=== PATIENT | female | born 1950 | race Caucasian/White ===

== ENCOUNTER 2023-03-28 17:01 | Emergency (ER) | payer MEDICARE, OTHER, SELFPAY ==
[2023-03-28 17:12] VITALS: BP 165/70; PULSE 82; RESP 12; TEMP 36.8; O2SAT 95; BMI 29.2
--- NOTE | 2023-03-28 17:27 | ED.HEATRA1 ---
Documented by User: LAUREANO Caban 03/28/23 18:21 HPI - Head Injury General Chief complaint: Head Injury Stated complaint: HEAD INJURY Time Seen by Provider: 03/28/23 17:21 Source: patient Mode of arrival: walk-in Limitations: no limitations History of Present Illness HPI Narrative: patient is a 73-year-old female who presents to the emergency department because she fell and hit her head. Patient states she was gardening with her and she stepped back and tripped on a stone that was sitting in the grass and she fell, hitting her head on the sidewalk. She sustained a hematoma to the back of the skull. She denies any loss of consciousness, neck or back pain. She is on a baby aspirin daily. She has not had any vomiting. She is able to ambulate. She denies any extremity injuries. No visual changes. Related Data Home Medications Medication Instructions Recorded Confirmed aspirin 81 mg tablet,delayed 81 mg PO .every other day 03/28/23 03/28/23 release (Adult Aspirin Regimen) fluticasone propionate 50 2 spray intranasal DAILY 03/28/23 03/28/23 mcg/actuation nasal spray,suspension hydrochlorothiazide 25 mg tablet 25 mg PO DAILY 03/28/23 03/28/23 irbesartan 150 mg tablet 150 mg PO DAILY 03/28/23 03/28/23 rosuvastatin 10 mg tablet 10 mg PO QDAY 03/28/23 03/28/23 sertraline 100 mg tablet 100 mg PO QDAY 03/28/23 03/28/23 Allergies Allergy/AdvReac Type Severity Reaction Status Date / Time No Known Drug Allergies Allergy Verified 03/28/23 17:08 Review of Systems ROS Constitutional Denies: fever or chills Eyes Denies: change in vision Cardiovascular Denies: chest pain Respiratory Denies: shortness of breath or cough Gastrointestinal Denies: nausea or vomiting Musculoskeletal Denies: back pain or neck pain Integumentary/Breast Denies: rash Neurological Reports: headache PFSH PFSH Social History Smoking status: Never smoker Exam Narrative Exam Narrative: Gen.: Awake, alert, in no distress Head: Normocephalic, large occipital hematoma with abrasion to the left posterior skull. No Salgado sign or raccoon eyes ENT: Moist mucous membranes, no dental injury or epistaxis Respiratory: No respiratory distress Back: No bony tenderness of the C-spine, T-spine or L-spine Extremities: Moves extremities equally, no injuries noted Psych: Normal mood and affect Neuro: No focal neuro deficit Skin: Warm, dry, intact Constitutional Vital Signs, click to edit/add: Last Vital Signs Temp 98.2 F 03/28/23 17:12 Pulse 74 03/28/23 18:27 Resp 18 03/28/23 18:27 BP 148/62 H 03/28/23 18:27 Pulse Ox 98 03/28/23 18:27 O2 Del Method Room Air 03/28/23 18:27 Course Vital Signs Vital signs: Vital Signs Temperature 98.2 F 03/28/23 17:12 Pulse Rate 82 03/28/23 17:12 Respiratory Rate 12 03/28/23 17:12 Blood Pressure 165/70 H 03/28/23 17:12 Pulse Oximetry 95 03/28/23 17:12 Oxygen Delivery Method Room Air 03/28/23 17:12 Temperature 98.2 F 03/28/23 17:12 Pulse Rate 74 03/28/23 18:27 Respiratory Rate 18 03/28/23 18:27 Blood Pressure 148/62 H 03/28/23 18:27 Pulse Oximetry 98 03/28/23 18:27 Oxygen Delivery Method Room Air 03/28/23 18:27 MDM - Head Injury MDM Narrative Medical decision making narrative: CT of the brain with no evidence of acute process. Patient given closed head injury instructions in the emergency department. She is resting comfortably in no distress, she is grateful for care. Tylenol and Motrin for home. Return to the Emergency Room if symptoms change or worsen. Imaging Data CT scan - head: Attestation: I have reviewed the pertinent imaging results. Radiologist's impression: Procedure: CT head/brain wo con EXAMINATION: CT head/brain wo con, 03/28/2023 5:50 PM EDT HISTORY: Fall COMPARISON: None. TECHNIQUE: CT scan of the head was performed without IV contrast. CT dose reduction technique was used, including Automated Exposure Control. FINDINGS: BRAIN PARENCHYMA/CSF SPACES: Ventricles are normal in size for age. There is no hemorrhage, mass effect or midline shift. There are no other significant findings. PARANASAL SINUSES: Clear. SKULL BASE AND CALVARIUM: Normal. EXTRACRANIAL SOFT TISSUES: Small left parietal scalp hematoma. IMPRESSION: 1. No acute intracranial abnormality. 2. Left parietal scalp soft tissue swelling. Electronically authenticated by: KENY MANRIQUE Date: 03/28/2023 18:10 Discharge Plan Discharge Chief Complaint: Head Injury Clinical Impression: Closed head injury Patient Disposition: Home, Self-Care Time of Disposition Decision: 18:20 Condition: Good Prescriptions / Home Meds: No Action aspirin [Adult Aspirin Regimen] 81 mg tablet,delayed release (DR/EC) 81 mg PO .every other day hydrochlorothiazide 25 mg tablet 25 mg PO DAILY irbesartan 150 mg tablet 150 mg PO DAILY rosuvastatin 10 mg tablet 10 mg PO QDAY sertraline 100 mg tablet 100 mg PO QDAY fluticasone propionate 50 mcg/actuation spray,suspension 2 spray INTRANASAL DAILY Instructions: Head Injury (ED) Stand Alone Forms: Portal Instructions Referrals: ANU OLIVIER [Primary Care Provider] - 1 week Discharge Date/Time: 03/28/23 18:29 Documented by User: Anu Fernández MD 03/28/23 20:19 HPI - Head Injury General Chief complaint: Head Injury Stated complaint: HEAD INJURY Time Seen by Provider: 03/28/23 17:21 Related Data Home Medications Medication Instructions Recorded Confirmed aspirin 81 mg tablet,delayed 81 mg PO .every other day 03/28/23 03/28/23 release (Adult Aspirin Regimen) fluticasone propionate 50 2 spray intranasal DAILY 03/28/23 03/28/23 mcg/actuation nasal spray,suspension hydrochlorothiazide 25 mg tablet 25 mg PO DAILY 03/28/23 03/28/23 irbesartan 150 mg tablet 150 mg PO DAILY 03/28/23 03/28/23 rosuvastatin 10 mg tablet 10 mg PO QDAY 03/28/23 03/28/23 sertraline 100 mg tablet 100 mg PO QDAY 03/28/23 03/28/23 Allergies Allergy/AdvReac Type Severity Reaction Status Date / Time No Known Drug Allergies Allergy Verified 03/28/23 17:08 PFSH PFS Social History Smoking status: Never smoker Exam Constitutional Vital Signs, click to edit/add: Last Vital Signs Temp 98.2 F 03/28/23 17:12 Pulse 74 03/28/23 18:27 Resp 18 03/28/23 18:27 BP 148/62 H 03/28/23 18:27 Pulse Ox 98 03/28/23 18:27 O2 Del Method Room Air 03/28/23 18:27 Course Vital Signs Vital signs: Vital Signs Temperature 98.2 F 03/28/23 17:12 Pulse Rate 82 03/28/23 17:12 Respiratory Rate 12 03/28/23 17:12 Blood Pressure 165/70 H 03/28/23 17:12 Pulse Oximetry 95 03/28/23 17:12 Oxygen Delivery Method Room Air 03/28/23 17:12 Temperature 98.2 F 03/28/23 17:12 Pulse Rate 74 03/28/23 18:27 Respiratory Rate 18 03/28/23 18:27 Blood Pressure 148/62 H 03/28/23 18:27 Pulse Oximetry 98 03/28/23 18:27 Oxygen Delivery Method Room Air 03/28/23 18:27 MDM - Head Injury MDM Narrative Medical decision making narrative: CT of the brain with no evidence of acute process. Patient given closed head injury instructions in the emergency department. She is resting comfortably in no distress, she is grateful for care. Tylenol and Motrin for home. Return to the Emergency Room if symptoms change or worsen. I, Dr Fernández, have reviewed the above progress note and course of action in the ER; agree with the above. I have personally seen and evaluated this patient, gone over history and physical, and discussed disposition and treatment plan with the patient. Discharge Plan Discharge Chief Complaint: Head Injury Clinical Impression: Closed head injury Patient Disposition: Home, Self-Care Time of Disposition Decision: 18:20 Condition: Good Prescriptions / Home Meds: No Action aspirin [Adult Aspirin Regimen] 81 mg tablet,delayed release (DR/EC) 81 mg PO .every other day hydrochlorothiazide 25 mg tablet 25 mg PO DAILY irbesartan 150 mg tablet 150 mg PO DAILY rosuvastatin 10 mg tablet 10 mg PO QDAY sertraline 100 mg tablet 100 mg PO QDAY fluticasone propionate 50 mcg/actuation spray,suspension 2 spray INTRANASAL DAILY Instructions: Head Injury (ED) Stand Alone Forms: Portal Instructions Referrals: ANU OLIVIER [Primary Care Provider] - 1 week Discharge Date/Time: 03/28/23 18:29
[2023-03-28] MEDS: ACETAMINOPHEN 325 MG TABLET 650 MG PO (17:35)
--- NOTE | 2023-03-28 17:55 | CT_ITS ---
[address] [address] Patient Name: YOANNA GRIFFIN MRN: [id number] date: 1950 Sex: F Assigned Patient Location: MAIN Current Patient Location: Accession/Order Number: [id number] Exam Date: 03/28/2023 17:50 Report Date: 03/28/2023 18:10 At the request of: MELIDA AQUINO Procedure: CT head/brain wo con EXAMINATION: CT head/brain wo con, 03/28/2023 5:50 PM EDT HISTORY: Fall COMPARISON: None. TECHNIQUE: CT scan of the head was performed without IV contrast. CT dose reduction technique was used, including Automated Exposure Control. FINDINGS: BRAIN PARENCHYMA/CSF SPACES: Ventricles are normal in size for age. There is no hemorrhage, mass effect or midline shift. There are no other significant findings. PARANASAL SINUSES: Clear. SKULL BASE AND CALVARIUM: Normal. EXTRACRANIAL SOFT TISSUES: Small left parietal scalp hematoma. CT/CT head/brain wo con IMPRESSION: 1. No acute intracranial abnormality. 2. Left parietal scalp soft tissue swelling. Electronically authenticated by: KENY MANRIQUE Date: 03/28/2023 18:10
[2023-03-28 18:27] VITALS: BP 148/62; PULSE 74; RESP 18; O2SAT 98
== END 2023-03-28 18:29 | disposition home or self-care (01) ==
PROVIDERS: Emergency Provider Emergency Medicine; PCP Internal Medicine
DX: S09.8XXA Other specified injuries of head, initial encounter (principal); W01.10XA Fall on same level from slipping, tripping and stumbling with subsequent striking against unspecified object, initial encounter; Y93.H2 Activity, gardening and landscaping; Z79.82 Long term (current) use of aspirin; Z79.899 Other long term (current) drug therapy
CPT/HCPCS: 70450; 99284

== ENCOUNTER 2023-07-31 08:24 | Outpatient (OUT) | payer MEDICARE, OTHER, SELFPAY ==
[2023-07-31 08:43] LABS: Basophils Percent Auto 0.4 % (0.2-2.0); Eosinophils Absolute Auto 0.2 10^3/uL (0.0-0.7); Eosinophils Percent Auto 4.1 % (0.9-7.0); Hematocrit 39.1 % (36.0-48.0); Hemoglobin 12.9 g/dL (12.0-16.0); Immature Granulocytes Abs Auto 0.02 10^3/uL (0.00-0.03); Immature Granulocytes Pct Auto 0.4 % (0.0-0.5); Lymphocytes Absolute Auto 1.6 10^3/uL (1.2-3.8); Lymphocytes Percent Auto 33.4 % (20.5-60.0); Mean Corpuscular Hemoglobin 31.3 pg (26.7-34.0); Mean Corpuscular Volume 94.9 fL (81.0-99.0); Mean Platelet Volume 9.6 fL (9.5-13.5); Monocytes Absolute Auto 0.3 10^3/uL (0.3-0.8); Monocytes Percent Auto 7.3 % (1.7-12.0); Neutrophils Absolute Auto 2.5 10^3/uL (1.4-6.5); Neutrophils Percent Auto 54.4 % (43.0-75.0); Platelet Count 210 10^3/uL (150-450); Red Blood Count 4.12 10^6/uL (4.20-5.40); White Blood Count 4.7 10^3/uL (4.0-11.0)
[2023-07-31 09:18] LABS: Alanine Aminotransferase 24 U/L (14-59); Albumin Globulin Ratio 1.1; Albumin Level 3.8 g/dL (3.4-5.0); Alkaline Phosphatase 80 U/L (46-116); Anion Gap 11.4; Aspartate Amino Transferase 28 U/L (15-37); Bilirubin Total 0.7 mg/dL (0.2-1.0); Calcium 8.9 mg/dL (8.5-10.1); Carbon Dioxide 29.3 mmol/L (21.0-32.0); Chloride 105 mmol/L (98-107); Chol HDL Ratio 2.5; Cholesterol 189 mg/dL (<=200); Estimated GFR (African America >60 (>=60); Estimated GFR (Non-African Ame >60 (>=60); Globulin 3.6 g/dL; Glucose 103 mg/dL (74-106); HDL Cholesterol 76 mg/dL (40-60); Potassium 3.7 mmol/L (3.5-5.1); Sodium 142 mmol/L (136-145); Total Protein 7.4 g/dL (6.4-8.2); Triglycerides 96 mg/dL (<=150); VLDL CHOLESTEROL 19.2 mg/dL
== END 2023-07-31 08:25 | disposition home or self-care (01) ==
LOC: LAB 08:24
PROVIDERS: PCP Internal Medicine; Visit Provider Internal Medicine
DX: E78.2 Mixed hyperlipidemia (principal)
CPT/HCPCS: 36415; 80053; 80061; 85025

== ENCOUNTER 2024-02-06 07:03 | Outpatient (OUT) | payer MEDICARE, OTHER, SELFPAY ==
--- OUTSIDE RECORDS SUMMARY | 2024-02-06 07:05 | XMS_ITS | CCD ---
Author Organization [facility] Care Team Providers Care Test Desk Trouble Locator Name Role Phone ANU OLIVIER Primary Care Physician Unavail able Tacho Pickens Unavailable DO Anu Olivier Primary Care Provider [phone] MD Tacho Pickens Attending Provider Danis Sneed Unavailable DO Anu Olivier Primary Care Provider [phone] DO Gala Mccann Attending Provider [phone] Guerline Buitrago Attending Unavailable Guerline Buitrago Admitting Unavailable Ellie Lopes Attending Unavailable Guerline Buitrago Attending Unavailable DR ANU OLIVIER Primary Care Unavailable DR ANU OLIVIER Admitting Unavailable CHARLINE, DR BRNENAN Attending Unavailable DR ANU OLIVIER Consulting Unavailable DR ANU OLIVIER Primary Care Unavailable DR ANU OLIVIER Admitting Unavailable DR ANU OLIVIER Attending Unavailable DR ANU OLIVIER Consulting Unavailable MD Danis Sneed Attending Provider Gala Mccann Admitting Unavailable Gala Mccann Attending Unavailable Anu Olivier Primary Care Unavailable Gala Mccann Admitting Unavailable Gala Mccann Attending Unavailable Anu Olivier Primary Care Unavailable Gala Mccann Admitting Unavailable Gala Mccann Attending Unavailable Anu Olivier Primary Care Unavailable Anu Olivier Primary Care Unavailable Danis Sneed Admitting UnavailDanis Jiang Attending UnavailMALIK Mehta Attending Unavailable KENNY ELY Attending Unavailable ISABELLA GASTELUM Referring Unavailable MALIK ELISE Attending Unavailable GALA MCCANN Attending Unavailable MALIK ELISE Attending Unavailable ANU OLIVIER Attending Unavailable ANU OLIVIER Referring Unavailable Allergies Allergy Classification Reported Allergen(s) Allergy Type Date of Onset Reaction(s) Facility (5 sources) Codeine; Translations: [codeine] Drug Allergy Unknown (qualifier value) [facility] Medications Current Medications Medication Drug Class(es) Dates Sig (Normalized) Sig (Original) [id number] 200 actuat albuterol 0.09 mg/actuat metered dose inhaler (1 source) beta2-Adrenergic Agonist Start: 07-18-2018 take 2 puff(s) by inhalation every six hours as needed ProAir HFA 108 (90 Base) MCG/ACT 2 puffs as needed Inhalation every 6 hrs as needed for 30 days Jun, Active Aspirin (10 sources) Platelet Aggregation Inhibitor, Nonsteroidal Anti-inflammatory Drug Start: 08-01-2019 aspirin Refills(s) 0 Start Date: 08/01/19 Status: Ordered Start: 08-08-2017 take 81 mg by mouth once daily Aspirin Active 81 MG PO Daily August 08, 2017 1:00am take 1 tablet by will th every twenty-four hours Aspirin 81 MG 1 tablet Orally Once a day Active Calcium Citrate (2 sources) take 1 tablet by mouth once daily Citracal + D 1 tablet Orally Daily Active FiberCon (4 sources) Start: 9 FiberCon Refills(s) 0 Start Date: 08/01/19 Status: Ordered cephalexin 500 mg oral capsule (4 sources) Cephalosporin Antibacterial Start: 3 End: 3 take 1 capsule by mouth every six hours cephalexin 500 mg Cap 500 mg = 1 cap(s), Oral, q6hr, X 7 day(s), # 28 cap(s), Refills(s) 0, Pharmacy: [facility]/pharmacy #[id number], 166, cm, 11/18/22 17:17:00 EDT, Height/Length Dosing, 82.1, kg, 11/18/22 17:17:00 EDT, Weight Dosing Start Date: 11/18/22 Stop Date: 11/25/22 Status: Ordered Start: 09-28-2018 take 1 capsule by mo uth every twelve hours Cephalexin 500 MG 1 capsule Orally every 12 hrs for 7 days Sep, Not-Taking cholecalciferol 0.025 mg oral capsule (8 sources) Vitamin D Start: 08-08-2017 take 2000 [IU] by mouth once daily Cholecalciferol (Vitamin D3) Active 2000 UNIT PO Daily 0 August 08, 2017 10:16am Start: 08-07-2017 End: 08-08-2017 take 2 capsules by mouth once daily Cholecalciferol (Vitamin D3) (Vitamin D3) 1,000 unit capsule Discontinued 2000 UNITS PO Daily August 07, 2017 1:00am August 08, 2017 10:16am CPAP Mask and supplies (2 sources) Start: 04-08-2015 CPAP Mask and supplies as directed Mar, Active Flovent Diskus 100 MCG/BLIST (1 source) take 1 puff(s) by inhalation once daily Flovent Diskus 100 MCG/BLIST 1 puff Inhalation Daily for 90 days Active fluticasone (11 sources) Corticosteroid Start: 08-01-2019 Flovent HFA Inhalation, BID, Refills(s) 0 Start Date: 08/01/19 Status: Ordered Start: 08-07-2017 Fluticasone Pr opionate Active 2 SPRAY INTRANASAL Daily August 07, 2017 1:00am Start: 09-21-2016 take 2 spray(s) nasa l route once daily Flonase 50 MCG/ACT 2 spray in each nostril Nasally Once a day for 90 days Aug, Active take 1 puff(s) by in halation once daily Flovent Diskus 100 MCG/BLIST 1 puff Inhalation Daily for 90 days Active fluticasone 0.05 mg/inh Nasal [place] (4 sources) Start: 08-01-2019 fluticasone 0. 05 mg/inh Nasal [place] Nasal, Daily, Refill(s) 0 Start Date: 08/01/19 Status: Ordered hydroCHLOROthiazide (6 sources) Thiazide Diuretic Start: 08-01-2019 hydrochlorothiazide Oral, Daily, Refills(s) 0 Start Date: 08/01/19 Status: Ordered take 1 tablet by will th every twenty-four hours hydroCHLOROthiazide 25 MG 1 tablet in th e morning Orally Once a day for 90 Active ibuprofen 800 mg oral tablet (4 sources) Nonsteroidal Anti-inflammatory Drug Start: 02-24-2019 take 800 mg by mouth three times daily Ibuprofen Active 800 MG PO Three times daily February 24, 2019 12:00am irbesartan 150 mg oral tablet (14 sources) Angiotensin 2 Receptor Angélica Start: 09-22-2020 irbesartan 150 mg Tab Refills(s) 0 Start Date: 09/22/20 Status: Ordered Start: 08-07-2017 End: 08-08-2017 take 1 tablet by mouth once daily Irbesartan (Avapro) 300 mg Tablet Active 300 MG PO Daily August 08, 2017 1:00am Lactobacillus Combination No.4 (Probiotic) 3 billion cell Capsule (4 sources) Start: 08-08-2017 Lactobacillus Combination No.4 (Probiotic) 3 billion cell Capsule Active 1 TAB PO Daily August 08, 2017 1:00am Multi For Her (2 sources) take 1 tablet by mouth once daily Multi For Her 1 Tablet By Mouth Daily Active Multi Vitamin+ (4 sources) Start: 08-01-2019 Multi Vitamin+ Refill(s) 0 Start Date: 08/01/19 Status: Ordered Multivitamin preparation (4 sources) Start: 08-08-2017 take 1 tablet by mouth once daily Multivitamin Active 1 TAB PO Daily August 08, 2017 1:00am Name EYE PROMISE (2 sources) take 1 tablet by mouth twice daily Name EYE PROMISE 1 Tablet By Mouth bid Active ProAir HFA 108 (90 Base) MCG/ACT (1 source) Start: 07-18-2018 take 2 puff(s) by inhalation every six hours as needed ProAir HFA 108 (90 Base) MCG/ACT 2 puffs as needed Inhalation every 6 hrs as needed for 30 days Jun, Active Probiotic (2 sources) take 1 tablet by mouth once daily Probiotic 1 Tablet orally Daily Active rosuvastatin calcium 10 mg oral tablet (7 sources) HMG-CoA Reductase Inhibitor Start: 01-31-2023 take 10 mg by mouth once daily Rosuvastatin Active 10 MG PO Daily January 31, 2023 12:00am Start: 08-01-2019 Crestor Oral, Daily, Refills(s) 0 Start Date: 08/01/19 Status: Ordered take 1 tablet by will th every twenty-four hours Crestor 10 MG 1 tablet Orally Once a day for 90 Active Sertraline (10 sources) Serotonin Reuptake Inhibitor Start: 08-01-2019 sertraline Oral, Jina ly, Refills(s) 0 Start Date: 08/01/19 Status: Ordered Start: 08-07-2017 take 75 mg by mouth once daily Sertraline Active 75 MG PO Daily August 07, 2017 1:00am Zoloft 50 MG CARMELITA E 1 AND 1/2 TABLETS BY MOUTH EVERYDAY Orally Once a day for 90 days Active Vitamin D 2000 UNIT (2 sources) take 1 tablet by will th once daily Vitamin D 2000 UNIT 1 Tablet Orally Daily Active Completed/Discontinued Medications Medication Drug Class(es) Dates Sig (Normalized) Sig (Original) ciprofloxacin 500 mg oral tablet (4 sources) Quinolone Antimicrobial Start: 12-23-2021 take 1 tablet by mouth every twenty-four hours Cipro 500 mg Tab 500 mg = 1 tab(s), Oral, q24hr, Take 1 pill the day before the procedure and 1 pill after the procedure, # 2 tab(s), Refills(s) 0, Pharmacy: [facility]/pharmacy #[id number] Start Date: 12/23/21 Status: Ordered doxycycline hyclate 100 mg oral capsule (2 sources) Tetracycline-class Drug Start: 12-07-2018 take 2 capsules by mouth once Doxycycline Hyclate 100 MG 2 capsules today at once Orally once for 1 days Nov, Not-Taking ergocalciferol 1.25 mg oral capsule (4 sources) Provitamin D2 Compound Start: 08-08-2017 End: 08-08-2017 take 44754 [IU] by mouth every week Ergocalciferol (Vitamin D2) Discontinued 82954 UNIT PO every week August 08, 2017 1:00am August 08, 2017 8:32am mupirocin 0.02 mg/mg topical ointment (2 sources) RNA Synthetase Inhibitor Antibacterial Start: 12-07-2018 Mupirocin 2 % 1 application to affected area Externally Three times a day for 10 days Nov, Not-Taking pravastatin sodium 40 mg oral tablet (4 sources) HMG-CoA Reductase Inhibitor Start: 08-07-2017 End: 01-31-2023 take 1 tablet by mouth once daily Pravastatin Discontinued 1 TAB PO Daily August 07, 2017 1:00am January 31, 2023 7:23am TB Test (2 sources) Start: 03-27-2013 TB Test Feb, 0.1 mL Tylenol Extra Strength 500 mg (2 sources) take 2 tablets by mouth every six hours as needed Tylenol Extra Strength 500 mg 2 tablet as needed Orally every 6 hrs Not-Taking Problems Active Problems Problem Classification Problem Date Documented Da te Episodic/Chronic Anxiety disorders (6 sources) Anxiety disorder; Translations: [Generalized anxiety disorder] 08-01-2019 Chronic Asthma (2 sources) Asthma; Translations: [Unspecified asthma, uncomplicated] Chronic Disorders of lipid metabolism (8 sources) Hyperlipidemia; Translations: [Hypercholesterolemi a] Onset: 07-30-2022 08-01-2019 Chronic Essential hypertension (10 sources) Hypertensive disorder; Translations: [Essential hypertension] Onset: 01-24-2023 08-01-2019 Chronic Genitourinary symptoms and ill-defined conditions (20 sources) Blood in urine; Translations: [Gross hematuria] Onset: 01-03-2022 Episodic Menopausal disorders (1 source) Postmenopausal bleeding; Translations: [Postmenopausal bleeding] Onset: 12-30-2022 Chronic Miscellaneous mental health disorders (3 sources) Not getting enough sleep; Translations: [Insufficient sleep syndrome] Chronic Nutritional deficiencies (2 sources) Vitamin D deficiency; Translations: [Vitamin D deficiency, unspecified] Chronic Other aftercare (1 source) Other intermediate (current) drug therapy; Translations: [OTH RETIREMENT CURRENT DRUG THERAPY] Onset: 01-25-2023 Episodic Other and unspecified benign neoplasm (1 source) Benign neoplasm of adrenal gland; Translations: [Benign neoplasm of left adrenal gland] Onset: 01-03-2022 Episodic Other and unspecified benign neoplasm (4 sources) Adrenal adenoma 09-22-2020 Episodic Other and unspecified benign neoplasm (2 sources) History of polyp of colon; Translations: [Personal history of colonic polyps] Episodic Other diseases of bladder and urethra (5 sources) Urethral stricture; Translations: [Unspecified urethral stricture, female] Onset: 01-03-2022 Episodic Other gastrointestinal disorders (4 sources) Adrenal mass 08-01-2019 Episodic Comment on above: right Other injuries and conditions due to external causes (4 sources) Contusion; Translations: [Other injury of unspecified body region, initial encounter] 02-24-2019 Episodic Other nutritional; endocrine; and metabolic disorders (2 sources) Body mass index 30+ - obesity; Translations: [Body mass index (BMI) 33.0-33.9, adult] Chronic Other nutritional; endocrine; and metabolic disorders (1 source) Morbid (severe) obesity with alveolar hypoventilation; Translations: [MORBID SEV OBESITY ALVEOLR HYPOVENT] Onset: 01-25-2023 Chronic Other nutritional; endocrine; and metabolic disorders (1 source) Body mass index (BMI) 29.0-29.9, adult Episodic Other nutritional; endocrine; and metabolic disorders (1 source) Overweight in adulthood with body mass index of 25 or more but less than 30; Translations: [Body mass index (BMI) 29.0-29.9, adult] Onset: 11-18-2022 Episodic Other upper respiratory disease (2 sources) Allergic rhinitis; Translations: [Allergic rhinitis, unspecified] Chronic Residual codes; unclassified (4 sources) Obstructive sleep apnea syndrome; Translations: [Obstructive sleep apnea (adult) (pediatric)] Chronic Residual codes; unclassified (2 sources) Obstructive sleep apnea (adult) (pediatric); Translations: [OBSTRUCTIVE SLEEP APNEA] Onset: 01-25-2023 Chronic Residual codes; unclassified (1 source) Family history of cancer of colon; Translations: [Family history of malignant neoplasm of digestive organs] 01-31-2023 Episodic Skin and subcutaneous tissue infections (1 source) Cellulitis of finger of right hand; Translations: [Cellulitis of right finger] Onset: 11-18-2022 Episodic Skull and face fractures (1 source) Closed fracture of nasal bones; Translations: [Fracture of nasal bones, initial encounter for closed fracture] Onset: 12-07-2022 Episodic Spondylosis; intervertebral disc disorders; other back problems (2 sources) Intervertebral disc disorder; 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, thoracolumbar and lumbosacral intervertebral disc disorder] Chronic Superficial injury; contusion (1 source) Abrasion of head; Translations: [Abrasion of other part of head, initial encounter] Onset: 12-07-2022 Episodic Unclassified (1 source) Encounter for screening mammogram for malignant neoplasm of breast; Translations: [Encounter for screening mammogram for malignant neoplasm of breast] Onset: 09-26-2023 Unclassified (1 source) Encounter for screening for malignant neoplasm of colon; Translations: [Encounter for screening for malignant neoplasm of colon] Onset: 01-31-2023 Unclassified (1 source) Encounter for other preprocedural examination; Translations: [Encounter for other preprocedural examination] Onset: 12-20-2022 Past or Other Problems Problem Classification Problem Date Documented Date Episodic/Chronic Residual codes; unclassified (2 sources) Family history of malignant neoplasm of digestive organs; Translations: [Family history of malignant neoplasm of gastrointestinal tract] Onset: 01-31-2023 01-31-2023 Episodic Results Test Name Value Interpretation Reference Range Facility MM screening mammo BI w/CADo n 09-26-2023 MM screening mammo BI w/CAD [facility] [place] [address] [place] [address] Mammography Report Signed Patient: Nataliya Griffin MR#: [id number] [birth year] : 1950 Acct:[id number] Age/Sex: 73 / F ADM Date: 09/26/23 Loc: [place] Room: Type: [facility] Attending Dr: Gala Mccann DO Copies to: DO Gala Bolden DO Ordering Provider: Gala Mccann DO Date of Service: 09/26/23 MM/MM screening mammo BI w/CAD: screening;Screening for breast cancer CLINICAL DATA: Screening for malignancy. BILATERAL SCREENING MAMMOGRAMS - FULL FIELD DIGITAL WITH TOMOSYNTHESIS AND CAD Tomosynthesis craniocaudal and mediolateral oblique views of both breasts were obtained using low- dose digital technique. Comparison is made to prior studies from August 20, 2020 through September 21, 2022. This examination was reviewed with the aid of CAD. There are scattered fibroglandular densities. There is postoperative scarring at the superior lateral left breast. Benign and vascular calcifications are seen. One of the nodular asymmetries seen previously on the left has resolved. There are no developing masses, typically malignant calcifications or architectural distortion. There has been no significant interval change. MM/MM screening mammo BI w/CAD IMPRESSION: NO MAMMOGRAPHIC EVIDENCE OF MALIGNANCY. ROUTINE FOLLOW-UP IS RECOMMENDED IN ONE YEAR. RESULT CODE: 2 Benign Findings(s) DENSITY CODE: 2 (approximately 25-50% glandular) FOLLOW UP: 1YR The false-negative rate of mammography is approximately 10-percent. Management of a palpable abnormality must be based on clinical grounds. Patient was entered into a reminder system with a target due date for the next mammogram. Impression dictated by: Italia Rendon M.D.09/26/2023 2:24 PM Dictation Location: [facility] Transcribed By: [facility] 09/26/231423 Dictated By: Italia Rendon MD 09/26/231419 Signed By: 09/26/23 142 [facility] CBC AUTO DIFFon 01-24-2023 BASO # 0.0 103/ul Normal 0.0-0.1 [facility] Comment on above: Performed By: #### C BC #### [facility] [address] [place] [address] Dr. Roxanna Hurtado Basophils/100 WBC (Bld) 0.2 % Normal 0.2-2.0 [facility] Comment on above: Performed By: #### C BC #### [facility] [address] [place] [address] Dr. Roxanna Hurtado EO # 0.2 103/ul Normal 0.0-0.7 [facility] Comment on above: Performed By: #### C BC #### [facility] [address] [place] [address] Dr. Roxanna Hurtado Eosinophils/100 WBC (Bld) 4.7 % Normal 0.9-7.0 [facility] Comment on above: Performed By: #### C BC #### [facility] [address] [place] [address] Dr. Roxanna Hurtado Erythrocyte distribution width (RBC) [Ratio] 12.8 % Normal 11.0-15.0 [facility] Comment on above: Performed By: #### C BC #### [facility] [address] [place] [address] Dr. Roxanna Hurtado Hematocrit (Bld) [Volume fraction] 37.9 % Normal 36.0-48.0 [facility] Comment on above: Performed By: #### C BC #### [facility] [address] [place] [address] Dr. Roxanna Hurtado Hemoglobin (Bld) [Mass/Vol] 12.7 g/dL Normal 12.0-16.0 [facility] Comment on above: Performed By: #### C BC #### [facility] [address] [place] [address] Dr. Roxanna Hurtado IG # 0.01 10e3/ul Normal 0.00-0.03 [facility] Comment on above: Performed By: #### C BC #### [facility] [address] [place] [address] Dr. Roxanna Hurtado IG % 0.2 % Normal 0.0-0.5 [facility] Comment on above: Performed By: #### C BC #### [facility] [address] [place] [address] Dr. Roxanna Hurtado LYMPH # 1.7 103/ul Normal 1.2-3.8 [facility] Comment on above: Performed By: #### C BC #### [facility] [address] [place] [address] Dr. Roxanna Hurtado Lymphocytes/100 WBC (Bld) 41.4 % Normal 20.5-60.0 [facility] Comment on above: Performed By: #### C BC #### [facility] [address] [place] [address] Dr. Roxanna Hurtado MANUAL DIFF REQ NO Normal [facility] Comment on above: Performed By: #### C BC #### [facility] [address] [place] [address] Dr. Roxanna Hurtado MCH (RBC) [Entitic mass] 30.9 pg Normal 26.7-34.0 [facility] Comment on above: Performed By: #### C BC #### [facility] [address] [place] [address] Dr. Roxanna Hurtado MCHC (RBC) [Mass/Vol] 33.5 g/dL Normal 29.9-35.2 [facility] Comment on above: Performed By: #### C BC #### [facility] [address] [place] [address] Dr. Roxanna Hurtado MCV (RBC) [Entitic vol] 92.2 fL Normal 81.0-99.0 [facility] Comment on above: Performed By: #### C BC #### [facility] [address] [address] [address] Roxanna Hurtado MONO # 0.4 103/ul Normal 0.3-0.8 [facility] Comment on above: Performed By: #### C BC #### [facility] [address] [place] [address] Dr. Roxanna Hurtado Monocytes/100 WBC (Bld) 8.9 % Normal 1.7-12.0 [facility] Comment on above: Performed By: #### C BC #### [facility] [address] [place] [address] Dr. Roxanna Hurtado NEUT # 1.8 103/ul Normal 1.4-6.5 [facility] Comment on above: Performed By: #### C BC #### [facility] [address] [place] [address] Dr. Roxanna Hurtado Neutrophils/100 WBC (Bld) 44.6 % Normal 43.0-75.0 [facility] Comment on above: Performed By: #### C BC #### [facility] [address] [place] [address] Dr. Roxanna Hurtado Platelet mean volume (Bld) [Entitic vol] 9.6 fL Normal 9.5-13.5 [facility] Comment on above: Performed By: #### C BC #### [facility] [address] [place] [address] Dr. Roxanna Hurtado PLT 189 103/ul Normal 150-450 [facility] Comment on above: Performed By: #### C BC #### [facility] [address] [place] [address] Dr. Roxanna Hurtado RBC 4.11 106/ul Critically low 4.20-5.40 [facility] Comment on above: Performed By: #### C BC #### [facility] [address] [place] [address] Dr. Roxanna Hurtado WBC 4.1 103/ul Normal 4.0-11.0 [facility] Comment on above: Performed By: #### C BC #### [facility] [address] [place] [address] Dr. Roxanna Hurtado LIPID PROFILEon 01-24-2023 CHOL-HDL RATIO NORM SEE BELOW Normal [facility] Comment on above: Result Comment: 3.3 - 4.4 LOW RISK 4.4 - 7.1 AVERAGE RISK 7.1 - 11.0 MODERATE RISK >11.0 HIGH RISK Performed By: #### T SH, CMP, LIPID #### [facility] [address] [address] [address] Roxanna Hurtado Cholesterol [Mass/Vol] 162 mg/dL Normal <=200 [facility] Comment on above: Performed By: #### T SH, CMP, LIPID #### [facility] [address] [address] [address] Roxanna Hurtado Cholesterol in HDL [Mass/Vol] 66 mg/dL Critically high 40-60 [facility] Comment on above: Performed By: #### T SH, CMP, LIPID #### [facility] [address] [address] [address] Roxanna Hurtado Cholesterol in LDL [Mass/Vol] 78.0 mg/dL Normal [facility] Comment on above: Performed By: #### T SH, CMP, LIPID #### [facility] [address] [address] [address] Roxanna Hurtado Cholesterol.total/Choles terol in HDL [Mass ratio] 2.5 {ratio} Normal [facility] Comment on above: Performed By: #### T SH, CMP, LIPID #### [facility] [address] [address] [address] Roxanna Hurtado HDL NORMAL > or = 60 mg/dl - LO W CARDIOVASCULAR RISK <40 mg/dl - HIGH CARDIOVASCULAR RISK Normal [facility] Comment on above: Performed By: #### T SH, CMP, LIPID #### [facility] [address] [address] [address] Roxanna Hurtado LDL CALC NORMAL SEE BELOW Normal [facility] Comment on above: Result Comment: <100 mg/dl OPTIMAL 100 - 129 mg/dl NEAR OR ABOVE OPTIMAL 130 - 159 mg/dl BORDERLINE HIGH 160 - 189 mg/dl HIGH >190 mg/dl VERY HIGH Performed By: #### T SH, CMP, LIPID #### [facility] [address] [address] [address] Roxanna Hurtado Triglyceride [Mass/Vol] 90 mg/dL Normal <=150 [facility] Comment on above: Performed By: #### T SH, CMP, LIPID #### [facility] [address] [address] [address] Roxanna Hurtado VLDL CALC 18.0 mg/dL Normal [facility] Comment on above: Performed By: #### T SH, CMP, LIPID #### [facility] [address] [address] [address] Roxanna Hurtado PROF 14(COMP METB)on 023 Albumin [Mass/Vol] 3.6 g/dL Normal 3.4-5.0 [facility] Comment on above: Performed By: #### T SH, CMP, LIPID #### [facility] [address] [place] [address] Dr. Roxanna Hurtado Albumin/Globulin [Mass ratio] 1.1 {ratio} Normal [facility] Comment on above: Performed By: #### T SH, CMP, LIPID #### [facility] [address] [address] [address] Roxanna Hurtado ALP [Catalytic activity/Vol] 91 U/L Normal 46-116 [facility] Comment on above: Performed By: #### T SH, CMP, LIPID #### [facility] [address] [address] [address] Roxanna Hurtado ALT [Catalytic activity/Vol] 28 U/L Normal 14-59 [facility] Comment on above: Performed By: #### T SH, CMP, LIPID #### [facility] [address] [address] [address] Roxanna Hurtado Anion gap [Moles/Vol] 12.7 mmol/L Normal [facility] Comment on above: Performed By: #### T SH, CMP, LIPID #### [facility] [address] [address] [address] Roxanna Hurtado AST [Catalytic activity/Vol] 21 U/L Normal 15-37 [facility] Comment on above: Performed By: #### T SH, CMP, LIPID #### [facility] [address] [address] [address] Roxanna Hurtado Bilirubin [Mass/Vol] 0.7 mg/dL Normal 0.2-1.0 [facility] Comment on above: Performed By: #### T SH, CMP, LIPID #### [facility] [address] [place] [address] Dr. Roxanna Hurtado Calcium [Mass/Vol] 8.9 mg/dL Normal 8.5-10.1 [facility] Comment on above: Performed By: #### T SH, CMP, LIPID #### [facility] [address] [address] [address] Roxanna Hurtado Chloride [Moles/Vol] 104 mmol/L Normal 98-107 [facility] Comment on above: Performed By: #### T SH, CMP, LIPID #### [facility] [address] [place] [address] Dr. Roxanna Hurtado CO2 [Moles/Vol] 28.9 mmol/L Normal 21.0-32.0 [facility] Comment on above: Performed By: #### T SH, CMP, LIPID #### [facility] [address] [place] [address] Dr. Roxanna Hurtado Creatinine [Mass/Vol] 0.76 mg/dL Normal 0.55-1.02 [facility] Comment on above: Performed By: #### T SH, CMP, LIPID #### [facility] [address] [place] [address] Dr. Roxanna Hurtado EGFR-AF [facility] >60 Normal >=60 [facility] Comment on above: Performed By: #### T SH, CMP, LIPID #### [facility] [address] [place] [address] Dr. Roxanna Hurtado EGFR-NON AF [facility] >60 Normal >=60 [facility] Comment on above: Performed By: #### T SH, CMP, LIPID #### [facility] [address] [place] [address] Dr. Roxanna Hurtado Globulin (S) [Mass/Vol] 3.4 g/dL Normal [facility] Comment on above: Performed By: #### T SH, CMP, LIPID #### [facility] [address] [address] [address] Roxanna Hurtado Glucose [Mass/Vol] 104 mg/dL Normal 74-106 [facility] Comment on above: Performed By: #### T SH, CMP, LIPID #### [facility] [address] [place] [address] Dr. Roxanna Hurtado Potassium [Moles/Vol] 3.6 mmol/L Normal 3.5-5.1 [facility] Comment on above: Performed By: #### T SH, CMP, LIPID #### [facility] [address] [place] [address] Dr. Roxanna Hurtado Protein [Mass/Vol] 7.0 g/dL Normal 6.4-8.2 [facility] Comment on above: Performed By: #### T SH, CMP, LIPID #### [facility] [address] [place] [address] Dr. Roxanna Hurtado Sodium [Moles/Vol] 142 mmol/L Normal 136-145 [facility] Comment on above: Performed By: #### T SH, CMP, LIPID #### [facility] [address] [place] [address] Dr. Roxanna Hurtado Urea nitrogen [Mass/Vol] 24.0 mg/dL Critically high 7.0-18 .0 [facility] Comment on above: Performed By: #### T SH, CMP, LIPID #### [facility] [address] [place] [address] Dr. Roxanna Hurtado Urea nitrogen/Creatinine [Mass ratio] 31.6 mg/mg Normal [facility] Comment on above: Performed By: #### T SH, CMP, LIPID #### [facility] [address] [place] [address] Dr. Roxanna Hurtado TSHon 01-24-2023 TSH 3.127 uIU/mL Normal 0.358-3.740 [facility] Comment on above: Performed By: #### T SH, CMP, LIPID #### [facility] [address] [place], [place] [id number] Dr. Roxanna Moreno 12-30-2022 L - -------- Specimen: [id number] Received: 12/30/22 Status: ANABEL Castañeda Num: [id number] Spec Type: Surgical Subm Dr: Gala Mccann DO Tissues: A Endometrium - Curettings ([facility] POLYP/CURETTINGS) Procedures: Angelica SUE/Fozia L4 -------- Age/ Patient Sex Location Account Attending Physician -------- Nataliya Griffin/Frankie CHACON [id number] Gala Mccann DO -------- SPEC NUM: [id number] RECD: 12/30/22 STATUS: ANABEL CASTAÑEDA NUM: [id number] SHRUTI: 12/30/22 [facility] DR: Gala Mccann DO ENTERED: 12/30/[address] [facility] DR: Nawaf [facility] SPEC TYPE: Surgical DEPT: S ORDERED: HE/2, Gross/Micro L4 ORDERED: HE/2, Gross/Micro L4 Pathological Diagnosis Uterus, endometrium, polypectomy and curettings: - Changes most consistent with benign endometrial polyp. - Benign rare detached strips of inactive endometrium. - Detached separate minute strips of squamous epithelium with squamous metaplasia. Clinical Information PMB Gross Description Received in formalin labeled with the patient's name, number and endometrial polyp and curettings is a 1.7 x 1.4 x 0.3 cm aggregate of valentin-pink to red-brown tissue. Entirely submitted in one cassette labeled A1. Microscopic Description Two glass slides with H E stained material have been examined. The microscopic findings support the above pathologic diagnosis. -------- Specimen: [id number] Received: 12/30/22 Status: ANABEL Castañeda Num: [id number] Spec Type: Surgical Subm Dr: Gala Mccann DO Tissues: A Endometrium - Curettings ([facility] POLYP/CURETTINGS) Procedures: HE/2, Gross/Micro L4 -------- Patient: Nataliya Griffin [id number] (Continued) -------- Specimen: [id number] Received: 12/30/22 (Continued) Signed (signature on file) Mari Lofton MD 01/02/23 1023 -------- Specimen: [id number] Received: 12/30/22 Status: ANABEL Garry Num: [id number] Spec Type: Surgical Subm Dr: Gala Mccann DO Tissues: A Endometrium - Curettings ([facility] POLYP/CURETTINGS) Procedures: FRANCES/Angelica Alba/Fozia L4 -------- Patient: Nataliya Griffin [id number] (Continued) -------- Specimen: [id number] Received: 12/30/22 (Continued) CPT Codes 31686 -------- -------- Specimen: [id number] Received: 12/30/22 Status: ANABEL Castañeda Num: [id number] Spec Type: Surgical Subm Dr: Gala Mccann DO Tissues: A Endometrium - Curettings ([facility] POLYP/CURETTINGS) Procedures: FRANCES/Angelica Alba/Fozia L4 -------- Patient: Nataliya Griffin [id number] (Continued) -------- Signed (signature on file) Mari Lofton MD 01/02/23 1023 Normal [facility] Basic Metabolic Panelon 11-27 Anion gap [Moles/Vol] 10.4 mmol/L Normal 6.0-15.0 [facility] Comment on above: Order Comment: Reaso n for Exam Preop testing FASTING. JKW Performed By: #### C BC, BMP #### [facility] [address] Calcium [Mass/Vol] 8.8 mg/dL Normal 8.6-10.3 [facility] Comment on above: Order Comment: Reaso n for Exam Preop testing FASTING. JKW Result Comment: PERF ORMED BY: [place] [address] PATHOLOGIST JEWELRY MAKER OSORIO ROJAS M.D. Performed By: #### C BC, BMP #### [facility] [address] [place] [address] [place] Chloride [Moles/Vol] 106 mmol/L Normal 98-107 [facility] Comment on above: Order Comment: Reaso n for Exam Preop testing FASTING. JKW Performed By: #### C BC, BMP #### [facility] [address] [place] [address] [place] CO2 [Moles/Vol] 28.4 mmol/L Normal 21.0-31.0 [facility] Comment on above: Order Comment: Reaso n for Exam Preop testing FASTING. JKW Performed By: #### C BC, BMP #### [facility] [address] [place] [address] [place] Creatinine [Mass/Vol] 0.76 mg/dL Normal 0.60-1.20 [facility] Comment on above: Order Comment: Reaso n for Exam Preop testing FASTING. JKW Performed By: #### C BC, BMP #### [facility] [address] [place] [address] [place] GFR/1.73 sq M.predicted MDRD (S/P/Bld) [Vol rate/Area] mL/min/{1.73_m2} Normal [facility] Comment on above: Order Comment: Reaso n for Exam Preop testing FASTING. JKW Performed By: #### C BC, BMP #### [facility] [address] [id number] [place] Glucose [Mass/Vol] 101 mg/dL High 70-100 [facility] Comment on above: Order Comment: Reaso n for Exam Preop testing FASTING. JKW Result Comment: Formerly named [facility] Glucose Reference Range is dependent on time and content of last meal. Glucose of more than 200 mg/dL in a nonstressed, ambulatory subject supports the diagnosis of Diabetes Mellitus. ADA recommended reference range Performed By: #### C BC, BMP #### [facility] [address] [place] [address] [place] Potassium [Moles/Vol] 3.8 mmol/L Normal 3.5-5.1 [facility] Comment on above: Order Comment: Reaso n for Exam Preop testing FASTING. JKW Performed By: #### C BC, BMP #### [facility] [address] [place] [address] [place] Sodium [Moles/Vol] 141 mmol/L Normal 136-145 [facility] Comment on above: Order Comment: Reaso n for Exam Preop testing FASTING. JKW Performed By: #### C BC, BMP #### [facility] [address] [id number] [place] Urea nitrogen [Mass/Vol] 26 mg/dL High 7-25 [facility] Comment on above: Order Comment: Reaso n for Exam Preop testing FASTING. JKW Performed By: #### C BC, BMP #### [facility] [address] [place] [address] [place] Basophils Auto (Bld) [#/Vol] Ordered By: Gala Mccann on 12-20-2022 Basophils (Bld) [#/Vol] 0.0 10*3/uL 0.0-0.2 [facility] Basophils/100 WBC Auto (Bld) Ordered By: Gala Mccann on 12-20-2022 Basophils/100 WBC (Bld) 0.3 % . F [facility] Calcium [Mass/volume] in Ser um or PlasmaOrdered By: Gala Mccann on 12-20-2022 Calcium [Mass/Vol] 8.8 mg/dL 8.6-10.3 [facility] Carbon dioxide, total [Moles /volume] in Serum or PlasmaOrdered By: Gala Mccann on 12-20-2022 CO2 [Moles/Vol] 28.4 mmol/L 21.0-31.0 [facility] Chloride [Moles/volume] in S pat or PlasmaOrdered By: Gala Mccann on 12-20-2022 Chloride [Moles/Vol] 106 mmol/L 98-107 [facility] Complete Blood Count Auto Di ffon 12-20-2022 Basophils (Bld) [#/Vol] 0.0 10*3/uL Normal 0.0-0.2 [facility] Comment on above: Order Comment: Reaso n for Exam Preop testing Result Comment: PERF ORMED BY: [place] [address] PATHOLOGIST JEWELRY MAKER OSORIO ROJAS M.D. Performed By: #### C BC, BMP #### [facility] [address] Basophils/100 WBC (Bld) 0.3 % Normal . [facility] Comment on above: Order Comment: Reaso n for Exam Preop testing Performed By: #### C BC, BMP #### [facility] [address] [id number] [place] Eosinophils (Bld) [#/Vol] 0.1 10*3/uL Normal 0.0-0.45 [facility] Comment on above: Order Comment: Reaso n for Exam Preop testing Performed By: #### C BC, BMP #### [facility] [address] [place] [address] [place] Eosinophils/100 WBC (Bld) 2.5 % Normal . [facility] Comment on above: Order Comment: Reaso n for Exam Preop testing Performed By: #### C BC, BMP #### [facility] [address] Erythrocyte distribution width (RBC) [Ratio] 13.1 % Normal 11.9-15.3 [facility] Comment on above: Order Comment: Reaso n for Exam Preop testing Performed By: #### C BC, BMP #### [address] Hematocrit (Bld) [Volume fraction] 40.3 % Normal 34.0-46.4 [facility] Comment on above: Order Comment: Reaso n for Exam Preop testing Performed By: #### C BC, BMP #### [facility] [address] [place] [address] Hemoglobin (Bld) [Mass/Vol] 13.6 g/dL Normal 11.8-15.4 [facility] Comment on above: Order Comment: Reaso n for Exam Preop testing Performed By: #### C BC, BMP #### [address] Lymphocytes (Bld) [#/Vol] 1.6 10*3/uL Normal 1.00-4.8 [facility] Comment on above: Order Comment: Reaso n for Exam Preop testing Performed By: #### C BC, BMP #### [place] [address] [place] Lymphocytes/100 WBC (Bld) 33.1 % Normal . [facility] Comment on above: Order Comment: Reaso n for Exam Preop testing Performed By: #### C BC, BMP #### [place] [address] [place] MCH (RBC) [Entitic mass] 30.4 pg Normal 24.7-34.3 [facility] Comment on above: Order Comment: Reaso n for Exam Preop testing Performed By: #### C BC, BMP #### [address] MCV (RBC) [Entitic vol] 90.2 fL Normal 80-100 [facility] Comment on above: Order Comment: Reaso n for Exam Preop testing Performed By: #### C BC, BMP #### [facility] [address] Mean Corpuscular HGB Conc 33.7 g/dL Normal 32.0-35.0 [facility] Comment on above: Order Comment: Reaso n for Exam Preop testing Performed By: #### C BC, BMP #### [facility] [address] [place] [address] [place] Monocytes (Bld) [#/Vol] 0.4 10*3/uL Normal 0.0-0.8 [facility] Comment on above: Order Comment: Reaso n for Exam Preop testing Performed By: #### C BC, BMP #### [place] [address] [place] Monocytes/100 WBC (Bld) 7.6 % Normal . [facility] Comment on above: Order Comment: Reaso n for Exam Preop testing Performed By: #### C BC, BMP #### [facility] [address] [place] [address] Neutrophils (Bld) [#/Vol] 2.8 10*3/uL Normal 1.8-7.7 [facility] Comment on above: Order Comment: Reaso n for Exam Preop testing Performed By: #### C BC, BMP #### [address] Neutrophils/100 WBC (Bld) 56.5 % Normal . [facility] Comment on above: Order Comment: Reaso n for Exam Preop testing Performed By: #### C BC, BMP #### [facility] [address] [place] [address] [place] NRBC% 0.2 /100{WBC} Normal 0-0.5 [facility] Comment on above: Order Comment: Reaso n for Exam Preop testing Performed By: #### C BC, BMP #### [address] Platelet mean volume (Bld) [Entitic vol] 8.0 fL Normal 6.3-10.7 [facility] Comment on above: Order Comment: Reaso n for Exam Preop testing Performed By: #### C BC, BMP #### [facility] [address] [place] [address] [place] Platelets (Bld) [#/Vol] 185 10*3/uL Normal 150-450 [facility] Comment on above: Order Comment: Reaso n for Exam Preop testing Performed By: #### C BC, BMP #### [facility] [address] [place] [address] [place] RBC (Bld) [#/Vol] 4.47 10*6/uL Normal 3.60-5.00 [facility] Comment on above: Order Comment: Reaso n for Exam Preop testing Performed By: #### C BC, BMP #### [facility] [address] WBC (Bld) [#/Vol] 4.9 10*3/uL Normal 3.8-11.6 [facility] Comment on above: Order Comment: Reaso n for Exam Preop testing Performed By: #### C BC, BMP #### [facility] [address] Creatinine [Mass/volume] in Serum or PlasmaOrdered By: Gala Mccann on 12-20-2022 Creatinine [Mass/Vol] 0.76 mg/dL 0.60-1.20 [facility] Eosinophils Auto (Bld) [#/Vo l]Ordered By: Gala Mccann on 12-20-2022 Eosinophils (Bld) [#/Vol] 0.1 10*3/uL 0.0-0.45 [facility] Eosinophils/100 WBC Auto (Bl d)Ordered By: Gala Mccann on 12-20-2022 Eosinophils/100 WBC (Bld) 2.5 % . [facility] Erythrocyte distribution wid th Auto (RBC) [Ratio]Ordered By: Gala Mccann on 12-20-2022 Erythrocyte distribution width (RBC) [Ratio] 13.1 % 11.9-15.3 [facility] Glucose [Mass/volume] in Ser um or PlasmaOrdered By: Gala Mccann on 12-20-2022 Glucose [Mass/Vol] 101 mg/dL 70-100 [facility] Comment on above: ADA recommended refe rence rangeRandom Glucose Reference Range is dependent on time and content of last meal. Glucose of more than 200 mg/dL in a nonstressed, ambulatory subject supports the diagnosis of Diabetes Mellitus. Hematocrit Auto (Bld) [Volum e fraction]Ordered By: Gala Mccann on 12-20-2022 Hematocrit (Bld) [Volume fraction] 40.3 % 34.0-46.4 [facility] Hemoglobin [Mass/volume] in BloodOrdered By: Gala Mccann on 12-20-2022 Hemoglobin (Bld) [Mass/Vol] 13.6 g/dL 11.8-15.4 [facility] Leukocytes [#/volume] correc leatha for nucleated erythrocytes in Blood by Automated counOrdered By: Gala Mccann on 12-20-2022 WBC corrected for nucl RBC Auto (Bld) [#/Vol] 4.9 10*3/uL 3.8-11.6 [facility] Lymphocytes Auto (Bld) [#/Vo l]Ordered By: Gala Mccann on 12-20-2022 Lymphocytes (Bld) [#/Vol] 1.6 10*3/uL 1.00-4.8 [facility] Lymphocytes/100 WBC Auto (Bl d)Ordered By: Gala Mccann on 12-20-2022 Lymphocytes/100 WBC (Bld) 33.1 % . [facility] MCH Auto (RBC) [Entitic mass ]Ordered By: Gala Mccann on 12-20-2022 MCH (RBC) [Entitic mass] 30.4 pg 24.7-34.3 [facility] MCHC Auto (RBC) [Mass/Vol]Or dered By: Gala Mccann on 12-20-2022 MCHC (RBC) [Mass/Vol] 33.7 g/dL 32.0-35.0 [facility] MCV Auto (RBC) [Entitic vol] Ordered By: Gala Mccann on 12-20-2022 MCV (RBC) [Entitic vol] 90.2 fL 80-100 [facility] Monocytes Auto (Bld) [#/Vol] Ordered By: Gala Mccann on 12-20-2022 Monocytes (Bld) [#/Vol] 0.4 10*3/uL 0.0-0.8 [facility] Monocytes/100 WBC Auto (Bld) Ordered By: Gala Mccann on 12-20-2022 Monocytes/100 WBC (Bld) 7.6 % . F [facility] Neutrophils Auto (Bld) [#/Vo l]Ordered By: Gala Mccann on 12-20-2022 Neutrophils (Bld) [#/Vol] 2.8 10*3/uL 1.8-7.7 [facility] Neutrophils/100 WBC Auto (Bl d)Ordered By: Gala Mccann on 12-20-2022 Neutrophils/100 WBC (Bld) 56.5 % . [facility] No Panel InformationOrdered By: Gala Mccann on 12-20-2022 Estimated GFR (CKD-EPI) > 60.0 mL/Min [facility] Creatinine Clearance (Chem N/A [facility] Nucleated erythrocytes [Pres ence] in Blood by Automated countOrdered By: Gala Mccann on 12-20-2022 Nucleated RBC Auto Ql (Bld) 0.2 /100{WBC} 0-0.5 [facility] Platelet mean volume Auto (B ld) [Entitic vol]Ordered By: Gala Mccann on 12-20-2022 Platelet mean volume (Bld) [Entitic vol] 8.0 fL 6.3-10.7 [facility] Platelets Auto (Bld) [#/Vol] Ordered By: Gala Mccann on 12-20-2022 Platelets (Bld) [#/Vol] 185 10*3/uL 150-450 [facility] Potassium [Moles/volume] in Serum or PlasmaOrdered By: Gala Mccann on 12-20-2022 Potassium [Moles/Vol] 3.8 mmol/L 3.5-5.1 [facility] RBC Auto (Bld) [#/Vol]Ordere d By: Gala Mccann on 12-20-2022 RBC (Bld) [#/Vol] 4.47 10*6/uL 3.60-5.00 [facility] Serum or plasma anion gap de terminationOrdered By: Gala Mccann on 12-20-2022 Anion gap [Moles/Vol] 10.4 mmol/L 6.0-15.0 [facility] Sodium [Moles/volume] in Ser um or PlasmaOrdered By: Gala Mccann on 12-20-2022 Sodium [Moles/Vol] 141 mmol/L 136-145 [facility] Urea nitrogen [Mass/volume] in Serum or PlasmaOrdered By: Gala Mccann on 12-20-2022 Urea nitrogen [Mass/Vol] 26 mg/dL 03-21 [facility] WBC Auto (Bld) [#/Vol]Ordere d By: Gala Mccann on 12-20-2022 WBC (Bld) [#/Vol] 4.9 10*3/uL 3.8-11.6 [facility] Coding Summary.on 12-09-2022 Coding Summary. CD:[id number] W w+PGhlYWQ+ZW1IIPJvL70 lhYZwsK2xX0WWZQtMGcpa FSWVDUeOIxDaneTdMH4ze XNjZXJu IC8+XQ4uYEXvCapgmXUgq 5Q0rXZ5P46rcw9iCMjkbQ T0HGQoVqPsgakbb0bkmRe 6IDcuNmluOyBt HOCbnB63XUA0zQ88Ij25s DBexGZmw8mpsOp4LwTrEF YsNSE5wFadJIcag6UuGAV xK25chUGgr5W5 TKSpaQpzxVPvYrRquET8u Z1gJQqljuenx4idphpwMu x8dt24xUMeb3K7bXO5W7C gfwP9QKKtyFKi OpquvFOBzY1xgohsx9ekp lcyVuFxBFMaSTo1FDd3WX RqzDhuEfIpKQ73BLP0QLB ubtCkA5DrEBQf qQgwIwR4x8B1Cw9TA7BOX gtsX3SIFGYCBIfpbVX+PC 79qh37B7WrMnjiYzd6RXX tXCZ1oAZ4sT1n XQJuUDcmb3O6dYI4E0Xgx qFffz5qj5ycDIFoHUwvH5 6ihDPoh3Y4NFIfdQV5XGX pbPgoCgMjkH98 Oyc+ETYisQena6KyFsoar 2byt8larUn5CovvCASsgl IxrVvbQXT4k7XbWa8hEZK tbRU4sIE4eF0b YnKkOxV7ZDcgL672BkSvi FPxJxhiG16iV0XwyIG+PH UdZuv2EEGwfFceWU4dV3C hZGRpbmctbGVm eAunVA6uTNIxsybuJLMcf Y7vGHFdE0c2UqOfGdB3ST zgK2QcEWTihkgqQi97qL2 hVwUwSuA9OFov H1XawsR2VVFexAKdLWftW QP1A25yf6E4LPEeTOHcKK E6jLI3qP7qaWwofoldsVV mdDsgdmVydGlj PPdyADzvA530XOWgqQtvV kNvZGluZyBEYXRlOiAgMD QvMTQvMjAyMzwvdGQ+PHR dDRR8xDtsFMPx yLSpJQigFd8xvHqmiXngQ O3uRYKsyugaPNWrhX2qAQ KzuPIktActWB3oOJWbmaj iw018YlPmVJN0 ATMvlDObU0IulU1qYwMgP CIwSSUvG5PsnQYjMSbiF3 84ZVtsVyC9CUNupkQiO2S sLWFsaWduOiB0 k7S0Lv3Ag7CtrkgaW7Qvr COaAbBdRcfxNIr7S4LlVj wvdHI+BW66USTaBQ57SHi 1YLR8mQqdXPvt XFQxA0JjcL0uYwFdRKZpO GRkOyc+PHRhYmxlIHdpZH RoPScxMDAlJyBzdHlsZT0 nBv2fAXMiEQKu vOaayOOhKoVup7twOHXnC PhbAV5czPqoE6ZroJG5CG Mgp8u0Kf21G87yM1DhoEG +YWPcxCL3xQJ7 nR2jKjZeWcD5ICrwL181K iZgoQGxUieze9jud7xmbN j5CeI9TIEysrHtoWbdNML 7r7MlAg97L88s IHdpZHRoPSIxNSUiIHZhb Ytrie3coM0oDb7+PGNvbC C1hWT7hL6kGvCkHwZ9TFt yZ055ElWsjNKv Jkasj0hbz3qsjGu3EcIrY LBcduHveHerHNV6i7KbVx 49C1AcqIttu0VqEde8fe7 2xJBxl0G8kOY2 U5BxIHTekkvunZNldSqzK E9nCGEbvfpvFJAyvA5tCW WzN8x2QyMoPvP0XMxdL5A mnrE2NFYokRIo TRJaxEQBnP0utqovf9jpe ctoWdReSBMzAPs0FLx9CO GrwFomViHbHSO7YyQ1BRH 7uIGjyF6qaZht yebwnW3gQqy+BOP2rFNjz BYUUO3pHidwqYF+PHRkIH G3wKkuNObnLJFizW2lFLE lD3a4CgWxXfG3 BJxcD5PclpT0EZYaoMYbX SEfsGCPuQ7xvpwjq7olol wcQdNfRMVbHBq1ZIc4FBP saWduOiBsZWZ0 HvO9JMG0uYSbyF5cvNzzp itohF9hUmb+QmlydGggRG N4LVa2N9VdCgl1LMUumYb vUD7lqMXaTVld Ua3rzKiiaObcVT6aKGSzr mbxp621KhDwm5duCRPllY QfYPwjJFI7Q57di6I5RCF tVISdRZU6dQY5 bP4sjRxjfczxdOOulKsei dCbgJqtSHyeTLktU167NP FsfWvpJtTuRVq0N9VdXhl 7SQTthZhlXG4c dNQdBUlmQd5lrNvflCrpN Z5sRLVkflncb684JwHqa1 uvWCJifXFgFGilSKY3W04 jl0B6PKSiMHIb OBC8yMM4zR0xdDuqyfuvl GVmdDsgdmVydGljYWwtYW evW912OKGxxMbnUgKhbRs 1X7HmHeh1PMJe aIfkNF1fpEPoUMdqAm7dx RyvfTyrHU5nENDungkqn2 81ZxXqy7brFYMvuTWpPTo vUEX2T44zq8S1 MXUmDVQeZYK6fUC7fM4id GlnbjogbGVmdDsgdmVydG ysBUdlNFggS074CETczFq nPlBhdGllbnQg ZVmfGRu0H6ZvLqcmgOZ+P F10ZYRnXQ02vDQguEUpn3 jafXh0QgKnAVBdIKH6xSy yPVhoz6BvULAz I41brKExd3X9PJRxgQump DVbGqBtsJL1jP5zHLulnq hxl0btmzylCeiui4mskk3 0aD77H03mXKgc ZHRoPSIzMCUiIHZhbGlnb c0xeS8fJe9+VZYlnQI9jQ F2rG8xULSfNlC4JJknP56 9InRvcCIvPjxj f2tzh8esnUu1RaS9BTMng yXzgAbkYLQ9r7YfYr13W0 9sIHdpZHRoPSIyMCUiIHZ lwBppfy9ujS8b Ii8+HGEnzTR3fRI2oA2cD aZbXvZ6HXbjS940CwKhwR EmVldmE57rJ9HhiEO+PHR qQna1BRFvrLwb QF2doPBwDSpeSb7nYBN6L vUjAtHhFYtcX5QyCIBbqw vzdelmeEW1GGJnYQSjbC7 7Ac5tsDlrVWZo hKAAoQ0ltzihz6bvsyxdM sUzEOToFJd6VQq5VHFfgN txIqEgVHT2LnV5FAQ7oJM hmG9xyBhdplgp dS8qF3KeIRUbyrpuRf99v Y3mYiOlUlW2NWrjIjv+Qk 0PDUGcATOQBYWVWRWUKG1 7FI07sKKag8C0 jFE1Z4BiDKSwidcvcvuhb DL0RRUaDQZrjG14sXPnIL obBl4gf5L9l816HIIiSGA jyH61Oo6ziEis ASRjqQYVxG1podwkp8sxi ynaAxIzLACtURa0HMh8GN TacMtmGxZyHML9UjC7KBT 4wMGbcN8eyTok byrdhL7xIqo+MDYvMjIvM Hp8JFoklXZ+ILWhZUQ4wA guCQcwNMBghL9dQSQbL6b 8GeXoWsS5RAwv P6UvHPFctjmcVk90gK2yH fToWxO9QKjcI3QnkoW3DX KsdBHsHIyiZAT0N84vu1A 7MLLgCMEbIAP2 aHB5sJ1yfZswykumvCVhp DsgdmVydGljYWwtYWxpZ2 46IHRvcDsnPjcyIFllYXJ jSW62MN11pOWt e4Q7zYJ5Q9JxPPXbwftgb ugpuEL0ZBXfKPIxhL49yT IcYExhHl1pe1F2s308IEB pODLzvS43Kk6v yXjgSOAyeJWGzJ2xqccup 5rvambsBjHdWXVcBQg2GA f0ZLYraYdtOzTrYON3YnA 2XWB4fQWbbU0e yLmxtanbwE5rFnf+RmVtY PffON10GO50qWZjr5I9oR I1M5MfQNQlalerpabbnRP 4FEUdHGRvxP81 mSDjYFfsHf6gj5Q4h398P UInYJBnkQ09Iw6qtUysRU OwiMSSsC3giexqm3htmza gIzAwMDAwMDt0 QTj2JOFjkUmxZsPtLDA8J lE5NCJ0cAQmpL9kjNjbbo hzxB7lBnp+VO1omtsxesE 5PX88AX36O1Qg PjwvdGFibGU+PHRhYmxlI HdpZHRoPScxMDAlJyBzdH wwLF4uLk9sFILgDIFvyFx ekFGoHrEsg5iy WNJaXQbaHE6kxCyxK0Mbu BC8AIUfp1m3Qg81W03cP6 JvdXA+IMFdjCK2uCM2fD7 bOeMbUwW6SIqv M151QjIcpOAwOskbb2ucq 0gsfEn6JoDzQCHfydSezU ecPIM4b2AlGr83X45qLSm pZHRoPSIyMCUi PSZneLfxyc1muN8zUy1+P PFogYL7jGZ1qY6lSmBhIx P4UEfwC751HuKxbMIbHpp dA92lY5UoqQI+ YHEbOcx5ITZprZepVY3fs XJlADdzEg6vFCD3QsVfGk TqJVzoK6LyWUSejppsnlb bsML6BOFtBPLx sE23Yn5frYbbQw7oIRCvY ET9AAYggCWzQ7AfxG9oYj BtQHRqAKYwT3ReuKWrDJe oL598GTliQrU4 WEKykeDyM5MfLZOeqItgO vC8e1G5Hd2ZnMgcvRDqQS 6eEcAlDMn3C0YuMtw1ZYZ bxHkrDV2aoVLp MDqiMg1nwOdyaDscTZ9sA UNpiojoj012LzHii9cfOO JynTSxRIebRTH5C83na4N 4OGRbCYJuTNQ9 fOI6qA5ikJiusbhepPEbs DsgdmVydGljYWwtYWxpZ2 18OCVdlBbrCzYWHzr1J4A hKch3QLBjxVzh HF5giARlITbaEa4thPpsu XccCK1fNKZmzleqw167Rv Gmp9btWXRfyYApUTduDTM 7H29bk3B6BZKu PFIcACT5xTK9yB8zaHzfy jogbGVmdDsgdmVydGljYW zwISmyX767FXKdjBmdYs4 SQrr3X9DbQtp2 QYPmiBomAF2llFDpAPqvL s0kwVyjuZalXA4sVRPinx oui836EhRuw6vcWPMvfYD bVYxyLWX5E18k l3Y9BXVcJICgBXH5dWK9t Y1dnTwkgeswrMBfzLidci NieOgsOTsoHShiM026OXC vcDsnPlBheWVy OjwvdGQ+PI47hd69I3MwF hynFmw1UFQoQTO4nAW6sL 1tWCOhNYmfk1A9oPJ3H2P [id number] (more content not included)... Normal [facility] Discharge Instructionson Discharge Instructions [id number]# 1.00CD:127 Normal [facility] Vaccinationson 12-08-2022 Vaccinations [id number]# 1.00CD:127 Normal [facility] CT Head or Brain w/o Contras ton 12-07-2022 CT Head or Brain w/o Contrast Exam Date/Time: 12/07/2022 17:33 EDT Reason for Exam: Head trauma, moderate-severe;Other (please specify) Report IMPRESSION: NO ACUTE FINDINGS. CT OF THE BRAIN WITHOUT INTRAVENOUS CONTRAST MEDIUM. History: Fall. Hit head in garage.. Technical factors: CT imaging of the brain was obtained and formatted as 5 mm contiguous axial images. 2.5 mm contiguous axial images were obtained through the osseous structures. Sagittal and coronal reconstruction obtained during postprocessing. Comparison: None. Findings: Extra-axial spaces: Normal. Intracranial hemorrhage: None. Ventricular system: Ventricles mildly enlarged. Sulci mildly prominent. Basal Cisterns: Normal. Cerebral Parenchyma: Bilateral symmetric periventricular areas decreased attenuation. Midline Shift: None. Cerebellum: Normal. Paranasal sinuses and mastoid air cells: Normal. Visualized Orbits: Normal. All CT scans at this facility use dose modulation, iterative reconstruction, and/or weight based dosing when appropriate to reduce radiation dose to as low as reasonably achievable. Ordering Provider: Damian Schuster FINAL REPORT Dictated: 12/07/2022 7:05 pm Reynaldo Gray MD Signed (Electronic Signature): 12/07/2022 7:05 pm Signed by: Reynaldo Gray MD Transcribed by: TALIA Technologist: ZEKE [facility] CT Maxillofacial w/o Contras ton 12-07-2022 CT Maxillofacial w/o Contrast Exam Date/Time: 12/07/2022 17:33 EDT Reason for Exam: Facial trauma, blunt;Other (please specify) Report IMPRESSION: BILATERAL NASAL BONE FRACTURES. CT MAXILLOFACIAL WITHOUT INTRAVENOUS CONTRAST MEDIUM. History: Fell in garage. Hit head.. Technical factors: CT maxillofacial was obtained and formatted as 2 mm contiguous axial images. Sagittal and coronal reconstruction obtained during postprocessing. Comparison: None.. Findings: Bilateral frontal, sphenoid, and maxillary sinuses are patent. Mild partial opacification anterior ethmoid sinuses. Nasal septum midline. Ostiomeatal complexes patent bilaterally. Bilateral mastoid air cells well pneumatized. Bilateral nasal bone fractures (series 2, image 55). No bone lesions. All CT scans at this facility use dose modulation, iterative reconstruction, and/or weight based dosing when appropriate to reduce radiation dose to as low as reasonably achievable. Ordering Provider: Damian Schuster FINAL REPORT Dictated: 12/07/2022 7:10 pm Reynaldo Gray MD Signed (Electronic Signature): 12/07/2022 7:10 pm Signed by: Reynaldo Gray MD Transcribed by: TALIA Technologist: ZEKE [facility] CT Spine Cervical w/o Contra can 12-07-2022 CT Spine Cervical w/o Contrast Exam Date/Time: 12/07/2022 17:33 EDT Reason for Exam: Neck trauma;Other (please specify) Report IMPRESSION: NO FRACTURE. NO MALALIGNMENT. MULTILEVEL DEGENERATIVE CHANGE CERVICAL SPINE DISCUSSED. LOSS CERVICAL LORDOSIS MAY BE SECONDARY TO MUSCLE SPASM VERSUS PATIENT POSITIONING. CT CERVICAL SPINE WITHOUT INTRAVENOUS CONTRAST MEDIUM. HISTORY: Fell in garage. Head. Neck trauma TECHNICAL FACTORS: CT cervical spine obtained and formatted as 2.5 mm contiguous axial images from skull base to the level of. Sagittal and coronal reconstructions were obtained during postprocessing. No contrast medium was utilized. COMPARISON: None FINDINGS: Cervical vertebral bodies are normal in height and alignment. Loss cervical lordosis. Atlantooccipital articulation maintained. Atlantoaxial interval preserved. Neural foramina narrowing left C3-C4, right C4-C5. Near fusion C4-C5. Disc space narrowing C5-C6 through C7-T1. Osteophyte disc complex at C6 level. No fractures, dislocations, bone lesions. Limited imaging lung apices without anomaly. Carotid arteries and soft tissues are without anomaly. All CT scans at this facility use dose modulation, iterative reconstruction, and/or weight based dosing when appropriate to reduce radiation dose to as low as reasonably achievable. Report Ordering Provider: Damian Schuster FINAL REPORT Dictated: 12/07/2022 7:18 pm Reynaldo Gray MD Signed (Electronic Signature): 12/07/2022 7:18 pm Signed by: Reynaldo Gray MD Transcribed by: TALIA Technologist: LMNadia Normal [facility] Consent for Treatmenton 11-26 Consent for Treatment [id number]#1 .00CD:127 Normal [facility] ED Clinical Summaryon 2022 ED Clinical Summary [place] [id number] ED Clinical Summary Person Information Name: NATALIYA GRIFFIN [place] Age: 72 Years : 1950 Sex: Female Language: Micronesian PCP: ANU OLIVIER DO Marital Status: Visit Id: Visit Reason: Facial abrasion, minor; Fall; FALL Speciality: Acuity: 3 Enc Type: Emergency Med Service: Emergency Arrival: 12/07/2022 15:22:53 Discharge: 12/07/2022 19:50:16 LOS: 000 04:28 Checkin: 12/07/2022 15:22:53 Checkout: 12/07/2022 19:50:16 Dispo Type: Home (Routine DC) EVENTS: Event Name Event Status Request Date/Time Start Date/Time Complete Date/Time Arrive Complete 12/07/2022 15:22:53 12/07/2022 15:22:53 12/07/2022 15:22:53 Document Home Meds Request 12/07/2022 15:22:53 Triage Complete 12/07/2022 15:22:53 12/07/2022 15:29:21 12/07/2022 15:29:21 Bed Assign Complete 12/07/2022 15:25:47 12/07/2022 15:25:47 12/07/2022 15:25:47 Dr Exam Complete 12/07/2022 15:25:47 12/07/2022 15:26:38 12/07/2022 15:26:38 RN Exam Complete 12/07/2022 15:25:47 12/07/2022 16:14:02 12/07/2022 16:14:02 Registration Complete 12/07/2022 15:26:38 12/07/2022 15:33:38 12/07/2022 15:33:38 Trauma II Request 12/07/2022 15:28:58 Dr Exam Complete 12/07/2022 15:31:57 12/07/2022 15:31:57 12/07/2022 15:31:57 Reg Complete Request 12/07/2022 15:33:38 Reg Bed Request Complete 12/07/2022 15:33:38 12/07/2022 15:33:38 12/07/2022 15:33:38 Trauma II Request 12/07/2022 16:11:29 CT Complete 12/07/2022 16:17:29 12/07/2022 17:10:14 12/07/2022 17:33:33 Meds Admin Complete 12/07/2022 19:25:27 12/07/2022 19:50:30 Discharge Complete 12/07/2022 19:26:09 12/07/2022 19:54:35 12/07/2022 19:54:35 Transfer Complete 12/07/2022 19:54:35 12/07/2022 19:54:35 12/07/2022 19:54:35 ADDRESS: [address] [id number] PHYS DOC NOTES: MEDICAL INFORMATION: Prescriptions Given: Medications to Continue with No Changes Other Medications aspirin ciprofloxacin (Cipro 500 mg Tab) 1 Tablets By Mouth every 24 hours. Take 1 pill the day before the procedure and 1 pill after the procedure. Refills: 0. fluticasone (Flovent HFA) Inhalation 2 times a day. fluticasone nasal (fluticasone 0.05 mg/inh Nasal [place]) Nasal Inhalation every day. hydrochlorothiazide By Mouth every day. irbesartan (irbesartan 150 mg Tab) multivitamin (Multi Vitamin+) polycarbophil (FiberCon) rosuvastatin (Crestor) By Mouth every day. sertraline By Mouth every day. PATIENT EDUCATION INFORMATION: Instructions: Nasal Fracture Follow up: With: Address: When: ANU OLIVIER [facility] [place] [address] [facility] [address] [place], [place] [id number] In 3 days 12/10/2022 Comments: Call the office of your primary care doctor to arrange for follow-up within the above-stated timeframe. Follow-up with your primary care doctor about this ED visit. You should review your labs, imaging, and diagnoses from this ED visit with your primary care physician. If you were prescribed medications you should discuss possible side-effects and drug interactions with your pharmacist. Call 911 or go to the nearest Emergency Department if you develop any new or worsening symptoms. DIAGNOSIS: Facial abrasion; Nasal bone fractures Normal [facility] ED Note-Physicianon 12-08-19 ED Note-Physician Basic Information Time Seen: Damian Schuster PA-C 12/07/2022 15:26 Chief Complaint pt reports mechanical trip in the garage from standing. pt denies loc, takes every other day asa. pt has abrasions to face. denies pain or injury any where else. History of Present Illness Patient is a 72-year-old female presents the ED with complaint of facial abrasion and nose pain after falling around. Patient reports that she tripped in her garage while she was holding objects in her hands and fell and struck her face directly on the concrete floor. Patient denies any loss of consciousness. Patient denies any headache. Patient denies any nausea or vomiting. Patient denies any focal neurologic deficits. Patient states her fall was strictly mechanical. Patient is not on any blood thinners. Patient denies any neck pain. Patient denies any chest pain shortness of breath. Patient denies any pain anywhere else in her body. Patient is complaining of a large facial abrasion from her forehead to her right cheek as well as pain and swelling of the bridge of her nose and a small laceration in the middle of her nose. Patient is uncertain the date of her last tetanus shot. Review of Systems Full 10 system ROS performed. Pt denies symptoms except as noted above in the HPI. Physical Exam Vitals & Measurements T: 36.4 ?C(Oral) HR: 71(Monitored) RR: 16 BP: 163/83 SpO2: 99% HT: 162 cm WT: 81 kg BMI: 30.86 Trauma exam Vital signs reviewed Primary survey Airway intact Lung sounds clear and equal bilaterally Pulses full and equal to carotid, femoral, radial, dorsalis pedis bilaterally Heart regular rate and rhythm Skin warm, dry, pink GCS 15 Secondary survey General: GCS 15, alert HEENT: Patient with abrasion of the right side of her face, bruising and swelling at the bridge of her nose, facial bones stable; Eyes normal inspection; PERRLA. No evidence of oropharyngeal trauma; no blood in the nares; no septal hematoma; tympanic membranes intact, no hemotympanum or drainage. NECK: Normal inspection; c-collar in place; no tracheal deviation; no JVD RESP: Normal breath sounds, no wheezes or crackles; no chest wall tenderness, crepitus, or subcutaneous emphysema: no visible evidence of chest wall trauma; chest rise symmetric; no respiratory distress HEART: Heart rate and rhythm regular; carotid, radial, femoral, dorsalis pedis pulses +2 and equal bilaterally; no murmurs. ABDOMEN: Soft, nontender. No ecchymosis or visible wounds to abdominal wall; no distention, guarding, rigidity, or rebound; pelvis stable, no pain on compression; rectal tone intact; no blood at urethral meatus MSK: Nontender; normal appearance; no tenderness or step-offs to palpation of thoracic or lumbar spine; No ecchymosis or wounds to upper or lower back NEURO: Alert and oriented; sensation intact and symmetric bilaterally; muscle strength symmetric bilaterally SKIN: Color normal; no rash; warm; dry Procedure To less than 1 cm laceration. Wound irrigated with normal saline. Wound probed satisfied no retained foreign body. Wound closed with adhesive. Medical Decision Making MEDICAL DECISION MAKING Number and Complexity of Problems Differential Diagnosis: [] [facility] Data External documents reviewed: [] My EKG interpretation: [] My CT interpretation: Patient with bilateral nasal bone fractures, no other acute abnormalities of maxillofacial CT, CT head, CT C-spine My X-ray interpretation: [] My Ultrasound interpretation: [] Decision rules/scores evaluated: [] Discussed with: [] Treatment and Disposition ED Course: Patient presents ED for evaluation of facial abrasion, nose laceration, no swelling. Patient with evidence of bilateral nasal bone fractures on CT. Patient without septal hematoma, no gross deformity of the nose indicating need for immediate reduction. Patient pain well controlled in the ED. Patient with stable vitals, well-appearing throughout stay in ED. Patient did have 2 small laceration of nose which were repaired with Dermabond after being cleaned with normal saline. Patient instructed to follow-up with PCP for further evaluation and possible eventual follow-up with ENT with any unsatisfactory deformity of nose after swelling goes down. Return precautions were discussed with patient. Patient questions answered. Patient discharged home. Shared decision making: [] Code status: [] [] Patient has one or more of the following conditions that are excluded from the measure (select all that apply): [] Patient has ventricular shunt [] Patient has brain tumor [] Patient is [] Patient has multi-system trauma [] Patient taking an antiplatelet medication (excluding aspirin) [] Head CT not ordered by emergency patient care manager [] Head CT ordered for reasons other than trauma [] Patient is 18 or older, presenting with minor blunt head trauma. Head CT (including cosigned orders) was ordered by an emergency patient care manager for t (more content not included)... Normal [facility] Comment on above: Result Comment: Elec tronically Signed By: Damian Schuster PA-C\.br\Date and Time Signed: 12/07/22 19:46 EDT\.br\Electronically Co-Signed By: Ellie Lopes M.D.\.br\Date and Time Co-Signed: 12/07/22 20:21 EDT ED Patient Education Noteon 12-07-2022 ED Patient Education Note ENT Nasal Fracture A nasal fracture is a break or crack in the bones of the nose or the tissue that helps to form the nose (cartilage). Minor breaks do not require treatment and usually heal on their own after about one month. Serious breaks may require treatment that could include surgery. What are the causes? A nasal fracture is usually caused by the strong force of a direct hit to the nose (blunt injury). This type of injury often occurs from: ? Playing a contact sport. ? Being involved in a car accident. ? Falling. ? Getting punched. What are the signs or symptoms? Symptoms of this condition include: ? Pain. ? Swelling of the nose. ? Bleeding from the nose. ? Bruising around the nose or bruising around the eyes (black eyes). ? Crooked appearance of the nose. How is this diagnosed? This condition may be diagnosed based on a physical exam. During the exam, the health care provider will: ? Gently feel the nose for signs of broken bones. ? Look inside the nostrils to check if there is a blood-filled swelling on the dividing wall between the nostrils (septal hematoma). An X-ray of the nose may be taken. Sometimes, an X-ray may not show a nasal fracture even when one is present. In some cases, X-rays or a CT scan may be taken again 1?5 days later after the swelling has gone down. How is this treated? Treatment for this condition depends on the severity of the injury. ? Minor fractures that have not caused deformity often do not require treatment. ? For more serious fractures that have caused bones to move out of position, treatment may involve one of the following: ? Repositioning the bones without surgery. The health care provider may be able to do this in his or her office after you are given medicine to numb the nasal area (local anesthetic). ? Surgery. If surgery is needed, it will be done after the swelling is gone. Surgery will stabilize and align the fracture. Follow these instructions at home: Activity ? Return to your normal activities as told by your health care provider. Ask your health care provider what activities are safe for you. ? Avoid contact sports for 3?4 weeks or as told by your health care provider. General instructions ? If directed, put ice on the injured area: ? Put ice in a plastic bag. ? Place a towel between your skin and the bag. ? Leave the ice on for 20 minutes, 2?3 times a day. ? Take uuab-zjs-rjqhkrk and prescription medicines only as told by your health care provider. ? If your nose starts to bleed, sit in an upright position while you squeeze the soft parts of your nose against the dividing wall between your nostrils (septum) for 10 minutes. ? Try to avoid blowing your nose. ? Keep all follow-up visits as told by your health care provider. This is important. Contact a health care provider if: ? Your pain increases or becomes severe. ? You continue to have nosebleeds. ? The shape of your nose does not return to normal within 5 days. ? You have pus draining out of your nose. Get help right away if: ? You have bleeding from your nose that does not stop after you pinch your nostrils closed for 20 minutes and keep ice on your nose. ? You have clear fluid draining out of your nose. ? You notice swelling near the septum inside the nose. This swelling is a septal hematoma that must be drained to help prevent infection. ? You have difficulty moving your eyes. ? You have repeated vomiting. Summary ? A nasal fracture is a break or crack in the bones or cartilage of the nose. ? The fracture is usually caused by a blunt injury to the nose. ? Symptoms include pain, swelling, and facial bruising. ? Nasal fractures may heal on their own, or your health care provider may need to move the bones back into proper position. In some cases, surgery may be needed. This information is not intended to replace advice given to you by your health care provider. Make sure you discuss any questions you have with your health care provider. Document Released: 08/11/2001 Document Revised: 01/15/2019 Document Reviewed: 01/15/2019 Elsevier Patient Education ? 2019 [employer]. Normal [facility] ED Patient Summaryon 023 ED Patient Summary [address] [address] Patient Discharge Instructions Person Information Name: NATALIYA GRIFFIN Age: 72 Years Arrival Date: 12/07/2022 15:22:53 Discharge Diagnosis: Facial abrasion; Nasal bone fractures Primary Care Physician: ANU OLIVIER DO Provider Information Primary Provider: Ellie Lopes M.D. Advanced Recreation Aide:Damian Schuster PA-C The exam and treatment you received in the Emergency Department were for an urgent problem and are not intended as complete care. It is important that you follow up with a doctor, nurse practitioner, or physician?s surgical supply assistant for ongoing care. If your symptoms become worse or you do not improve as expected and you are unable to reach your usual health care provider, you should return to the Emergency Department. We are available 24 hours a day. NATALIYA GRIFFIN has been given the following list of patient education materials, prescriptions and follow-up instructions: Follow-up Instructions: With: Address: When: ANU OLIVIER [facility] [place] [address] [phone] In 3 days 12/10/2022 Comments: Call the office of your primary care doctor to arrange for follow-up within the above-stated timeframe. Follow-up with your primary care doctor about this ED visit. You should review your labs, imaging, and diagnoses from this ED visit with your primary care physician. If you were prescribed medications you should discuss possible side-effects and drug interactions with your pharmacist. Call 911 or go to the nearest Emergency Department if you develop any new or worsening symptoms. In the event that this physician does not participate in your insurance network, please consult with your insurance company to find a nearby participating provider. Patient Education Materials: Nasal Fracture A MESSAGE TO ALL PATIENTS REGARDING OPIOIDS PRESCRIPTION OPIOIDS: WHAT YOU NEED TO KNOW Prescription opioids can be used to help relieve ciaskfls-fr-mvbpnw pain and are often prescribed following a surgery or injury, or for certain health conditions. These medications can be an important part of the treatment but also come with serious risks. It is important to work with your healthcare provider to make sure you are getting the safest, most effective care. WHAT ARE THE RISKS AND SIDE EFFECTS OF OPIOID USE? Prescription opioids carry serious risks of addiction and overdose, especially with prolonged use. An opioid overdose, often marked by slowed breathing, can cause sudden . The use of prescription opioids can have a number of side effects as well, even when taken as directed: ? Tolerance?meaning you might need to take more of the medication for the same pain relief ? Physical dependence?meaning you have symptoms of withdrawal when a medication is stopped ? Increased sensitivity to pain ? Constipation ? Nausea, vomiting, and dry mouth ? Sleepiness and dizziness ? Confusion ? Depression ? Low levels of testosterone that can result in lower sex drive, energy, and strength ? Itching and sweating RISKS ARE GREATER WITH: ? History of drug misuse, substance use disorder, or overdose ? Mental health conditions (such as depression or anxiety) ? Sleep apnea ? Older age (65 years and older) ? Avoid alcohol while taking prescription opioids. Also, unless specifically advised by your health care provider, medications to avoid include: ? Benzodiazepines (such as Xanax or Valium) ? Muscle relaxants (such as Soma or Flexeril) ? Hypnotics (such as Ambien or Lunesta) ? Other prescription opioids KNOW YOUR OPTIONS Talk to your health care provider about ways to manage your pain that don?t involve prescription opioids. Some of these options may actually work better and have fewer risks and side effects. Options may include: ? Pain relievers such as acetaminophen, ibuprofen, and naproxen ? Some medication that are also used for depression or seizures ? Physical therapy and exercise ? Cognitive behavioral therapy, a psychological, goal-directed approach, in which patients learn how to modify physical, behavioral, and emotional triggers of pain and stress. IF YOU ARE PRESCRIBED OPIOIDS FOR PAIN: ? Never take opioids in greater amounts or more often than prescribed. ? Follow up with your primary health care provider. o Work together to create a plan on how to manage your pain. o Talk about ways to help manage your pain that don?t involve prescription opioids. o Talk about any and all concerns and side effects. ? Help prevent misuse and abuse o Never sell or share prescription opioids. o Never use another person?s prescription opioids. ? Store prescription opioids in a secure place and out of reach of others (this may include visitors, children, friends, and family). ? Safely dispose of unused prescri (more content not included)... Normal [facility] ED Traumaon 12-07-2022 ED Trauma [id number]# 1.00CD:127 [facility] Coding Summary.on 11-29-2022 Coding Summary. CD:[id number] W w+PGhlYWQ+KY6PUUJnU79 psFBrrB1dW1TCHDuPZgfj LXZHJPsTLnGikqIlWF1wn XNjZXJu IC8+AE5jPKGwMrnobZHii 3C3qVR2Q22bpj5rENftuB Z0SQNqCnOliiesp8zqdZt 6IDcuNmluOyBt DORgbF17EWV2kL54Pl66h OPewDPdz7ywyYf3TqAbRE CrTJM1fAzrOYcxr0PrHRN wJ85bnQSrd2O9 EDDcgWjovLGhNeOpvCD3z B3sLVnulubzw9uuhaqkFo q9ju29pDKvk7A8hRR5S4N oobJ7VYVtgRMe HdopiLPMkC0aqmpfu8iwk xwlNeRgENNwRXl2QCp4OL RnkJvbSgOvIE55VDI8IQN znkCzA7RcQTJf vGxeVdX5d1U6Dz3EK8CPQ rccM4FLHCRIGQbpvXY+PC 70jc23F9OgVzgxCbr2JWY iBXU8hAR9nR2f XXDtBPgek0O0bDB7Z9Sxf vWzfe6io7ydXGUpRCbkI6 4tjZLpl0Z1MLDpbBO5BVP mkLkyMjZnsK57 Oyc+WUVghHuvw2HnIqhce 6sae6urgSz4IkptYOJdow CxrXpgHVR5v0VmOc9iVAA kyOU7uXT2iI7h DfNhMfZ7XPkxJ816NfZbh THsFoymK30hE4TymQY+PH JcFpg8ODDzgIkfNJ4jL2I hZGRpbmctbGVm dQjtHC2tEPQofwvmPBGgu P3nOPIuI2m5SzTcZdY7XU iuJ3WdNTKdlizlAo29hQ9 nMwPqPrR0CFnz S3UiwjD0BNXlcEWrTQmqP OE1C16nu2Y1RVWeMHMtLP H9fRQ5cN3grEvazdqsoME mdDsgdmVydGlj ITnfDTwhP808WZElcWufM kNvZGluZyBEYXRlOiAgMD QvMDQvMjAyMzwvdGQ+PHR kRWB6kNodISLm cQGpXOvfHc0cxJwtdShpI C4bNKZcfqqoYGJphJ4nGT ZopZOhiIryEL4mFTWmvmo ca151PwNnCTE0 SBMwqITdA0UpkW5tIzFzN EDxNOMxU8JjkNTcCXymV1 23QZtjDgW2BYVlorXqZ5N sLWFsaWduOiB0 g3Y4Qd1Aw7CsjsznH1Cch DSmEsGiTuacRWf5K1VjLa wvdHI+ER58ZEVtPK54QSu 5RSY6qBvaYApk GDUwL5RgnX1gEaXpHUOvA GRkOyc+PHRhYmxlIHdpZH RoPScxMDAlJyBzdHlsZT0 kYs9vWCXyTJKs hXdwbRPvIpIhx3lxRFIoF MybKC2scLrtH6TuhCL0AY Otr2g3Er64Q21uW1GvzYO +LFCutLZ3sVD2 dR2wAvKwNwV5VBnnH245L cCreHLiHagon4dsu4jzpY j8ArD5VBCiroJynYybNBW 9s2NlHh62U82v IHdpZHRoPSIxNSUiIHZhb Tdqkk9ptP4uDb0+PGNvbC R8tYT8tL6pRtYpSqX2LEj rT775SbCswODv Vylnq5blf7kmeSb7ZyJzY BCsiaIhsKddYUE5k8RmBj 71Z0HsmYxzw2KwYyk0nv4 0iRLbs2E5sBO5 N7UfHKJlppvknVIaiRvoE X2lKBKtmwcpGUUlbX1eDZ CqA0j5WcQbIvR9OClcC6O chpB1JHWrrYOu EYLkbVQPtS0vutexc8cqy krrJjMcEEEuPYt5UZo8LP DpeFowPtUeKDD5HlT4QFZ 2pDPfsW8fyIuz hvkkjT6qLdy+OCP4aRTkr HJMMP2tUfguiZG+PHRkIH X9zKwgAXlaEVGbsH2mJON vR9y7WyUyTgB8 AXulD1NeqfH9PFTdpXLyY XSacDPXxP6kwyykx2iklw ptEaQaAVQwZEy4KWb6TMK saWduOiBsZWZ0 QcG6KXP1vEEtdU6pcDzgw jcjoH3uNae+QmlydGggRG H0RWx5V8CaAum4UDKzmCg sUS4rtQYwBHat Rb2oaZpvyZdvGJ5kFYXoh ytoz662IjJxz0qtGOHfoQ NiJYwaJRE7J01cn4M7YJZ uNKFvIFY9lVZ1 gB1tkTabwjzraDZygCtlq xQjhOgmWRqwPXfsH715GN KbeVfrIzOiOPn0Q6EtLef 3LQOmjCziWK1r zXRdWLqsAa9qvOopfBwzS K2oZNPfkeghk473CsOvu4 ucCIHktFMhPGhoPAD5U91 oh4T1AUAeYTCo YLS6xIO0pY8rrXfxuwrfe GVmdDsgdmVydGljYWwtYW kxQ443XYYdaFfrSbFlfIc 8T9FyPfv3PTWh mNrqAK7yeMMkMGqnJj1at JooqCfmKN4eLMFnlvhjp5 43FxXjt5klOVKjcQWiPIn wRVF2C70ch8R6 SHYxZZSjVSC8eTU5dZ2ms GlnbjogbGVmdDsgdmVydG btXVtbSYiwC661FIJerYa nPlBhdGllbnQg DBlgOMi6R2PaChbmjSH+P Y65ICSfDR71aZMqhMXzh1 wfqMj5GzMuKKLhTBF4dAy zXRdsx6RgKHYq S10rsHEwj3P4BAHcnUzow GPrDjYddOC5zX7oGPioyd hbs3fzbnyoWozsn6azhv2 6eB62B43iHNno ZHRoPSIzMCUiIHZhbGlnb v5odN5aEo0+SPLamFZ7pN D6wX9tMDSeZyD0RCahW71 9InRvcCIvPjxj w4avv0mdhWv8XuV9FTFss kPsvFjdPAF8c9CoMf87W1 9sIHdpZHRoPSIyMCUiIHZ cwCyuve5iiF4p Ii8+WRWdzWH0tWJ3pE7xL eKcKrR6OZuhS578NvXnxA DyMpbaH24eM6FffQC+PHR oBvd5FSFanKyd ID2yrYHwLNsqJg1oGVE0T gQiFkPdGFhsZ0ZbOKFwsa uolrvkyDM8FQDkYIWprM0 4Yw0tgFclKKAh jTOEaR1ildjmc9njjsjtT aYhLGGcGDl8DBc5EQGatJ wtTpQrGYY5RoI8PTQ6pJH vsZ9vyKiagncr dU3zP2JbGKIcvfurFc36x F1nBmOpOyB1IOmcAhz+Qk 6BOOClZSCLRIMUYYKVBT5 7MD53rUHos8F9 hHX1Y4OfVSOhzdripyezc KD4ZHZiFZNfvC35sTVzDX fhJo4nw0Y1w356SNGuSNL qyO82Ec3nbBxw GCWgdBJDxI3jjzofa9ihw lurZpSxZTEyDGm4FNi5DV ZhcHchJoGqMMP2YhY2MNE 2aETpyE1wsVvu kglnbQ2iZhq+MDYvMjIvM Cg1UVcjwCG+DDIwSWM0yD gdPCcnZFWebI5qLFYyT3e 1PhRdNjI5WOaq D1ZmKEYekyckVt58rB6oG aUjCyT9JIkyV3XvqwU5XG MctLCeFTdnPND2U10vk1K 6KGWlSKXxGFY5 yML6cJ8jeCpffvspcHKur DsgdmVydGljYWwtYWxpZ2 46IHRvcDsnPjcyIFllYXJ oPZ24KN54aSUq d3C4uWA1C2IsJTZyhypny zjffMP4UNNtALHvsH55gP BmHZrnAl6rc3C9o695XUI zYBSnzM95Xu0z aLfkIIFfzPSQaL3mjqqnj 1ymxwgiAsMvYWGrKAc0TJ l1UJPujWorPwZyJXC6KpM 0QFR0kERqdG4m qDojwsxloT3rCnu+RmVtY FyeKC03ZL19xYYzf9S8uP U4G6IqVGGvnreyelxzgAH 6DSVjKNNzcH39 zTDiTGjjWf9on8S1x339J MBbOVAkuB92Ri0fhSuyUV YjnTNTlO1xrybrr0jrcop gIzAwMDAwMDt0 RHy1LWVuvUfgRpZoPGE1E qW4WGT9vSTlzN6goVzdlt cgoK3iWhu+ZPQcJIGax9U dl6BcAQ14XB61 Z4ItGmgyfRLnoFB+PHRhY mxlIHdpZHRoPScxMDAlJy GwjVerIN3qQo6eGPJpMDM vbGxhcHNlOiBj h8msGQUaCEcpZJ3ljRodA 3BafRU7VVZyu3z8Dv64K4 5hT3PgoVQ+QXVnvJO2aJM 8eC7nAaIjWiV5 QCnrU892ZmZwoYGiEzxmb 7btt6fzrJl3QyBgTKLgth YltPcuRVV2e7KyDl25B54 sIHdpZHRoPSIy KSVvFCSvlIuvfn6ctU5kU i8+UXRtuJY5xXX8wG9gHq HqQoV9JFkwY540ZcXhxZH tEsmjX83yN0Qj dXA+OKUnSgu6RWXauIqxQ C0gxUKsADdnWi0nBLU6Yv YdAeDzKEcbU3SgTUZdrgw ppqduaSK9OGVe EDJmhK82Xj3irGceAt2gY UUpFKG2BZQlrMOnC1TilT 4pVeXsHLLfKSYpJ3XgoAH qKDwiM319XUou BuC9CKAubuKwQ4OwNBXnl YiaQfN2v4P1Rc2HcMbbpZ RmQC2eFgBaKFm8S8NyAoc 0POMrcEyxYR6h wWXtCLqpYm3uyIxncCftV P4vIKDhnccue291SyZoz9 vjOPBgrGDuNXowXLX5V97 su8M1XQJjOMNr OJE6uBB1zY5byYlrahxcg GVmdDsgdmVydGljYWwtYW puX888EYTnkXafLiLUFbc 5F2JrXta4EABw dEpnQR8yxASbIXzxEb0ub NtzhTjbCG0yQGZxadrut1 88SwMpb7yfYQQnmUNhATi yQYM6W99po8I9 JSPkABAzUWW3hOD5jL8dq GlnbjogbGVmdDsgdmVydG wcOJcaWDvsX070KSHwnYd nBo1LIzt5T7Jp Cje5JHVcaDdjQW9deWVgL KabPy0mmEyfnPdrFP3sAC Endytuw510KbTzj0iyTDW wcHQgVGltZXM7 C33dd6P4NUVuFCLnDEQ4e JG3nA0tsSeibpherDFlrL jvkqErcWkrXXtrORncB49 6IHRvcDsnPlBh eWVyOjwvdGQ+BN39me66S 8RvErwjAgl1RTOnKHA1cP A6fB8iLRAjIDzmw0I7iFH 3Z4DxugQhja6z e8qrBUJu (more content not included)... 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 Review of Systems PHQ Score Initial Depression Screen Score: 0 Physical Exam Vitals & Measurements HR: 75(Peripheral) BP: 150/80 SpO2: 95% HT: 65 in HT: 166 cm WT: 82.1 kg WT: 180.62 lb BMI: 29.79 General: Well developed, well nourished, in no acute distress Extremity: _ Overall, right upper extremity is pink, warm to the touch. Brisk cap refill. Sensation intact. To the distal tip of the right index finger, there is moderate erythema, mild edema, mild increased warmth to the touch. To the distal tip of the fingernail, there is some darkening noted with what appears to be a pocket of fluid underneath the nails. Moderate discomfort on palpation of the fingertip. Fingernail cleansed thoroughly with use of Betadine. With use of electrocautery pen, small hole made in nail to evacuate mild amount of purulent fluid and blood. Patient tolerated procedure well. Wound culture obtained. Cleansed thoroughly with Betadine and saline. Dressed with bacitracin and bandage. Mental Status: Alert and oriented x3. Normal mood and affect Assessment/Plan 1. Paronychia of right index finger (L03.011: Cellulitis of right finger) Area cleaned with betadine, drained with use of electrocautery pen to distal surface of fingernail. Patient tolerated well. Mild amount of purulent and bloody drainage removed, topical bacitracin ointment applied and bandaid. Culture obtained- will notify of results in 3-5 days. Keep area clean and dry, may use topical ATB ointment. May use warm compress TID-QID to facilitate drainage. Will treat with Keflex. Finish course. Follow up with PCP if not improving over next 4-5 days, sooner if rapidly spreading erythema, warmth, edema. Patient verbalized understanding of tx plan. Ordered: cephalexin, 500 mg = 1 cap(s), Oral, q6hr, X 7 day(s), # 28 cap(s), Refills(s) 0, Pharmacy: [facility]/pharmacy #[id number], 166, cm, 11/18/22 17:17:00 EDT, Height/Length Dosing, 82.1, kg, 11/18/22 17:17:00 EDT, Weight Dosing Evacuation of Subungual Hematoma 67692 Wound Culture 2. BMI 29.0-29.9,adult (Z68.29: Body mass index [BMI] 29.0-29.9, adult) The standard range for ages 18 and older is >=18.5 and < 25 kg/m2. Your BMI today was above this range, this falls in the overweight to obese category and there are medical benefits to weight loss. We can offer counselling, referral, and/or medical support in addressing this problem. Your BMI and weight management will be followed at subsequent visits. Follow-up With When Contact Information ANU OLIVIER DO, MED [address] [facility] [address] [place] [address] Additional Instructions: Patient Education Paronychia Cellulitis, Adult BMI for Adults Problem List/Past Medical History Ongoing Adenoma of left adrenal gland Gross hematuria Incomplete bladder emptying Microscopic hematuria Stricture of female urethra Urgency of urination Urine frequency Historical Adrenal mass Anxiety disorder Hyperlipidemia Hypertension Procedure/Surgical History Cystoscopy (01/03/2022), Cystourethroscopy with dilation of urethral stricture (12/10/2018), Bilateral tubal ligation, Caesarean section, Colonoscopy, Hip replacement, Tonsillectomy. Medications aspirin cephalexin 500 mg Cap, 500 mg= 1 cap(s), Oral, q6hr Cipro 500 mg Tab, 500 mg= 1 tab(s), Oral, q24hr, Not taking Crestor, Oral, Daily FiberCon Flovent HFA, Inhalation, BID fluticasone 0.05 mg/inh Nasal [place], Nasal, Daily hydrochlorothiazide, Oral, Daily irbesartan 150 mg Tab Multi Vitamin+ sertraline, Oral, Daily Allergies codeine (Unknown) Social History Alcohol - Denies Alcohol Use, 08/01/2019 Substance Abuse - Denies Substance Abuse, 08/01/2019 Tobacco - Denies Tobacco Use, 08/01/2019 Never (less than 100 in lifetime) Tobacco Use:. Never Smokeless Tobacco Use:., 01/03/2022 Family History Hypertension: Father. Immunizations Vaccine Date Status Comments influenza virus vaccine, inactivated - Not Given Patient Refuses SARS-CoV-2 (COVID-19) mRNA-1273 vaccine 06/30/2021 Given SARS-CoV-2 (COVID-19) Ad26 vaccine 09/28/2020 Recorded SARS-CoV-2 (COVID-19) Ad26 vaccine 08/28/2020 Recorded Normal [facility] Comment on above: Result Comment: Elec tronically Signed By: GEMA Buitrago APRN, [place] X\.ml\Date and Time Signed: 11/18/22 17:50 EDT Patient Educationon 11-19-19 Patient Education Dermatology Paronychia Paronychia is an infection of the skin that surrounds a nail. It usually affects the skin around a fingernail, but it may also occur near a toenail. It often causes pain and swelling around the nail. In some cases, a collection of pus (abscess) can form near or under the nail. This condition may develop suddenly, or it may develop gradually over a longer period. In most cases, paronychia is not serious, and it will clear up with treatment. What are the causes? This condition may be caused by bacteria or a fungus. These germs can enter the body through an opening in the skin, such as a cut or a hangnail. What increases the risk? This condition is more likely to develop in people who: ? Get their hands wet often, such as those who work as dishwashers, case supervisor, or nurses. ? Bite their fingernails or suck their thumbs. ? Trim their nails very short. ? Have hangnails or injured fingertips. ? Get manicures. ? Have diabetes. What are the signs or symptoms? Symptoms of this condition include: ? Redness and swelling of the skin near the nail. ? Tenderness around the nail when you touch the area. ? Pus-filled bumps under the skin at the base and sides of the nail (cuticle). ? Fluid or pus under the nail. ? Throbbing pain in the area. How is this diagnosed? This condition is diagnosed with a physical exam. In some cases, a sample of pus may be tested to determine what type of bacteria or fungus is causing the condition. How is this treated? Treatment depends on the cause and severity of your condition. If your condition is mild, it may clear up on its own in a few days or after soaking in warm water. If needed, treatment may include: ? Antibiotic medicine, if your infection is caused by bacteria. ? Antifungal medicine, if your infection is caused by a fungus. ? A procedure to drain pus from an abscess. ? Anti-inflammatory medicine (corticosteroids). Follow these instructions at home: Wound care ? Keep the affected area clean. ? Soak the affected area in warm water, if told to do so by your health care provider. You may be told to do this for 20 minutes, 2?3 times a day. ? Keep the area dry when you are not soaking it. ? Do not try to drain an abscess yourself. ? Follow instructions from your health care provider about how to take care of the affected area. Make sure you: ? Wash your hands with soap and water before you change your bandage (dressing). If soap and water are not available, use hand salt washer harvesting station. ? Change your dressing as told by your health care provider. ? If you had an abscess drained, check the area every day for signs of infection. Check for: ? Redness, swelling, or pain. ? Fluid or blood. ? Warmth. ? Pus or a bad smell. Medicines ? Take zrqv-mlp-qoforak and prescription medicines only as told by your health care provider. ? If you were prescribed an antibiotic medicine, take it as told by your health care provider. Do not stop taking the antibiotic even if you start to feel better. General instructions ? Avoid contact with harsh chemicals. ? Do not pick at the affected area. Prevention ? To prevent this condition from happening again: ? Wear rubber gloves when washing dishes or doing other tasks that require your hands to get wet. ? Wear gloves if your hands might come in contact with general supervisor or other chemicals. ? Avoid injuring your nails or fingertips. ? Do not bite your nails or tear hangnails. ? Do not cut your nails very short.? ? Do not cut your cuticles. ? Use clean nail clippers or scissors when trimming nails. Contact a health care provider if: ? Your symptoms get worse or do not improve with treatment. ? You have continued or increased fluid, blood, or pus coming from the affected area. ? Your finger or knuckle becomes swollen or difficult to move. Get help right away if you have: ? A fever or chills. ? Redness spreading away from the affected area. ? Joint or muscle pain. Summary ? Paronychia is an infection of the skin that surrounds a nail. It often causes pain and swelling around the nail. In some cases, a collection of pus (abscess) can form near or under the nail. ? This condition may be caused by bacteria or a fungus. These germs can enter the body through an opening in the skin, such as a cut or a hangnail. ? If your condition is mild, it may clear up on its own in a few days. If needed, treatment may include medicine or a procedure to drain pus from an abscess. ? To prevent this condition from happening again, wear gloves if doing tasks that require your hands to get wet or to come in contact with chemicals. Also avoid injuring your nails or fingertips. This information is not intended to replace advice given to you by your health care provider. Make sure you discuss any questions you have with your health care provider. Document Released: 02/07/2002 Document Revised: 08/31/2018 (more content not included)... Normal [facility] LIPID PROFILEon 07-26-2022 CHOL-HDL RATIO NORM SEE BELOW Normal [facility] Comment on above: Result Comment: 3.3 - 4.4 LOW RISK 4.4 - 7.1 AVERAGE RISK 7.1 - 11.0 MODERATE RISK >11.0 HIGH RISK Performed By: #### B MP, LIPID #### [facility] [address] [place] [address] Dr. Roxanna Hurtado Cholesterol [Mass/Vol] 161 mg/dL Normal <=200 Th [facility] Comment on above: Performed By: #### B MP, LIPID #### [facility] [address] [place] [address] Dr. Roxanna Hurtado Cholesterol in HDL [Mass/Vol] 61 mg/dL Critically high 40-60 [facility] Comment on above: Performed By: #### B MP, LIPID #### [facility] [address] [place] [address] Dr. Roxanna Hurtado Cholesterol in LDL [Mass/Vol] 78.0 mg/dL Normal [facility] Comment on above: Performed By: #### B MP, LIPID #### [facility] [address] [place] [address] Dr. Roxanna Hurtado Cholesterol.total/Choles terol in HDL [Mass ratio] 2.6 {ratio} Normal [facility] Comment on above: Performed By: #### B MP, LIPID #### [facility] [address] [place] [address] Dr. Roxanna Hurtado HDL NORMAL > or = 60 mg/dl - LO W CARDIOVASCULAR RISK <40 mg/dl - HIGH CARDIOVASCULAR RISK Normal [facility] Comment on above: Performed By: #### B MP, LIPID #### [facility] [address] [place] [address] Dr. Roxanna Hurtado LDL CALC NORMAL SEE BELOW Normal [facility] Comment on above: Result Comment: <100 mg/dl OPTIMAL 100 - 129 mg/dl NEAR OR ABOVE OPTIMAL 130 - 159 mg/dl BORDERLINE HIGH 160 - 189 mg/dl HIGH >190 mg/dl VERY HIGH Performed By: #### B MP, LIPID #### [facility] [address] [place] [address] Dr. Roxanna Hurtado Triglyceride [Mass/Vol] 110 mg/dL Normal <=150 T [facility] Comment on above: Performed By: #### B MP, LIPID #### [facility] [address] [address] [address] Roxanna Hurtado VLDL CALC 22.0 mg/dL Normal [facility] Comment on above: Performed By: #### B MP, LIPID #### [facility] [address] [address] [address] Roxanna Hurtado PROF CHEM 8 (BAS METB)on Anion gap [Moles/Vol] 11.3 mmol/L Normal [facility] Comment on above: Performed By: #### B MP, LIPID #### [facility] [address] [address] [address] Roxanna Hurtado Calcium [Mass/Vol] 9.0 mg/dL Normal 8.5-10.1 [facility] Comment on above: Performed By: #### B MP, LIPID #### [facility] [address] [place] [address] Dr. Roxanna Hurtado Chloride [Moles/Vol] 107 mmol/L Normal 98-107 [facility] Comment on above: Performed By: #### B MP, LIPID #### [facility] [address] [address] [address] Roxanna Hurtado CO2 [Moles/Vol] 29.6 mmol/L Normal 21.0-32.0 [facility] Comment on above: Performed By: #### B MP, LIPID #### [facility] [address] [address] [address] Roxanna Hurtado Creatinine [Mass/Vol] 0.66 mg/dL Normal 0.55-1.02 [facility] Comment on above: Performed By: #### B MP, LIPID #### [facility] [address] [address] [address] Roxanna Hurtado EGFR-AF [facility] >60 Normal >=60 [facility] Comment on above: Performed By: #### B MP, LIPID #### [facility] [address] [address] [address] Roxanna Hurtado EGFR-NON AF [facility] >60 Normal >=60 [facility] Comment on above: Performed By: #### B MP, LIPID #### [facility] [address] [address] [address] Roxanna Hurtado Glucose [Mass/Vol] 99 mg/dL Normal 74-106 [facility] Comment on above: Performed By: #### B MP, LIPID #### [facility] [address] [address] [address] Roxanna Hurtado Potassium [Moles/Vol] 3.9 mmol/L Normal 3.5-5.1 [facility] Comment on above: Performed By: #### B MP, LIPID #### [facility] [address] [address] [address] Roxanna Hurtado Sodium [Moles/Vol] 144 mmol/L Normal 136-145 [facility] Comment on above: Performed By: #### B MP, LIPID #### [facility] [address] [address] [address] Roxanna Hurtado Urea nitrogen [Mass/Vol] 24.0 mg/dL Critically high 7.0-18 .0 [facility] Comment on above: Performed By: #### B MP, LIPID #### [facility] [address] [address] [address] Roxanna Hurtado Urea nitrogen/Creatinine [Mass ratio] 36.4 mg/mg Normal [facility] Comment on above: Performed By: #### B MP, LIPID #### [facility] [address] [place] [address] Dr. Roxanna Hurtado Vital Signs Date Time Vital Sign Value Performing Clinician Facility 01-31-2023 09:10-0400 Diastolic blood pressure 69 mm[Hg] DO Anu Olivier Work Phone: [facility] 01-31-2023 09:10-0400 Heart rate 62 /min DO Anu Olivier Work Phone: [facility] 01-31-2023 09:10-0400 Respiratory rate 16 /min DO Anu Olivier Work Phone: [facility] 01-31-2023 09:10-0400 SaO2% (BldA) [Mass fraction] 99 % DO Anu Olivier Work Phone: [facility] 01-31-2023 09:10-0400 Systolic blood pressure 108 mm[Hg] DO Anu Olivier Work Phone: [facility] 01-31-2023 08:40-0400 Inhaled oxygen flow rate 5 L/min DO Anu Olivier Work Phone: [facility] 01-31-2023 07:16-0400 Body height 162.56 cm DO Anu Olivier Work Phone: [facility] 01-31-2023 07:16-0400 Body temperature 97.8 [degF] DO Anu Olivier Work Phone: [facility] 01-31-2023 07:16-0400 Body weight 77.11 kg DO Anu Olivier Work Phone: [facility] 12-07-2022 19:30-0400 Body temperature 97.7 [degF] [facility] 12-07-2022 19:30-0400 Diastolic blood pressure 89 mm[Hg] [facility] 12-07-2022 19:30-0400 Heart rate 64 /min [facility] 12-07-2022 19:30-0400 Mean blood pressure 112 mm[Hg] [facility] 12-07-2022 19:30-0400 Respiratory rate 16 /min [facility] 12-07-2022 19:30-0400 SaO2% (BldA) [Mass fraction] 98 % [facility] 12-07-2022 19:30-0400 Systolic blood pressure 157 mm[Hg] [facility] 12-07-2022 19:00-0400 Diastolic blood pressure 79 mm[Hg] [facility] 12-07-2022 19:00-0400 Heart rate 66 /min [facility] 12-07-2022 19:00-0400 Mean blood pressure 105 mm[Hg] [facility] 12-07-2022 19:00-0400 SaO2% (BldA) [Mass fraction] 99 % [facility] 12-07-2022 19:00-0400 Systolic blood pressure 158 mm[Hg] [facility] 12-07-2022 18:00-0400 Diastolic blood pressure 83 mm[Hg] [facility] 12-07-2022 18:00-0400 Heart rate 71 /min [facility] 12-07-2022 18:00-0400 Mean blood pressure 110 mm[Hg] [facility] 12-07-2022 18:00-0400 Systolic blood pressure 163 mm[Hg] [facility] 12-07-2022 16:38-0400 Heart rate 67 /min [facility] 12-07-2022 15:26-0400 Body temperature 97.52 [degF] [facility] 12-07-2022 15:26-0400 Heart rate 80 /min [facility] 11-18-2022 17:14-0400 Blood Pressure Location [employer] [facility] 11-18-2022 17:14-0400 Diastolic blood pressure 80 mm[Hg] [employer] [facility] 11-18-2022 17:14-0400 Heart rate 75 /min [employer] [facility] 11-18-2022 17:14-0400 SaO2% (BldA) [Mass fraction] 95 % [employer] [facility] 11-18-2022 17:14-0400 Systolic blood pressure 150 mm[Hg] [employer]erline Buitrago [facility] 06-07-2022 14:00-0400 Body height 161.29 cm Tacho Pickens Other [employer] Other 06-07-2022 14:00-0400 Body mass index (BMI) [Ratio] 29.46 kg/m2 Tacho Pickens Other [employer] Other 06-07-2022 14:00-0400 Body temperature 97.5 [degF] Tacho Pickens Other [employer] Other 06-07-2022 14:00-0400 Body weight 76.66 kg Tacho Pickens Other [employer] Other 06-07-2022 14:00-0400 Diastolic blood pressure 70 mm[Hg] Tacho Pickens Other [employer] Other 06-07-2022 14:00-0400 SaO2% (BldA) [Mass fraction] 99 % Tacho Pickens Other [employer] Other 06-07-2022 14:00-0400 Systolic blood pressure 118 mm[Hg] Tacho Pickens Other [employer] Other 01-03-2022 14:04-0400 Blood Pressure Location Mike Elise Jr. [facility] 01-03-2022 14:04-0400 Diastolic blood pressure 76 mm[Hg] Mike Elise Jr. [facility] 01-03-2022 14:04-0400 Heart rate 79 /min Mike Elise Jr. [facility] 01-03-2022 14:04-0400 Systolic blood pressure 150 mm[Hg] Mike Elise Jr. [facility] Encounters Encounter Date Encounter Type Care Provider Facility Start: 12-20-2023 End: 12-20-2023 ambulatory GALA MCCANN Not Available Start: 12-05-2023 End: 12-05-2023 ambulatory MALIK ELISE Not Available Start: 10-24-2023 End: 10-24-2023 ambulatory KENNY ELY Not Available Start: 09-27-2023 End: 09-27-2023 ambulatory MALIK ELISE Not Available Start: 09-26-2023 End: 09-26-2023 ambulatory Gala Mccann Facility:[facility] Start: 08-07-2023 End: 08-07-2023 ambulatory ANU OLIVIER Not Available Start: 07-26-2023 End: 07-26-2023 ambulatory MALIK ELISE Not Available Start: 01-31-2023 End: 01-31-2023 ambulatory Anu Olivier Facility:[facility] Start: 01-31-2023 End: 01-31-2023 Admission to same day surgery center DO Anu Olivier Work Phone: [facility] Work Phone: Start: 01-31-2023 End: 01-31-2023 ambulatory DO Anu Olivier Work Phone: [facility] Work Phone: Start: 01-24-2023 End: 01-25-[address] ANU OLIVIER Facility: Start: 12-30-2022 End: 12-30-2022 ambulatory Gala Mccann Facility:[facility] Start: 12-30-2022 End: 12-30-2022 ambulatory DO Anu Olivier Work Phone: [facility] Work Phone: Start: 12-30-2022 End: 12-30-2022 Departed Referred DO Anu Olivier Work Phone: [facility] [place] Work Phone: Start: 12-20-2022 End: 12-20-2022 ambulatory Gala Mccann Facility:[facility] Start: 12-20-2022 End: 12-20-2022 ambulatory DO Anu Olivier Work Phone: [facility] Work Phone: Start: 12-20-2022 End: 12-20-2022 Patient encounter procedure DO Anu Olivier Work Phone: [facility] Start: 12-07-2022 End: 12-07-2022 [facility] Start: 12-07-2022 End: 12-07-2022 Emergency department patient visit [facility] Start: 11-18-2022 End: 11-19-2022 ambulatory [place] [facility] [place] Start: 11-18-2022 End: 11-18-2022 Lab Drop off [place] [facility] Start: 11-18-2022 End: 11-18-2022 Patient encounter procedure [place] X Orzech [facility] Start: 08-16-2022 End: 08-16-2022 ambulatory Danis Sneed Other [employer] Other Start: 08-16-2022 Telephone encounter Danis Hull [facility] [employer] Start: 07-26-2022 End: 07-27-[address] ANU OLIVIER Facility:[facility] Start: 06-07-2022 Office outpatient vi sit 25 minutes Tacho Pickens [facility] Start: 06-07-2022 End: 06-07-2022 ambulatory DO Anu Olivier Work Phone: [facility] [employer] Other Start: 06-07-2022 End: 06-07-2022 Patient encounter procedure DO Anu Olivier Work Phone: [facility] Start: 01-03-2022 End: 01-03-2022 Patient encounter procedure Mike Elise Jr. [facility] Start: 04-12-2016 Adult health examination Tacho Pickens Other [facility] [employer] Other Procedures Date Procedure Procedure Detail Performing Clinician Start: 01-31-2023 Colonoscopy DO Anu Olivier Work Phone: Start: 01-03-2022 Cystoscopy Mike wood Jr. Start: 12-10-2018 Cystourethroscopy az th dilation of urethral stricture Mike Elise Jr. Bilateral tubal ligation Ryan Elise Jr. section Mike banks Jr. Comment on above: x2 Colonoscopy Mike Cantu Prosthetic arthropla sty of the hip Mike Elise Jr. Comment on above: right Tonsillectomy Mike villeda Plan of Treatment Date Care Activity Detail Author Start: 01-31-2023 [facility] Immunizations Immunization Date Immunization Notes Care Provider Fa cility 12-07-2022 tetanus toxoid, reduced diphtheria toxoid, and acellular pertussis vaccine, adsorbed Astrit Hajdari [facility] Comment on above: Result Comment: LEFT DELTOID 06-30-2021 COVID-19, mRNA, LNP-S, PF, 100 mcg or 50 mcg dose; Translations: [SARS-CoV-2 (COVID-19) mRNA-1273 vaccine] Mike Elise Jr. [facility] 09-28-2020 SARS-CoV-2 (COVID-19 ) Ad26 vaccine, recombinant Mike Arik Jones [facility] 08-28-2020 SARS-CoV-2 (COVID-19 ) Ad26 vaccine, recombinant Mike Arik Jones [facility] 08-03-2018 zoster vaccine recombinant Tacho Pickens Other [employer] Other 05-21-2018 influenza, injectable, quadrivalent, contains preservative Tacho Pickens Other [employer] Other 06-08-2016 influenza, seasonal, injectable Tacho Pickens Other [employer] Other 11-13-2015 pneumococcal conjugate vaccine, 13 valent Tacho Pickens Other [employer] Other 07-08-2015 influenza, seasonal, injectable Tacho Pickens Other [employer] Other 01-13-2014 ALLERGY Injection (2 or more) Tacho Pickens Other [employer] Other 01-13-2014 ALLERGY Injection (2 or more)-pt brought own med Danis Sneed Other [employer] Other 11-14-2013 ALLERGY Injection (2 or more) Tacho Pickens Other [employer] Other 11-14-2013 ALLERGY Injection (2 or more)-pt brought own med Danis Nedra Other [employer] Other 10-21-2013 ALLERGY Injection (2 or more) Tacho Pickens Other [employer] Other 10-21-2013 ALLERGY Injection (2 or more)-pt brought own med Danis Nedra Other [employer] Other 10-01-2013 ALLERGY Injection (2 or more) Tacho Pickens Other [employer] Other 10-01-2013 ALLERGY Injection (2 or more)-pt brought own med Danis Nedra Other [employer] Other 09-04-2013 ALLERGY Injection (2 or more) Tacho Pickens Other [employer] Other 09-04-2013 ALLERGY Injection (2 or more)-pt brought own med Danis Nedra Other [employer] Other 08-27-2013 ALLERGY Injection (2 or more) Tacho Pickens Other [employer] Other 08-27-2013 ALLERGY Injection (2 or more)-pt brought own med Danis Nedra Other [employer] Other 07-30-2013 ALLERGY Injection (1 inj) Tacho Pickens Other [employer] Other 07-30-2013 ALLERGY Injection (1 inj)-pt brought own med Danis Nedra Other [employer] Other 07-09-2013 ALLERGY Injection (2 or more) Tacho Pickens Other [employer] Other 07-09-2013 ALLERGY Injection (2 or more)-pt brought own med Danis Nedra Other [employer] Other 06-18-2013 ALLERGY Injection (2 or more) Tacho Pickens Other [employer] Other 06-18-2013 ALLERGY Injection (2 or more)-pt brought own med Danis Nedra Other [employer] Other 05-27-2013 ALLERGY Injection (2 or more) Tacho Pickens Other [employer] Other 05-27-2013 ALLERGY Injection (2 or more)-pt brought own med Danis Nedra Other [employer] Other 05-06-2013 ALLERGY Injection (2 or more) Tacho Pickens Other [employer] Other 05-06-2013 ALLERGY Injection (2 or more)-pt brought own med Danis Nedra Other [employer] Other 04-15-2013 ALLERGY Injection (2 or more) Tacho Pickens Other [employer] Other 04-15-2013 ALLERGY Injection (2 or more)-pt brought own med Danis Nedra Other [employer] Other 04-09-2013 ALLERGY Injection (2 or more) Tacho Pickens Other [employer] Other 04-09-2013 ALLERGY Injection (2 or more)-pt brought own med Danis Nedra Other [employer] Other 03-27-2013 ALLERGY Injection (2 or more) Tacho Pickens Other [employer] Other 03-27-2013 ALLERGY Injection (2 or more)-pt brought own med Danis Nedra Other [employer] Other 03-18-2013 ALLERGY Injection (2 or more) Tacho Pickens Other [employer] Other 03-18-2013 ALLERGY Injection (2 or more)-pt brought own med Danis Nedra Other [employer] Other 03-12-2013 ALLERGY Injection (2 or more) Tacho Pickens Other [employer] Other 03-12-2013 ALLERGY Injection (2 or more)-pt brought own med Danis Nedra Other [employer] Other 02-19-2013 ALLERGY Injection (2 or more) Tacho Pickens Other [employer] Other 02-19-2013 ALLERGY Injection (2 or more)-pt brought own med Danis Nedra Other [employer] Other 02-04-2013 ALLERGY Injection (2 or more) Tacho Pickens Other [employer] Other 02-04-2013 ALLERGY Injection (2 or more)-pt brought own med Danis Nedra Other [employer] Other 01-22-2013 ALLERGY Injection (2 or more) Tacho Pickens Other [employer] Other 01-22-2013 ALLERGY Injection (2 or more)-pt brought own med Danis Nedra Other [employer] Other 01-10-2013 ALLERGY Injection (2 or more) Tacho Pickens Other [employer] Other 01-10-2013 ALLERGY Injection (2 or more)-pt brought own med Danis Nedra Other [employer] Other 12-25-2012 ALLERGY Injection (2 or more) Tacho Pickens Other [employer] Other 12-25-2012 ALLERGY Injection (2 or more)-pt brought own med Danis Nedra Other [employer] Other 12-10-2012 ALLERGY Injection (2 or more) Tacho Pickens Other [employer] Other 12-10-2012 ALLERGY Injection (2 or more)-pt brought own med Danis Nedra Other [employer] Other 12-04-2012 ALLERGY Injection (2 or more) Tacho Pickens Other [employer] Other 12-04-2012 ALLERGY Injection (2 or more)-pt brought own med Danis Nedra Other [employer] Other 11-26-2012 ALLERGY Injection (2 or more) Tacho Pickens Other [employer] Other 11-26-2012 ALLERGY Injection (2 or more)-pt brought own med Danis Nedra Other [employer] Other 11-20-2012 ALLERGY Injection (2 or more) Tacho Pickens Other [employer] Other 11-20-2012 ALLERGY Injection (2 or more)-pt brought own med Danis Nerda Other [employer] Other 11-13-2012 ALLERGY Injection (2 or more) Tacho Pickens Other [employer] Other 11-13-2012 ALLERGY Injection (2 or more)-pt brought own med Danis Nedra Other [employer] Other 10-22-2012 ALLERGY Injection (2 or more) Tacho Pickens Other [employer] Other 10-22-2012 ALLERGY Injection (2 or more)-pt brought own med Danis Nedra Other [employer] Other 10-11-2012 ALLERGY Injection (2 or more) Tacho Pickens Other [employer] Other 10-11-2012 ALLERGY Injection (2 or more)-pt brought own med Danis Nedra Other [employer] Other 09-25-2012 ALLERGY Injection (2 or more) Tacho Pickens Other [employer] Other 09-25-2012 ALLERGY Injection (2 or more)-pt brought own med Danis Nedra Other [employer] Other 09-12-2012 ALLERGY Injection (2 or more) Tacho Pickens Other [employer] Other 09-12-2012 ALLERGY Injection (2 or more)-pt brought own med Danis Nedra Other [employer] Other 08-30-2012 ALLERGY Injection (2 or more) Tacho Pickens Other [employer] Other 08-30-2012 ALLERGY Injection (2 or more)-pt brought own med Danis Nedra Other [employer] Other 08-24-2012 ALLERGY Injection (2 or more) Tacho Pickens Other [employer] Other 08-24-2012 ALLERGY Injection (2 or more)-pt brought own med Danis Nedra Other [employer] Other 08-14-2012 ALLERGY Injection (2 or more) Tacho Pickens Other [employer] Other 08-14-2012 ALLERGY Injection (2 or more)-pt brought own med Danis Nedra Other [employer] Other 08-07-2012 ALLERGY Injection (2 or more) Tacho Pickens Other [employer] Other 08-07-2012 ALLERGY Injection (2 or more)-pt brought own med Danis Nedra Other [employer] Other 07-30-2012 ALLERGY Injection (2 or more) Tacho Pickens Other [employer] Other 07-30-2012 ALLERGY Injection (2 or more)-pt brought own med Danis Nedra Other [employer] Other 07-23-2012 ALLERGY Injection (2 or more) Tacho Pickens Other [employer] Other 07-23-2012 ALLERGY Injection (2 or more)-pt brought own med Danis Nedra Other [employer] Other 07-03-2012 ALLERGY Injection (2 or more) Tacho Pickens Other [employer] Other 07-03-2012 ALLERGY Injection (2 or more)-pt brought own med Danis Nedra Other [employer] Other 06-18-2012 ALLERGY Injection (2 or more) Tacho Pickens Other [employer] Other 06-18-2012 ALLERGY Injection (2 or more)-pt brought own med Danis Nedra Other [employer] Other 06-05-2012 ALLERGY Injection (2 or more) Tacho Pickens Other [employer] Other 06-05-2012 ALLERGY Injection (2 or more)-pt brought own med Danis Nedra Other [employer] Other 05-22-2012 ALLERGY Injection (2 or more) Tacho Pickens Other [employer] Other 05-22-2012 ALLERGY Injection (2 or more)-pt brought own med Danis Nedra Other [employer] Other 04-24-2012 ALLERGY Injection (2 or more) Tacho Pickens Other [employer] Other 04-24-2012 ALLERGY Injection (2 or more)-pt brought own med Danis Nedra Other [employer] Other 04-12-2012 ALLERGY Injection (2 or more) Tacho Pickens Other [employer] Other 04-12-2012 ALLERGY Injection (2 or more)-pt brought own med Danis Nedra Other [employer] Other 04-06-2012 ALLERGY Injection (2 or more) Tacho Pickens Other [employer] Other 04-06-2012 ALLERGY Injection (2 or more)-pt brought own med Danis Murphyack Other [employer] Other 03-31-2012 ALLERGY Injection (2 or more) Tacho Pickens Other [employer] Other 03-31-2012 ALLERGY Injection (2 or more)-pt brought own med Danis Nedra Other [employer] Other 03-08-2012 ALLERGY Injection (2 or more) Tacho Pickens Other [employer] Other 03-08-2012 ALLERGY Injection (2 or more)-pt brought own med Danis Nedra Other [employer] Other NEGATED: Highlighted row has not occurred!11-18-2022 influenza virus vaccine, unspecified formulation Guerline Frias [facility] Care Payers Date Payer Category Payer Self-pay [id number] 2020 Private Health Insurance [id number] 1959 Medicare [id number] 2.1 [id number] 1959 Unknown [id number] 1950 Unknown [id number] 2.16.8 [id number] 1950 Unknown [id number] 2.16.8 40.1.339573.3.579.2.727 1950 Unknown [id number] 2.16.8 40.1.638154.3.579.2.727 1950 Unknown [id number] 2.16.84 0.1.681390.3.579.2.593 1950 Unknown [id number] 2.16.84 0.1.180142.3.579.2.593 1950 Unknown [id number] 2.16.84 0.1.812992.3.579.2.1259 1950 Unknown [id number] 2.16.84 0.1.728612.3.579.2.1259 1950 Unknown [id number] 2.16.84 0.1.483443.3.579.2.1259 1950 Unknown [id number] 2.16.84 0.1.289621.3.579.2.1259 1950 Unknown [id number] 2.16.840 .1.690869.3.579.2.1259 1950 Unknown [id number] 2.16.840 .1.138463.3.579.2.1259 Unknown [id number] 2.16 .840.1.240186.19 Unknown [id number] 2.16.8 40.1.708156.3.579.2.531 Unknown [id number] 2.16.8 40.1.207233.3.579.2.531 Unknown [id number] 2.16.8 40.1.799601.3.579.2.531 Unknown [id number] 2.16.8 40.1.182858.3.579.2.531 Social History Date Type Detail Facility Start: 01-03-2022 End: 01-31-2023 Tobacco smoking status Never smoked tobacco (finding) [facility] Tobacco smoking status Never [facility] Sex Assigned At Female [facility] Start: 1950 Sex Assigned At Female F [facility] Goals Date Patient Goal Desired Activity /State Functional Status Date Assessment Result Facility 12-07-2022 Functional Status N/A [facility] Clinical Notes 07-08-2014 to 01-31-2023 Note Date & Type Note Facility 01-31-2023 Procedure note [facility] 12-07-2022 Hospital Discharg e instructions Patient Education 12/07/2022 19:26:16 Nasal Fracture Nasal Fracture A nasal fracture is a break or crack in the bones of the nose or the tissue that helps to form the nose (cartilage). Minor breaks do not require treatment and usually heal on their own after about one month. Serious breaks may require treatment that could include surgery. What are the causes? A nasal fracture is usually caused by the strong force of a direct hit to the nose (blunt injury). This type of injury often occurs from: Playing a contact sport. Being involved in a car accident. Falling. Getting punched. What are the signs or symptoms? Symptoms of this condition include: Pain. Swelling of the nose. Bleeding from the nose. Bruising around the nose or bruising around the eyes (black eyes). Crooked appearance of the nose. How is this diagnosed? This condition may be diagnosed based on a physical exam. During the exam, the health care provider will: Gently feel the nose for signs of broken bones. Look inside the nostrils to check if there is a blood-filled swelling on the dividing wall between the nostrils (septal hematoma). An X-ray of the nose may be taken. Sometimes, an X-ray may not show a nasal fracture even when one is present. In some cases, X-rays or a CT scan may be taken again 1 5 days later after the swelling has gone down. How is this treated? Treatment for this condition depends on the severity of the injury. Minor fractures that have not caused deformity often do not require treatment. For more serious fractures that have caused bones to move out of position, treatment may involve one of the following: ?Repositioning the bones without surgery. The health care provider may be able to do this in his or her office after you are given medicine to numb the nasal area (local anesthetic). ?Surgery. If surgery is needed, it will be done after the swelling is gone. Surgery will stabilize and align the fracture. Follow these instructions at home: Activity Return to your normal activities as told by your health care provider. Ask your health care provider what activities are safe for you. Avoid contact sports for 3 4 weeks or as told by your health care provider. General instructions If directed, put ice on the injured area: ?Put ice in a plastic bag. ?Place a towel between your skin and the bag. ?Leave the ice on for 20 minutes, 2 3 times a day. Take nftl-ben-sqklzom and prescription medicines only as told by your health care provider. If your nose starts to bleed, sit in an upright position while you squeeze the soft parts of your nose against the dividing wall between your nostrils (septum) for 10 minutes. Try to avoid blowing your nose. Keep all follow-up visits as told by your health care provider. This is important. Contact a health care provider if: Your pain increases or becomes severe. You continue to have nosebleeds. The shape of your nose does not return to normal within 5 days. You have pus draining out of your nose. Get help right away if: You have bleeding from your nose that does not stop after you pinch your nostrils closed for 20 minutes and keep ice on your nose. You have clear fluid draining out of your nose. You notice swelling near the septum inside the nose. This swelling is a septal hematoma that must be drained to help prevent infection. You have difficulty moving your eyes. You have repeated vomiting. Summary A nasal fracture is a break or crack in the bones or cartilage of the nose. The fracture is usually caused by a blunt injury to the nose. Symptoms include pain, swelling, and facial bruising. Nasal fractures may heal on their own, or your health care provider may need to move the bones back into proper position. In some cases, surgery may be needed. This information is not intended to replace advice given to you by your health care provider. Make sure you discuss any questions you have with your health care provider. Document Released: 08/11/2001 Document Revised: 01/15/2019 Document Reviewed: 01/15/2019 [employer] Patient Education 2019 [employer] Follow Up Care 12/07/2022 15:24:27 With:ANU OLIVIER Address: [address] [place] [id number] When:12/10/2022 19:26:02 Comments:Call the office of your primary care doctor to arrange for follow-up within the above-stated timeframe. Follow-up with your primary care doctor about this ED visit. You should review your labs, imaging, and diagnoses from this ED visit with your primary care physician. If you were prescribed medications you should discuss possible side-effects and drug interactions with your pharmacist. Call 911 or go to the nearest Emergency Department if you develop any new or worsening symptoms. [facility] 12-07-2022 Evaluation + Plan note Extrac leatha from: Title:ED Note Author:Damian Schuster PA-C e:12/07/22 Facial abrasion (S00.81XA: A brasion of other part of head, initial encounter) Nasal bone fractures (S02.2XXA: Fracture of nasal bones, initial encounter for closed fracture) Orders: tetanus/diphtheria/pertussis, acel (Tdap), 0.5 mL, Injection, Intramuscular-Immunization, Once, Stop date 12/07/22 19:25:00 EDT, STAT, Start date 12/07/22 19:25:[address] Head or Brain w/o Contrast CT Maxillofacial w/o Contrast CT Spine Cervical w/o Contrast [facility]03-28-2023 NoteMicrobiology PROCEDURE: Wound Culture [R1] SOURCE: Drainage BODY SITE: Fingernail COLLECTED DATE/TIME: 11/18/2022 17:55 EDT RECEIVED DATE/TIME: 11/19/2022 14:41 EDT START DATE/TIME: 11/19/2022 14:41 EDT FREE TEXT SOURCE: MARTHA Buitrago APRN-C, Minna ALVARADO, MARTHA-C, Guerline X Guerline X FINAL REPORTS Final Report [] Verified Date/Time: 11/22/2022 08:08 EDT 2+ Staphylococcus aureus 2+ Gram Positive Rods resembling diphtheroids STAINS Gram Stain Report [] Verified Date/Time: 11/20/2022 07:37 EDT Occasional White Blood Cells Rare epithelial cells Occasional Gram Positive Cocci SUSCEPTIBILITY RESULTS LEGEND: S=Susceptible, N/R=Not Reported, Blank=Data not available, or drug not advisable or tested, I=Intermediate, ESBL=Extended spectrum beta-lactamase, R=Resistant, TFG=Thymidine-dependent strain, PHOEBE=Beta-lactamase positive, JOSH=mcg/m;(mg/L), S*=Predicted susceptible interp, R*=Predicted resistant interp SA Antibiotic JOSH Dilutn JOSH Interp Amoxicillin/ <=4/2 S Clavulanate Ampicillin <=2 PHOEBE Ampicillin/ <=8/4 S Sulbactam Azithromycin <=2 S Cefazolin <=8 S Ceftaroline <=0.5 S Ciprofloxacin <=1 S Clindamycin 0.5 S Daptomycin <=1 S Erythromycin <=0.5 S Gentamicin <=4 S Levofloxacin <=1 S Linezolid <=2 S Nitrofurantoin <=32 Oxacillin <=0.25 S Penicillin 2 PHOEBE Rifampin <=1 S Tetracycline >8 R Trimethoprim/ <=0.5/9.5 S Sulfa Vancomycin 1 S Performing Locations R1: This test was performed at: [facility], [address] [place] [address], [id number] , , [facility]pq[facility] CenterComment on above:Performed By: #### [id number] ####Bo [facility] [id number] [place] [id number] Hospital Discharge instructions Patient Education 11/18/2022 17:49:25 Paronychia Paronychia Paronychia is an infection of the skin that surrounds a nail. It usually affects the skin around a fingernail, but it may also occur near a toenail. It often causes pain and swelling around the nail.In some cases, a collection of pus (abscess) can form near or under the nail. This condition may develop suddenly, or it may develop gradually over a longer period. In most cases, paronychia is not serious, and it will clear up with treatment. What are the causes? This condition may be caused by bacteria or a fungus. These germs can enter the body through an opening in the skin, such as a cut or a hangnail. What increases the risk? This condition is more likely to develop in people who: Get their hands wet often, such as those who work as dishwashers, case supervisor, or nurses. Bite their fingernails or suck their thumbs. Trim their nails very short. Have hangnails or injured fingertips. Get manicures. Have diabetes. What are the signs or symptoms? Symptoms of this condition include: Redness and swelling of the skin near the nail. Tenderness around the nail when you touch the area. Pus-filled bumps under the skin at the base and sides of the nail (cuticle). Fluid or pus under the nail. Throbbing pain in the area. How is this diagnosed? This condition is diagnosed with a physical exam. In some cases, a sample of pus may be tested to determine what type of bacteria or fungus is causing the condition. How is this treated? Treatment depends on the cause and severity of your condition. If your condition is mild, it may clear up on its own in a few days or after soaking in warm water. If needed, treatment may include: Antibiotic medicine, if your infection is caused by bacteria. Antifungal medicine, if your infection is caused by a fungus. A procedure to drain pus from an abscess. Anti-inflammatory medicine (corticosteroids). Follow these instructions at home: Wound care Keep the affected area clean. Soak the affected area in warm water, if told to do so by your health care provider. You may be told to do this for 20 minutes, 2 3 times a day. Keep the area dry when you are not soaking it. Do not try to drain an abscess yourself. Follow instructions from your health care provider about how to take care of the affected area. Make sure you: ?Wash your hands with soap and water before you change your bandage (dressing). If soap and water are not available, use hand salt washer harvesting station. ?Change your dressing as told by your health care provider. If you had an abscess drained, check the area every day for signs of infection. Check for: ?Redness, swelling, or pain. ?Fluid or blood. ?Warmth. ?Pus or a bad smell. Medicines Take yzmi-zuy-afuqzgp and prescription medicines only as told by your health care provider. If you were prescribed an antibiotic medicine, take it as told by your health care provider. Do notstop taking the antibiotic even if you start to feel better. General instructions Avoid contact with harsh chemicals. Do not pick at the affected area. Prevention To prevent this condition from happening again: ?Wear rubber gloves when washing dishes or doing other tasks that require your hands to get wet. ?Wear gloves if your hands might come in contact with general supervisor or other chemicals. ?Avoid injuring your nails or fingertips. ?Do not bite your nails or tear hangnails. ?Do not cut your nails very short. ?Do not cut your cuticles. ?Use clean nail clippers or scissors when trimming nails. Contact a health care provider if: Your symptoms get worse or do not improve with treatment. You have continued or increased fluid, blood, or pus coming from the affected area. Your finger or knuckle becomes swollen or difficult to move. Get help right away if you have: A fever or chills. Redness spreading away from the affected area. Joint or muscle pain. Summary Paronychia is an infection of the skin that surrounds a nail. It often causes pain and swelling around the nail. In some cases, a collection of pus (abscess) can form near or under the nail. This condition may be caused by bacteria or a fungus. These germs can enter the body through an opening in the skin, such as a cut or a hangnail. If your condition is mild, it may clear up on its own in a few days. If needed, treatment may include medicine or a procedure to drain pus from an abscess. To prevent this condition from happening again, wear gloves if doing tasks that require your hands to get wet or to come in contact with chemicals. Also avoid injuring your nails or fingertips. This information is not intended to replace advice given to you by your health care provider. Make sure you discuss any questions you have with your health care provider. Document Released: 02/07/2002 Document Revised: 08/31/2018 Document Reviewed: 08/27/2018 [employer] [employer] Patient Education 2020 [employer] 11/18/2022 17:49:21 Cellulitis, Adult Cellulitis, Adult Cellulitis is a skin infection. The infected area is usually warm, red, swollen, and tender. This condition occurs most often in the arms and lower legs. The infection can travel to the muscles, blood, and underlying tissue and become serious. It is very important to get treated for this condition. What are the causes? Cellulitis is caused by bacteria. The bacteria enter through a break in the skin, such as a cut, burn, insect bite, open sore, or crack. What increases the risk? This condition is more likely to occur in people who: Have a weak body defense system (immune system). Have open wounds on the skin, such as cuts, damon, bites, and scrapes. Bacteria can enter the body through these open wounds. Are older than 60 years of age. Have diabetes. Have a type of long-lasting (chronic) liver disease (cirrhosis) or kidney disease. Are obese. Have a skin condition such as: ?Itchy rash (eczema). ?Slow movement of blood in the veins (venous stasis). ?Fluid buildup below the skin (edema). Have had radiation therapy. Use IV drugs. What are the signs or symptoms? Symptoms of this condition include: Redness, streaking, or spotting on the skin. Swollen area of the skin. Tenderness or pain when an area of the skin is touched. Warm skin. A fever. Chills. Blisters. How is this diagnosed? This condition is diagnosed based on a medical history and physical exam. You may also have tests, including: Blood tests. Imaging tests. How is this treated? Treatment for this condition may include: Medicines, such as antibiotic medicines or medicines to treat allergies (antihistamines). Supportive care, such as rest and application of cold or warm cloths (compresses) to the skin. Hospital care, if the condition is severe. The infection usually starts to get better within 1 2 days of treatment. Follow these instructions at home: Medicines Take lczk-hwz-mwhnept and prescription medicines only as told by your health care provider. If you were prescribed an antibiotic medicine, take it as told by your health care provider. Do notstop taking the antibiotic even if you start to feel better. General instructions Drink enough fluid to keep your urine pale yellow. Do not touch or rub the infected area. Raise (elevate) the infected area above the level of your heart while you are sitting or lying down. Apply warm or cold compresses to the affected area as told by your health care provider. Keep all follow-up visits as told by your health care provider. This is important. These visits letyour health care provider make sure a more serious infection is not developing. Contact a health care provider if: You have a fever. Your symptoms do not begin to improve within 1 2 days of starting treatment. Your bone or joint underneath the infected area becomes painful after the skin has healed. Your infection returns in the same area or another area. You notice a swollen bump in the infected area. You develop new symptoms. You have a general ill feeling (malaise) with muscle aches and pains. Get help right away if: Your symptoms get worse. You feel very sleepy. You develop vomiting or diarrhea that persists. You notice red streaks coming from the infected area. Your red area gets larger or turns dark in color. These symptoms may represent a serious problem that is an emergency. Do not wait to see if the symptoms will go away. Get medical help right away. Call your local emergency services (911 in the [place] Do not drive yourself to the hospital. Summary Cellulitis is a skin infection. This condition occurs most often in the arms and lower legs. Treatment for this condition may include medicines, such as antibiotic medicines or antihistamines. Take eaqh-scz-wnfknck and prescription medicines only as told by your health care provider. If you were prescribed an antibiotic medicine, do not stop taking the antibiotic even if you start to feel better. Contact a health care provider if your symptoms do not begin to improve within 1 2 days of startingtreatment or your symptoms get worse. Keep all follow-up visits as told by your health care provider. This is important. These visits letyour health care provider make sure that a more serious infection is not developing. This information is not intended to replace advice given to you by your health care provider. Make sure you discuss any questions you have with your health care provider. Document Released: 05/24/2006 Document Revised: 01/03/2019 Document Reviewed: 01/03/2019 [employer] Patient Education 2020 [employer] 11/18/2022 17:49:17 BMI for Adults BMI for Adults Body mass index (BMI) is a number that is calculated from a person's weight and height. BMI may help to estimate how much of a person's weight is composed of fat. BMI can help identify those who may be at higher risk for certain medical problems. How is BMI used with adults? BMI is used as a screening tool to identify possible weight problems. It is used to check whether aperson is obese, overweight, healthy weight, or underweight. How is BMI calculated? BMI measures your weight and compares it to your height. This can be done either in Micronesian ([place] or metric measurements. Note that charts are available to help you find your BMI quickly and easily without having to do these calculations yourself. To calculate your BMI in Micronesian ([place] measurements, your health care provider will: 1.Measure your weight in pounds (lb). 2.Multiply the number of pounds by 703. For example, for a person who weighs 180 lb, multiply that number by 703, which equals 126,540. 3.Measure your height in inches (in). Then multiply that number by itself to get a measurement called inches squared. For example, for a person who is 70 in tall, the inches squared measurement is 70 in x 70 in, which equals 4900 inches squared. 4.Divide the total from Step 2 (number of lb x 703) by the total from Step 3 (inches squared): 126,540 4900 = 25.8. This is your BMI. To calculate your BMI in metric measurements, your health care provider will: 1.Measure your weight in kilograms (kg). 2.Measure your height in meters (m). Then multiply that number by itself to get a measurement called meters squared. For example, for a person who is 1.75 m tall, the meters squared measurement is 1.75 m x 1.75 m, which is equal to 3.1 meters squared. 3.Divide the number of kilograms (your weight) by the meters squared number. In this example: 70 3.1 = 22.6. This is your BMI. How is BMI interpreted? To interpret your results, your health care provider will use BMI charts to identify whether you are underweight, normal weight, overweight, or obese. The following guidelines will be used: Underweight: BMI less than 18.5. Normal weight: BMI between 18.5 and 24.9. Overweight: BMI between 25 and 29.9. Obese: BMI of 30 and above. Please note: Weight includes both fat and muscle, so someone with a muscular build, such as an athlete, may havea BMI that is higher than 24.9. In cases like these, BMI is not an accurate measure of body fat. To determine if excess body fat is the cause of a BMI of 25 or higher, further assessments may needto be done by a health care provider. BMI is usually interpreted in the same way for men and women. Why is BMI a useful tool? BMI is useful in two ways: Identifying a weight problem that may be related to a medical condition, or that may increase the risk for medical problems. Promoting lifestyle and diet changes in order to reach a healthy weight. Summary Body mass index (BMI) is a number that is calculated from a person's weight and height. BMI may help to estimate how much of a person's weight is composed of fat. BMI can help identify those who may be at higher risk for certain medical problems. BMI can be measured using Micronesian measurements or metric measurements. To interpret your results, your health care provider will use BMI charts to identify whether you are underweight, normal weight, overweight, or obese. This information is not intended to replace advice given to you by your health care provider. Make sure you discuss any questions you have with your health care provider. Document Released: 04/25/2005 Document Revised: 07/27/2018 Document Reviewed: 06/27/2018 [employer] Patient Education 2020 [employer] Follow Up Care 11/18/2022 17:06:30 With:ANU OLIVIER DO, [facility] Address: [address] [place] [address] When: Unknown [facility] 03-24-2023 Evaluation + Plan note Diagnostic Tests Pending * Wound Culture 11/18/22 [facility]10-11-2022 Evaluation note* Encounter Date Diagnosis Assessment Notes Treatment Notes Treatment Clinical Notes May, Obstructive sleep apnea (ICD-10 - G47.33) Fortunately the patient is using and benefiting from treatment. Doing well with lower pressure, didn't need to switch mask. Download does indicate still needs PAP, and she's OK with that. Recheck 2 year May, Insufficient sleep syndrome (ICD-10 - F51.12) Discussed strategies for falling asleep more easily when she first gets into bed. I encouraged her to not perform activities right up until bedtime, but to give herself an hour or so if sitting still reading something when she hopes to fall asleep. This can help considerably, and she is already found that if she stays off the computer etc. she does fall asleep more easily in general May, BMI 29.0-29.9,adult (ICD-10 - Z68.29) Weight loss strategies were discussed in detail and she expresses good understanding. May, Other Call if any questions or problems. Patient is advised to work on healthy diet choices and appropriate servings, weight control, regular exercise as directed, and reduce fat intake. Use machine regularly, and keep up with mask changes as needed. Call if problems with mask toleration, increased sleepiness, or poor response to treatment. . [employer] Other 05-09-2022 Hospital Discharge instructions Patient Education 01/03/2022 14:12:17 Hematuria, Adult Hematuria, Adult Hematuria is blood in the urine. Blood may be visible in the urine, or it may be identified with a test. This condition can be caused by infections of the bladder, urethra, kidney, or prostate. Otherpossible causes include: Kidney stones. Cancer of the urinary tract. Too much calcium in the urine. Conditions that are passed from parent to child (inherited conditions). Exercise that requires a lot of energy. Infections can usually be treated with medicine, and a kidney stone usually will pass through your urine. If neither of these is the cause of your hematuria, more tests may be needed to identify the cause of your symptoms. It is very important to tell your health care provider about any blood in your urine, even if it ispainless or the blood stops without treatment. Blood in the urine, when it happens and then stops and then happens again, can be a symptom of a very serious condition, including cancer. There is no pain in the initial stages of many urinary cancers. Follow these instructions at home: Medicines Take yqsl-pei-txmxaxi and prescription medicines only as told by your health care provider. If you were prescribed an antibiotic medicine, take it as told by your health care provider. Do notstop taking the antibiotic even if you start to feel better. Eating and drinking Drink enough fluid to keep your urine clear or pale yellow. It is recommended that you drink 3 4 quarts (2.8 3.8 L) a day. If you have been diagnosed with an infection, it is recommended that you drink cranberry juice in addition to large amounts of water. Avoid caffeine, tea, and carbonated beverages. These tend to irritate the bladder. Avoid alcohol because it may irritate the prostate (men). General instructions If you have been diagnosed with a kidney stone, follow your health care provider's instructions about straining your urine to catch the stone. Empty your bladder often. Avoid holding urine for long periods of time. If you are female: ?After a bowel movement, wipe from front to back and use each piece of toilet paper only once. ?Empty your bladder before and after sex. Pay attention to any changes in your symptoms. Tell your health care provider about any changes or any new symptoms. It is your responsibility to get your test results. Ask your health care provider, or the department performing the test, when your results will be ready. Keep all follow-up visits as told by your health care provider. This is important. Contact a health care provider if: You develop back pain. You have a fever. You have nausea or vomiting. Your symptoms do not improve after 3 days. Your symptoms get worse. Get help right away if: You develop severe vomiting and are unable take medicine without vomiting. You develop severe pain in your back or abdomen even though you are taking medicine. You pass a large amount of blood in your urine. You pass blood clots in your urine. You feel very weak or like you might faint. You faint. Summary Hematuria is blood in the urine. It has many possible causes. It is very important that you tell your health care provider about any blood in your urine, even ifit is painless or the blood stops without treatment. Take ryel-rdg-psjjput and prescription medicines only as told by your health care provider. Drink enough fluid to keep your urine clear or pale yellow. This information is not intended to replace advice given to you by your health care provider. Make sure you discuss any questions you have with your health care provider. Document Released: 08/14/2006 Document Revised: 01/08/2020 Document Reviewed: 09/16/2017 [employer] Patient Education 2020 [employer] Follow Up Care 12/22/2021 14:16:00 With:Arik Jones MD, Mike Rosenthal, [facility] Address: [facility] [address], [place] [address]- When: only if needed [facility] 11-11-2014 History general Narrative - Reported* Type Description Date Medical History Hyperlipidemia Medical History Hypertension Medical History Sleep Apnea Medical History Allergies: perennial Medical History 07-08-14 Colonoscopy with biopsy and polyp removal Medical History PROLAPSE UTERUS Medical History HEARING LOSS WEARS HEARING AID Medical History Allergic rhinitis due to allerge n Medical History Right Hip Replacement 2016- Dr Nadia hicks Medical History Hyperlipidemia Medical History SAPNA (obstructive sleep apnea) Medical History Family history of colon cancer Medical History Blood in the stool Medical 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 SNEED 07-17 14 Surgical History TOTAL RIGHT HIP REPL ACEMENT - DR LUNA IN [place], [place] 10-11-2016 Hospitalization History SEE ABOVE Hospitalization History HIP REPLACEMENT [employer] Other Evaluation + Plan note No data available for this section [facility] Evaluation noteNo assessment information available [facility] Work Phone: Evaluation noteNo [facility] trip[employer]me Other Evaluation note* Diagnosis Onset Date Resolution Status Family history of colon canc er requiring screening colonoscopy [facility] Work Phone: Hospital Discharge instructions No data available for this section [facility] Additional Instructions DISCHARGE INSTRUCTIONS FOR ENDOSCOPY FOR COLONOSCOPY: -Expect a gassy or full feeling after a colonoscopy. Report any NEW abdominal pain or vomiting. -You may have oozing, but notify the doctor if you pass clots. FOR SEDATION FOR 24 HOURS: -NO driving -Do NOT operate machinery such as power tools, lawn mowers, snow blowers, sewing machines, etc. -Avoid alcoholic beverages and drugs for allergies, nerves, or sleep. -Do NOT stay alone. Do NOT leave your child unattended. -Do NOT make important personal or business decisions or sign any legal documents. -Eat solid foods and drink liquids in smaller amounts than usual until normal appetite returns. If you should experience an upset stomach, liquids high in sugar content (soda, Sidney-aid, non-acid juices) are recommended. -You can resume normal activities tomorrow. FOLLOW UP Please call the office and make a follow up appointment to see me as needed. Repeat colonoscopy in 5 years -Notify the doctor if you have any problems. -[facility] number [phone] Work Phone: Progress note No data available for this section [facility] Chief Complaint and Reason for Visit Chief Complaint Sleep apnea annual f ollow up Chief Complaint z01.818 Chief Complaint z01.818 PMB Hx of Colon Polyps Reason for Visit Family history of co sukh cancer requiring screening colonoscopy Advance Directives No Advanced Directives Records Found Advance Directive Response Recorded Date/ Time Advance Directives No September 28, 2017 10:28am Summary Purpose Family History No Family History Records Found Relationship Condition Age at Onset Recorded Date/T abdirashid Not Specified Malignant neoplasm of colon Unknown grandparent Malignant neoplasm of colon Unknown father Heart disease Unknown Additional Source Comments Care Teams (unrecognized sec tion and content) Team Status: Inactive Member Role Status Dates Anu Olivier , Primary Care Provider Active Tacho Pickens MD Attending Provider Active Team Status: Active Member Role Status Dates Anu Olivier , Primary Care Provider Active Team Status: Inactive Member Role Status Dates Anu Olivier , Primary Care Provider Active Gala Mccann , Attending Provider Active Team Status: Inactive Member Role Status Dates Anu Olivier , Primary Care Provider Active Danis Sneed MD Attending Provider Active Goals (unrecognized section and content) Goals may be documented in a n alternate section REASON FOR VISIT (unrecogniz ed section and content) MAIL PPW INFORMATION SOURCE (unrecogn ized section and content) DATE CREATED AUTHOR 01/04/2023 Marquette Santana [facility] DATE CREATED AUTHOR AUTHOR'S ORGANIZ ATION 02/05/2023 [facility] DATE CREATED AUTHOR AUTHOR'S ORGANIZ ATION 09/30/2023 [facility] DATE CREATED AUTHOR AUTHOR'S ORGANIZ ATION 12/22/2023 [facility] FOR RECORDS PERTAINING TO PATIENTS WHO ARE OR HAVE BEEN ENROLLED IN A CHEMICAL DEPENDENCY/SUBSTANCEABUSE PROGRAM, SOME INFORMATION MAY BE OMITTED. This clinical summary was aggregated from multiple sources. Caution should be exercised in using it in the provision of clinical care. This summary normalizes information from multiple sources, and as a consequence, information in this document may materially change the coding, format and clinical context of patient data. In addition, data may be omitted in some cases. CLINICAL DECISIONS SHOULD BE BASED ON THE PRIMARY CLINICAL RECORDS. [facility] [employer] provides no warranty or guarantee of the accuracy or completeness of information in this document.
[2024-02-06 08:04] LABS: Alanine Aminotransferase 30 U/L (14-59); Albumin Level 3.7 g/dL (3.4-5.0); Alkaline Phosphatase 83 U/L (46-116); Anion Gap 13.2; Aspartate Amino Transferase 18 U/L (15-37); BUN Creatinine Ratio 24.3; Bilirubin Total 0.9 mg/dL (0.2-1.0); Carbon Dioxide 29.6 mmol/L (21.0-32.0); Chloride 104 mmol/L (98-107); Chol HDL Ratio 2.5; Cholesterol 172 mg/dL (<=200); Estimated GFR (African America >60 (>=60); Estimated GFR (Non-African Ame >60 (>=60); Globulin 3.6 g/dL; Glucose 97 mg/dL (74-106); HDL Cholesterol 69 mg/dL (40-60); Potassium 3.8 mmol/L (3.5-5.1); Sodium 143 mmol/L (136-145); Total Protein 7.3 g/dL (6.4-8.2); Triglycerides 83 mg/dL (<=150); VLDL CHOLESTEROL 16.6 mg/dL
[2024-02-06 09:21] LABS: Microalbum Creatinine Ratio Ur 30.5 mg/g (0.0-29.9); Microalbumin Urine Random 1.6 mg/dL (<=30.0)
[2024-02-06 10:02] LABS: Estimated Average Glucose 123 mg/dL; Glycohemoglobin A1C 5.9 % (4.5-6.2)
== END 2024-02-06 07:04 | disposition home or self-care (01) ==
LOC: LAB 07:03
PROVIDERS: PCP Internal Medicine; Visit Provider Nurse Practitioner Adult Health
DX: R73.01 Impaired fasting glucose (principal); I10 Essential (primary) hypertension; E78.2 Mixed hyperlipidemia
CPT/HCPCS: 36415; 80053; 80061; 82043; 82570; 83036

== ENCOUNTER 2024-08-30 06:47 | Outpatient (OUT) | payer MEDICARE, OTHER, SELFPAY ==
--- OUTSIDE RECORDS SUMMARY | 2024-08-30 06:52 | XMS_ITS | CCD ---
Author Organization [facility] Care Team Providers Care School Leader Name Role Phone ANU OLIVIER Primary Care Physician Unavail able Tacho Pickens Unavailable DO Anu Olivier Primary Care Provider MD Tacho Pickens Attending Provider Danis Sneed Unavailable DO Anu Olivier Primary Care Provider DO Gala Mccann Attending Provider Guerline Buitrago Attending Unavailable Guerline Buitrago Admitting Unavailable Ellie Lopes Attending Unavailable Guerline Buitrago Attending Unavailable CHARLINE, DR BRENNAN Primary Care Unavailable CHARLINE, DR BRENNAN Admitting Unavailable CHARLINE, DR BRENNAN Attending Unavailable CHARLINE, DR BRENNAN Consulting Unavailable CHARLINE, DR BRENNAN Primary Care Unavailable CHARLINE, DR BRENNAN Admitting Unavailable CHARLINE, DR BRENNAN Attending Unavailable CHARLINE, DR BRENNAN Consulting Unavailable MD Danis Sneed Attending Provider [phone] Gala Mccann Admitting Unavailable Gala Mccann Attending Unavailable Anu Olivier Primary Care Unavailable Gala Mccann Admitting Unavailable Gala Mccann Attending Unavailable Anu Olivier Primary Care Unavailable Gala Mccann Admitting Unavailable Gala Mccann Attending Unavailable Anu Olivier Primary Care Unavailable Anu Olivier Primary Care Unavailable Danis Sneed Admitting UnavailDanis Jiang Attending UnavailAnu Cruz DO Unavailable [phone] Gala Mccann DO Unavailable [phone] Anu Olivier DO Primary Care Provider Kaylin Isabella RAMSEY Unavailable MALIK ELISE Attending Unavailable KENNY ELY Attending Unavailable ISABELLA GASTELUM Referring Unavailable MALIK ELISE Attending Unavailable MALIK ELISE Attending Unavailable GALA MCCANN Attending Unavailable ANU OLIVIER Attending Unavailable ANU OLIVIER Attending Unavailable ANU OLIVIER Referring Unavailable MALIK ELISE Attending Unavailable MALIK ELISE Attending Unavailable MALIK ELISE Attending Unavailable Allergies Allergy Classification Reported Allergen(s) Allergy Type Date of Onset Reaction(s) Facility (9 sources) Codeine; Translations: [codeine] Drug Allergy 04-06-2009 Unknown (qualifier value) [facility] Medications Current Medications Medication Drug Class(es) Dates Sig (Normalized) Sig (Original) [id number] 200 actuat albuterol 0.09 mg/actuat metered dose inhaler (5 sources) beta2-Adrenergic Agonist Start: 02-01-2023 take 2 puff(s) by inhalation every four hours for wheezing albuterol HFA (Ventolin HFA) 90 mcg/act inhaler Indications: Mild intermittent asthma without complication (CMS/HCC) Inhale 2 puffs every 4 (four) hours if needed for wheezing or shortness of breath. 8 g 5 02/01/2023 Active Start: 07-18-2018 take 2 puff(s) by in halation every six hours as needed ProAir HFA 108 (90 Base) MCG/ACT 2 puffs as needed Inhalation every 6 hrs as needed for 30 days Jun, Active Aspirin (11 sources) Platelet Aggregation Inhibitor, Nonsteroidal Anti-inflammatory Drug Start: 08-01-2019 aspirin Refills(s ) 0 Start Date: 08/01/19 Status: Ordered Start: 08-08-2017 take 81 mg by mouth once daily Aspirin Active 81 MG PO Daily August 08, 2017 1:00am take 1 tablet by will th every twenty-four hours Aspirin 81 MG 1 tablet Orally Once a day Active calcium carbonate 1500 mg oral tablet (4 sources) take 1 tablet by mouth in the morning calcium carbonate 1500 (600 Ca) MG tablet Take 1 tablet by mouth in the morning. Active Calcium Citrate (2 sources) take 1 [...] day(s), # 28 cap(s), Refills(s) 0, Pharmacy: [facility]/pharmacy #[id number], 166, cm, 11/18/22 17:17:00 EDT, Height/Length Dosing, 82.1, kg, 11/18/22 17:17:00 EDT, Weight Dosing Start Date: 11/18/22 Stop Date: 11/25/22 Status: Ordered Start: 09-28-2018 take 1 capsule by [facility] every twelve hours Cephalexin 500 MG 1 capsule Orally every 12 hrs for 7 days Sep, Not-Taking cholecalciferol 0.025 mg oral capsule (10 sources) Vitamin D Start: 08-08-2017 take 2000 [...] Inhalation Daily for 90 days Active fluticasone propionate 0.05 mg/actuat metered dose nasal spray (20 sources) Corticosteroid Start: 02-23-2024 take 2 spray(s) nasal route once daily fluticasone (Flonase) 50 MCG/ACT nasal spray Indications: Mild intermittent asthma without complication (CMS/HCC) SPRAY 2 SPRAYS INTO EACH NOSTRIL EVERY DAY 48 mL 1 02/23/2024 Active Start: 08-01-2019 Flovent HFA In halation, BID, Refills(s) 0 Start Date: 08/01/19 Status: Ordered Start: 08-07-2017 Fluticasone Pr opionate Active 2 SPRAY INTRANASAL Daily August 07, 2017 1:00am Start: 09-21-2016 take 2 spray(s) nasa l route once daily Flonase 50 MCG/ACT 2 spray in each nostril Nasally Once a day for 90 days Aug, Active take 1 puff(s) by in halation in the morning Fluticasone Propionate, Inhal, (Flovent Diskus) 100 MCG/ACT aerosol powder Inhale 1 puff in the morning. Active take 1 puff(s) by in halation once daily Flovent Diskus 100 MCG/BLIST 1 puff Inhalation Daily for 90 days Active fluticasone 0.05 mg/inh Nasal [place] (4 sources) Start: 08-01-2019 fluticasone 0.05 mg/inh Nasal [place] Nasal, Daily, Refill(s) 0 Start Date: 08/01/19 Status: Ordered hydroCHLOROthiazide 25 mg oral tablet (10 sources) Thiazide Diuretic Start: 11-01-2023 take 1 tablet by mouth once daily in the morning hydroCHLOROthiazide (HYDRODiuril) 25 MG tablet Indications: Primary hypertension (CMS/HCC) TAKE 1 TABLET BY MOUTH EVERY DAY IN THE MORNING 90 tablet 3 11/01/2023 Active Start: 08-01-2019 hydrochlorothi azide Oral, Daily, Refills(s) 0 Start Date: 08/01/19 Status: Ordered take 1 tablet by will every twenty-four hours hydroCHLOROthiazide 25 MG 1 tablet in the morning Orally Once a day for 90 Active ibuprofen 800 mg oral tablet (5 sources) Nonsteroidal Anti-inflammatory Drug Start: 02-24-2019 take 800 mg by mouth three times daily Ibuprofen Active 800 MG PO Three times daily February 24, 2019 12:00am irbesartan 150 mg oral tablet (20 sources) Angiotensin 2 Receptor Angélica Start: 09-21-2023 take 1 tablet by mouth once daily irbesartan (Avapro) 150 MG tablet Indications: Primary hypertension (CMS/HCC) TAKE 1 TABLET BY MOUTH EVERY DAY 90 tablet 3 09/21/2023 Active Start: 09-22-2020 irbesartan 150 mg Tab Refills(s) 0 Start Date: 09/22/20 Status: Ordered Start: 08-07-2017 End: 08-08-2017 take 1 tablet by mouth once daily Irbesartan (Avapro) 300 mg Tablet Active 300 MG PO Daily August 08, 2017 1:00am Lactobacillus Combination No.4 (Probiotic) 3 billion cell Capsule (5 sources) Start: 08-08-2017 Lactobacillus Combination No.4 (Probiotic) 3 billion cell Capsule Active 1 TAB PO Daily August 08, 2017 1:00am Multi For Her (2 sources) take 1 tablet by mouth once daily Multi For Her 1 Tablet By Mouth Daily Active Multi Vitamin+ (4 sources) Start: 08-01-2019 Multi Vitamin+ Refill(s) 0 Start Date: 08/01/19 Status: Ordered Multiple Vitamin (multivitamin) tablet (4 sources) take 1 tablet by mouth in the morning Multiple Vitamin (multivitamin) tablet Take 1 tablet by mouth in the morning. Active Multiple Vitamins-Minerals (Eye Vitamins) capsule (4 sources) take 1 capsule by mouth in the morning Multiple Vitamins-Minerals (Eye Vitamins) capsule Take 1 capsule by mouth in the morning. Active Multivitamin preparation (5 sources) Start: 08-08-2017 take 1 tablet by [...] daily Probiotic 1 Tablet orally Daily Active Probiotic Product (PROBIOTIC DAILY PO) (4 sources) take 1 capsule by mouth once daily Probiotic Product (PROBIOTIC DAILY PO) Take 1 capsule by mouth 1 (one) time each day at the same time. Active psyllium 525 mg oral capsule (4 sources) take 3 capsules by mouth once daily psyllium (Metamucil) 0.52 g capsule Take 3 capsules by mouth 1 (one) time each day at the same time. Active Respiratory Therapy Supplies (CareTouch CPAP & BIPAP Hose) misc (4 sources) Respiratory Ther apy Supplies (CareTouch CPAP & BIPAP Hose) misc misc use nightly Active rosuvastatin calcium 10 mg oral tablet (12 sources) HMG-CoA Reductase Inhibitor Start: 01-31-2023 take 1 tablet by mouth once daily in the evening rosuvastatin (Crestor) 10 MG tablet Indications: Essential hypertension (CMS/HCC) TAKE 1 TABLET BY MOUTH EVERY DAY IN THE EVENING 90 tablet 3 07/24/2023 Active Start: 08-01-2019 Crestor Oral, Daily, Refills(s) 0 Start Date: 08/01/19 Status: Ordered take 1 tablet by will th every twenty-four hours Crestor 10 MG 1 tablet Orally Once a day for 90 Active sertraline 100 mg oral tablet (14 sources) Serotonin Reuptake Inhibitor Start: 06-04-2024 take 1 tablet by mouth once daily sertraline (Zoloft) 100 MG tablet Indications: Other specified anxiety disorders TAKE 1 TABLET BY MOUTH EVERY DAY 90 tablet 2 06/04/2024 Active Start: 11-30-2023 take 1 tablet by will th once daily sertraline (Zoloft) 100 MG tablet Indications: Other specified anxiety disorders TAKE 1 TABLET BY MOUTH EVERY DAY 90 tablet 2 11/30/2023 Active Start: 08-01-2019 sertraline Ora l, Daily, Refills(s) 0 Start Date: 08/01/19 Status: Ordered Start: 08-07-2017 take 75 mg by mouth once daily Sertraline Active 75 MG PO Daily August 07, 2017 1:00am Zoloft 50 MG CARMELITA E 1 AND 1/2 TABLETS BY MOUTH EVERYDAY Orally Once a day for 90 days Active sodium fluoride 0.011 mg/mg toothpaste (4 sources) Start: 12-22-2022 Sodium Fluorid e 5000 PPM 1.1 % paste USE DIRECTED 12/22/2022 Active Vitamin D 2000 UNIT (2 sources) take 1 tablet by mouth once daily Vitamin D 2000 UNIT 1 [...] procedure, # 2 tab(s), Refills(s) 0, Pharmacy: [facility]/pharmacy #[id number] Start Date: 12/23/21 Status: Ordered doxycycline hyclate 100 mg oral capsule (2 sources) Tetracycline-class Drug Start: 12-07-2018 take 2 capsules by mouth once Doxycycline Hyclate 100 MG 2 capsules today at once Orally once for 1 days Nov, Not-Taking ergocalciferol 1.25 mg oral capsule (5 sources) Provitamin D2 Compound Start: 08-08-2017 End: 08-08-2017 take 59735 [IU] by mouth every week Ergocalciferol (Vitamin D2) Discontinued 13335 UNIT PO every week August 08, 2017 1:00am August 08, 2017 8:32am ketorolac tromethamine 5 mg/ml ophthalmic solution (2 sources) Nonsteroidal Anti-inflammatory Drug, Cyclooxygenase Inhibitor Start: 02-23-2024 End: 04-16-2024 take 1 drop(s) into the eye(s) at bedtime ketorolac (Acular) 0.5 % ophthalmic solution Indications: Age-related nuclear cataract of both eyes INSTILL 1 DROP INTO THE AFFECTED EYE(S) IN THE MORNING AND BEFORE BEDTIME 5 mL 1 02/23/2024 04/16/2024 Discontinued mupirocin 0.02 mg/mg topical ointment (2 sources) RNA Synthetase Inhibitor Antibacterial Start: 12-07-2018 Mupirocin 2 % 1 application to affected area Externally Three times a day for 10 days Nov, Not-Taking ofloxacin 3 mg/ml ophthalmic solution (2 sources) Quinolone Antimicrobial Start: 02-23-2024 End: 04-16-2024 take 1 drop(s) into the eye(s) five times daily ofloxacin (Ocuflox) 0.3 % ophthalmic solution Indications: Age-related nuclear cataract of both eyes INSTILL 1 DROP INTO THE RIGHT EYE 5 TIMES A DAY STARTING 1 DAY BEFORE SURGERY, CONTINUE AFTER SURGERY DIRECTED 5 mL 1 02/23/2024 04/16/2024 Discontinued pravastatin sodium 40 mg oral tablet (5 sources) HMG-CoA Reductase Inhibitor Start: 08-07-2017 End: [...] Translations: [Generalized anxiety disorder] 08-01-2019 Chronic Asthma (6 sources) Asthma; Translations: [Unspecified asthma, uncomplicated] Onset: 02-01-2023 02-01-2023 Chronic Cataract (4 sources) Bilateral age-related nuclear cataracts; Translations: [Age-related nuclear cataract, bilateral] Onset: 10-24-2023 10-24-2023 Chronic Disorders of lipid metabolism (12 sources) Hyperlipidemia; Translations: [Hypercholesterolemi a] Onset: 07-30-2022 08-01-2019 Chronic Essential hypertension (15 sources) Hypertensive disorder; Translations: [Essential hypertension] Onset: 01-24-2023 08-01-2019 Chronic Genitourinary symptoms and ill-defined conditions (20 sources) Blood in urine; Translations: [Gross hematuria] Onset: 01-03-2022 Episodic Menopausal disorders (1 source) Postmenopausal bleeding; Translations: [Postmenopausal bleeding] Onset: 12-30-2022 Chronic Miscellaneous mental health disorders (4 sources) Not getting enough sleep; Translations: [Insufficient sleep syndrome] Chronic Mood disorders (4 sources) 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; Translations: [Major depressive disorder, recurrent, mild] Onset: 02-01-2023 02-01-2023 Chronic Mycoses (2 sources) Onychomycosis; Translations: [Tinea unguium] 06-18-2024 Episodic Nutritional deficiencies (2 sources) Vitamin D deficiency; Translations: [Vitamin D deficiency, unspecified] Chronic Osteoarthritis (4 sources) Localized, primary osteoarthritis; Translations: [Bilateral primary osteoarthritis of knee] Onset: 01-16-2023 01-16-2023 Chronic Other aftercare (1 source) Other superintendent terminal (current) drug therapy; Translations: [OTH DETENTION CURRENT DRUG THERAPY] Onset: 01-25-2023 Episodic Other and unspecified benign neoplasm (1 source) Benign neoplasm of adrenal gland; Translations: [Benign neoplasm of left adrenal gland] Onset: 01-03-2022 Episodic Other and unspecified benign neoplasm (4 sources) Adrenal adenoma 09-22-2020 Episodic Other and unspecified benign neoplasm (2 sources) History of polyp of colon; Translations: [Personal history of colonic polyps] Episodic Other connective tissue disease (2 sources) Pain in both feet; Translations: [Pain in right foot] 06-18-2024 Episodic Other diseases of bladder and urethra (5 sources) Urethral stricture; Translations: [Unspecified urethral stricture, female] Onset: 01-03-2022 Episodic Other gastrointestinal disorders (4 sources) Irritable bowel syndrome; Translations: [Irritable bowel syndrome without diarrhea] Onset: 02-12-2024 02-12-2024 Chronic Other gastrointestinal disorders (4 sources) Adrenal mass 08-01-2019 Episodic Comment on above: right Other injuries and conditions due to external causes (5 sources) Contusion; Translations: [Other injury of unspecified [...] [Allergic rhinitis, unspecified] Chronic Residual codes; unclassified (9 sources) Obstructive sleep apnea syndrome; Translations: [Obstructive sleep apnea (adult) (pediatric)] Onset: 02-01-2023 02-01-2023 Chronic Residual codes; unclassified (2 sources) Obstructive sleep apnea (adult) (pediatric); Translations: [OBSTRUCTIVE SLEEP APNEA] Onset: 01-25-2023 Chronic Residual codes; unclassified (2 sources) Family history of cancer of colon; Translations: [...] Problem Classification Problem Date Documented Date Episodic/Chronic Administrative/socia l admission (4 sources) Patient encounter status; Translations: [Other specified counseling] Onset: 08-07-2023 08-07-2023 Episodic Diabetes mellitus without complication (4 sources) Impaired fasting glycemia; Translations: [Impaired fasting glucose] Onset: 02-12-2024 02-12-2024 Episodic Other connective tissue disease (4 sources) Recurrent falls ; Translations: [Repeated falls] Onset: 01-16-2023 Resolved: 08-07-2023 08-07-2023 Episodic Other nervous system disorders (4 sources) Impairment of balance; Translations: [Other abnormalities of gait and mobility] Onset: 01-16-2023 Resolved: 08-07-2023 08-07-2023 Episodic Residual codes; unclassified (2 sources) Family history of malignant neoplasm of digestive organs; Translations: [Family history of malignant neoplasm of gastrointestinal tract] Onset: 01-31-2023 01-31-2023 Episodic Results Test Name Value Interpretation Reference Range Facility MM screening mammo BI w/CADo n 09-26-2023 MM screening mammo BI w/CAD [facility] [address] [address] [place] [id number] Mammography Report Signed Patient: Nataliya Griffin MR#: [id number] 83 : 1950 Acct:[id number] Age/Sex: 73 / F ADM Date: 09/26/23 Loc: [place] Room: Type: [facility] Attending Dr: Gala Mccann DO Copies to: Anu Olivier,DO Gala Mccann DO Ordering Provider: Gala Mccann DO Date [...] Italia Rendon M.D.09/26/2023 2:24 PM Dictation Location: [facility] Transcribed By: ALYSIA 09/26/23 1424 Dictated By: Italia Rendon MD 09/26/23 142 Signed By: 09/26/23 142 Normal [facility] CBC AUTO DIFFon 01-24-2023 BASO # 0.0 103/ul Normal 0.0-0.1 [facility] Comment on above: Performed By: #### C BC #### [facility] [address] [address] [address] Roxanna Hurtado Basophils/100 WBC (Bld) 0.2 % Normal 0.2-2.0 [facility] Comment on above: Performed By: #### C BC #### [facility] [address] [address] [address] Roxanna Hurtado EO # 0.2 103/ul Normal 0.0-0.7 [facility] Comment on above: Performed By: #### C BC #### [facility] [address] [address] [address] Roxanna Hurtado Eosinophils/100 WBC (Bld) 4.7 % Normal 0.9-7.0 [facility] Comment on above: Performed By: #### C BC #### [facility] [address] [address] [address] Roxanna Hurtado Erythrocyte distribution width (RBC) [Ratio] 12.8 % Normal 11.0-15.0 [facility] Comment on above: Performed By: #### C BC #### [facility] [address] [address] [address] Roxanna Hurtado Hematocrit (Bld) [Volume fraction] 37.9 % Normal 36.0-48.0 [facility] Comment on above: Performed By: #### C BC #### [facility] [address] [address] [address] Roxanna Hurtado Hemoglobin (Bld) [Mass/Vol] 12.7 g/dL Normal 12.0-16.0 [facility] Comment on above: Performed By: #### C BC #### [facility] [address] [address] [address] Roxanna Hurtado IG # 0.01 10e3/ul Normal 0.00-0.03 [facility] Comment on above: Performed By: #### C BC #### [facility] [address] [place] [address] Dr. Roxanna Hurtado IG % 0.2 % Normal 0.0-0.5 [facility] Comment on above: Performed By: #### C BC #### [facility] [address] [place] [address] Dr. Roxanna Hurtado LYMPH # 1.7 103/ul Normal 1.2-3.8 [facility] Comment on above: Performed By: #### C BC #### [facility] [address] [place] [address] Dr. Roxanna Hurtado Lymphocytes/100 WBC (Bld) 41.4 % Normal 20.5-60.0 [facility] Comment on above: Performed By: #### C BC #### [facility] [address] [place] [address] Dr. Roxanna Hurtado MANUAL DIFF REQ NO Normal [facility] Comment on above: Performed By: #### C BC #### [facility] [address] [place] [address] Dr. Roxanna Hurtado MCH (RBC) [Entitic mass] 30.9 pg Normal 26.7-34.0 [facility] Comment on above: Performed By: #### C BC #### [facility] [address] [place] [address] Dr. Roxanna Hurtado MCHC (RBC) [Mass/Vol] 33.5 g/dL Normal 29.9-35.2 [facility] Comment on above: Performed By: #### C BC #### [facility] [address] [place] [address] Dr. Roxanna Hurtado MCV (RBC) [Entitic vol] 92.2 fL Normal 81.0-99.0 [facility] Comment on above: Performed By: #### C BC #### [facility] [address] [place] [address] Dr. Roxanna Hurtado MONO # 0.4 103/ul Normal 0.3-0.8 [facility] Comment on above: Performed By: #### C BC #### [facility] [address] [address] [address] Roxanna Hurtado Monocytes/100 WBC (Bld) 8.9 % Normal 1.7-12.0 [facility] Comment on above: Performed By: #### C BC #### [facility] [address] [address] [address] Roxanna Hurtado NEUT # 1.8 103/ul Normal 1.4-6.5 [facility] Comment on above: Performed By: #### C BC #### [facility] [address] [address] [address] Roxanna Hurtado Neutrophils/100 WBC (Bld) 44.6 % Normal 43.0-75.0 [facility] Comment on above: Performed By: #### C BC #### [facility] [address] [place] [address] Dr. Roxanna Hurtado Platelet mean volume (Bld) [Entitic vol] 9.6 fL Normal 9.5-13.5 [facility] Comment on above: Performed By: #### C BC #### [facility] [address] [place] [address] Dr. Roxanna Hurtado PLT 189 103/ul Normal 150-450 [facility] Comment on above: Performed By: #### C BC #### [facility] [address] [address] [address] Roxanna Hurtado RBC 4.11 106/ul Critically low 4.20-5.40 [facility] Comment on above: Performed By: #### C BC #### [facility] [address] [place] [address] Dr. Roxanna Hurtado WBC 4.1 103/ul Normal 4.0-11.0 [facility] Comment on above: Performed By: #### C BC #### [facility] [address] [place] [address] Dr. Roxanna Hurtado LIPID PROFILEon 01-24-2023 CHOL-HDL RATIO NORM SEE BELOW Normal [facility] Comment on above: Result Comment: 3.3 - 4.4 LOW RISK 4.4 - 7.1 AVERAGE RISK 7.1 - 11.0 MODERATE RISK >11.0 HIGH RISK Performed By: #### T SH, CMP, LIPID #### [facility] [address] [place] [address] Dr. Roxanna Hurtado Cholesterol [Mass/Vol] 162 mg/dL Normal <=200 [facility] Comment on above: Performed By: #### T SH, CMP, LIPID #### [facility] [address] [place] [address] Dr. Roxanna Hurtado Cholesterol in HDL [Mass/Vol] 66 mg/dL Critically high 40-60 [facility] Comment on above: Performed By: #### T SH, CMP, LIPID #### [facility] [address] [place] [address] Dr. Roxanna Hurtado Cholesterol in LDL [Mass/Vol] 78.0 mg/dL Normal [facility] Comment on above: Performed By: #### T SH, CMP, LIPID #### [facility] [address] [place] [address] Dr. Roxanna Hurtado Cholesterol.total/Choles terol in HDL [Mass ratio] 2.5 {ratio} Normal [facility] Comment on above: Performed By: #### T SH, CMP, LIPID #### [facility] [address] [place] [address] Dr. Roxanna Hurtado HDL NORMAL > or = 60 mg/dl - LO W CARDIOVASCULAR RISK <40 mg/dl - HIGH CARDIOVASCULAR RISK Normal [facility] Comment on above: Performed By: #### T SH, CMP, LIPID #### [facility] [address] [place] [address] Dr. Roxanna Hurtado LDL CALC NORMAL SEE BELOW Normal [facility] Comment on above: Result Comment: <100 mg/dl OPTIMAL 100 - 129 mg/dl NEAR OR ABOVE OPTIMAL 130 - 159 mg/dl BORDERLINE HIGH 160 - 189 mg/dl HIGH >190 mg/dl VERY HIGH Performed By: #### T SH, CMP, LIPID #### [facility] [address] [place] [address] Dr. Roxanna Hurtado Triglyceride [Mass/Vol] 90 mg/dL Normal <=150 [facility] Comment on above: Performed By: #### T SH, CMP, LIPID #### [facility] [address] [address] [address] Roxanna Hurtado VLDL CALC 18.0 mg/dL Normal [facility] Comment on above: Performed By: #### T SH, CMP, LIPID #### [facility] [address] [address] [address] Roxanna Hurtado PROF 14(COMP METB)on 023 Albumin [Mass/Vol] 3.6 g/dL Normal 3.4-5.0 [facility] Comment on above: Performed By: #### T SH, CMP, LIPID #### [facility] [address] [address] [address] Roxanna Hurtado Albumin/Globulin [Mass ratio] 1.1 {ratio} Normal [facility] Comment on above: Performed By: #### T SH, CMP, LIPID #### [facility] [address] [place] [address] Dr. Roxanna Hurtado ALP [Catalytic activity/Vol] 91 U/L Normal 46-116 [facility] Comment on above: Performed By: #### T SH, CMP, LIPID #### [facility] [address] [place] [address] Dr. Roxanna Hurtado ALT [Catalytic activity/Vol] 28 U/L Normal 14-59 [facility] Comment on above: Performed By: #### T SH, CMP, LIPID #### [facility] [address] [address] [address] Roxanna Hurtado Anion gap [Moles/Vol] 12.7 mmol/L Normal [facility] Comment on above: Performed By: #### T SH, CMP, LIPID #### [facility] [address] [address] [address] Roxanna Hurtado AST [Catalytic activity/Vol] 21 U/L Normal 15-37 [facility] Comment on above: Performed By: #### T SH, CMP, LIPID #### [facility] [address] [address] [address] Roxanna Hurtado Bilirubin [Mass/Vol] 0.7 mg/dL Normal 0.2-1.0 [facility] Comment on above: Performed By: #### T SH, CMP, LIPID #### [facility] [address] [address] [address] Roxanna Hurtado Calcium [Mass/Vol] 8.9 mg/dL Normal 8.5-10.1 [facility] Comment on above: Performed By: #### T SH, CMP, LIPID #### [facility] [address] [place] [address] Dr. Roxanna Hurtado Chloride [Moles/Vol] 104 mmol/L Normal 98-107 [facility] Comment on above: Performed By: #### T SH, CMP, LIPID #### [facility] [address] [place] [address] Dr. Roxanna Hurtado CO2 [Moles/Vol] 28.9 mmol/L Normal 21.0-32.0 [facility] Comment on above: Performed By: #### T SH, CMP, LIPID #### [facility] [address] [place] [address] Dr. Roxanna Hurtado Creatinine [Mass/Vol] 0.76 mg/dL Normal 0.55-1.02 [facility] Comment on above: Performed By: #### T SH, CMP, LIPID #### [facility] [address] [place] [address] Dr. Roxanna Hurtado EGFR-AF ITALIAN >60 Normal >=60 [facility] Comment on above: Performed By: #### T SH, CMP, LIPID #### [facility] [address] [place] [address] Dr. Roxanna Hurtado EGFR-NON AF ITALIAN >60 Normal >=60 [facility] Comment on above: Performed By: #### T SH, CMP, LIPID #### [facility] [address] [place] [address] Dr. Roxanna Hurtado Globulin (S) [Mass/Vol] 3.4 g/dL Normal [facility] Comment on above: Performed By: #### T SH, CMP, LIPID #### [facility] [address] [place] [address] Dr. Roxanna Hurtado Glucose [Mass/Vol] 104 mg/dL Normal 74-106 [facility] Comment on above: Performed By: #### T MELANIE CMP, LIPID #### [facility] [address] [place] [address] Dr. Roxanna Hurtado Potassium [Moles/Vol] 3.6 mmol/L Normal 3.5-5.1 [facility] Comment on above: Performed By: #### T MELANIE CMP, LIPID #### [facility] [address] [place] [address] Dr. Roxanna Hurtado Protein [Mass/Vol] 7.0 g/dL Normal 6.4-8.2 [facility] Comment on above: Performed By: #### T MELANIE CMP, LIPID #### [facility] [address] [place] [address] Dr. Roxanna Hurtado Sodium [Moles/Vol] 142 mmol/L Normal 136-145 [facility] Comment on above: Performed By: #### T MELANIE CMP, LIPID #### [facility] [address] [place] [address] Dr. Roxanna Hurtado Urea nitrogen [Mass/Vol] 24.0 mg/dL Critically high 7.0-18 .0 [facility] Comment on above: Performed By: #### T MELANIE CMP, LIPID #### [facility] [address] [place] [address] Dr. Roxanna Hurtado Urea nitrogen/Creatinine [Mass ratio] 31.6 mg/mg Normal [facility] Comment on above: Performed By: #### T MELANIE CMP, LIPID #### [facility] [address] [place] [address] Dr. Roxanna Hurtado TSHon 01-24-2023 TSH 3.127 uIU/mL Normal 0.358-3.740 [facility] Comment on above: Performed By: #### T MELANIE CMP, LIPID #### [facility] [address] [place] [address] Dr. Roxanna Moreno 12-30-2022 L - -------- Specimen: [id number] Received: 12/30/22 Status: ANABEL Garry Num: [id number] Spec Type: Surgical Subm Dr: Gala Mccann DO Tissues: A Endometrium - Curettings (EM POLYP/CURETTINGS) Procedures: HE/2, Gross/Micro L4 -------- Age/ Patient Sex Location Account Attending Physician -------- Nataliya Griffin 72/F INES [id number] Gala Mccann DO -------- SPEC NUM: [id number] RECD: 12/30/22 STATUS: ANABEL CASTAÑEDA NUM: [id number] SHRUTI: 12/30/[address] [facility] [address]: Gala Mccann DO ENTERED: 12/30/[address] [facility] DR: Nawaf [facility] SPEC TYPE: Surgical DEPT: S ORDERED: HE/2, Gross/Micro L4 ORDERED: HE, Gross/Micro L4 Pathological Diagnosis Uterus, endometrium, polypectomy [...] support the above pathologic diagnosis. -------- Specimen: [id number] Received: 12/30/22 Status: SENIATino Castañeda Num: [id number] Spec Type: Surgical Subm Dr: Gala Mccann DO Tissues: A Endometrium - Curettings (EMC POLYP/CURETTINGS) Procedures: FRANCES/2, Gross/Micro L4 -------- Patient: Nataliya Griffin [id number] (Continued) -------- Specimen: [id number] Received: 12/30/22 (Continued) Signed (signature on file) Mari Lofton MD 01/02/23 1023 -------- Specimen: Received: 12/30/22 Status: ANABEL Castañeda Num: [id number] Spec Type: Surgical Subm Dr: Gala Mccann DO Tissues: A Endometrium - Curettings (EMC POLYP/CURETTINGS) Procedures: HE/2, Gross/Micro L4 -------- Patient: Nataliya Griffin [id number] (Continued) -------- Specimen: [id number] Received: 12/30/22 (Continued) CPT Codes 52526 -------- -------- Specimen: [id number] Received: 12/30/22 Status: ANABEL Garry Num: [id number] Spec Type: Surgical Subm Dr: Gala Mccann DO Tissues: A Endometrium - Curettings (EMC POLYP/CURETTINGS) Procedures: FRANCES/Angelica Alba/Fozia L4 -------- Patient: Nataliya Griffin [id number] (Continued) -------- Signed (signature on file) Mari Lofton MD 01/02/23 [facility] Basic Metabolic Panelon 11-27 Anion gap [Moles/Vol] 10.4 mmol/L Normal 6.0-15.0 [facility] Comment on above: Order Comment: Reaso n for Exam Preop testing FASTING. JKW Performed By: #### C BC, BMP #### [facility] [address] Calcium [Mass/Vol] 8.8 mg/dL Normal 8.6-10.3 [facility] Comment on above: Order Comment: Reaso n for Exam Preop testing FASTING. JKW Result Comment: PERF ORMED BY: [place] [address] PATHOLOGIST ASSISTANT WAREHOUSE MANAGER OSORIO ROJAS M.D. Performed By: #### C BC, BMP #### [address] Chloride [Moles/Vol] 106 mmol/L Normal 98-107 [facility] Comment on above: Order Comment: Reaso n for Exam Preop testing FASTING. JKW Performed By: #### C BC, BMP #### [facility] [address] [place] [address] [place] CO2 [Moles/Vol] 28.4 mmol/L Normal 21.0-31.0 [facility] Comment on above: Order Comment: Reaso n for Exam Preop testing FASTING. JKW Performed By: #### C BC, BMP #### [facility] [address] [place] [address] [place] Creatinine [Mass/Vol] 0.76 mg/dL Normal 0.60-1.20 [facility] Comment on above: Order Comment: Reaso n for Exam Preop testing FASTING. JKW Performed By: #### C BC, BMP #### [facility] [address] [place] [address] [place] GFR/1.73 sq M.predicted MDRD (S/P/Bld) [Vol rate/Area] mL/min/{1.73_m2} Normal [facility] Comment on above: Order Comment: Reaso n for Exam Preop testing FASTING. JKW Performed By: #### C BC, BMP #### [facility] [address] [id number] [facility] Glucose [Mass/Vol] 101 mg/dL High 70-100 [facility] Comment on above: Order Comment: Reaso n for Exam Preop testing FASTING. JKW Result Comment: [place] Glucose Reference Range is dependent on time and content of last meal. Glucose of more than 200 mg/dL in a nonstressed, ambulatory subject supports the diagnosis of Diabetes Mellitus. ADA recommended reference range Performed By: #### C BC, BMP #### [facility] [address] Potassium [Moles/Vol] 3.8 mmol/L Normal 3.5-5.1 [facility] Comment on above: Order Comment: Reaso n for Exam Preop testing FASTING. JKW Performed By: #### C BC, BMP #### [facility] [address] Sodium [Moles/Vol] 141 mmol/L Normal 136-145 [facility] Comment on above: Order Comment: Reaso n for Exam Preop testing FASTING. JKW Performed By: #### C BC, BMP #### [facility] [address] [place] [address] Urea nitrogen [Mass/Vol] 26 mg/dL High 7-25 [facility] Comment on above: Order Comment: Reaso n for Exam Preop testing FASTING. JKW Performed By: #### C BC, BMP #### [facility] [address] [place] [address] [place] Basophils Auto (Bld) [#/Vol] Ordered By: Gala Mccann on 12-20-2022 Basophils (Bld) [#/Vol] 0.0 10*3/uL 0.0-0.2 [facility] Basophils/100 WBC Auto (Bld) Ordered By: Gala Mccann on 12-20-2022 Basophils/100 WBC (Bld) 0.3 % . [facility] Calcium [Mass/volume] in Ser um or PlasmaOrdered By: Gala Mccann on 12-20-2022 Calcium [Mass/Vol] 8.8 mg/dL 8.6-10.3 [facility] Carbon dioxide, total [Moles /volume] in Serum or PlasmaOrdered By: Gala Mccann on 12-20-2022 CO2 [Moles/Vol] 28.4 mmol/L 21.0-31.0 [facility] Chloride [Moles/volume] in S pat or PlasmaOrdered By: Gala Mccann on 12-20-2022 Chloride [Moles/Vol] 106 mmol/L 98-107 [facility] Complete Blood Count Auto Di ffon 12-20-2022 Basophils (Bld) [#/Vol] 0.0 10*3/uL Normal 0.0-0.2 [facility] Comment on above: Order Comment: Reaso n for Exam Preop testing Result Comment: PERF ORMED BY: [place] [address] PATHOLOGIST ASSISTANT WAREHOUSE MANAGER OSORIO ROJAS M.D. Performed By: #### C BC, BMP #### [facility] [address] [place] [address] Basophils/100 WBC (Bld) 0.3 % Normal . [facility] Comment on above: Order Comment: Reaso n for Exam Preop testing Performed By: #### C BC, BMP #### [facility] [address] Eosinophils (Bld) [#/Vol] 0.1 10*3/uL Normal 0.0-0.45 [facility] Comment on above: Order Comment: Reaso n for Exam Preop testing Performed By: #### C BC, BMP #### [facility] [address] [place] [address] [place] Eosinophils/100 WBC (Bld) 2.5 % Normal . [facility] Comment on above: Order Comment: Reaso n for Exam Preop testing Performed By: #### C BC, BMP #### [facility] [address] [id number] [place] Erythrocyte distribution width (RBC) [Ratio] 13.1 % Normal 11.9-15.3 [facility] Comment on above: Order Comment: Reaso n for Exam Preop testing Performed By: #### C BC, BMP #### [address] Hematocrit (Bld) [Volume fraction] 40.3 % Normal 34.0-46.4 [facility] Comment on above: Order Comment: Reaso n for Exam Preop testing Performed By: #### C BC, BMP #### [address] Hemoglobin (Bld) [Mass/Vol] 13.6 g/dL Normal 11.8-15.4 [facility] Comment on above: Order Comment: Reaso n for Exam Preop testing Performed By: #### C BC, BMP #### [address] Lymphocytes (Bld) [#/Vol] 1.6 10*3/uL Normal 1.00-4.8 [facility] Comment on above: Order Comment: Reaso n for Exam Preop testing Performed By: #### C BC, BMP #### [address] Lymphocytes/100 WBC (Bld) 33.1 % Normal . [facility] Comment on above: Order Comment: Reaso n for Exam Preop testing Performed By: #### C BC, BMP #### [address] MCH (RBC) [Entitic mass] 30.4 pg Normal 24.7-34.3 [facility] Comment on above: Order Comment: Reaso n for Exam Preop testing Performed By: #### C BC, BMP #### [place] [address] [place] MCV (RBC) [Entitic vol] 90.2 fL Normal 80-100 [facility] Comment on above: Order Comment: Reaso n for Exam Preop testing Performed By: #### C BC, BMP #### [address] Mean Corpuscular HGB Conc 33.7 g/dL Normal 32.0-35.0 [facility] Comment on above: Order Comment: Reaso n for Exam Preop testing Performed By: #### C BC, BMP #### [facility] [address] [place] [address] [place] Monocytes (Bld) [#/Vol] 0.4 10*3/uL Normal 0.0-0.8 [facility] Comment on above: Order Comment: Reaso n for Exam Preop testing Performed By: #### C BC, BMP #### [facility] [address] [place] [address] [place] Monocytes/100 WBC (Bld) 7.6 % Normal . [facility] Comment on above: Order Comment: Reaso n for Exam Preop testing Performed By: #### C BC, BMP #### [facility] [address] [place] [address] [place] Neutrophils (Bld) [#/Vol] 2.8 10*3/uL Normal 1.8-7.7 [facility] Comment on above: Order Comment: Reaso n for Exam Preop testing Performed By: #### C BC, BMP #### [facility] [address] [place] [address] [place] Neutrophils/100 WBC (Bld) 56.5 % Normal . [facility] Comment on above: Order Comment: Reaso n for Exam Preop testing Performed By: #### C BC, BMP #### [facility] [address] [place] [address] [place] NRBC% 0.2 /100{WBC} Normal 0-0.5 [facility] Comment on above: Order Comment: Reaso n for Exam Preop testing Performed By: #### C BC, BMP #### [facility] [address] [place] [address] [place] Platelet mean volume (Bld) [Entitic vol] 8.0 fL Normal 6.3-10.7 [facility] Comment on above: Order Comment: Reaso n for Exam Preop testing Performed By: #### C BC, BMP #### [facility] [address] [place] [address] [place] Platelets (Bld) [#/Vol] 185 10*3/uL Normal 150-450 [facility] Comment on above: Order Comment: Reaso n for Exam Preop testing Performed By: #### C BC, BMP #### [facility] [address] RBC (Bld) [#/Vol] 4.47 10*6/uL Normal 3.60-5.00 [facility] Comment on above: Order Comment: Reaso n for Exam Preop testing Performed By: #### C BC, BMP #### [facility] [address] WBC (Bld) [#/Vol] 4.9 10*3/uL Normal 3.8-11.6 [facility] Comment on above: Order Comment: Reaso n for Exam Preop testing Performed By: #### C BC, BMP #### [facility] [address] Creatinine [Mass/volume] in Serum or PlasmaOrdered By: Gala Mccann on 12-20-2022 Creatinine [Mass/Vol] 0.76 mg/dL 0.60-1.20 [facility] Eosinophils Auto (Bld) [#/Vo l]Ordered By: Gala Mccann on 12-20-2022 Eosinophils (Bld) [#/Vol] 0.1 10*3/uL 0.0-0.45 [facility] Eosinophils/100 WBC Auto (Bl d)Ordered By: Gala Mccann on 12-20-2022 Eosinophils/100 WBC (Bld) 2.5 % . [facility] Erythrocyte distribution wid th Auto (RBC) [Ratio]Ordered By: Gala Mccann on 12-20-2022 Erythrocyte distribution width (RBC) [Ratio] 13.1 % 11.9-15.3 [facility] Glucose [Mass/volume] in Ser um or PlasmaOrdered By: Gala Mccann on 12-20-2022 Glucose [Mass/Vol] 101 mg/dL 70-100 [facility] Comment on above: ADA recommended refe rence rangeRandom Glucose Reference Range is dependent on time and content of last meal. Glucose of more than 200 mg/dL in a nonstressed, ambulatory subject supports the diagnosis of Diabetes Mellitus. Hematocrit Auto (Bld) [Volum e fraction]Ordered By: Gala Mccann on 12-20-2022 Hematocrit (Bld) [Volume fraction] 40.3 % 34.0-46.4 [facility] Hemoglobin [Mass/volume] in BloodOrdered By: Gala Mccann on 12-20-2022 Hemoglobin (Bld) [Mass/Vol] 13.6 g/dL 11.8-15.4 [facility] Leukocytes [#/volume] correc leatha for nucleated erythrocytes in Blood by Automated counOrdered By: Gala Mccann on 12-20-2022 WBC corrected for nucl RBC Auto (Bld) [#/Vol] 4.9 10*3/uL 3.8-11.6 [facility] Lymphocytes Auto (Bld) [#/Vo l]Ordered By: Gala Mccann on 12-20-2022 Lymphocytes (Bld) [#/Vol] 1.6 10*3/uL 1.00-4.8 [facility] Lymphocytes/100 WBC Auto (Bl d)Ordered By: Gala Mccann on 12-20-2022 Lymphocytes/100 WBC (Bld) 33.1 % . [facility] MCH Auto (RBC) [Entitic mass ]Ordered By: Gala Mccann on 12-20-2022 MCH (RBC) [Entitic mass] 30.4 pg 24.7-34.3 [facility] MCHC Auto (RBC) [Mass/Vol]Or dered By: Gala Mccann on 12-20-2022 MCHC (RBC) [Mass/Vol] 33.7 g/dL 32.0-35.0 [facility] MCV Auto (RBC) [Entitic vol] Ordered By: Gala Mccann on 12-20-2022 MCV (RBC) [Entitic vol] 90.2 fL 80-100 [facility] Monocytes Auto (Bld) [#/Vol] Ordered By: Gala Mccann on 12-20-2022 Monocytes (Bld) [#/Vol] 0.4 10*3/uL 0.0-0.8 [facility] Monocytes/100 WBC Auto (Bld) Ordered By: Gala Mccann on 12-20-2022 Monocytes/100 WBC (Bld) 7.6 % . [facility] Neutrophils Auto (Bld) [#/Vo l]Ordered By: Gala Mccann on 12-20-2022 Neutrophils (Bld) [#/Vol] 2.8 10*3/uL 1.8-7.7 [facility] Neutrophils/100 WBC Auto (Bl d)Ordered By: Gala Mccann on 12-20-2022 Neutrophils/100 WBC (Bld) 56.5 % . [facility] No Panel InformationOrdered By: Gala Mccann on 12-20-2022 Estimated GFR (CKD-EPI) > 60.0 mL/Min [facility] Creatinine Clearance (Chem N/A [facility] Nucleated erythrocytes [Pres ence] in Blood by Automated countOrdered By: Gala Mccann on 12-20-2022 Nucleated RBC Auto Ql (Bld) 0.2 /100{WBC} 0-0.5 [facility] Platelet mean volume Auto (B ld) [Entitic vol]Ordered By: Gala Mccann on 12-20-2022 Platelet mean volume (Bld) [Entitic vol] 8.0 fL 6.3-10.7 [facility] Platelets Auto (Bld) [#/Vol] Ordered By: Gala Mccann on 12-20-2022 Platelets (Bld) [#/Vol] 185 10*3/uL 150-450 [facility] Potassium [Moles/volume] in Serum or PlasmaOrdered By: Gala Mccann on 12-20-2022 Potassium [Moles/Vol] 3.8 mmol/L 3.5-5.1 [facility] RBC Auto (Bld) [#/Vol]Ordere d By: Gala Mccann on 12-20-2022 RBC (Bld) [#/Vol] 4.47 10*6/uL 3.60-5.00 [facility] Serum or plasma anion gap de terminationOrdered By: Gala Mccann on 12-20-2022 Anion gap [Moles/Vol] 10.4 mmol/L 6.0-15.0 [facility] Sodium [Moles/volume] in Ser um or PlasmaOrdered By: Gala Mccann on 12-20-2022 Sodium [Moles/Vol] 141 mmol/L 136-145 [facility] Urea nitrogen [Mass/volume] in Serum or PlasmaOrdered By: Gala Mccann on 12-20-2022 Urea nitrogen [Mass/Vol] 26 mg/dL 7 [facility] WBC Auto (Bld) [#/Vol]Ordere d By: Gala Mccann on 12-20-2022 WBC (Bld) [#/Vol] 4.9 10*3/uL 3.8-11.6 [facility] Coding Summary.on 12-09-2022 Coding Summary. CD:[id number] W w+PGhlYWQ+FP8ZOXGkW56 sxTVqcI0tR1ZOBAwSDnmk ICKTUMuCTgXwpdOhFK1re XNjZXJu IC8+LR3wCQWrEnxnuBMbq 7L1aPM3Y00gva9gMPiwkE X9ONNkIdGkqpxjx3ghhEt 6IDcuNmluOyBt MUUmmJ61UOZ5kI45Wy26r JInhFDos4bwxEb0SlGxUT GiONP3wLdeEMzqg4QeKFY vJ92kcTQux0Y2 CYJpnAhleMFjUiYysCI8d V5yVVhlitpjr2jtauxqUp d0kb50iZCxr6I0zUD6A4J kslA4RGYxyGTn WxwcfMFIkZ1flkouw5mog lzmEuPgXGOkDDz5HOv0JK OnlOegQgXgMJ78ZUC6IUR ysfJeK8QeDXGb sAzgQcV5r7Q3Ma8JI7BWF qlnX4QJWYPVRUsvoGE+PC 40yj14O2CgBnvuBck3GCZ pBJF9kDB6hI2y IFBzUIjon1K1mBF2W8Enp fBnxp1ey2bqPSZjZHakV1 9dtSJle0A7NMHfeOE0CIJ uhSxeFbZuzJ96 Oyc+BDMxwBvwj9UlOoffy 8smq8dxaSe6JtfxRKTdoc OogSzsPMQ0w3EcCy6fFGV piVW2fBM6gS6m YzOoLkY7OWnoO964JuLbm BIoJwetX75hX5ObtNE+PH GwPmb1HFErrBocVJ8dQ9G hZGRpbmctbGVm tAnsTD9wQJRshvadIGCxk J6xSXWqC1r3GqOxBnI9AW jaA0TgPAXxuorjVa62nK0 kCkAgAdZ9YDbw G1TwjuX8ZDKhhVYuZIvlI UC4X21db8F4VOLzKPPcAS L6fXS4sS4lwSqoaezfbMH mdDsgdmVydGlj OFqzSTlnP088ZOVmpAgpR kNvZGluZyBEYXRlOiAgMD QvMTQvMjAyMzwvdGQ+PHR oHET4pVflAQBe rAKrWFdkRg4pbHptiYhwK Y0bHTXugjlzCGQyhV6iVZ BdeHXluWbxKA9kQCFpzbc ft813AeUzBOM4 WCIyjTLnI0CnqM1xXeFjP SHgIAGpV9BrkQXxFIneW8 30NVmpBcY8WTQxicZuA1T sLWFsaWduOiB0 t6W2Pc9Ah4CovqviX4Jhn JGvRgGnFnyiJCf1C1GrOw wvdHI+QM57UMWbFH59XCw 1OFE3iChhOFwq FSAvD6VabJ6jJrJuNEVtN GRkOyc+PHRhYmxlIHdpZH RoPScxMDAlJyBzdHlsZT0 dYi6tVPTkZXBb kYjdsCMmTfHnn7ylVYHaH CqfLN8fjLovQ7HllBJ5ZE Vzk3m3Xu35Q97eL6RmhVA +AEFcfCS3lPH1 qZ8aLrAhVtM9FXysF379P bYezENgJhagj9hkr0iheN y3WeK1WNQgqsXbzXdrJDC 5v3SlLx77N04j IHdpZHRoPSIxNSUiIHZhb Mhdyj0ayM8dPg9+PGNvbC A8zNE2gJ6uFxYuDgU3DMt pK780XyZojWKh Qjsew5ada7kjnGd7KaEtF TKeqkWhsVeaTLS9h1YfQh 29E0NqlJleu5TiIxd9xz6 1uKNqr1I6vGP0 F2HfLSLtrtplzXCybCfzU L0vSAQnebqxFHLqtW4pUJ IzJ2c2GrSjDgY7FJqmY1T yxhC2PGGklESd ONKvlNVUjF5ekgyre1hoj tjhDvHbETPhFCx0ZGr1BV KamZkpReVuXAV0OiK8OAJ 7yUWulU5gvBdf icqcqB5oTzr+DXI6kPGlk MIGFG9vYjmyeVY+PHRkIH O0pNljJMebYZJzlN9nJXI rQ2q5TiBlHuT3 YRyeQ7SxxsH6ZBInqRLqX CLgpCBNzO3aulezc3fsvo epUoWxBDJkMHk0CNu3DPJ saWduOiBsZWZ0 BiS1GGQ9kNVwxE6hfDidn lggnM2xIru+QmlydGggRG E1YSd7A5KkVir5EGQllAs fGX7mnQLjGXad Iw4jmWzhxXjuET5cSQFfj thle085QjBaq7wvIFXupK TuPWoiINO6O60oi3D5PYZ rORMjHPC2iOI1 yN3hzWrxhstosHMsdPnve uQgdNtyINikCZhbG426HH JptYadMcPtSBm3O2BuSld 0DTIzyLuiMC8g bGNqNBlhBw0jlUqkwNlkZ R2yJNVpjscry690TiUbs8 btVLHvfURtMCboKTY7R30 kg1S9IQRyUYVm YPE1oMO6aC3huTvyewmde GVmdDsgdmVydGljYWwtYW cvI337ZVGmiUwhVbShwEo 9E1RiPbp6YIMc uUzfNN7mrSZsUEdoTt6ac BqyrXvkZU9lBGIbndpvi2 27VjDzb3asUYNtmQQePGq eZBU7C56uo2T4 TRZiAGFfLUV1zVD0lX7tf GlnbjogbGVmdDsgdmVydG qkXVyqSZyhW404PULzaRm nPlBhdGllbnQg MWteSMj7R4EtJqujrZS+P D02DRJrCD10qUWdbNHpw3 uogQj5IaFjEQPmKMH1tZf fDVwux8XnLJOy Y02stMEiw9B4PERswYlii KObFyFunCK0jW2nQGhqne iko8ssoxtjYferv8altg2 1jZ56K82zTCbi ZHRoPSIzMCUiIHZhbGlnb c0qjV0oRn2+HHQyoMG5mA M1dA3jBCSfEbZ8GVxbK65 9InRvcCIvPjxj v0jni3nlmGc8RbA6LGTcb qXseXdyDYD8x0UoGl39H8 9sIHdpZHRoPSIyMCUiIHZ tnRujsm9ovN2b Ii8+KOGjyTL0tNT4lM5qO pChCwB1ARduZ620HpUrbP GaOolqW88kT7UftFJ+PHR xFrs9ECPgrGva JU0qhSMwPRdmWe2gJSD4B hPqPgUaBXxaF9UnCOQztm rsubpulIC3IMOeHVXozI2 1Mu3gdSgsRYOf aXNIpS0ftzdtd9vfewrkP aAgKBSsRAb3OHk5NXAmoC mpDcVjZIH6WeG4LCS8tBE lyS4yeIvkcywe mM9uJ2FcGKYzkaxhGc80s O1hGbEyPqX6OYpsLvp+Qk 3GRQLzPKMLEVUGQMCYJJ3 5PU41fQFik9Q7 mTW1K7TkNZFdbfvrwnixx TM8QMKyXRQbqN30wNEdZZ mePd4xh9G5m305HKJbKUJ bvH85Qg5bpVej SSRlyPUQoJ3kfgjwu0hgw gjaMxAhICUsPXi5XHe5PV BrtPbgGcGtSYO6JcC1HDQ 1uWBjmB2xvWxa uxvpiH3nRgv+MDYvMjIvM Em2PQxwnOQ+PTJpFLC9uZ agORbcAIZkfL7eEGXlR3c 0OlAjBrD0PQjf Z9IfZQQmvhasTd15mU3bZ bCkDrV2HHwpG6PhhaM8EH AnqORgEKisOTA1L22im3E 1ZFHxYUKrBSM3 rRU4hC3weYwedechzSFhl DsgdmVydGljYWwtYWxpZ2 46IHRvcDsnPjcyIFllYXJ bXU53LG99nKVw t2Y2rSJ3E4SfALSaggomk kbzjNL7HQRsWGKcbD67yG TtCVsqIr3mg6U5p515AUZ sTOMluE43Kf4f zQwkOYFjpEEHdT2ssuyyi 4iwdzqcPoBwSBEvDTx8BM g4BNUaeOgxBdHfYGM3ZmA 8MTZ0dNOpdK4r eDttavehtM2uFet+RmVtY PvwNK19VQ15sNMka4V0nW Q6U5LgILGksqqyuhuldOY 5LPMwIJEorK08 xQMtBKheKz5on0R7a690Y THgWMTrnJ76Wj4zyLwlUM IrlNOEsD8crxhtz0idvzq gIzAwMDAwMDt0 SWw5YUZvbVekGdLiFCP6Z aT7GDE4tVFwsQ9qyZumpn vdcJ3eBpm+QB8dnhdhkzY 2YY93WM92W6Sr PjwvdGFibGU+PHRhYmxlI HdpZHRoPScxMDAlJyBzdH txCF7fEn7rHGSiGEGmeBx buHOsCuGnm0ap LPJwEQevES3ssKweB6Pml RE8XYWrk4q3Gt46M11fB5 JvdXA+EWYgpOU9oQH1cC8 iNxNpQiX9GWtw J947NvNqeHGdFrklp5lai 9xrkDy6VbLoWQReqqYzeS qhQTL2s9IvKf26X40hHOh pZHRoPSIyMCUi BWOibBmprq4hbF4aUj7+P AAihYE7rGC2yN7dRdUfCr F0DYknH488YwRohCHeVon mH11kU7EjvYL+ GHOvKlx8DJUidRksUH9qm MFwBUwjVv1vCYG9PfVcOt EiQOhlX7OuHUFkuejtivy vkFR8NNOcYNXq pB88Bw0feMkrCd5bZNNhC CW3OWHfxFFiA5LldV6bKe JbEQEeFJPwK3ZgyKFoALj pI543BJkiYfX5 RBRcrbFmN3CeZRWhnKpcL cV0b8F2Rr8FuRufbXGxDV 5lHgOjEMd8L5FvMaf7LVH jsQydYK8gjYPv TIrwOh3gmLdmtIzqBC5gT FJgajmlw291VwZhd5sdTX PefFVuRPdbQOT9C21bc1J 4SDSqDOZpFKJ7 kHZ8sP0kaRfmiagcsOUdd DsgdmVydGljYWwtYWxpZ2 86ZUNkwXvzSwTNUpt9U4X rRsc8QXYulDbv XW7qfLXeHEwpIm7adDcqk OrhSV4yZJHxfdnfu096Ym Qux3fpMPMtkSJuAOphUML 6M79fd8Q7SBMj FJOyVJH2vUW2nV5mdAory jogbGVmdDsgdmVydGljYW kzRGisK788BRFgdQpgTv8 MRed1S4MfZri4 XDQdaZwxCA4lyTMyXUxsP r9chLdpdWtxVB4eZGIkww lcv063YuTtw9wwRJCcdMS zWYbtTJT3T43t n6L1RHTtKVUkYOT3zGZ7s O7zhHyskktbtKFslYuewd VpoZevRRosDIcpG080THY vcDsnPlBheWVy OjwvdGQ+OV12qz13J8FbR einQjk7YDHtXVV2aUP5kG 5eEZHvXOrsh4H6nOL1R9Z llaIkpi8qi4zk YXBzZTog (more content not included)... Normal [facility] Discharge Instructionson Discharge Instructions [id number]# 1.00CD:127 Normal [facility] Vaccinationson 12-08-2022 Vaccinations [id number]# 1.00CD:127 [facility] CT Head or Brain w/o Contras ton [...] Gray MD Transcribed by: TALIA Technologist: ZEKE Normal [facility] CT Maxillofacial w/o Contras ton 12-07-2022 CT [...] Gray MD Transcribed by: TALIA Technologist: ZEKE [facility] [place] [facility] Spine Cervical w/o Contra ston 12-07-2022 CT Spine Cervical w/o Contrast Exam [...] Reynaldo Gray MD Transcribed by: TALIA Technologist: ZEEK Normal [facility] Consent for Treatmenton 11-26 Consent for Treatment [id number] Normal [facility] [place] ED Clinical Summaryon 2022 ED Clinical Summary [place] [id number] ED Clinical Summary Person Information Name: NATALIYA GRIFFIN [place] Age: 72 Years : 1950 Sex: Female Language: Kazakh PCP: ANU OLIVIER DO Marital Status: Visit [...] 12/07/2022 19:54:35 12/07/2022 19:54:35 12/07/2022 19:54:35 AD[address]ESS: [address] [phone] PHYS DOC NOTES: MEDICAL INFORMATION: Prescriptions Given: Medications to Continue with No Changes Other Medications aspirin ciprofloxacin (Cipro 500 mg Tab) 1 Tablets By Mouth every 24 hours. Take 1 pill the day before the procedure and 1 pill after the procedure. Refills: 0. fluticasone (Flovent HFA) Inhalation 2 times a day. fluticasone nasal (fluticasone 0.05 mg/inh Nasal [place]) Nasal Inhalation every day. hydrochlorothiazide By Mouth every day. irbesartan (irbesartan 150 mg Tab) multivitamin (Multi Vitamin+) polycarbophil (FiberCon) rosuvastatin (Crestor) By Mouth every day. sertraline By Mouth every day. PATIENT EDUCATION INFORMATION: Instructions: Nasal Fracture Follow up: With: Address: When: ANU OLIVIER [facility] [address] [place], [place] [id number] In 3 days 12/10/2022 Comments: Call the [...] DIAGNOSIS: Facial abrasion; Nasal bone fractures Normal [facility] [place] ED Note-Physicianon 12-08-19 ED Note-Physician Basic Information [...] and Complexity of Problems Differential Diagnosis: [] [facility] Data External documents reviewed: [] My EKG [...] [] Head CT not ordered by emergency health care coordinator [] Head CT ordered for reasons other than trauma [] Patient is 18 or older, presenting with minor blunt head trauma. Head CT (including cosigned orders) was ordered by an emergency health care coordinator for t (more content not included)... Normal [facility] Comment on above: Result Comment: Elec tronically Signed By: Mariely STAHL, Damian Bueno\.br\Date and Time Signed: 12/07/22 19:46 EDT\.br\Electronically Co-Signed [...] minutes, 2?3 times a day. ? Take cryy-nyc-qxmbmyw and prescription medicines only as told by [...] Document Reviewed: 01/15/2019 Elsevier Patient Education ? 2020 [employer] Normal [facility] [place] ED Patient Summaryon 023 ED Patient Summary [place] [id number] Patient Discharge Instructions Person Information Name: NATALIYA GRIFFIN Age: 72 Years Arrival Date: 12/07/2022 15:22:53 Discharge Diagnosis: Facial abrasion; Nasal bone fractures Primary Care Physician: ANU OLIVIER DO Provider Information Primary Provider: Ellie Lopes M.D. Advanced Tapper Hand:Damian Schuster PA-C The exam and treatment you received in the Emergency Department were for an urgent problem and are not intended as complete care. It is important that you follow up with a doctor, nurse practitioner, or physician?s commercial escrow assistant for ongoing care. If your symptoms [...] Follow-up Instructions: With: Address: When: ANU OLIVIER [address] [place] [phone] In 3 days 12/10/2022 Comments: Call the [...] opioids can be used to help relieve lxnhtncu-hr-kbpzkc pain and are often prescribed following a [...] unused prescri (more content not included)... Normal [facility] [place] ED Traumaon 12-07-2022 ED Trauma [id number]# [id number]:127 [facility] Coding Summary.on 11-29-2022 Coding Summary. CD:[id number] W w+PGhlYWQ+BA4NIOBaA75 daUEwgW7mR8GOLRlXPqlq QQVNZHmOChIxwlSlVM8qk XNjZXJu IC8+EY7hWUNpKcwktMPnb 2H2bQK6S88leb2tKAzuaG U9EEMqNyFgbvsrf6xrwJo 6IDcuNmluOyBt UYWkfU96DAQ4oI43Cm91g KVmpTBod3bppHk8KbRePN BmBXX6dYreBZtml4XjYUU tV26cbONur8R3 ZWCtkQrlwBJiEwUfrVH1f N9dUBadmwzsd8dqgsveBo e9pe16wQFed7K6fOG5U5E gxdC8PGWdyLEe QshujYRXjU5srrzgx3nnj ylmHhRkLFEjNWk1NZj1IE KfrSfeDwJrEI53OTK3DDI ogpScQ4IcMVVo dFqmIiE3s0Q6Iz8JT4FVS ghnR5SHFMJSVAdtjCU+PC 41ys54J5CjFgntFug4XXU aQOB0eJO9nM0s FMFkFIfsd9P5uFN9M2Ttq lPwvb3hb9rrRNWnRSpjV1 5ceHXqm6D2OLCvvUN1YDL ziMtfGcJzaD47 Oyc+TULgoAhic2MiCmrpl 3bmw0hodSq4HjgdZYGwet WncCisAIQ6w9BiPa2eNAR akVV0aXN6gU8u JgOxExT2IRdxY605IwLny AOcOepnJ34cY0SxmRH+PH CvDak8NHTclThrGW0tX4M hZGRpbmctbGVm pQvlIU7qAPSuvgzyVIWfs L8eHAYhO6b0YlUxUlB5FG jrF4PzOOUhkanwKd83rO2 dZwUqZxT7XZzs Z3QjxlZ8RSMbsPEjVBogA YQ3O93ka9N0WBBcWMUuGR U3jJG8lR0uiUkquslamSD mdDsgdmVydGlj OKbjKHewL587SBIbdHjlE kNvZGluZyBEYXRlOiAgMD QvMDQvMjAyMzwvdGQ+PHR iLUC8uRipMDZe bGZmWVusUe1hbOuxiNxpD E3eHCIyrkvcMGAvoC0nXE FeaCAqlKwpMR3rIHGzxsh ml933DqUuJKX3 HPHacYJsP3VksQ6uJjXeL LKgBFTrV0CrjKIiNFoxM7 81CFhlMmN6KRRxgjDzP0P sLWFsaWduOiB0 q5F3Tl8Db0DpogjcS2Vxc PRdNbBvTtfrHLb5F1VeSk wvdHI+UC08QBZwNV26MXa 0PGF8iJidLMor TDWqW1WwtN2pBdKvFTIwB GRkOyc+PHRhYmxlIHdpZH RoPScxMDAlJyBzdHlsZT0 iBc3cXHVoAGPt qAunxBHdUsWuv2rzXFJkQ UucWY6zkLqoX9OxtNQ6QR Zbl6t2Ow53I81yU0KxdXY +AOXmsWB0eHD3 gG2mEtMjGrD6JGsrO679R iHgqCJhBystn7snc9vklR j7LdG2YJHqikGwfQpmCND 9g7PzWh75Z34a IHdpZHRoPSIxNSUiIHZhb Dbjkn5bvK0dEz1+PGNvbC Y2qGD5jD0wJqZoDvV5NBk gP274FrYymZIp Brzyl4obs5xtoPd8DxYjG HQwnsJeqDbqPVZ9y5TiZa 68S5CpoLyvj3ZoQxr0vj0 0pVKry2H3xJL3 P5GjNAEwnqbdfYAvoBgrQ A4fJOTxjpubHRYcmH0uLH CaN9k7MrVcXeR4SSrgB7O eduK7BUGtpOGw IYKtsTZPcX7fppzpy7pvk esgXiSdWUNqMHb3VSv4QA YubAcgVdQbNQX7JuI3OKI 2sQAfmB8xrBaf ifmelQ2lNpm+JJD8zZFeo CGRTF7xWezsrZD+PHRkIH R3dTjqPHfzMPZpnH0oKLF vZ2b8EvAbEmB2 HWltR3OoswT5EGFvkSPpU CUexSGObQ2wnqhad4rwzt mnTlRpBVFwIRx2EZu4HGH saWduOiBsZWZ0 UiZ7ICZ5cSWulX6bmMlhq dnwsE9bPwm+QmlydGggRG V9HJe2G7StQpj5RQAbzWb pVN7xfYQvZHbk Kg4qkOgwoTwvWY8bWQTvb dezi341HwPsi6maCLIwkU HgCBvrZSD0S55ko0G7SKL iALKcRAY0fAA9 lL6tgUqomtknaDHvlMclm hIbcPwpOXunRPzvK276AW SdzJzaEiAxWJm6A6AgGsf 7PITtuZbwSP6b aYZeNUfdMr4jwIlsxTlmI R5jMHCohmpkj973TgRty2 wzZATolKOfSIchIHC7H62 ir3I6TZEpRTZn HAN1sGW4lA9ixStuxupky GVmdDsgdmVydGljYWwtYW rcR117TYZhyCuxHrZvdMh 9F1EpXiy7FIBh wNjuKE9cgQTyVWssCy7lv GgauXyxAV0aJVVfxnmsm9 47CsVnb3dlADCfoZTdKQx lXEU1H24aw4U5 EIAgGDHmDNO0sFL3fQ9nm GlnbjogbGVmdDsgdmVydG tdXZyyJMghO633QOMfcFo nPlBhdGllbnQg LIfbHVu2J4WrKshypSK+P K84FCDdUC58wDIryBYaa9 uxeIa5HoGfZKEfFDU5tVj dYSkgt0CaQSYi S98xuVWof1V9IVPuhSake DRlDpTcmUY7tS6hPDubeh ozs9ksiwjdHzpkl0zveo0 4wQ90X09fDTpc ZHRoPSIzMCUiIHZhbGlnb i1ofZ8jAi3+AWNpyTK7hO O8qT8gZFPaBgO0DDvpT69 9InRvcCIvPjxj j4gkz9ygnRh6YoH3JGYgm cGbmPbhEIP3x1DlDx87B0 9sIHdpZHRoPSIyMCUiIHZ stYlxqp9snV1t Ii8+RLUulJI7eFD1dS9nU bTtHkD0GOlkR690JfJtjR IfTlsrO91wL1JymEH+PHR sStz3CHEtyPdj DV0eeOJhYOmvSe9pMZE3H pPoBdPgVXwxU4MrBHHuuw capchvyOK3MTGjQRQrvG1 7Lv8doMqiHLOl aQXQgZ2maybac5jbecccO vRhNLGkALk8YHp1MBFksL fvLsJmFSU2JnV9JJZ4dEO svX2bvNdbnufr jN2zA5RxAFRawjnsXg49w A2aLhNxFeW3OJceAgu+Qk 0HONEwLFBGEDUGDUIBTT0 1JC31dAKii9T9 pSN8L8BzOFWoofmpmdzzi TK4CIAmOLYbsX93wBXaMP ygQr4ge6U4n226DZEhFMB fvX71Li3ddLdw GWOfxEXUtT5yvhqmw9vgg vkqJqCuKETyNLb5ALs3BH HqtLwvGnCtOSJ8XbG1RUB 6qNAtwM6yjWil mfijzM8jRqa+MDYvMjIvM Dg7XJepmYR+YXJoXGD5eW buFNxuZVSsiR4uNZRcO0f 1LtBwXyY8KJig U5EaTRJftlfeLc01qA8iG rCaOlS2XZasT7CuhuU8XD TaqJMmQWjyMWY9E47zt2Y 2BNLlDGYbVAA9 eOM9nN6mnSkxncsudAKhv DsgdmVydGljYWwtYWxpZ2 46IHRvcDsnPjcyIFllYXJ lAD10QL60vDJe x8V9kVU1Q2BbOMIabmcph smrhXY0CCXlXZIzyS07qX DhRRllJx3sc4Z8w606VCN wDDRpfS92Kh4q zVadYLShpYYSbD5bhjjtw 3qawdqxMyFzEFDiRMf1TF y6ULCpdQcfLtRxCFI1QgQ 1EKO9oJChhQ7b nMtvqxczxA4hFaj+RmVtY OzrUG90IK01oGZjl3S7tP V7P2FpQNBsvnyfbyoasOH 8UXCwKHWogV08 iOEbVTfwYd4sf2K0f131T RAdBNBadZ35Qd0ijFtcUE CnyDKZgU9nmiqkp1kjspi gIzAwMDAwMDt0 OWw1HYAccEfaMeZaFYC5B vH9OBB4cSEmwS6eyNruqz azrG4iLdf+SEAoGPVxy5V dt6YxNG66KW43 N6WlFdflfZLcqMU+PHRhY mxlIHdpZHRoPScxMDAlJy JavSjvYR9uZi9wIJGnNZZ vbGxhcHNlOiBj l2ycGIUwIWqkAF8yeQatX 4XmdSP2EQIxa5v6Ry33R3 0pP0QphTU+EFNbzZY0bLN 2pT3eUwLkOyL1 TMiiJ181JfFmqUFuHqegj 9vfu8sqxZp1PnCvYWArpy PurAbhRDH9c3IdTi50L37 sIHdpZHRoPSIy XMIsKGLgpMnxxw8fnI5qA i8+NHFvaUL3jIO1zB3oSg MaSaD3NAirO966BzBgsQV zKdjcF92iP9Kv dXA+UHZiXis9ZVUrwBalF Q4myNWeFKxgBb3vRXO5Zi CzQlArDQqkD6HsBEZltza rfvzjxGK8PRRl RZTenX88Av4uoHokNv9hW PKiTUK1WHIelFJmA0HleN 6rQcJqYCCcWWGjV6GgtRR hREkqX912ELcd LbP7QITxkcLlJ1MxPDAvl CxpLqW3z1C9Zq4FaZyjaN BpWY2vWpRyUAj2F5AhFye 3NPErtFbvWF0j aCEySGmxZq2qzNxntKovY L4gQMKnrccea807VoPmd9 hmDIPcoPZcGMfnBBS8X00 mc8U4LKYoTHCb NQY0pBV0jS8vnUcetszvr GVmdDsgdmVydGljYWwtYW wuZ639GSEzeAndDxYJIir 9N4YbAsv8CDCa qVzeDX5gwFUnBIysTb1fe JsbbEldXU2qNHBdphjyp5 92RlTbj9seLXAzaSShWKe pFDY4Z85nu3T5 YZByTSJnGNR4yIH8fZ0ri GlnbjogbGVmdDsgdmVydG ypFEniEBreI954WOLqzWm xZt1VEge1N7Eu Knq9FYTycAjpBP3bbUEiJ MooYj4hvGiebNpeCS4kLP Kyvqxoz563SuYaa0rmTHU wcHQgVGltZXM7 I05fq9R0DGWiNRQrXCB9h MX7kQ7tsDvrlzaeoRNzgP apbiKjwAhfSPdnREkgU46 6IHRvcDsnPlBh eWVyOjwvdGQ+OP78om04Q 7QpDkxfHdy9UEXfTDS5oZ T8kJ1vAHSbKOzlo0Z7zWC 5T2KqrtQsvm3y c9onXNPy (more content not included)... 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 BMI 29.0-29.9,adult (Z68.29: Body [...] ANU OLIVIER DO, MED [address] [id number] Additional Instructions: Patient Education Paronychia Cellulitis, Adult [...] HFA, Inhalation, BID fluticasone 0.05 mg/inh Nasal [place], Nasal, Daily hydrochlorothiazide, Oral, Daily irbesartan 150 [...] (COVID-19) Ad26 vaccine 08/28/2020 Recorded Normal [facility] Comment on above: Result Comment: Elec tronically Signed By: GEMA Buitrago APRN, [place] X\.br\Date and Time Signed: 11/18/22 17:50 EDT Patient [...] such as those who work as dishwashers, clinical pharmacy technician, or nurses. ? Bite their fingernails or [...] and water are not available, use hand supervisor home energy consultant. ? Change your dressing as told by your health care provider. ? If you had an abscess drained, check the area every day for signs of infection. Check for: ? Redness, swelling, or pain. ? Fluid or blood. ? Warmth. ? Pus or a bad smell. Medicines ? Take wwuu-cvo-zttcsxg and prescription medicines only as told by [...] your hands might come in contact with protective signal installer or other chemicals. ? Avoid injuring your [...] Revised: 08/31/2018 (more content not included)... Normal [facility] LIPID PROFILEon 07-26-2022 CHOL-HDL RATIO NORM SEE BELOW Normal [facility] Comment on above: Result Comment: 3.3 - 4.4 LOW RISK 4.4 - 7.1 AVERAGE RISK 7.1 - 11.0 MODERATE RISK >11.0 HIGH RISK Performed By: #### B MP, LIPID #### [facility] [address] [place] [address] Dr. Roxanna Hurtado Cholesterol [Mass/Vol] 161 mg/dL Normal <=200 [facility] Comment on above: Performed By: #### B MP, LIPID #### [facility] [address] [place] [address] [address] Roxanna Hurtado Cholesterol in HDL [Mass/Vol] 61 mg/dL Critically high 40-60 [facility] Comment on above: Performed By: #### B MP, LIPID #### [facility] [address] [place] [address] [address] Roxanna Hurtado Cholesterol in LDL [Mass/Vol] 78.0 mg/dL Normal [facility] Comment on above: Performed By: #### B MP, LIPID #### [facility] [address] [place] [address] Dr. Roxanna Hurtado Cholesterol.total/Choles terol in HDL [Mass ratio] 2.6 {ratio} Normal [facility] Comment on above: Performed By: #### B MP, LIPID #### [facility] [address] [place] [address] Dr. Roxanna Hurtado HDL NORMAL > or = 60 mg/dl - LO W CARDIOVASCULAR RISK <40 mg/dl - HIGH CARDIOVASCULAR RISK Normal [facility] Comment on above: Performed By: #### B MP, LIPID #### [facility] [address] [place] [address] Dr. Roxanna Hurtado LDL CALC NORMAL SEE BELOW Normal [facility] Comment on above: Result Comment: <100 mg/dl OPTIMAL 100 - 129 mg/dl NEAR OR ABOVE OPTIMAL 130 - 159 mg/dl BORDERLINE HIGH 160 - 189 mg/dl HIGH >190 mg/dl VERY HIGH Performed By: #### B MP, LIPID #### [facility] [address] [place] [address] Dr. Roxanna Hurtado Triglyceride [Mass/Vol] 110 mg/dL Normal <=150 T [facility] Comment on above: Performed By: #### B MP, LIPID #### [facility] [address] [place] [address] Dr. Roxanna Hurtado VLDL CALC 22.0 mg/dL Normal [facility] Comment on above: Performed By: #### B MP, LIPID #### [facility] [address] [place] [address] Dr. Roxanna Hurtado PROF CHEM 8 (BAS METB)on Anion gap [Moles/Vol] 11.3 mmol/L Normal [facility] Comment on above: Performed By: #### B MP, LIPID #### [facility] [address] [place] [address] Dr. Roxanna Hurtado Calcium [Mass/Vol] 9.0 mg/dL Normal 8.5-10.1 [facility] Comment on above: Performed By: #### B MP, LIPID #### [facility] [address] [place] [address] Dr. Roxanna Hurtado Chloride [Moles/Vol] 107 mmol/L Normal 98-107 [facility] Comment on above: Performed By: #### B MP, LIPID #### [facility] [address] [place] [address] Dr. Roxanna Hurtado CO2 [Moles/Vol] 29.6 mmol/L Normal 21.0-32.0 [facility] Comment on above: Performed By: #### B MP, LIPID #### [facility] [address] [place] [address] Dr. Roxanna Hurtado Creatinine [Mass/Vol] 0.66 mg/dL Normal 0.55-1.02 [facility] Comment on above: Performed By: #### B MP, LIPID #### [facility] [address] [place] [address] Dr. Roxanna Hurtado EGFR-AF ITALIAN >60 Normal >=60 [facility] Comment on above: Performed By: #### B MP, LIPID #### [facility] [address] [place] [address] Dr. Roxanna Hurtado EGFR-NON AF ITALIAN >60 Normal >=60 [facility] Comment on above: Performed By: #### B MP, LIPID #### [facility] [address] [place] [address] Dr. Roxanna Hurtado Glucose [Mass/Vol] 99 mg/dL Normal 74-106 [facility] Comment on above: Performed By: #### B MP, LIPID #### [facility] [address] [place] [address] [address] Roxanna Hurtado Potassium [Moles/Vol] 3.9 mmol/L Normal 3.5-5.1 [facility] Comment on above: Performed By: #### B MP, LIPID #### [facility] [address] [place] [address] [address] Rxoanna Hurtado Sodium [Moles/Vol] 144 mmol/L Normal 136-145 [facility] Comment on above: Performed By: #### B MP, LIPID #### [facility] [address] [place] [address] [address] Roxanna Hurtado Urea nitrogen [Mass/Vol] 24.0 mg/dL Critically high 7.0-18 .0 [facility] Comment on above: Performed By: #### B MP, LIPID #### [facility] [address] [place] [address] [address] Roxanna Hurtado Urea nitrogen/Creatinine [Mass ratio] 36.4 mg/mg Normal [facility] Comment on above: Performed By: #### B MP, LIPID #### [facility] [address] [place] [address] [address] Roxanna Hurtado Vital Signs Date Time Vital Sign Value Performing Clinician Facility 06-25-2024 15:040 Body height 162.56 cm [facility] 06-25-2024 15:01-0400 Body mass index (BMI) [Ratio] 29 kg/m2 [facility] 06-25-2024 15:01-0400 Body weight 76.65 kg [facility] 06-25-2024 15:01-0400 Diastolic blood pressure 68 mm[Hg] [facility] 06-25-2024 15:01-0400 Heart rate 80 /min [facility] 06-25-2024 15:01-0400 SaO2% (BldA) [Mass fraction] 98 % [facility] 06-25-2024 15:01-0400 Systolic blood pressure 120 mm[Hg] [facility] 01-31-2023 09:100400 Diastolic blood pressure 69 mm[Hg] DO Anu Olivier Work Phone: [facility] 01-31-2023 09:10-0400 Heart rate 62 /min DO Anu Olivier Work Phone: [facility] 01-31-2023 09:10-0400 Respiratory rate 16 /min DO Anu Olivier Work Phone: [facility] 01-31-2023 09:10-0400 SaO2% (BldA) [Mass fraction] 99 % DO Anu Olivier Work Phone: [facility] 01-31-2023 09:10-0400 Systolic blood pressure 108 mm[Hg] DO Anu Olivier Work Phone: [facility] 01-31-2023 08:40-0400 Inhaled oxygen flow rate 5 L/min DO Anu Olivier Work Phone: [facility] 01-31-2023 07:16-0400 Body height 162.56 cm DO Anu Olivier Work Phone: [facility] 01-31-2023 07:16-0400 Body temperature 97.8 [degF] DO Anu Olivier Work Phone: [facility] 01-31-2023 07:16-0400 Body weight 77.11 kg DO Anu Olivier Work Phone: [facility] 12-07-2022 19:30-0400 Body temperature 97.7 [degF] [facility] 12-07-2022 19:30-0400 Diastolic blood pressure 89 mm[Hg] [facility] 12-07-2022 19:30-0400 Heart rate 64 /min [facility] 12-07-2022 19:30-0400 Mean blood pressure 112 mm[Hg] [facility] 12-07-2022 19:30-0400 Respiratory rate 16 /min [facility] 12-07-2022 19:30-0400 SaO2% (BldA) [Mass fraction] 98 % [facility] 12-07-2022 19:30-0400 Systolic blood pressure 157 mm[Hg] [facility] 12-07-2022 19:00-0400 Diastolic blood pressure 79 mm[Hg] [facility] 12-07-2022 19:00-0400 Heart rate 66 /min [facility] 12-07-2022 19:00-0400 Mean blood pressure 105 mm[Hg] [facility] 12-07-2022 19:00-0400 SaO2% (BldA) [Mass fraction] 99 % [facility] 12-07-2022 19:00-0400 Systolic blood pressure 158 mm[Hg] [facility] 12-07-2022 18:00-0400 Diastolic blood pressure 83 mm[Hg] [facility] 12-07-2022 18:00-0400 Heart rate 71 /min [facility] 12-07-2022 18:00-0400 Mean blood pressure 110 mm[Hg] [facility] 12-07-2022 18:00-0400 Systolic blood pressure 163 mm[Hg] [facility] 12-07-2022 16:38-0400 Heart rate 67 /min [facility] 12-07-2022 15:26-0400 Body temperature 97.52 [degF] [facility] 12-07-2022 15:26-0400 Heart rate 80 /min [facility] 11-18-2022 17:14-0400 Blood Pressure Location [employer] [facility] 11-18-2022 17:14-0400 Diastolic blood pressure 80 mm[Hg] [employer] [facility] 11-18-2022 17:14-0400 Heart rate 75 /min [employer] [facility] 11-18-2022 17:14-0400 SaO2% (BldA) [Mass fraction] 95 % [employer] [facility] 11-18-2022 17:14-0400 Systolic blood pressure 150 mm[Hg] [employer] [facility] 06-07-2022 14:00-0400 Body height 161.29 cm Tacho Pickens Other [employer] Other 06-07-2022 14:00-0400 Body mass index (BMI) [Ratio] 29.46 kg/m2 Tacho Pickens Other [employer] Other 06-07-2022 14:00-0400 Body temperature 97.5 [degF] [employer] Pickens Other [employer] Other 06-07-2022 14:00-0400 Body weight 76.66 kg Tacho Pickens Other [employer] Other 06-07-2022 14:00-0400 Diastolic blood pressure 70 mm[Hg] Tacho Pickens Other [employer] Other 06-07-2022 14:00-0400 SaO2% (BldA) [Mass fraction] 99 % [employer] Pickens Other [employer] Other 06-07-2022 14:00-0400 Systolic blood pressure 118 mm[Hg] Tacho Pickens Other [employer] Other 01-03-2022 14:04-0400 Blood Pressure Location Mike Elise Jr[facility] 01-03-2022 14:04-0400 Diastolic blood pressure 76 mm[Hg] Mike Elise Jr. [facility] 01-03-2022 14:04-0400 Heart rate 79 /min Mike Elise Jr. [facility] 01-03-2022 14:04-0400 Systolic blood pressure 150 mm[Hg] Mike Elise Jr[employer] [facility] Encounters Encounter Date Encounter Type Care Provider Facility Start: 06-25-2024 End: 06-25-2024 ambulatory [facility] Work Phone: Start: 06-25-2024 End: 06-25-2024 Patient encounter procedure [facility] Work Phone: Start: 06-18-2024 End: 06-18-2024 Bamboo flowsheet Malik Elise DPM Work Phone: [facility] Start: 06-18-2024 End: 06-18-2024 Bamboo flowsheet Malik Elise DPM Work Phone: [facility] Start: 06-18-2024 End: 06-18-2024 Patient encounter procedure Malik Elise DPM Work Phone: [facility] Comment on above: Onychomycosis (Prima ry Dx); Pain in both feet Start: 06-18-2024 End: 06-18-2024 ambulatory MALIK ELISE Not Available Start: 04-16-2024 End: 04-16-2024 Patient encounter procedure Malik Elise DPM Work Phone: [facility] Comment on above: Onychomycosis (Prima ry Dx); Pain in both feet Start: 04-16-2024 End: 04-16-2024 ambulatory MALIK ELISE Not Available Start: 04-16-2024 End: 04-16-2024 Bamboo flowsheet Malik Elise DPM Work Phone: [facility] Start: 04-16-2024 End: 04-16-2024 Bamboo flowsheet Malik Elise DPM Work Phone: [facility] Start: 02-13-2024 End: 02-13-2024 ambulatory MALIK ELISE Not Available Start: 02-12-2024 End: 02-12-2024 ambulatory ANU OLIVIER Not Available Start: 12-20-2023 End: 12-20-2023 ambulatory GALA MCCANN Not Available Start: 12-05-2023 End: 12-05-2023 ambulatory MALIK ELISE Not Available Start: 10-24-2023 End: 10-24-2023 ambulatory KENNY ELY Not Available Start: 09-27-2023 End: 09-27-2023 ambulatory MALIK ELISE Not Available Start: 09-26-2023 End: 09-26-2023 ambulatory Gala Mccann Facility:[facility] Start: 08-07-2023 Patient encounter procedure Malik Elise DPM Work Phone: [facility] Work Phone: Start: 08-07-2023 End: 08-07-2023 ambulatory ANU OLIVIER Not Available Start: 07-26-2023 End: 07-26-2023 ambulatory MALIK ELISE Not Available Start: 01-31-2023 End: 01-31-2023 ambulatory Anu Olivier Facility:[facility] Start: 01-31-2023 End: 01-31-2023 Admission to same day surgery center DO Anu Olivier Work Phone: [facility] Work Phone: Start: 01-31-2023 End: 01-31-2023 ambulatory DO Anu Olivier Work Phone: [facility] Work Phone: Start: 01-24-2023 End: 01-25-[address] ANU OLIVIER Facility: Start: 12-30-2022 End: 12-30-2022 ambulatory Gala Mccann Facility:[facility] Start: 12-30-2022 End: 12-30-2022 ambulatory DO Anu Olivier Work Phone: [facility] Work Phone: Start: 12-30-2022 End: 12-30-2022 Departed Referred DO Anu Olivier Work Phone: [facility] [address] Work Phone: Start: 12-20-2022 End: 12-20-2022 ambulatory Gala Mccann Facility:[facility] Start: 12-20-2022 End: 12-20-2022 ambulatory DO Anu Olivier Work Phone: [facility] Work Phone: Start: 12-20-2022 End: 12-20-2022 Patient encounter procedure DO Anu Olivier Work Phone: [facility] Start: 12-07-2022 End: 12-07-2022 Emergency department patient visit Ellie Lopes Facility:[facility] Start: 12-07-2022 End: 12-07-2022 Emergency department [facility] Start: 11-18-2022 End: 11-19-2022 ambulatory Guerline X Orzech Facility:[facility] Start: 11-18-2022 End: 11-18-2022 Lab Drop off Guerline X Orzech [facility] Start: 11-18-2022 End: 11-18-2022 Patient encounter procedure Guerline Buitrago [facility] Start: 08-16-2022 End: 08-16-2022 ambulatory Danis Sneed Other [employer] Other Start: 08-16-2022 Telephone encounter Danis Jeffreykrystle ck [facility] [employer] Start: 07-26-2022 End: 07-27-[address] ANU OLIVIER Facility: Start: 06-07-2022 Office outpatient vi sit 25 minutes Tacho Pickens [facility] Start: 06-07-2022 End: 06-07-2022 ambulatory DO Anu Olivier Work Phone: [facility] Other Start: 06-07-2022 End: 06-07-2022 Patient encounter procedure DO Anu Olivier Work Phone: [facility] Start: 01-03-2022 End: 01-03-2022 Patient encounter procedure Mike Elise Jr. [facility] [place] Start: 04-12-2016 Adult health examination aTcho Pickens Other [facility] Other Procedures Date Procedure Procedure Detail Performing Clinician Start: 09-26-2023 Mammography Malik Elise DPAnni Work Phone: Start: 01-31-2023 End: 01-31-2023 Colonoscopy DO Anu lOivier Work Phone: Start: 01-03-2022 Cystoscopy Mike wood Jr. Start: 12-10-2018 Cystourethroscopy wi th dilation of urethral stricture Mike Elise Jr. Bilateral tubal ligation Ryan Elise Jr. section Mike banks Jr. Comment on above: x2 Colonoscopy Mike Cantu Prosthetic arthropla sty of the hip Mike Elise Jr. Comment on above: right Tonsillectomy Mike villeda Plan of Treatment Date Care Activity Detail Author Start: 02-01-2028 Screening for malign ant neoplasm of colon [facility] Start: 01-14-2025 End: 01-14-2025 Patient encounter procedure 01/14/2025 10:45 AM EDT Office Visit [facility] [address] [place] [phone] Gala Mccann, DO [address] [place] [address] [facility] Start: 09-26-2024 Screening for malign ant neoplasm of breast Mammogram [facility] Start: 09-03-2024 End: 09-03-2024 Patient encounter procedure 09/03/2024 9:30 AM EST Office Visit [facility] [address] [place] [phone] Anu Olivier, DO [address] [place] [address] [facility] Start: 08-07-2024 Medicare Annual Well ness (AWV) Medicare Annual Wellness (AWV) [facility] Start: 06-18-2024 End: 06-18-[address] [facility] Comment on above: Arrived Start: 04-28-2024 Influenza vaccination Influenz a Vaccine (#1) [facility] Start: 04-16-2024 End: 04-16-2024 Patient encounter procedure 04/16/2024 4:45 PM EDT Procedure Visit [facility] [address] [place] [phone] Malik Elise, DPM [address] [place] [address] [facility] Comment on above: Arrived Start: 01-31-2023 [facility] Start: 1950 Screening for malign ant neoplasm of colon [facility] Immunizations Immunization Date Immunization Notes Care Provider Fa cility 06-03-2023 Influenza, Seasonal, Quadrivalent, Adjuvanted Malik Elise DPM Work Phone: [facility] 06-03-2023 influenza virus vaccine, unspecified formulation Malik Elise DPM Work Phone: [facility] 12-07-2022 tetanus toxoid, reduced diphtheria toxoid, and acellular pertussis vaccine, adsorbed Astrit Haari [facility] Comment on above: Result Comment: LEFT DELTOID 06-12-2022 Influenza, High-dose Seasonal, Quadrivalent, Preservative Free Malik Elise DPM Work Phone: [facility] 06-30-2021 COVID-19, mRNA, LNP- S, PF, 100 mcg or 50 mcg dose; Translations: [SARS-CoV-2 (COVID-19) mRNA-1273 vaccine] Mike Elise Jr. [facility] 06-02-2021 Influenza, High-dose Seasonal, Quadrivalent, Preservative Free Malik Elise DPM Work Phone: [facility] 09-28-2020 SARS-CoV-2 (COVID-19 ) Ad26 vaccine, recombinant Mike Elise Jr. [facility] 08-28-2020 SARS-CoV-2 (COVID-19 ) Ad26 vaccine, recombinant Mike Elise Jr. [facility] 06-01-2020 Influenza, Seasonal, Quadrivalent, Adjuvanted Malik Elise DPM Work Phone: [facility] 06-28-2019 Seasonal trivalent influenza vaccine, adjuvanted, preservative free Malik Leise DPM Work Phone: [facility] 06-12-2019 influenza, high dose seasonal, preservative-free Malik Elise DPM Work Phone: [facility] 08-03-2018 zoster vaccine recombinant Tacho Pickens Other [employer] Other 06-14-2018 influenza, seasonal, injectable, preservative free Malik Elise DPM Work Phone: [facility] 05-21-2018 influenza, injectabl e, quadrivalent, preservative free Malik Elise DPM Work Phone: [facility] 05-21-2018 influenza, injectabl e, quadrivalent, contains preservative Tacho Pickens Other [employer] Other 05-11-2018 zoster vaccine recombinant Malik Elise DPM Work Phone: [facility] 09-22-2017 pneumococcal polysaccharide vaccine, 23 valent Malik Elise DPM Work Phone: [facility] 05-30-2017 influenza, injectabl e, quadrivalent, contains preservative Malik Elise DPM Work Phone: [facility] 05-05-2017 influenza, high dose seasonal, preservative-free Malik Elise DPM Work Phone: [facility] 06-08-2016 influenza, high dose seasonal, preservative-free Malik Elise DPM Work Phone: [facility] 06-08-2016 influenza, seasonal, injectable Tacho Pickens Other [facility] 05-02-2016 influenza, seasonal, injectable, preservative free Malik Elise DPM Work Phone: [facility] 11-13-2015 pneumococcal conjuga te vaccine, 13 valent Tacho Pickens Other [employer] Other 07-08-2015 influenza, seasonal, injectable Tacho Pickens Other [facility] 07-07-2015 influenza, seasonal, injectable, preservative free Malik Elise DPM Work Phone: [facility] 09-02-2014 hepatitis A vaccine, adult dosage Malik Elise DPM Work Phone: [facility] 06-26-2014 influenza, seasonal, injectable, preservative free Malik Elise DPM Work Phone: [facility] 02-24-2014 hepatitis A vaccine, adult dosage Malik Elise DPM Work Phone: [facility] 02-17-2014 tetanus toxoid, reduced diphtheria toxoid, and acellular pertussis vaccine, adsorbed Malik Elise DPM Work Phone: [facility] 01-13-2014 ALLERGY Injection (2 or more) Tacho Pickens Other [employer] Other 01-13-2014 ALLERGY Injection (2 or more)-pt brought own pinky Sneed Other [employer] Other 11-14-2013 ALLERGY Injection (2 or more) Tacho Pickens Other [employer] Other 11-14-2013 ALLERGY Injection (2 or more)-pt brought own med Danis Sneed Other [employer] Other 10-21-2013 ALLERGY Injection (2 or more) Tacho Pickens Other [employer] Other 10-21-2013 ALLERGY Injection (2 or more)-pt brought own med Danis Nedra Other [employer] Other 10-01-2013 ALLERGY Injection (2 or more) Tacho Pickens Other [employer] Other 10-01-2013 ALLERGY Injection (2 or more)-pt brought own med Danis Nedra Other [employer] Other 09-04-2013 ALLERGY Injection (2 or more) Tacho Pickens Other [employer] Other 09-04-2013 ALLERGY Injection (2 or more)-pt brought own med Danis Nedra Other [employer] Other 08-27-2013 ALLERGY Injection (2 or more) Tacho Pickens Other [employer] Other 08-27-2013 ALLERGY Injection (2 or more)-pt brought own med Danis Nedra Other [employer] Other 07-30-2013 ALLERGY Injection (1 inj) Tacho Pickens Other [employer] Other 07-30-2013 ALLERGY Injection (1 inj)-pt brought own med Danis Nedra Other [employer] Other 07-09-2013 ALLERGY Injection (2 or more) Tacho Pickens Other [employer] Other 07-09-2013 ALLERGY Injection (2 or more)-pt brought own med Danis Nedra Other [employer] Other 06-18-2013 ALLERGY Injection (2 or more) Tacho Pickens Other [employer] Other 06-18-2013 ALLERGY Injection (2 or more)-pt brought own med Danis Nedra Other [employer] Other 05-27-2013 ALLERGY Injection (2 or more) Tacho Pickens Other [employer] Other 05-27-2013 ALLERGY Injection (2 or more)-pt brought own med Danis Nedra Other [employer] Other 05-06-2013 ALLERGY Injection (2 or more) Tacho Pickens Other [employer] Other 05-06-2013 ALLERGY Injection (2 or more)-pt brought own med Danis Nedra Other [employer] Other 04-15-2013 ALLERGY Injection (2 or more) Tacho Pickens Other [employer] Other 04-15-2013 ALLERGY Injection (2 or more)-pt brought own med Danis Nedra Other [employer] Other 04-09-2013 ALLERGY Injection (2 or more) Tacho Pickens Other [employer] Other 04-09-2013 ALLERGY Injection (2 or more)-pt brought own med Danis Nedra Other [employer] Other 03-27-2013 ALLERGY Injection (2 or more) Tacho Pickens Other [employer] Other 03-27-2013 ALLERGY Injection (2 or more)-pt brought own med Danis Nedra Other [employer] Other 03-18-2013 ALLERGY Injection (2 or more) Tacho Pickens Other [employer] Other 03-18-2013 ALLERGY Injection (2 or more)-pt brought own med Danis Nedra Other [employer] Other 03-12-2013 ALLERGY Injection (2 or more) Tacho Pickens Other [employer] Other 03-12-2013 ALLERGY Injection (2 or more)-pt brought own med Danis Nedra Other [employer] Other 02-19-2013 ALLERGY Injection (2 or more) Tacho Pickens Other [employer] Other 02-19-2013 ALLERGY Injection (2 or more)-pt brought own med Danis Nedra Other [employer] Other 02-04-2013 ALLERGY Injection (2 or more) Tacho Pickens Other [employer] Other 02-04-2013 ALLERGY Injection (2 or more)-pt brought own med Danis Nedra Other [employer] Other 01-22-2013 ALLERGY Injection (2 or more) Tacho Pickens Other [employer] Other 01-22-2013 ALLERGY Injection (2 or more)-pt brought own med Danis Nedra Other [employer] Other 01-10-2013 ALLERGY Injection (2 or more) Tacho Pickens Other [employer] Other 01-10-2013 ALLERGY Injection (2 or more)-pt brought own med Danis Nedra Other [employer] Other 01-07-2013 zoster vaccine, live Tyrel Elise DP Work Phone: [facility] 12-25-2012 ALLERGY Injection (2 or more) Tacho Pickens Other [employer] Other 12-25-2012 ALLERGY Injection (2 or more)-pt brought own med Danis Nedra Other [employer] Other 12-10-2012 ALLERGY Injection (2 or more) Tacho Pickens Other [employer] Other 12-10-2012 ALLERGY Injection (2 or more)-pt brought own med Danis Nedra Other [employer] Other 12-04-2012 ALLERGY Injection (2 or more) Tacho Pickens Other [employer] Other 12-04-2012 ALLERGY Injection (2 or more)-pt brought own med Danis Nedra Other [employer] Other 11-26-2012 ALLERGY Injection (2 or more) Tacho Pickens Other [employer] Other 11-26-2012 ALLERGY Injection (2 or more)-pt brought own med Danis Nedra Other [employer] Other 11-20-2012 ALLERGY Injection (2 or more) Tacho Pickens Other [employer] Other 11-20-2012 ALLERGY Injection (2 or more)-pt brought own med Danis Nedra Other [employer] Other 11-13-2012 ALLERGY Injection (2 or more) Tacho Pickens Other [employer] Other 11-13-2012 ALLERGY Injection (2 or more)-pt brought own med Danis Nedra Other [employer] Other 10-22-2012 ALLERGY Injection (2 or more) Tacho Pickens Other [employer] Other 10-22-2012 ALLERGY Injection (2 or more)-pt brought own med Danis Nedra Other [employer] Other 10-11-2012 ALLERGY Injection (2 or more) Tacho Pickens Other [employer] Other 10-11-2012 ALLERGY Injection (2 or more)-pt brought own med Danis Nedra Other [employer] Other 09-25-2012 ALLERGY Injection (2 or more) Tacho Pickens Other [employer] Other 09-25-2012 ALLERGY Injection (2 or more)-pt brought own med Danis Nedra Other [employer] Other 09-12-2012 ALLERGY Injection (2 or more) Tacho Pickens Other [employer] Other 09-12-2012 ALLERGY Injection (2 or more)-pt brought own med Danis Nedra Other [employer] Other 09-02-2012 pneumococcal polysaccharide vaccine, 23 valent Malik Elise DPM Work Phone: [facility] 08-30-2012 ALLERGY Injection (2 or more) Tacho Pickens Other [employer] Other 08-30-2012 ALLERGY Injection (2 or more)-pt brought own med Danis Nedra Other [employer] Other 08-24-2012 ALLERGY Injection (2 or more) Tacoh Pickens Other [employer] Other 08-24-2012 ALLERGY Injection (2 or more)-pt brought own med Danis Nedra Other [employer] Other 08-14-2012 ALLERGY Injection (2 or more) Tacho Pickens Other [employer] Other 08-14-2012 ALLERGY Injection (2 or more)-pt brought own med Danis Nedra Other [employer] Other 08-07-2012 ALLERGY Injection (2 or more) Tacho Pickens Other [employer] Other 08-07-2012 ALLERGY Injection (2 or more)-pt brought own med Danis Nedra Other [employer] Other 07-30-2012 ALLERGY Injection (2 or more) Tacho Pickens Other [employer] Other 07-30-2012 ALLERGY Injection (2 or more)-pt brought own med Danis Nedra Other [employer] Other 07-23-2012 ALLERGY Injection (2 or more) Tacho Pickens Other [employer] Other 07-23-2012 ALLERGY Injection (2 or more)-pt brought own med Danis Nedra Other [employer] Other 07-03-2012 ALLERGY Injection (2 or more) Tacho Pickens Other [employer] Other 07-03-2012 ALLERGY Injection (2 or more)-pt brought own med Danis Nedra Other [employer] Other 06-18-2012 ALLERGY Injection (2 or more) Tacho Pickens Other [employer] Other 06-18-2012 ALLERGY Injection (2 or more)-pt brought own med Danis Nedra Other [employer] Other 06-05-2012 ALLERGY Injection (2 or more) Tacho Pickens Other [employer] Other 06-05-2012 ALLERGY Injection (2 or more)-pt brought own med Danis Nedra Other [employer] Other 05-22-2012 ALLERGY Injection (2 or more) Tacho Pickens Other [employer] Other 05-22-2012 ALLERGY Injection (2 or more)-pt brought own med Danis Nedra Other [employer] Other 04-24-2012 ALLERGY Injection (2 or more) Tacho Pickens Other [employer] Other 04-24-2012 ALLERGY Injection (2 or more)-pt brought own med Danis Nedra Other [employer] Other 04-12-2012 ALLERGY Injection (2 or more) Tacho Pickens Other [employer] Other 04-12-2012 ALLERGY Injection (2 or more)-pt brought own med Danis Nedra Other [employer] Other 04-06-2012 ALLERGY Injection (2 or more) Tacho Pickens Other [employer] Other 04-06-2012 ALLERGY Injection (2 or more)-pt brought own med Danis Sneed Other [employer] Other 03-31-2012 ALLERGY Injection (2 or more) Tacho Pickens Other [employer] Other 03-31-2012 ALLERGY Injection (2 or more)-pt brought own med Danis Sneed Other [employer] Other 03-08-2012 ALLERGY Injection (2 or more) Tacho Pickens Other [employer] Other 03-08-2012 ALLERGY Injection (2 or more)-pt brought own [employer] Danis Sneed Other [employer] Other NEGATED: Highlighted row has not occurred!11-18-2022 influenza virus vaccine, unspecified formulation Guerline Buitrago [facility] Payers Date Payer Category Payer Self-pay [id number] 2020 Private Health Insurance [id number] 2020 Private Health Insurance [id number] 2015 Medicare [id number] 1959 Medicare [id number] 2.1 [id number] 1959 Unknown [id number] 1950 Unknown [id number] 2.16.8 40.1.061459.3.579.2.727 1950 Unknown [id number] 2.16.8 40.1.151320.3.579.2.727 1950 Unknown [id number] 2.16.8 40.1.122758.3.579.2.727 1950 Unknown [id number] 2.16.84 0.1.688339.3.579.2.593 1950 Unknown [id number] 2.16.84 0.1.980361.3.579.2.593 1950 Unknown [id number] 2.16.84 0.1.446595.3.579.2.1259 1950 Unknown [id number] 2.16.84 0.1.341799.3.579.2.1259 1950 Unknown [id number] 2.16.84 0.1.746673.3.579.2.1259 1950 Unknown [id number] 2.16.84 0.1.807752.3.579.2.1259 1950 Unknown [id number] 2.16.84 0.1.954652.3.579.2.1259 1950 Unknown [id number] 2.16.84 0.1.695434.3.579.2.1259 1950 Unknown [id number] 2.16.84 0.1.156637.3.579.2.1259 1950 Unknown [id number] 2.16.84 0.1.288989.3.579.2.1259 1950 Unknown [id number] 2.16.840 .1.528132.3.579.2.1259 1950 Unknown [id number] 2.16.840 .1.407802.3.579.2.1259 Unknown [id number] 2.16 .840.1.823989.19 Unknown [id number] 2.16.8 40.1.960746.3.579.2.531 Unknown [id number] 2.16.8 40.1.612957.3.579.2.531 Unknown [id number] 2.16.8 40.1.775178.3.579.2.531 Unknown [id number] 2.16.8 40.1.649860.3.579.2.531 Social History Date Type Detail Facility Start: 01-03-2022 End: 08-07-2023 Tobacco smoking status Never smoked tobacco (finding) [facility] [place] Tobacco smoking status Never [facility] Start: 08-07-2023 End: 02-12-2024 Sex Assigned At Female [facility] [place] Start: 1950 Sex Assigned At Female [facility] Start: 08-07-2023 Tobacco use and exposure Smokeless tobacco non-user [facility] Start: 02-13-2024 End: 04-16-2024 Alcoholic beverage intake Ex-drinker (finding) [facility] Start: 08-07-2023 End: 02-12-2024 History of Social function [facility] How often to you hav e a drink containing alcohol? Never [facility] Start: 01-31-2023 Alcohol Comment Caffeine intak e: iced tea in summer [facility] Start: 1950 Sex assigned at Not on file [facility] NEGATED: Highlighted rowStart: NINF History of tobacco use Passive smoker [facility] Goals Date Patient Goal Desired Activity /State Personal health goal Comment on above: Formatting of this n ote might be different from the original. R 6 sec, L 4 secs Functional Status Date Assessment Result Facility 12-07-2022 Functional Status N/A [facility] Clinical Notes 07-08-2014 to 06-18-2024 Malik Elise DPM - 06/18/2024 11:30 AM EDTCmaxime Elise DPM - 04/16/2024 4:45 PM EDT Note Date & Type Note Facility 06-18-2024 History of Present illness Narrative Images from the original note were not included. HPI: Diabetic/Routine Nail Care: Patient presents in office today for non diabetic nail care. She has no other concerns today. Location: nails on bilateral feet. Severity of symptoms: mild. Onset: gradual. Status: no change. Context: hard to trim, hard to reach. NAILS: thickened, discolored, pain. Relieved by: debridement, filing down nails, clipping nails. History of ulcers/wounds: no. PCP: Charline. Date of Last visit: 02/12/24 sees every 6 months. Aggravated by: shoe gear, pressure. Risk factors: wearing enclosed shoes. Examination: General Examination: GENERAL EXAMINATIONawake, aware of surroundings, in no acute distress. FOOT EXAM: Date of Last Foot Exam 06/18/24 Vascular: DORSALIS PEDIS PULSE:2/4, bilaterally. POSTERIOR TIBIAL PULSE:2/4, bilaterally. TEMPERATURE GRADIENT:warm to cool. EDEMA:none. CAPILLARY FILLING TIME(sec):capillary fill intact bilateral digits less than 3 secs. Neurologic: NEUROLOGIClight touch is intact to the plantar foot. Dermatologic: HYPERKERATOSIS:none. NAIL PATHOLOGY:digits 1-5 bilateral are intact. Nails 1, 5 bilateral are thickened, discolored, crumbly and with subungal debris. SKIN PATHOLOGY:texture, turgor, hair growth, within normal limits. Orthopedic: FOOT MORPHOLOGY:normal. JOINT RANGE OF MOTION:Normal. DEFORMITIES:none. PAIN ELICITED WITH PALPATION OFAlong the proximal aspect of the left hallux nail bed. PAIN ELICITED WITH ROM:none. MUSCLE STRENGTH5/5 for all pedal groups tested. Assessments: 1. Ingrowing nail - L60.0 (Primary) 2. Dermatophytosis of nail - B35.1 3. Pain of left foot - M79.672 4. Pain of right foot - M79.671 Plan: 1.Dermatophytosis of nail Notes: 1. All mycotic nails were debrided in length and thickness by manual and mechanical means. 2. Advised patient of proper foot care to prevent any future complications including daily monitoring of the feet. 3. RTC: 9-12 weeks or as needed if problems arise as patient would like to continue to come in for routine nail care appointments to prevent future pain and problems developing from the overgrowth of the toenails. documented in this encounter [facility] 04-16-2024 History of Present illness Narrative HPI: Diabetic/Routine Nail Care: Patient presents in office today for non diabetic nail care. She has no other concerns today. Location: nails on bilateral feet. Severity of symptoms: mild. Onset: gradual. Status: no change. Context: hard to trim, hard to reach. NAILS: thickened, discolored, pain. Relieved by: debridement, filing down nails, clipping nails. History of ulcers/wounds: no. PCP: Charline. Date of Last visit: 02/12/24 sees every 6 months. Aggravated by: shoe gear, pressure. Risk factors: wearing enclosed shoes. Examination: General Examination: GENERAL EXAMINATIONawake, aware of surroundings, in no acute distress. FOOT EXAM: Date of Last Foot Exam 04/16/24 Vascular: DORSALIS PEDIS PULSE:2/4, bilaterally. POSTERIOR TIBIAL PULSE:2/4, bilaterally. TEMPERATURE GRADIENT:warm to cool. EDEMA:none. CAPILLARY FILLING TIME(sec):capillary fill intact bilateral digits less than 3 secs. Neurologic: NEUROLOGIClight touch is intact to the plantar foot. Dermatologic: HYPERKERATOSIS:none. NAIL PATHOLOGY:digits 1-5 bilateral are intact. Nails 1, 5 bilateral are thickened, discolored, crumbly and with subungal debris. SKIN PATHOLOGY:texture, turgor, hair growth, within normal limits. Orthopedic: FOOT MORPHOLOGY:normal. JOINT RANGE OF MOTION:Normal. DEFORMITIES:none. PAIN ELICITED WITH PALPATION OFAlong the proximal aspect of the left hallux nail bed. PAIN ELICITED WITH ROM:none. MUSCLE STRENGTH5/5 for all pedal groups tested. Assessments: 1. Ingrowing nail - L60.0 (Primary) 2. Dermatophytosis of nail - B35.1 3. Pain of left foot - M79.672 4. Pain of right foot - M79.671 Plan: 1.Dermatophytosis of nail Notes: 1. All mycotic nails were debrided in length and thickness by manual and mechanical means. 2. Advised patient of proper foot care to prevent any future complications including daily monitoring of the feet. 3. RTC: 9-12 weeks or as needed if problems arise as patient would like to continue to come in for routine nail care appointments to prevent future pain and problems developing from the overgrowth of the toenails. Malik Elise DPM documented in this encounter [facility] 01-31-2023 Procedure note [facility] 12-07-2022 Hospital Discharge instructions Patient Education 12/07/2022 19:26:16 Nasal Fracture [...] minutes, 2 3 times a day. Take rhsy-wkk-bkparem and prescription medicines only as told by [...] 08/11/2001 Document Revised: 01/15/2019 Document Reviewed: 01/15/2019 [employer] Patient Education 2020 [employer]. Follow Up Care 12/07/2022 15:24:27 With:ANU OLIVIER Address: [address] [place] [id number] When:12/10/2022 19:26:02 Comments:Call the office of your [...] you develop any new or worsening symptoms. [facility] 12-07-2022 Evaluation + Plan note Extrac leatha [...] w/o Contrast CT Spine Cervical w/o Contrast [facility]03-28-2023 NoteMicrobiology PROCEDURE: Wound Culture [R1] SOURCE: Drainage BODY SITE: Fingernail COLLECTED DATE/TIME: 11/18/2022 17:55 EDT RECEIVED DATE/TIME: 11/19/2022 14:41 EDT START DATE/TIME: 11/19/2022 14:41 EDT FREE TEXT SOURCE: Minna ALVARADO, MANAGER ASSESSMENT-C, Minna ALVARADO, MARTHA-C, Guerline X Guerline X [...] Locations R1: This test was performed at: [facility], [address] [place] [address], [address] , , [facility] above:Performed By: #### [id number] ####[facility] [address] [place], [place] [id number] Hospital Discharge instructions Patient Education 11/18/2022 17:49:25 [...] such as those who work as dishwashers, clinical pharmacy technician, or nurses. Bite their fingernails or suck [...] and water are not available, use hand supervisor home energy consultant. ?Change your dressing as told by your health care provider. If you had an abscess drained, check the area every day for signs of infection. Check for: ?Redness, swelling, or pain. ?Fluid or blood. ?Warmth. ?Pus or a bad smell. Medicines Take owhq-qdd-qjglzxu and prescription medicines only as told by [...] your hands might come in contact with protective signal installer or other chemicals. ?Avoid injuring your nails [...] 02/07/2002 Document Revised: 08/31/2018 Document Reviewed: 08/27/2018 [employer] Patient Education 2020 [employer] 11/18/2022 17:49:21 Cellulitis, Adult Cellulitis, Adult Cellulitis [...] Follow these instructions at home: Medicines Take tqlr-olq-sutvgqk and prescription medicines only as told by [...] such as antibiotic medicines or antihistamines. Take zioj-dfv-bgutqbd and prescription medicines only as told by [...] 05/24/2006 Document Revised: 01/03/2019 Document Reviewed: 01/03/2019 [employer]record Patient Education 2020 [employer]. 11/18/2022 17:49:17 BMI for Adults BMI for [...] height. This can be done either in [place] ([place] or metric measurements. Note that charts are available to help you find your BMI quickly and easily without having to do these calculations yourself. To calculate your BMI in [place] ([place] measurements, your health care provider will: [...] medical problems. BMI can be measured using Kazakh measurements or metric measurements. To interpret your [...] 04/25/2005 Document Revised: 07/27/2018 Document Reviewed: 06/27/2018 [employer]record Patient Education 2020 [employer] Inc. Follow Up Care 11/18/2022 17:06:30 With:ANU OLIVIER DO, MED Address: [address] [place] [phone] When: Unknown [facility] 03-24-2023 Evaluation + Plan note Diagnostic Tests Pending * Wound Culture 11/18/22 [facility]10-11-2022 Evaluation note* Encounter Date Diagnosis Assessment Notes [...] sleepiness, or poor response to treatment. . [employer] Other 05-09-2022 Hospital Discharge instructions Patient Education [...] Follow these instructions at home: Medicines Take cnme-htx-vsubkfa and prescription medicines only as told by [...] or the blood stops without treatment. Take rshh-iza-qfwdvuf and prescription medicines only as told by your health care provider. Drink enough fluid to keep your urine clear or pale yellow. This information is not intended to replace advice given to you by your health care provider. Make sure you discuss any questions you have with your health care provider. Document Released: 08/14/2006 Document Revised: 01/08/2020 Document Reviewed: 09/16/2017 [employer]record Patient Education 2019 [employer] Follow Up Care 12/22/2021 14:16:00 With:Arik Jones MD, Mike Rosenthal, URO Address: [facility] [address], [place] [address]- When: only if needed [facility] 11-11-2014 History general Narrative - Reported* Type [...] 06/[address] SNEED 07-17 Surgical History TOTAL RIGHT HIP REPL ACEMENT - DR LUNA IN [place], [place] 10-11-2016 Hospitalization History SEE ABOVE Hospitalization History HIP REPLACEMENT [employer] Other Evaluation + Plan note No data available for this section [facility] Evaluation noteNo assessment information available [facility] Work Phone: Evaluation noteNo InformationNort [employer] Other Evaluation note* Diagnosis Onset Date Resolution Status Family history of colon canc er requiring screening colonoscopy [facility] Work Phone: Evaluation note* Diagnosis Onychomycosis- Primary Dermatophytosis of nail Pain in both feet documented in this encounter [facility] HealthcareEvaluation note* Diagnosis Onychomycosis- Primary Dermatophytosis of nail Pain in both feet documented in this encounter [facility] HealthcareHospital Discharge instructions No data available for this section [facility] Additional Instructions DISCHARGE INSTRUCTIONS FOR [...] if you have any problems. -Office number [phone] Work Phone: Progress note No data available for this section [facility] Care Chief Complaint and Reason for Visit Chief Complaint Sleep apnea annual f ollow up Chief Complaint z01.818 Chief Complaint z01.818 PMB Hx of Colon Polyps Reason for Visit Family history of co sukh cancer requiring screening colonoscopy Chief Complaint SAPNA/Annual Advance Directives Advance Directive Response Recorded Date/ Time Advance Directives No September 28, 2017 10:28am Date Activated Date Inactivated Comments 08/07/2023 9:31 AM Summary Purpose Family History Relationship Condition Age at Onset Recorded Date/T abdirashid Not Specified Malignant neoplasm of colon Unknown grandparent Malignant neoplasm of colon Unknown father Heart disease Unknown Relationship Condition Age at Onset Recorded Date/T abdirashid mother Malignant neoplasm of colon Unknown grandparent Malignant neoplasm of colon Unknown father Heart disease Unknown father Hypertension Unknown Unknown Heart disease Unknown grandparent Family history of colon cancer Unknown Malignant neoplasm Unknown grandparent Unknown Dementia Unknown mother Unknown sister Hypothyroidism Unknown Additional Source Comments Care Teams (unrecognized sec tion and content) Team Status: Inactive Member Role Status Dates Anu Olivier DO Primary Care Provider Active Tacho Pickens MD Attending Provider Active Team Status: Active Member Role Status Dates Anu Olivier DO Primary Care Provider Active Team Status: Inactive Member Role Status Dates Anu Olivier DO Primary Care Provider Active Gala Mccann DO Attending Provider Active Team Status: Inactive Member Role Status Dates Anu Olivier DO Primary Care Provider Active Danis Sneed MD Attending Provider Active School Leader Relationship Specialty Start Date End Date Anu Olivier DO [address] [place] [address] PCP - ACO Reach 01/19/23 Anu Olivier DO [address] [place] [address] PCP - General Internal Medicine 09/27/23 Gala Mccann DO [address] [place] [address] Referring Physician Obstetrics and Gynecology 08/07/23 Isabella Gastelum OD [address] [phone] Referring Physician Optometry 10/24/23 School Leader Relationship Specialty Start Date End Date Anu Olivier DO [address] [place] [address] PCP - ACO Reach 01/19/23 Anu Olivier DO [address] [place] [address] PCP - General Internal Medicine 09/27/23 Gala Mccann DO [address] [place] [address] Referring Physician Obstetrics and Gynecology 08/07/23 Isabella Gastelum, OD [address] [place], [place] [phone] Referring Physician Optometry 10/24/23 Team Status: Inactive Member Role Status Dates Anu Olivier DO Primary Care Provider Active Start: June 25, 2024 End: June 25, 2024 Tacho Pickens MD Attending Provider Active S tart: June 25, 2024 End: June 25, 2024 School Leader Relationship Specialty Start Date End Date Anu Olivier DO [address] [place] [address] PCP - ACO Reach 01/19/23 Anu Olivier DO [address] [place] [address] PCP - General Internal Medicine 09/27/23 Gala Mccann DO [address] [place] [address] Referring Physician Obstetrics and Gynecology 08/07/23 Isabella Gastelum, OD [address] [place] [address] Referring Physician Optometry 10/24/23 School Leader Relationship Specialty Start Date End Date Anu Olivier DO [address] [place] [address] PCP - ACO Reach 01/19/23 Anu Olivier DO [address] [place] [address] PCP - General Internal Medicine 09/27/23 Gala Mccann DO [address] [place] [address] Referring Physician Obstetrics and Gynecology 08/07/23 Isabella Gastelum OD [address] [place] [address] Referring Physician Optometry 10/24/23 Goals (unrecognized section and content) Goals may be documented in a n alternate section REASON FOR VISIT (unrecogniz ed section and content) MAIL PPW INFORMATION SOURCE (unrecogn ized section and content) DATE CREATED AUTHOR 01/04/2023 [facility] DATE CREATED AUTHOR AUTHOR'S ORGANIZ ATION 02/05/2023 [facility] DATE CREATED AUTHOR AUTHOR'S ORGANIZ ATION 09/30/2023 [facility] DATE CREATED AUTHOR AUTHOR'S ORGANIZ ATION 06/20/2024 [facility] Specialists [facility] FOR RECORDS PERTAINING TO PATIENTS WHO [...] BE BASED ON THE PRIMARY CLINICAL RECORDS. [facility]. provides no warranty or guarantee of the accuracy or completeness of information in this document.
[2024-08-30 07:26] LABS: Estimated Average Glucose 120 mg/dL; Glycohemoglobin A1C 5.8 % (4.5-6.2)
[2024-08-30 07:44] LABS: Alanine Aminotransferase 19 U/L (14-59); Albumin Level 3.5 g/dL (3.4-5.0); Alkaline Phosphatase 84 U/L (46-116); Anion Gap 7.7; Aspartate Amino Transferase 12 U/L (15-37); Bilirubin Total 0.3 mg/dL (0.2-1.0); Carbon Dioxide 32.8 mmol/L (21.0-32.0); Chloride 106 mmol/L (98-107); Chol HDL Ratio 2.4; Cholesterol 150 mg/dL (<=200); Estimated GFR (African America >60 (>=60 mL/min/1.73m^2); Estimated GFR (Non-African Ame >60 (>=60 mL/min/1.73m^2); Globulin 3.4 g/dL; Glucose 95 mg/dL (74-106); HDL Cholesterol 62 mg/dL (40-60); Potassium 3.5 mmol/L (3.5-5.1); Sodium 143 mmol/L (136-145); Total Protein 6.9 g/dL (6.4-8.2); Triglycerides 65 mg/dL (<=150)
[2024-08-30 07:46] LABS: BUN Creatinine Ratio 31.3
== END 2024-08-30 06:48 | disposition home or self-care (01) ==
LOC: LAB 06:50
PROVIDERS: PCP Internal Medicine; Visit Provider Internal Medicine
DX: E78.2 Mixed hyperlipidemia (principal); I10 Essential (primary) hypertension; R73.01 Impaired fasting glucose
CPT/HCPCS: 36415; 80053; 80061; 83036

== ENCOUNTER 2025-02-25 07:06 | Outpatient (OUT) | payer MEDICARE, OTHER, SELFPAY ==
--- OUTSIDE RECORDS SUMMARY | 2025-02-25 07:11 | XMS_ITS | Encounter Summary ---
Author Organization [facility] Address [address] [facility] [place] [address] Care Team Providers Care Cyber Legal Advisor Name Role Phone Pedro Knight DO Unavailable [phone] Pedro Knight DO Primary Care Provider + [phone] Gala Mccann DO Unavailable [phone] Pedro Knight DO Primary Care Provider + [phone] Fletcher Ewing OD Unavailable Encounter Details Date Type Department Care Team (Late st Contact Info) Description 02/03/2023 Orders Only [facility] [address] [facility] [address] [place] [phone] Provider, MD Jenna [address] [place] [address] Social History Tobacco Use Types Packs/Day Years Used Date Smoking Tobacco: Never Smokeless Tobacco: Never Alcohol Use Standard Drinks/Week Comments Yes 0 (1 standard drink = 0.6 oz pure alcohol) Caffeine intake: iced tea in summer AUDIT-C Answer Date Recorded Q1: How often do you have a drink containing alc ohol? Monthly or less 02/01/2023 Q2: How many drinks containi ng alcohol do you have on a typical day when you are drinking? 1 or 2 02/01/2023 Q3: How often do you have si x or more drinks on one occasion? Never 02/01/2023 PHQ-2 Answer Date Recorded Patient Health Questionnaire-2 Score 0 02/01/2023 Comments Unknown Sex and Gender Information Value Date Recorded Sex Assigned at Not on file Legal Sex Female 6:44 PM EDT Gender Identity Not on file Sexual Orientation Not on file documented as of this encounter Plan of Treatment Upcoming Encounters Date Type Department Care Team (Late st Contact Info) Description 03/04/2025 9:30 AM EDT Office Visit [facility] [address] [place] [address] Pedro Knight, DO [address] [place] [address] 03/18/2025 10:15 AM EDT Procedure Visit [facility] [address] [place] [phone] Kecia Elise, DPM [address] [place] [address] 05/20/2025 8:00 AM EDT Procedure Visit [facility] [address] [place] [phone] Kecia Elise, DPM [address] [place] [address] 01/20/2026 11:30 AM EDT Office Visit [facility] [address] [place] [phone] Gala Mccann, DO [address] [place] [address] documented as of this encounter Goals Goal Patient Goal Type Associated Problems Recent Progress Patient-Stated? Author Improve SLS on either leg to 10 secs without UE support General Improving(12/28 12:01 PM EDT) No Karissa Griffin PTA Note: R 6 sec, L 4 secs documented as of this encounter Procedures Procedure Name Priority Date/Time Associated Diagnosis Comments COLONOSCOPY DIAGNOSTIC Routine 01/31/2023 9:07 AM EDT documented in this encounter Results * COLONOSCOPY DIAGNOSTIC (01/31/2023 9:07 AM EDT) Anatomical Region Laterality Modality Radiographic Jacquelyn ging us Historical Provider MD PATTON XR PROCEDURES Edited Result - Final documented in this encounter Visit Diagnoses Not on filedocumented in this encounter Care Teams Cyber Legal Advisor Relationship Specialty Start Date End Date Pedro Knight DO [address] [place] [address] PCP - ACO Reach 01/19/23 Pedro Knight DO [address] [place] [address] PCP - General Internal Medicine 02/01/23 09/26/23 Pedro Knight DO [address] [place] [address] PCP - General Internal Medicine 09/27/23 Gala Mccann DO [address] [place] [address] Referring Physician Obstetrics and Gynecology 08/07/23 Fletcher Ewing OD [address] [place] [address] Referring Physician Optometry 10/24/23 documented as of this encounter
--- OUTSIDE RECORDS SUMMARY | 2025-02-25 07:11 | XMS_ITS | Encounter Summary ---
Author Organization [facility] Address [address] [facility] [place] [address] Care Team Providers Care Psychopaedic Nurse Name Role Phone Pedro Knight DO Unavailable [phone] Pedro Knight DO Primary Care Provider + [phone] Gala Mccann DO Unavailable [phone] Pedro Knight DO Primary Care Provider + [phone] KaylinFletcher carrera OD Unavailable Encounter Details Date Type Department Care Team (Late st Contact Info) Description 03/29/2023 Orders Only [facility] [address] [facility] [address] [place] [phone] A, Unknown Practice [address] [place], [place] [phone] Social History Tobacco Use Types Packs/Day Years [...] 03/04/2025 9:30 AM EDT Office Visit [facility] [address] [place] [address] Pedro Knight, DO [address] [place] [address] 03/18/2025 10:15 AM EDT Procedure Visit [facility] [address] [place] [address] Kecia Elise, DPM [address] [place] [address] 05/20/2025 8:00 AM EDT Procedure Visit [facility] [address] [place] [address] Kecia Elise, DPM [address] [place] [address] 01/20/2026 11:30 AM EDT Office Visit [facility] [address] [place] [address] Gala Mccann, DO [address] [place] [address] documented as of this encounter Goals Goal Patient Goal Type Associated Problems Recent Progress Patient-Stated? Author Improve SLS on either leg to 10 secs without UE support General Improving(12/28 12:01 PM EDT) No Karissa Griffin PTA Note: R 6 sec, L 4 secs documented as of this encounter Procedures Procedure Name Priority Date/Time Associated Diagnosis Comments CT HEAD/BRAIN W & WO CONTRAST Routine 03/28/2023 8:10 AM EDT documented in this encounter Results * CT HEAD/BRAIN W & WO CONTRAST (03/28/2023 8:10 AM EDT) Anatomical Region Laterality Modality Radiographic Jacquelyn ging us Unknown Practice A IMG XR PROCEDURES Final Resul t documented in this encounter Visit Diagnoses Not on filedocumented in this encounter Care Teams Psychopaedic Nurse Relationship Specialty Start Date End Date Pedro Knight DO [address] [place] [address] PCP - ACO Reach 01/19/23 Pedro Knight DO [address] [place] [address] PCP - General Internal Medicine 02/01/23 09/26/23 Pedro Knight DO [address] [place] [address] PCP - General Internal Medicine 09/27/23 Gala Mccann DO [address] [place] [address] Referring Physician Obstetrics and Gynecology 08/07/23 Fletcher Ewing OD [address] [place] [address] Referring Physician Optometry 10/24/23 documented as of this encounter
--- OUTSIDE RECORDS SUMMARY | 2025-02-25 07:11 | XMS_ITS | Encounter Summary ---
Author Organization [facility] Address [address] [place] [address] Care Team Providers Care Hvac Engineering Technician Name Role Phone Pedro Knight DO Unavailable [phone] Gala Mccann DO Unavailable [phone] Pedro Knight DO Primary Care Provider [phone] Fletcher Ewing OD Unavailable Encounter Details Date Type Department Care Team (Late st Contact Info) Description 12/25/2024 External Result Encounter [facility] External Department Unsolicited Provider, Generic External Data Social History Tobacco Use Types Packs/Day Years Used Date Smoking Tobacco: Never Passive Smoke Exposure: Never Smokeless Tobacco: Never Alcohol Use Standard Drinks/Week Comments Not Currently 0 (1 standard drink = 0.6 oz pure alcohol) Caffeine intake: iced tea in summer AUDIT-C Answer Date Recorded Q1: How often do you have a drink containing alcohol? Never 02/12/2024 Q2: How many drinks containi ng alcohol do you have on a typical day when you are drinking? Patient does not drink Q3: How often do you have si x or more drinks on one occasion? Never 02/12/2024 PHQ-2 Answer Date Recorded Patient Health Questionnaire-2 Score 0 09/03/2024 Comments Unknown Sex and Gender Information Value Date Recorded Sex Assigned at Not on file Legal Sex Female 6:44 PM EDT Gender Identity Not on file Sexual Orientation Not on file documented as of this encounter Plan of Treatment Upcoming Encounters Date Type Department Care Team (Late st Contact Info) Description 03/04/2025 9:30 AM EDT Office Visit [facility] [address] [place] [phone] Pedro Knight, DO [address] [place] [address] 03/18/2025 10:15 AM EDT Procedure Visit [facility] [address] [place] [address] Kecia Elise, DPM [address] [place] [address] 05/20/2025 8:00 AM EDT Procedure Visit [facility] [address] [place] [address] Kecia Elise, DPM [address] [place] [address] 01/20/2026 11:30 AM EDT Office Visit [facility] [address] [place] [phone] Gala Mccann, DO [address] [place] [address] documented as of this encounter Goals Goal Patient Goal Type Associated Problems Recent Progress Patient-Stated? Author Improve SLS on either leg to 10 secs without UE support General Improving(12/28 12:01 PM EDT) No Karissa Griffin, CHRISTINA Note: R 6 sec, L 4 secs documented as of this encounter Procedures Procedure Name Priority Date/Time Associated Diagnosis Comments BI MAMMOGRAM SCREENING TOMOSYNTHESIS BILATERAL 12/25/2024 9:44 AM EDT documented in this encounter Results * Bilateral screening mammogram with tomosynthesis (12/25/2024 9:44 AM EDT) Anatomical Region Laterality Modality Breast Bilateral Mammography 12/25/2024 9:44 AM EDT Impressions 12/25/2024 9:54 AM EDT NO MAMMOGRAPHIC EVIDENCE OF MALIGNANCY. ROUTINE FOLLOW-UP IS RECOMMENDED IN ONE YEAR. RESULT CODE: 2 Benign Findings(s) DENSITY CODE: 1 (<25% glandular) FOLLOW UP: 1YR The false-negative rate of mammography is approximately 10-percent. Management of a palpable abnormality must be based on clinical grounds. Patient was entered into a reminder system with a target due date for the next mammogram. Impression dictated by: Italia Rendon M.D. 12/25/2024 9:51 AM Dictation Location: [facility] Dictated By: Italia Rendon MD 12/25/24 0944 Signed By: <Electronically signed by MD Italia Rendon in OV> 12/25/24 0951 Narrative 12/25/2024 9:54 AM EDT [facility] [address] [place] [address] Mammography Report Signed Patient: Natlaiya Augustine MR#: [id number] [birth year] : 1950 Acct:[id number] Age/Sex: 74 / F Adm Date: 12/25/24 Loc: [place] Room: Type: [facility] Attending Dr: Referral Self Ordering Provider: SELF,REFERRAL Date of Service: 12/25/24 Procedure(s): MM screening mammo BI w/CAD Accession Number(s): ([id number]) MM/MM screening mammo BI w/CAD: SCREENING Copies to: DO Gala Bolden DO SELF,REFERRAL CLINICAL DATA: Screening for malignancy. BILATERAL SCREENING MAMMOGRAMS - FULL FIELD DIGITAL WITH TOMOSYNTHESIS AND CAD Tomosynthesis craniocaudal and mediolateral oblique views of both breasts were obtained using low- dose digital technique. Comparison is made to prior studies from August 20, 2020 through September 26, 2023. This examination was reviewed with the aid of CAD. There is minor residual fibroglandular density, asymmetric at the upper outer right breast. There is postoperative scarring at the upper outer left breast. Benign and vascular calcifications are seen. A small stable nodular asymmetry is present on the left. There are no developing masses, typically malignant calcifications or architectural distortion. There has been no significant interval change. MM/MM screening mammo BI w/CAD Procedure Note Radiology, Radiologist, - 12/25/2024 [facility] [address] Mammography Report Signed Patient: Nataliya Augustine JMR#: [id number] [birth year] : 1950Acct:[id number] Age/Sex: 74 / FAdm Date: 12/25/24 Loc: [place] Room:Type: [facility] Attending Dr: Referral Self Ordering Provider: SELF,REFERRAL Date of Service: 12/25/24 Procedure(s): MM screening mammo BI w/CAD Accession Number(s): ([id number]) MM/MM screening mammo BI w/CAD:SCREENING Copies to: Pedro Knight,DO Gala Mccann, DO SELF,REFERRAL CLINICAL DATA: Screening for malignancy. BILATERAL SCREENING MAMMOGRAMS - FULL FIELD DIGITAL WITH TOMOSYNTHESIS ANDCAD Tomosynthesis craniocaudal and mediolateral oblique views of both breastswere obtained using low- dose digital technique. Comparison is made to prior studies from 2019 through September 26, 2023. This examination was reviewed with the aid of CAD. There is minor residual fibroglandular density, asymmetric at the upperouter right breast. There is postoperative scarring at the upper outer left breast. Benign andvascular calcifications are seen. A small stable nodular asymmetry is present on the left. There areno developing masses, typically malignant calcifications or architectural distortion. There hasbeen no significant interval change. MM/MM screening mammo BI w/CAD IMPRESSION: NO MAMMOGRAPHIC EVIDENCE OF MALIGNANCY. ROUTINE FOLLOW-UP IS RECOMMENDED IN ONE YEAR. RESULT CODE: 2 Benign Findings(s) DENSITY CODE: 1 (<25% glandular) FOLLOW UP: 1YR The false-negative rate of mammography is approximately 10-percent. Management of a palpable abnormality must be based on clinical grounds. Patient was entered into a reminder system with a target due date for thenext mammogram. Impression dictated by: Italia Rendon M.D. 12/25/2024 9:51 AM Dictation Location: [facility] Dictated By: Italia Rendon MD 12/25/24 0944 Signed By: <Electronically signed by MD Italia Rendon in OV> 12/25/24 0951 us Generic External Data Provider IMG BI PROCEDURES Final Result documented in this encounter Visit Diagnoses Not on filedocumented in this encounter Care Teams Hvac Engineering Technician Relationship Specialty Start Date End Date Pedro Knight DO [address] [place] [address] PCP - ACO Reach 01/19/23 Pedro Knight DO [address] [place] [address] PCP - General Internal Medicine 09/27/23 Gala Mccann DO [address] [place] [address] Referring Physician Obstetrics and Gynecology 08/07/23 Fletcher Ewing OD [address] [place] [address] Referring Physician Optometry 10/24/23 documented as of this encounter
--- OUTSIDE RECORDS SUMMARY | 2025-02-25 07:11 | XMS_ITS | Encounter Summary ---
Author Organization [facility] Address [address] [place] [address] Care Team Providers Care Panel Wirer Name Role Phone Pedro Knight DO Unavailable [phone] Gala Mccann DO Unavailable [phone] Pedro Knight DO Primary Care Provider [phone] KaylinFletcher carrera OD Unavailable Encounter Details Date Type Department Care Team (Late st Contact Info) Description 08/30/2024 Orders Only [facility] [address] [facility] [address] [place] [address] Pedro Knight, DO [address] [facility] [address] [place] [address] Social History Tobacco Use Types Packs/Day Years [...] 03/04/2025 9:30 AM EDT Office Visit [facility] IM [address] [place] [address] Pedro Knight, DO [address] [place] [address] 03/18/2025 10:15 AM EDT Procedure Visit [facility] [address] [place] [address] Kecia Elise, DPM [address] [place] [address] 05/20/2025 8:00 AM EDT Procedure Visit [facility] PODIATRY [address] [place] [phone] Kecia Elise, DPM [address] [place] [address] 01/20/2026 11:30 AM EDT Office Visit [facility] OB [address] [place] [phone] Gala Mccann, DO [address] [place] [address] documented as of this encounter Goals Goal Patient Goal Type Associated Problems Recent Progress Patient-Stated? Author Improve SLS on either leg to 10 secs without UE support General Improving(12/28 12:01 PM EDT) No Karissa Griffin PTA Note: R 6 sec, L 4 secs documented as of this encounter Procedures Procedure Name Priority Date/Time Associated Diagnosis Comments HEMOGLOBIN A1C Routine 08/30/2024 9:06 AM EST COMPREHENSIVE METABOLIC PANEL Routine 08/30/2024 9:06 AM EST documented in this encounter Results * Comprehensive metabolic panel (08/30/2024 9:06 AM EST) Blood Venous blood specimen / Unknown Pedro Knight DO LAB BLOOD ORDERABLES Final R esult * Hemoglobin A1c (08/30/2024 9:06 AM EST) Blood Venous blood specimen / Unknown Pedro Knight DO LAB BLOOD ORDERABLES Final R esult documented in this encounter Visit Diagnoses Not on filedocumented in this encounter Care Teams Panel Wirer Relationship Specialty Start Date End Date Pedro Knight DO [address] [place] [address] PCP - ACO Reach 01/19/23 Pedro Knight DO [address] [place] [address] PCP - General Internal Medicine 09/27/23 Gala Mccann DO [address] [place] [address] Referring Physician Obstetrics and Gynecology 08/07/23 Fletcher Ewing OD [address] [place] [address] Referring Physician Optometry 10/24/23 documented as of this encounter
--- OUTSIDE RECORDS SUMMARY | 2025-02-25 07:11 | XMS_ITS | Encounter Summary ---
Author Organization [facility] Address [address] [place] [address] Care Team Providers Care Handstitching Machine Collar Feller Name Role Phone Pedro Knight DO Unavailable [phone] Pedro Knight DO Primary Care Provider + [phone] Gala Mccann DO Unavailable [phone] Pedro Knight DO Primary Care Provider + [phone] Fletcher Ewing OD Unavailable Encounter Details Date Type Department Care Team (Late st Contact Info) Description 01/31/2023 Abstract [facility] IM [address] [place] [address] Pedro Knight, DO [address] [facility] [address] [place] [address] Social History Tobacco Use Types Packs/Day Years Used Date Smoking Tobacco: Never Tobacco Cessation:Counseling Given: Not Answered Alcohol Use Standard Drinks/Week Comments Yes 0 [...] on file documented as of this encounter Functional Status * Audit-C Score Answer Date of Assessment Author 1 02/01/2023 11:25 AM EDT Jessica Ontiveros MA * Question Answer Date of Assessment Author Q1: How often do you have a drink containing alcohol? Monthly or less 02/01/2023 11:25 AM EDT Jessica Ontiveros MA Q2: How many drinks containing alcohol do you have on a typical day when you are drinking? 1 or 2 02/01/2023 11:25 AM EDT Terry Ontiveros MA Q3: How often do you have six or more drinks on one occasion? Never 02/01/2023 11:25 AM EDT Jessica Ontiveros MA * Over the past 2 weeks, how often have you been bothered by any of the following problems? Question Answer Date of Assessment Author Little interest or pleasure in doing things Not at all 02/01/2023 11:49 AM EDT Pedro Knight DO Feeling down, depressed, or hopeless Not at all 02/01/2023 11:49 AM EDT Pedro Knight DO Patient Health Questionnaire-2 Score 0 02/01/2023 11:49 AM EDT Jigna Knight DO documented as of this encounter Plan of Treatment Upcoming Encounters Date Type Department Care Team (Late st Contact Info) Description 03/04/2025 9:30 AM EDT Office Visit [facility] [address] [place] [address] Pedro Knight DO [address] [place] [address] 03/18/2025 10:15 AM EDT Procedure Visit [facility] [address] [place] [address] Kecia Elise DPM [address] [place] [address] 05/20/2025 8:00 AM EDT Procedure Visit [facility] [address] [place] [address] Kecia Elise DPM [address] [place] [address] 01/20/2026 11:30 AM EDT Office Visit [facility] [address] [place] [address] Gala Mccann DO [address] [place] [address] documented as of this encounter Goals Goal Patient Goal Type Associated Problems Recent Progress Patient-Stated? Author Improve SLS on either leg to 10 secs without UE support General Improving(12/28 12:01 PM EDT) No Karissa Griffin PTA Note: R 6 sec, L 4 secs documented as of this encounter Visit Diagnoses Not on filedocumented in this encounter Care Teams Handstitching Machine Collar Feller Relationship Specialty Start Date End Date Pedro Knight DO [address] [place] [address] PCP - ACO Reach 01/19/23 Pedro Knight DO [address] [place] [address] PCP - General Internal Medicine 02/01/23 09/26/23 Pedro Knight DO [address] [place] [address] PCP - General Internal Medicine 09/27/23 Gala Mccann DO [address] [place] [address] Referring Physician Obstetrics and Gynecology 08/07/23 Fletcher Ewing OD [address] [place] [address] Referring Physician Optometry 10/24/23 documented as of this encounter
--- OUTSIDE RECORDS SUMMARY | 2025-02-25 07:11 | XMS_ITS | Encounter Summary ---
Author Organization [facility] Address [address] [place] [address] Care Team Providers Care Clay Shop Supervisor Name Role Phone Pedro Knight DO Unavailable [phone] Pedro Knight DO Primary Care Provider [phone] Gala Mccann DO Unavailable [phone] Pedro Knight DO Primary Care Provider [phone] Fletcher Ewing OD Unavailable Encounter Details Date Type Department Care Team (Late st Contact Info) Description 01/25/2023 Orders Only [facility] [address] [facility] [address] [place] [address] Provider, MD Jenna [address] [place] [address] Social History Tobacco Use Types Packs/Day Years Used Date Smoking Tobacco: Never Assessed Comments Unknown Sex and Gender Information Value Date Recorded Sex Assigned at Not on file Legal Sex Female 6:44 PM EDT Gender Identity Not on file Sexual Orientation Not on file documented as of this encounter Plan of Treatment Upcoming Encounters Date Type Department Care Team (Late st Contact Info) Description 03/04/2025 9:30 AM EDT Office Visit [facility] [address] [place] [address] Pedro Knight DO [address] [facility] [address] [place] [address] 03/18/2025 10:15 AM EDT Procedure Visit [facility] [address] [place] [address] Kecia Elise, DPM [address] [place] [address] 05/20/2025 8:00 AM EDT Procedure Visit [facility] [address] [place] [phone] Kecia Elise, DPM [address] [place] [address] 01/20/2026 11:30 AM EDT Office Visit [facility] OB [address] [place] [address] Gala Mccann DO [address] [place] [address] documented as of this encounter Goals Goal Patient Goal Type Associated Problems Recent Progress Patient-Stated? Author Improve SLS on either leg to 10 secs without UE support General Improving(12/28 12:01 PM EDT) No Karissa Griffin PTA Note: R 6 sec, L 4 secs documented as of this encounter Procedures Procedure Name Priority Date/Time Associated Diagnosis Comments SCANNED LABS Routine 01/24/2023 10:26 AM EDT documented in this encounter Results * SCANNED LABS (01/24/2023 10:26 AM EDT) us Historical Provider LAB CHG PERFORMABLES Edit ed Result - Final documented in this encounter Visit Diagnoses Not on filedocumented in this encounter Care Teams Clay Shop Supervisor Relationship Specialty Start Date End Date Pedro Knight DO [address] [place] [address] PCP - ACO Reach 01/19/23 Pedro Knight DO [address] [place] [address] PCP - General Internal Medicine 02/01/23 09/26/23 Pedro Knight DO [address] [place] [address] PCP - General Internal Medicine 09/27/23 Gala Mccann DO [address] [place] [address] Referring Physician Obstetrics and Gynecology 08/07/23 Fletcher Ewing OD [address] [place] [address] Referring Physician Optometry 10/24/23 documented as of this encounter
--- OUTSIDE RECORDS SUMMARY | 2025-02-25 07:11 | XMS_ITS | Encounter Summary ---
Author Organization [facility] Address [address] [facility] [place] [address] Care Team Providers Care Profiling Machine Set Up Operator Name Role Phone Pedro Knight DO Unavailable [phone] Pedro Knight DO Primary Care Provider + [phone] Gala Mccann DO Unavailable [phone] Pedro Knight DO Primary Care Provider + [phone] Fletcher Ewing OD Unavailable Encounter Details Date Type Department Care Team (Late st Contact Info) Description 01/31/2023 Orders Only [facility] [address] [facility] [address] [place] [phone] Provider, MD Jenna [address] [place] [address] Social History Tobacco Use Types Packs/Day Years Used Date Smoking Tobacco: Never Alcohol Use Standard Drinks/Week Comments [...] 03/04/2025 9:30 AM EDT Office Visit [facility] IM [address] [place] [address] Pedro Knight DO [address] [place] [address] 03/18/2025 10:15 AM EDT Procedure Visit [facility] PODIATRY [address] [place] [address] Kecia Elise DPM [address] [place] [address] 05/20/2025 8:00 AM EDT Procedure Visit [facility] [address] [place] [phone] Kecia Elise, DPM [address] [place] [address] 01/20/2026 11:30 AM EDT Office Visit [facility] [address] [place] [address] Gala Mccann, [address] [place] [address] documented as of this encounter Goals Goal Patient Goal Type Associated Problems Recent Progress Patient-Stated? Author Improve SLS on either leg to 10 secs without UE support General Improving(12/28 12:01 PM EDT) No Karissa Griffin PTA Note: R 6 sec, L 4 secs documented as of this encounter Procedures Procedure Name Priority Date/Time Associated Diagnosis Comments COLONOSCOPY DIAGNOSTIC Routine 01/31/2023 11:47 AM EDT documented in this encounter Results * COLONOSCOPY DIAGNOSTIC (01/31/2023 11:47 AM EDT) Anatomical Region Laterality Modality Radiographic Jacquelyn ging us Historical Provider MD [place] XR PROCEDURES Edited Result - Final documented in this encounter Visit Diagnoses Not on filedocumented in this encounter Care Teams Profiling Machine Set Up Operator Relationship Specialty Start Date End Date Pedro Knight DO [address] [place] [address] PCP - ACO Reach 01/19/23 Pedro Knight DO [address] [place] [address] PCP - General Internal Medicine 02/01/23 09/26/23 Pedro Knight DO [address] [place] [address] PCP - General Internal Medicine 09/27/23 Gala Mccann DO [address] [facility] [address] [place] [address] Referring Physician Obstetrics and Gynecology 08/07/23 Fletcher Ewing OD [address] [place] [address] Referring Physician Optometry 10/24/23 documented as of this encounter
--- OUTSIDE RECORDS SUMMARY | 2025-02-25 07:12 | XMS_ITS | Encounter Summary ---
Author Organization [facility] Address [address] [facility] [place] [address] Care Team Providers Care Road Engineer Freight Name Role Phone Pedro Knight DO Unavailable [phone] Pedro Knight DO Primary Care Provider + [phone] Gala Mccann DO Unavailable [phone] Pedro Knight DO Primary Care Provider + [phone] KaylinFletcher carrera OD Unavailable Encounter Details Date Type Department Care Team (Late st Contact Info) Description 07/31/2023 Orders Only [facility] [address] [facility] [address] [place] [phone] A, Unknown Practice [address] [place], [place] [phone] Social History Tobacco Use Types Packs/Day Years [...] [address] [place] [address] Pedro Knight, DO [address] [place] [address] 03/18/2025 10:15 AM EDT Procedure Visit [facility] [address] [place] [address] Kecia Elise, DPM [address] [place] [address] 05/20/2025 8:00 AM EDT Procedure Visit [facility] [address] [place] [address] Kecia Elise, DPM [address] [place] [address] 01/20/2026 11:30 AM EDT Office Visit [facility] OB [address] [place] [address] Gala Mccann, DO [address] [place] [address] documented as of this encounter Goals Goal Patient Goal Type Associated Problems Recent Progress Patient-Stated? Author Improve SLS on either leg to 10 secs without UE support General Improving(12/28 12:01 PM EDT) No Karissa Griffin PTA Note: R 6 sec, L 4 secs documented as of this encounter Procedures Procedure Name Priority Date/Time Associated Diagnosis Comments SCANNED LABS Routine 07/31/2023 3:41 PM EST SCANNED LABS Routine 07/31/2023 2:58 PM EST documented in this encounter Results * SCANNED LABS (07/31/2023 3:41 PM EST) us Unknown Practice A LAB CHG PERFORMABLES Final Re sult * SCANNED LABS (07/31/2023 2:58 PM EST) us Unknown Practice A LAB CHG PERFORMABLES Final Re sult documented in this encounter Visit Diagnoses Not on filedocumented in this encounter Care Teams Road Engineer Freight Relationship Specialty Start Date End Date Pedro Knight DO [address] [place] [address] PCP - ACO Reach 01/19/23 Pedro Knight DO [address] [place] [address] PCP - General Internal Medicine 02/01/23 09/26/23 Pedro Knight DO [address] [place] [address] PCP - General Internal Medicine 09/27/23 Gala Mccann DO [address] [place] [address] Referring Physician Obstetrics and Gynecology 08/07/23 Fletcher Ewing OD [address] [place] [address] Referring Physician Optometry 10/24/23 documented as of this encounter
--- OUTSIDE RECORDS SUMMARY | 2025-02-25 07:12 | XMS_ITS | CCD ---
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 Name Role Phone ANU OLIVIER Primary Care Physician Unavail able Tacho Pickens Unavailable DO Anu Olivier Primary Care Provider [phone] MD Tacho Pickens Attending Provider Danis Sneed Unavailable DO Anu Olivier Primary Care Provider [phone] DO Gala Mccann Attending Provider Guerline Buitrago [...] Consulting Unavailable MD Danis Sneed Attending Provider Anu Olivier DO Unavailable Gala Mccann DO Unavailable Anu Olivier DO Primary Care Provider Kaylin RAMSEY Fletcher Unavailable Anu Olivier DO Primary Care Provider Anu Olivier DO Referring Provider Self, Referral Attending Provider Unavailable Gala Mccann DO Other Provider [phone] Self, Referral Attending Unavailable Gala Mccann Consulting Unavailable Anu Olivier Primary Care Unavailable Anu Olivier Referring Unavailable Self, Referral Admitting Unavailable MALIK ELISE Attending Unavailable GALA MCCANN Attending Unavailable ANU OLIVIER Attending Unavailable MALIK ELISE Attending Unavailable MALIK ELISE Attending Unavailable MALIK ELISE Attending Unavailable MALIK ELISE Attending Unavailable ANU OLIVIER Referring Unavailable PHOENIX MENDEZ Attending Unavailable MALIK ELISE Attending Unavailable Allergies Allergy Classification Reported Allergen(s) Allergy Type Date of Onset Reaction(s) Facility (17 sources) Codeine; Translations: [codeine] Drug Allergy 04-06-2009 Unknown (qualifier value) [facility] Medications Current Medications Medication Drug Class(es) Dates Sig (Normalized) Sig (Original) [id number] actuat albuterol 0.09 mg/actuat metered dose inhaler (13 sources) beta2-Adrenergic Agonist Start: 02-01-2023 take 2 [...] as needed for 30 days Jun, Active ascorbic acid 60 mg / cuprous oxide 2 mg / dl-alpha tocopheryl acetate 30 mg / lutein 6 mg / zinc oxide 15 mg oral capsule (4 sources) Vitamin C take 1 capsule by mouth in the morning Multiple Vitamins-Minerals (Eye Vitamins) capsule Take 1 capsule by mouth in the morning. Active Aspirin (13 sources) Platelet Aggregation Inhibitor, Nonsteroidal Anti-inflammatory Drug Start: 08-01-20 aspirin Refills(s) 0 Start Date: 08/01/19 Status: Ordered Start: 08-08-2017 take 1 tablet by will th once daily Aspirin 81 mg Tablet,Delayed Release (Dr/Ec) Active 81 MG PO Daily August 08, 2017 1:00am take 1 tablet by will th every twenty-four hours Aspirin 81 MG 1 tablet Orally Once a day Active calcium carbonate 1500 mg oral tablet (12 sources) take 1 tablet by mouth in [...] day(s), # 28 cap(s), Refills(s) 0, Pharmacy: [facility]/pharmacy #[id number], 166, cm, 11/18/22 17:17:00 EDT, Height/Length Dosing, 82.1, kg, 11/18/22 17:17:00 EDT, Weight Dosing Start Date: 11/18/22 Stop Date: 11/25/22 Status: Ordered Start: 09-28-2018 take 1 capsule by mo [facility] every twelve hours Cephalexin 500 MG 1 capsule Orally every 12 hrs for 7 days Sep, Not-Taking cholecalciferol 0.025 mg oral capsule (14 sources) Vitamin D Start: 08-08-2017 take 2000 [IU] by mouth once daily Cholecalciferol (Vitamin D3) Active 2000 UNIT PO Daily 0 August 08, 2017 10:16am Start: 08-07-2017 End: 08-08-2017 take 2 capsules by mouth once daily Cholecalciferol (Vitamin D3) 1,000 unit capsule Active 2000 UNIT PO Daily 0 August 08, 2017 10:16am CPAP Mask and supplies (2 sources) Start: 04-08-2015 CPAP Mask and supplies as directed Mar, Active Flovent Diskus 100 MCG/BLIST (1 source) take 1 puff(s) by inhalation once daily Flovent Diskus 100 MCG/BLIST 1 puff Inhalation Daily for 90 days Active fluticasone propionate 0.05 mg/actuat metered dose nasal spray (20 sources) Corticosteroid Start: 08-19-2024 take 2 spray(s) nasal route once daily fluticasone (Flonase) 50 MCG/ACT nasal spray Indications: Mild intermittent asthma without complication (CMS/HCC) SPRAY 2 SPRAYS INTO EACH NOSTRIL EVERY DAY 48 mL 1 08/19/2024 Active Start: 02-23-2024 take 2 spray(s) nasa l route once daily fluticasone (Flonase) 50 MCG/ACT nasal spray Indications: Mild intermittent asthma without complication (CMS/HCC) SPRAY 2 SPRAYS INTO EACH NOSTRIL EVERY DAY 48 mL 1 02/23/2024 Active Start: 08-01-2019 Flovent HFA In halation, BID, Refills(s) 0 Start Date: 08/01/19 Status: Ordered Start: 08-07-2017 Fluticasone Pr opionate 50 mcg/actuation spray,suspension Active 2 SPRAY INTRANASAL Daily August 07, [...] 90 days Active fluticasone 0.05 mg/inh Nasal [facility] (4 sources) Start: 08-01-2019 fluticasone 0.05 mg/inh Nasal [facility] Nasal, Daily, Refill(s) 0 Start Date: 08/01/19 Status: Ordered hydroCHLOROthiazide 25 mg oral tablet (18 sources) Thiazide Diuretic Start: 08-08-2024 take 1 tablet by mouth once daily in the morning hydroCHLOROthiazide (HYDRODiuril) 25 MG tablet Indications: Primary hypertension (CMS/HCC) TAKE 1 TABLET BY MOUTH EVERY DAY IN THE MORNING 90 tablet 3 08/08/2024 Active Start: 11-01-2023 take 1 tablet by will th once daily in the morning hydroCHLOROthiazide (HYDRODiuril) [...] 90 Active ibuprofen 800 mg oral tablet (7 sources) Nonsteroidal Anti-inflammatory Drug Start: 02-24-2019 take 1 tablet by mouth three times daily as needed for pain Ibuprofen 800 mg Tablet Active 800 MG PO Three times daily as needed for Pain February 24, 2019 12:00am irbesartan 150 mg oral tablet (20 sources) Angiotensin 2 Receptor Angélica Start: 09-25-2024 take 1 tablet by mouth once daily irbesartan (Avapro) 150 MG tablet Indications: Primary hypertension (CMS/HCC) TAKE 1 TABLET BY MOUTH EVERY DAY 90 tablet 3 09/25/2024 Active Start: 09-21-2023 take 1 tablet by will th once daily irbesartan (Avapro) 150 MG tablet Indications: Primary hypertension (CMS/HCC) TAKE 1 TABLET BY MOUTH EVERY DAY 90 tablet 3 09/21/2023 Active Start: 09-22-2020 irbesartan 150 mg Tab Refills(s) 0 Start Date: 09/22/20 Status: Ordered Start: 08-07-2017 End: 08-08-2017 take 1 tablet by mouth once daily Irbesartan (Avapro) 300 mg Tablet Active 300 MG PO Daily August 08, 2017 1:00am Lactobacillus Combination No .4 (Probiotic) 3 billion cell Capsule (7 sources) Start: 08-08-2017 Lactobacillus Combination No.4 (Probiotic) 3 billion cell Capsule Active 1 TAB PO Daily August 08, 2017 12:00am Start: 08-08-2017 Lactobacillus Combination No.4 (Probiotic) 3 billion cell Capsule Active 1 TAB PO Daily August 08, 2017 1:00am Multi For Her (2 sources) take 1 tablet by mouth once daily Multi For Her 1 Tablet By Mouth Daily Active Multi Vitamin+ (4 sources) Start: 08-01-2019 Multi Vitamin+ Refill(s) 0 Start Date: 08/01/19 Status: Ordered Multiple Vitamin (multivitamin) tablet (12 sources) take 1 tablet by mouth in the morning Multiple Vitamin (multivitamin) tablet Take 1 tablet by mouth in the morning. Active Multiple Vitamins-Minerals (Eye Vitamins) capsule (8 sources) take 1 capsule by mouth in the morning Multiple Vitamins-Minerals (Eye Vitamins) capsule Take 1 capsule by mouth in the morning. Active Multivitamin preparation (5 sources) Start: 08-08-2017 take 1 tablet by mouth once daily Multivitamin Active 1 TAB PO Daily August 08, 2017 1:00am Multivitamin Tablet (2 sources) Start: 08-08-2017 take 1 tablet by mouth once daily Multivitamin Tablet Active 1 TAB PO Daily August 08, 2017 1:00am Start: 08-08-2017 take 1 tablet by will th once daily Multivitamin Tablet Active 1 TAB PO Daily August 08, 2017 12:00am Name EYE PROMISE (2 sources) take 1 tablet by mouth twice daily Name EYE PROMISE 1 Tablet By Mouth bid Active ProAir HFA 108 (90 Base) MCG/ACT (1 source) Start: 07-18-20 18 take 2 puff(s) by inhalation every six hours as needed ProAir HFA 108 (90 Base) MCG/ACT 2 puffs as needed Inhalation every 6 hrs as needed for 30 days Jun, Active Probiotic (2 sources) take 1 tablet by mouth once daily Probiotic 1 Tablet orally Daily Active Probiotic Product (PROBIOTIC DAILY PO) (12 sources) take 1 capsule by mouth once daily Probiotic Product (PROBIOTIC DAILY PO) Take 1 capsule by mouth 1 (one) time each day at the same time. Active psyllium 525 mg oral capsule (11 sources) End: 01-15-20 25 take 3 capsules by mouth once daily psyllium (Metamucil) 0.52 g capsule Take 3 capsules by mouth 1 (one) time each day at the same time. 01/14/2025 Discontinued Respiratory Therapy Supplies (CareTouch CPAP & BIPAP Hose) misc (12 sources) Respiratory Ther apy Supplies (CareTouch CPAP & BIPAP Hose) [facility] misc use nightly Active rosuvastatin calcium 10 mg oral tablet (20 sources) HMG-CoA Reductase Inhibitor Start: 02-01-20 23 take 1 tablet by mouth once daily in the evening rosuvastatin (Crestor) 10 MG tablet Indications: Essential hypertension (CMS/HCC) TAKE 1 TABLET BY MOUTH EVERY DAY IN THE EVENING 90 tablet 3 07/17/2024 Active Start: 08-01-2019 Crestor Oral, Daily, Refills(s) 0 Start Date: 08/01/19 Status: Ordered take 1 tablet by will th every twenty-four hours Crestor 10 MG 1 tablet Orally Once a day for 90 Active sertraline 100 mg oral tablet (20 sources) Serotonin Reuptake Inhibitor Start: 06-04-2024 take [...] Start Date: 08/01/19 Status: Ordered Start: 08-07-2017 Sertraline 50 MG tablet Active 75 MG PO Daily August 07, 2017 1:00am Start: 08-07-2017 take 75 mg by mouth once daily Sertraline Active 75 MG PO Daily August 07, 2017 1:00am Zoloft 50 MG CARMELITA E 1 AND 1/2 TABLETS BY MOUTH EVERYDAY Orally Once a day for 90 days Active sodium fluoride 0.011 mg/mg toothpaste (12 sources) Start: 12-22-2022 Sodium Fluorid e 5000 [...] procedure, # 2 tab(s), Refills(s) 0, Pharmacy: [facility]/pharmacy #[id number] Start Date: 12/23/21 Status: Ordered doxycycline hyclate 100 mg oral capsule (2 sources) Tetracycline-class Drug Start: 12-07-2018 take 2 capsules by mouth once Doxycycline Hyclate 100 MG 2 capsules today at once Orally once for 1 days Nov, Not-Taking ergocalciferol 1.25 mg oral capsule (7 sources) Provitamin D2 Compound Start: 08-08-2017 End: 08-08-2017 take 1 capsule by mouth every week Ergocalciferol (Vitamin D2) 50,000 unit Capsule Discontinued 27841 UNIT PO every week August 08, 2017 [...] Discontinued pravastatin sodium 40 mg oral tablet (7 sources) HMG-CoA Reductase Inhibitor Start: 08-07-2017 End: 01-31-2023 take 1 tablet by mouth once daily Pravastatin 40 MG tablet Discontinued 1 TAB PO Daily August 07, [...] Translations: [Generalized anxiety disorder] 08-01-2019 Chronic Asthma (16 sources) Asthma; Translations: [Unspecified asthma, uncomplicated] Onset: 3 02-01-2023 Chronic Disorders of lipid metabolism (20 sources) Hyperlipidemia; Translations: [Hypercholesterolemia] Onset: 2 08-01-2019 Chronic Essential hypertension (20 sources) Hypertensive disorder; Translations: [Essential hypertension] Onset: 3 08-01-2019 Chronic Genitourinary symptoms and ill-defined conditions (20 sources) Blood in urine; Translations: [Gross hematuria] Onset: 2 Episodic Miscellaneous mental health disorders (8 sources) Not getting enough sleep; Translations: [Insufficient sleep syndrome] Chronic Mood disorders (14 sources) 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; Translations: [Major depressive disorder, recurrent, mild] Onset: 3 02-01-2023 Chronic Mycoses (4 sources) Onychomycosis; Translations: [Tinea unguium] 06-18-2024 Episodic Nutritional deficiencies (4 sources) Vitamin D deficiency; Translations: [Vitamin D deficiency, unspecified] 09-03-2024 Chronic Osteoarthritis (12 sources) Localized, primary osteoarthritis; Translations: [Bilateral primary osteoarthritis of knee] Onset: 3 01-16-2023 Chronic Other aftercare (1 source) Other correction (current) drug therapy; Translations: [OTH SKILLED NURSING CURRENT DRUG THERAPY] Onset: 3 Episodic Other and unspecified benign neoplasm (1 source) Benign neoplasm of adrenal gland; Translations: [Benign neoplasm of left adrenal gland] Onset: 2 Episodic Other and unspecified benign neoplasm (4 sources) Adrenal adenoma 09-22-2020 Episodic Other and unspecified benign neoplasm (2 sources) History of polyp of colon; Translations: [Personal history of colonic polyps] Episodic Other connective tissue disease (4 sources) Pain in both feet; Translations: [Pain in right foot] 06-18-2024 Episodic Other diseases of bladder and urethra (5 sources) Urethral stricture; Translations: [Unspecified urethral stricture, female] Onset: 2 Episodic Other gastrointestinal disorders (14 sources) Irritable bowel syndrome; Translations: [Irritable bowel syndrome without diarrhea] Onset: 4 02-12-2024 Chronic Other gastrointestinal disorders (4 sources) Adrenal mass 08-01-2019 Episodic Comment on above: right Other injuries and conditions due to external causes (7 sources) Contusion; Translations: [Other injury of unspecified body region, initial encounter] 02-24-2019 Episodic Other nutritional; endocrine; and metabolic disorders (2 sources) Body mass index 30+ - obesity; Translations: [Body mass index (BMI) 33.0-33.9, adult] Chronic Other nutritional; endocrine; and metabolic disorders (1 source) Morbid (severe) obesity with alveolar hypoventilation; Translations: [MORBID SEV OBESITY ALVEOLR HYPOVENT] Onset: 3 Chronic Other nutritional; endocrine; and metabolic disorders (1 source) Body mass index (BMI) 29.0-29.9, adult Episodic Other nutritional; endocrine; and metabolic disorders (1 source) Overweight in adulthood with body mass index of 25 or more but less than 30; Translations: [Body mass index (BMI) 29.0-29.9, adult] Onset: 3 Episodic Other screening for suspected conditions (not mental disorders or infectious disease) (3 sources) Encounter for screening mammogram for malignant neoplasm of breast; Translations: [Cancer cervix screening status] Onset: 5 01-10-2025 Episodic Other upper respiratory disease (2 sources) Allergic rhinitis; Translations: [Allergic rhinitis, unspecified] Chronic Residual codes; unclassified (20 sources) Obstructive sleep apnea syndrome; Translations: [Obstructive sleep apnea (adult) (pediatric)] Onset: 3 02-01-2023 Chronic Residual codes; unclassified (4 sources) Obstructive sleep apnea (adult) (pediatric); Translations: [Obstructive sleep apnea (adult)(pediatric)] Onset: 3 Chronic Residual codes; unclassified (4 sources) Family history of cancer of colon; Translations: [Family history of malignant neoplasm of digestive organs] 01-31-2023 Episodic Residual codes; unclassified (1 source) Family history of malignant neoplasm of digestive organs; Translations: [Family history of malignant neoplasm of gastrointestinal tract] 01-31-2023 Episodic Residual codes; unclassified (2 sources) Postmenopausal state; Translations: [Asymptomatic menopausal state] 05-20-2025 Episodic Skin and subcutaneous tissue infections (1 source) Cellulitis of finger of right hand; Translations: [Cellulitis of right finger] Onset: 3 Episodic Skull and face fractures (1 source) Closed fracture of nasal bones; Translations: [Fracture of nasal bones, initial encounter for closed fracture] Onset: 3 Episodic Spondylosis; intervertebral disc disorders; other back problems (2 sources) Intervertebral disc disorder; 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, thoracolumbar and lumbosacral intervertebral disc disorder] Chronic Superficial injury; contusion (1 source) Abrasion of head; Translations: [Abrasion of other part of head, initial encounter] Onset: 3 Episodic Past or Other Problems Problem Classification Problem Date Documented Date Episodic/Chronic Administrative/social admission (20 sources) Patient encounter status; Translations: [Other specified counseling] Onset: 08-07-2023 Resolved: 08-26-2024 08-07-2023 Episodic Cataract (12 sources) Bilateral age-related nuclear cataracts; Translations: [Age-related nuclear cataract, bilateral] Onset: 10-24-2023 Resolved: 09-03-2024 10-24-2023 Chronic Diabetes mellitus without complication (14 sources) Impaired fasting glycemia; Translations: [Impaired fasting glucose] Onset: 02-12-2024 02-12-2024 Episodic Other connective tissue disease (12 sources) Recurrent falls ; Translations: [Repeated falls] Onset: 01-16-2023 Resolved: 08-07-2023 08-07-2023 Episodic Other nervous system disorders (12 sources) Impairment of balance; Translations: [Other abnormalities of gait and mobility] Onset: 01-16-2023 Resolved: 08-07-2023 08-07-2023 Episodic Results Test Name Value Interpretation Reference Range Facility MM screening mammo BI w/CADo n 12-25-2024 MM screening mammo BI w/CAD [facility] [address] [place], [place] [id number] Mammography Report Signed Patient: Nataliya Griffin MR#: [id number] : 1950 Acct:[id number] Age/Sex: 74 / F Adm Date: 12/25/24 Loc: [place] Room: Type: REG CLI Attending Dr: Referral Self Ordering Provider: SELF,REFERRAL Date of Service: 12/25/24 Procedure(s): MM screening mammo BI w/CAD Accession Number(s): ([id number]) MM/MM screening mammo BI w/CAD: SCREENING Copies [...] Rendon M.D. 12/25/2024 9:51 AM Dictation Location: [facility] Dictated By: Italia Rendon MD 12/25/24 0944 Signed By: 12/25/24 0951 Normal [facility] Mammography reportOrdered By : Italia Rendon on 12-25-2024 Diagnostic imaging study [facility] [address] [place] [address] [place] [address] Mammography Report Signed Patient: Nataliya Griffin MR#: [id number] : 1950 Acct:[id number] Age/Sex: 74 / F Adm Date: 5 Loc: ME Room: Type: REG CLI Attending Dr: Referral Self Ordering Provider: SELF,REFERRAL Date of Service: 12/25/24 Procedure(s): MM screening mammo BI w/CAD Accession Number(s): ([id number]) MM/MM screening mammo BI w/CAD: SCREENING Copies to: Anu Olivier,DO Gala Mccann, DO SELF,REFERRAL ~ CLINICAL DATA: Screening for malignancy. BILATERAL SCREENING MAMMOGRAMS - FULL FIELD DIGITAL WITH TOMOSYNTHESIS AND CAD Tomosynthesis craniocaudal and mediolateral oblique views of both breasts were obtained using low-dose digital technique. Comparison is made to prior studies from August 20, 2020 through September 26, 2023. This examination was reviewed with the aid of CAD. There is minor residual fibroglandular density, asymmetric at the upper outer right breast. There is postoperative scarring at the upper outer left breast. Benign and vascular calcifications are seen. A small stable nodular asymmetry ispresent on the left. There are no developing [...] Rendon M.D. 12/25/2024 9:51 AM Dictation Location: [facility] Dictated By: Italia Rendon MD 12/25/24 0944 Signed By: 12/25/24 0951 [facility] Work Phone: [facility]LR HEMOGLOBIN [id number] 025 Glucose [Mass/Vol] 120 mg/dL [facility] HbA1c (Bld) [Mass fraction] 5.8 % 4.5 - 6.2 % [facility] Comment on above: ADA RECOMMENDED LIMI T 4.0 - 6.0 ADA THERAPEUTIC TARGET < 7.0 ACTION SUGGESTED > 7.0 [facility] CBC AUTO DIFFon 01-24-2023 BASO # 0.0 103/ul Normal 0.0-0.1 [facility] Comment on above: Performed By: #### C BC #### [facility] [address] [place] [address] Dr. Roxanna Hurtado Basophils/100 WBC (Bld) 0.2 % Normal 0.2-2.0 [facility] Comment on above: Performed By: #### C BC #### [facility] [address] [place] [address] Dr. Roxanna Hurtado EO # 0.2 103/ul Normal 0.0-0.7 [facility] Comment on above: Performed By: #### C BC #### [facility] [address] [place] [address] Dr. Roxanna Hurtado Eosinophils/100 WBC (Bld) 4.7 % Normal 0.9-7.0 [facility] Comment on above: Performed By: #### C BC #### [facility] [address] [place] [address] Dr. Roxanna Hurtado Erythrocyte distribution width (RBC) [Ratio] 12.8 % Normal 11.0-15.0 [facility] Comment on above: Performed By: #### C BC #### [facility] [address] [place] [address] Dr. Roxanna Hurtado Hematocrit (Bld) [Volume fraction] 37.9 % Normal 36.0-48.0 [facility] Comment on above: Performed By: #### C BC #### [facility] [address] [place] [address] Dr. Roxanna Hurtado Hemoglobin (Bld) [Mass/Vol] 12.7 g/dL Normal 12.0-16.0 [facility] Comment on above: Performed By: #### C BC #### [facility] [address] [place] [address] Dr. Roxanna Hurtado IG # 0.01 10e3/ul Normal 0.00-0.03 [facility] Comment on above: Performed By: #### C BC #### [facility] [address] [place] [address] Dr. Roxanna Hurtado IG % 0.2 % Normal 0.0-0.5 [facility] Comment on above: Performed By: #### C BC #### [facility] [address] [place] [address] Dr. Roxanna Hurtado LYMPH # 1.7 103/ul Normal 1.2-3.8 [facility] Comment on above: Performed By: #### C BC #### [facility] [address] [place] [address] Dr. Roxanna Hurtado Lymphocytes/100 WBC (Bld) 41.4 % Normal 20.5-60.0 [facility] Comment on above: Performed By: #### C BC #### [facility] [address] [place] [address] Dr. Roxanna Hurtado MANUAL DIFF REQ NO Normal [facility] Comment on above: Performed By: #### C BC #### [facility] [address] [place] [address] Dr. Roxanna Hurtado MCH (RBC) [Entitic mass] 30.9 pg Normal 26.7-34.0 [facility] Comment on above: Performed By: #### C BC #### [facility] [address] [place] [address] Dr. Roxanna Hurtado MCHC (RBC) [Mass/Vol] 33.5 g/dL Normal 29.9-35.2 [facility] Comment on above: Performed By: #### C BC #### [facility] [address] [place] [address] Dr. Roxanna Hurtado MCV (RBC) [Entitic vol] 92.2 fL Normal 81.0-99.0 [facility] Comment on above: Performed By: #### C BC #### [facility] [address] [place] [address] Dr. Roxanna Hurtado MONO # 0.4 103/ul Normal 0.3-0.8 [facility] Comment on above: Performed By: #### C BC #### [facility] [address] [place] [address] Dr. Roxanna Hurtado Monocytes/100 WBC (Bld) 8.9 % Normal 1.7-12.0 [facility] Comment on above: Performed By: #### C BC #### [facility] [address] [place] [address] Dr. Roxanna Hurtado NEUT # 1.8 103/ul Normal 1.4-6.5 [facility] Comment on above: Performed By: #### C BC #### [facility] [address] [address] [address] Roxanna Hurtado Neutrophils/100 WBC (Bld) 44.6 % Normal 43.0-75.0 [facility] Comment on above: Performed By: #### C BC #### [facility] [address] [place] [address] Dr. Roxanna Hurtado Platelet mean volume (Bld) [Entitic vol] 9.6 fL Normal 9.5-13.5 [facility] Comment on above: Performed By: #### C BC #### [facility] [address] [place] [address] Dr. Roxanna Hurtado PLT 189 103/ul Normal 150-450 [facility] Comment on above: Performed By: #### C BC #### [facility] [address] [address] [address] Roxanna Hurtado RBC 4.11 106/ul Critically low 4.20-5.40 [facility] Comment on above: Performed By: #### C BC #### [facility] [address] [place] [address] Dr. Roxanna Hurtado WBC 4.1 103/ul Normal 4.0-11.0 [facility] Comment on above: Performed By: #### C BC #### [facility] [address] [place] [address] Dr. Roxanna Hurtado LIPID PROFILEon 01-24-2023 CHOL-HDL RATIO NORM SEE BELOW Normal [facility] Comment on above: Result Comment: 3.3 - 4.4 LOW RISK 4.4 - 7.1 AVERAGE RISK 7.1 - 11.0 MODERATE RISK >11.0 HIGH RISK Performed By: #### T SH, CMP, LIPID #### [facility] [address] [address] [address] Roxanna Hurtado Cholesterol [Mass/Vol] 162 mg/dL Normal <=200 [facility] Comment on above: Performed By: #### T SH, CMP, LIPID #### [facility] [address] [address] [address] Roxanna Hurtado Cholesterol in HDL [Mass/Vol] 66 mg/dL Critically high 40-60 [facility] Comment on above: Performed By: #### T SH, CMP, LIPID #### [facility] [address] [address] [address] Roxanna Hurtado Cholesterol in LDL [Mass/Vol] 78.0 mg/dL Normal [facility] Comment on above: Performed By: #### T SH, CMP, LIPID #### [facility] [address] [place] [address] Dr. Roxanna Hurtado Cholesterol.total/Choles terol in HDL [Mass ratio] 2.5 {ratio} Normal [facility] Comment on above: Performed By: #### T SH, CMP, LIPID #### [facility] [address] [address] [address] Roxanna Hurtado HDL NORMAL > or = 60 mg/dl - LOW CARDIOVASCULAR RISK <40 mg/dl - HIGH CARDIOVASCULAR RISK Normal [facility] Comment on above: Performed By: #### T SH, CMP, LIPID #### [facility] [address] [address] [address] Roxanna Hurtado LDL CALC NORMAL SEE BELOW Normal [facility] Comment on above: Result Comment: <100 mg/dl OPTIMAL 100 - 129 mg/dl NEAR OR ABOVE OPTIMAL 130 - 159 mg/dl BORDERLINE HIGH 160 - 189 mg/dl HIGH >190 mg/dl VERY HIGH Performed By: #### T SH, CMP, LIPID #### [facility] [address] [address] [address] Roxanna Hurtado Triglyceride [Mass/Vol] 90 mg/dL Normal <=150 [facility] Comment on above: Performed By: #### T SH, CMP, LIPID #### [facility] [address] [address] [address] Roxanna Hurtado VLDL CALC 18.0 mg/dL Normal [facility] Comment on above: Performed By: #### T SH, CMP, LIPID #### [facility] [address] [address] [address] Roxanna Hurtado PROF 14(COMP METB)on 023 Albumin [Mass/Vol] 3.6 g/dL Normal 3.4-5.0 [facility] Comment on above: Performed By: #### T SH, CMP, LIPID #### [facility] [address] [address] [address] Roxanna Hurtado Albumin/Globulin [Mass ratio] 1.1 {ratio} Normal [facility] Comment on above: Performed By: #### T SH, CMP, LIPID #### [facility] [address] [place] [address] Dr. Roxanna Hurtado ALP [Catalytic activity/Vol] 91 U/L Normal 46-116 [facility] Comment on above: Performed By: #### T SH, CMP, LIPID #### [facility] [address] [place] [address] Dr. Roxanna Hurtado ALT [Catalytic activity/Vol] 28 U/L Normal 14-59 [facility] Comment on above: Performed By: #### T SH, CMP, LIPID #### [facility] [address] [place] [address] Dr. Roxanna Hurtado Anion gap [Moles/Vol] 12.7 mmol/L Normal [facility] Comment on above: Performed By: #### T SH, CMP, LIPID #### [facility] [address] [place] [address] Dr. Roxanna Hurtado AST [Catalytic activity/Vol] 21 U/L Normal 15-37 [facility] Comment on above: Performed By: #### T SH, CMP, LIPID #### [facility] [address] [place] [address] Dr. Roxanna Hurtado Bilirubin [Mass/Vol] 0.7 mg/dL Normal 0.2-1.0 [facility] Comment on above: Performed By: #### T SH, CMP, LIPID #### [facility] [address] [place] [address] Dr. Roxanna Hurtado Calcium [Mass/Vol] 8.9 mg/dL Normal 8.5-10.1 [facility] Comment on above: Performed By: #### T SH, CMP, LIPID #### [facility] [address] [address] [address] Roxanna Hurtado Chloride [Moles/Vol] 104 mmol/L Normal 98-107 [facility] Comment on above: Performed By: #### T SH, CMP, LIPID #### [facility] [address] [address] [address] Roxanna Hurtado CO2 [Moles/Vol] 28.9 mmol/L Normal 21.0-32.0 [facility] Comment on above: Performed By: #### T SH, CMP, LIPID #### [facility] [address] [place] [address] Dr. Roxanna Hurtado Creatinine [Mass/Vol] 0.76 mg/dL Normal 0.55-1.02 [facility] Comment on above: Performed By: #### T SH, CMP, LIPID #### [facility] [address] [place] [address] Dr. Roxanna Hurtado EGFR-AF CAMEROONIAN >60 Normal >=60 [facility] Comment on above: Performed By: #### T SH, CMP, LIPID #### [facility] [address] [place] [address] Dr. Roxanna Hurtado EGFR-NON AF CAMEROONIAN >60 Normal >=60 [facility] Comment on above: Performed By: #### T SH, CMP, LIPID #### [facility] [address] [place] [address] Dr. Roxanna Hurtado Globulin (S) [Mass/Vol] 3.4 g/dL Normal [facility] Comment on above: Performed By: #### T SH, CMP, LIPID #### [facility] [address] [place] [address] Dr. Roxanna Hurtado Glucose [Mass/Vol] 104 mg/dL Normal 74-106 [facility] Comment on above: Performed By: #### T SH, CMP, LIPID #### [facility] [address] [address] [address] Roxanna Hurtado Potassium [Moles/Vol] 3.6 mmol/L Normal 3.5-5.1 [facility] Comment on above: Performed By: #### T SH, CMP, LIPID #### [facility] [address] [address] [address] Roxanna Hurtado Protein [Mass/Vol] 7.0 g/dL Normal 6.4-8.2 [facility] Comment on above: Performed By: #### T SH, CMP, LIPID #### [facility] [address] [address] [address] Roxanna Hurtado Sodium [Moles/Vol] 142 mmol/L Normal 136-145 [facility] Comment on above: Performed By: #### T SH, CMP, LIPID #### [facility] [address] [place] [address] Dr. Roxanna Hurtado Urea nitrogen [Mass/Vol] 24.0 mg/dL Critically high 7.0-18 .0 [facility] Comment on above: Performed By: #### T SH, CMP, LIPID #### [facility] [address] [place] [address] Dr. Roxanna Hurtado Urea nitrogen/Creatinine [Mass ratio] 31.6 mg/mg Normal [facility] Comment on above: Performed By: #### T SH, CMP, LIPID #### [facility] [address] [place] [address] Dr. Roxanna Hurtado TSHon 01-24-2023 TSH 3.127 uIU/mL Normal 0.358-3.740 [facility] Comment on above: Performed By: #### T SH, CMP, LIPID #### [facility] [address] [place] [address] Dr. Roxanna Hurtado Basophils Auto (Bld) [#/Vol] Ordered By: Gala Mccann on 12-20-2022 Basophils (Bld) [#/Vol] 0.0 10*3/uL 0.0-0.2 [facility] Basophils/100 WBC Auto (Bld) Ordered By: Gala Mccann on 12-20-2022 Basophils/100 WBC (Bld) 0.3 % . [facility] Calcium [Mass/volume] in Ser um or PlasmaOrdered By: Gala Mccann on 12-20-2022 Calcium [Mass/Vol] 8.8 mg/dL 8.6-10.3 [facility] Carbon dioxide, total [Moles /volume] in Serum or PlasmaOrdered By: Gala Mccann on 12-20-2022 CO2 [Moles/Vol] 28.4 mmol/L 21.0-31.0 [facility] Chloride [Moles/volume] in S pat or PlasmaOrdered By: Gala Mccann on 12-20-2022 Chloride [Moles/Vol] 106 mmol/L 98-107 [facility] Creatinine [Mass/volume] in Serum or PlasmaOrdered By: Gala Mccann 12-20-2022 Creatinine [Mass/Vol] 0.76 mg/dL 0.60-1.20 [facility] Eosinophils Auto (Bld) [#/Vo l]Ordered By: Gala Mccann on 12-20-2022 Eosinophils (Bld) [#/Vol] 0.1 10*3/uL 0.0-0.45 [facility] Eosinophils/100 WBC Auto (Bl d)Ordered By: Gala Mccann on 12-20-2022 Eosinophils/100 WBC (Bld) 2.5 % . [facility] Erythrocyte distribution wid th Auto (RBC) [Ratio]Ordered By: Gala Mccann 12-20-2022 Erythrocyte distribution width (RBC) [Ratio] 13.1 % 11.9-15.3 [facility] Glucose [Mass/volume] in Ser um or PlasmaOrdered By: Gala Mccann 12-20-2022 Glucose [Mass/Vol] 101 mg/dL 70-100 [facility] Comment on above: ADA recommended refe rence rangeRandom Glucose Reference Range is dependent on time and content of last meal. Glucose of more than 200 mg/dL in a nonstressed, ambulatory subject supports the diagnosis of Diabetes Mellitus. Hematocrit Auto (Bld) [Volum e fraction]Ordered By: Gala Mccann on 12-20-2022 Hematocrit (Bld) [Volume fraction] 40.3 % 34.0-46.4 [facility] Hemoglobin [Mass/volume] in BloodOrdered By: Gala Mccann on 12-20-2022 Hemoglobin (Bld) [Mass/Vol] 13.6 g/dL 11.8-15.4 [facility] Leukocytes [#/volume] correc leatha for nucleated erythrocytes in Blood by Automated counOrdered By: Gala Mccann on 12-20-2022 WBC corrected for nucl RBC Auto (Bld) [#/Vol] 4.9 10*3/uL 3.8-11.6 [facility] Lymphocytes Auto (Bld) [#/Vo l]Ordered By: Gala Mccann on 12-20-2022 Lymphocytes (Bld) [#/Vol] 1.6 10*3/uL 1.00-4.8 [facility] Lymphocytes/100 WBC Auto (Bl d)Ordered By: Gala Mccann on 12-20-2022 Lymphocytes/100 WBC (Bld) 33.1 % . [facility] MCH Auto (RBC) [Entitic mass ]Ordered By: Gala Mccann on 12-20-2022 MCH (RBC) [Entitic mass] 30.4 pg 24.7-34.3 [facility] MCHC Auto (RBC) [Mass/Vol]Or dered By: Gala Mccann on 12-20-2022 MCHC (RBC) [Mass/Vol] 33.7 g/dL 32.0-35.0 [facility] MCV Auto (RBC) [Entitic vol] Ordered By: Gala Mccann on 12-20-2022 MCV (RBC) [Entitic vol] 90.2 fL 80-100 [facility] Monocytes Auto (Bld) [#/Vol] Ordered By: Gala Mccann on 12-20-2022 Monocytes (Bld) [#/Vol] 0.4 10*3/uL 0.0-0.8 [facility] Monocytes/100 WBC Auto (Bld) Ordered By: Gala Mccann on 12-20-2022 Monocytes/100 WBC (Bld) 7.6 % . [facility] Neutrophils Auto (Bld) [#/Vo l]Ordered By: Gala Mccann on 12-20-2022 Neutrophils (Bld) [#/Vol] 2.8 10*3/uL 1.8-7.7 [facility] Neutrophils/100 WBC Auto (Bl d)Ordered By: Gala Mccann on 12-20-2022 Neutrophils/100 WBC (Bld) 56.5 % . [facility] No Panel InformationOrdered By: Gala Mccann on 12-20-2022 Estimated GFR (CKD-EPI) > 60.0 mL/Min [facility] Creatinine Clearance (Chem N/A [facility] Nucleated erythrocytes [Pres ence] in Blood by Automated countOrdered By: Gala Mccann on 12-20-2022 Nucleated RBC Auto Ql (Bld) 0.2 /100{WBC} 0-0.5 [facility] Platelet mean volume Auto (B ld) [Entitic vol]Ordered By: Gala Mccann on 12-20-2022 Platelet mean volume (Bld) [Entitic vol] 8.0 fL 6.3-10.7 [facility] Platelets Auto (Bld) [#/Vol] Ordered By: Gala Mccann on 12-20-2022 Platelets (Bld) [#/Vol] 185 10*3/uL 150-450 [facility] Potassium [Moles/volume] in Serum or PlasmaOrdered By: Gala Mccann on 12-20-2022 Potassium [Moles/Vol] 3.8 mmol/L 3.5-5.1 [facility] RBC Auto (Bld) [#/Vol]Ordere d By: Gala Mccann on 12-20-2022 RBC (Bld) [#/Vol] 4.47 10*6/uL 3.60-5.00 [facility] Serum or plasma anion gap de terminationOrdered By: Gala Mccann on 12-20-2022 Anion gap [Moles/Vol] 10.4 mmol/L 6.0-15.0 [facility] Sodium [Moles/volume] in Ser um or PlasmaOrdered By: Gala Mccann on 12-20-2022 Sodium [Moles/Vol] 141 mmol/L 136-145 [facility] Urea nitrogen [Mass/volume] in Serum or PlasmaOrdered By: Gala Mccann on 12-20-2022 Urea nitrogen [Mass/Vol] 26 mg/dL 03-21 [facility] WBC Auto (Bld) [#/Vol]Ordere d By: Gala Mccann on 12-20-2022 WBC (Bld) [#/Vol] 4.9 10*3/uL 3.8-11.6 [facility] Coding Summary.on 12-09-2022 Coding Summary. CD:[id number] Ww+PGhlYWQ+WL1GJLBwL 82leBTckZ3mT4NCHFwTS ywgQVBQTElOSyIgbmFtZ T8haEJoILMt IC8+AQ1wSZRjNboqkAYm z6D7qUM8G43zvl9mPBob iXG0JEAzGuMccbxcr7ec kCy6JJrlRkewBiDw OHWkrZ82YMQ5rM88Dk48 yZXeiRUnk4jpvPt1EzYp SPVqQVM0qKqjYMdfw7Rt FEJbE79srOXvn3O8 IGNvbGxhcHNlOyBlbXB0 oR3hUPyxrsqam9qhmhga Ore6ph70rSYnf9W1tOE8 V9DmwaF8VYKuwSEy TeucwVASnG2jdkbzk7kf uvcrIcVbZNLpIMz8XFf2 BXGivPkiCfQpTF61URI7 XYKtpsAfA2BpUAIj vFebTkN2d4N2Eg1FI9IY IwrdB5YOUKYIDYsuaUY+ UI29bn97T8JsKinxIop1 YUQsAAU2mUC1zT6i OZJfQHrdt5H8vBR9R2Mt gjWrck3hl2pkWQPzSNsi J48foERci4F0YQLjiWF1 WNIkqRqsYgWvhG91 Oyc+LBEnnPuon3HeSbsw g9fde5crpQt5XjsxJGAr dzSrkEwtOTE1i7NrAq0t YNLfrKR7nFM2dE2q BuTzQyF9JDwuA726WmUu tMNcMbuwD85tO1OqgNR+ KBUfZeq2OKFviSceRD1u L4SvMCCuplxfyQYb jOujXS4aCGHlllgrCBNo hX7uCVPzY3b3PyAkQbG6 HLupB1NcIBQylsctEj38 mJ9aNbSpLdC3XLbj W9VwihX1DRTarBIlXFrl ZTB8Y43iq4X2QPQyZARx UFB4iJE0yF2fwQqlfcdh bGVmdDsgdmVydGlj BRwgCPebV977OGYodXyy PkNvZGluZyBEYXRlOiAg MDQvMTQvMjAyMzwvdGQ+ XYJbPLU3iTzcHCKe aLTsPOelCt6pmHxonIas FD0fFFSirowxUBVupD8e IFFgsJDamZvrDA8vKEWh lugxg283WwZpZJT0 BKMxpFNqG7NeqK1hVqBr YKPtDCEdO8AqjTXlEHap L753HDauGvB8MHOuiuPc R4HvRSLikOefHpZ4 l4E6Ig1Tj0LzyfbmN2Sb nWDwGjPhQxcvQZo8G7Bn PjwvdHI+YW59XEZcOH92 QGw4XDT3hAnvPNrv BIEjG5FebK3gRaRrVZMs ZGRkOyc+PHRhYmxlIHdp ZHRoPScxMDAlJyBzdHls XV7fQb6cTZIdURHv iJfinCLjSbSsu7nqLVZl ZCnnDV5uqXbdV2AxcUC1 CXNlv5y5Zp83O21sA7Pv dXA+TYLogOH4tUD3 iF1cDyKoRbC5NPmaN313 VrJcxPDtLwbxr8gie8jw cIp8VqT6ADUtsfXrzZch SYP4b6PpNx81U25e IHdpZHRoPSIxNSUiIHZh eAusnf0woU5lAq8+PGNv pGC0qOJ7fD1yUaWrDcY1 ERktL580QpDexLZn Eyyil9jws3uicUr2RuRy CGTfzjIqrXpfIBY3h2Ut Gq45I0OobZyos6TaRvk4 aw92qCYro0A3bHB1 P4YaGCSzvcgwbOFuaOqg FT5cEVMgnxsoUXNujT5z JYFxL6m9MaCxKtG9BChl M5McnyK7VRKvxQGz GJGznUBKvK7uqwbsw3sr ahkjSmJiEVInMEy3DEd2 DAWxpJlvAhOaIDA2GtW1 SSP2tXRzzQ0spHbi ndeszZ0aMuu+KHS7dPZe dFPLPY6mEqxhoGR+PHRk XRI4qMolGIyqCVQsgT3g PIRtK0m5TeRbYdU4 AKzeP7AbfyR8SWFbiLJc OJUouZAKdS8fjkgxi3ei ndoaOlOqGILiDJx4QPq8 LWFsaWduOiBsZWZ0 EdM1KWH8eMQbxP9vnQsk svuaiW6wRfj+QmlydGgg PSL4SHo9T2OgBdo5NPRv wGgyBU7bqYDxQLui By9ziJmnuReyUE5jKJCt mitmt134XuNmv0rbVUUt xNOiDPzdBCK3N17rg1Z5 HHZqRIFuBGB7nBU1 aF1zzJaddpcemZOjzSfi voNkuOfcKSiwCExmF613 OCOyxOpmMcFhIFw2Z7Kd Njy5DIMigLhqQK4o vJPzXSbyZw0raNpzgDon KO0tOPFkggyeu625CwZu u0hvHLScsARqTMvzQWQ7 S55df8T9LTLgUSGj UBA8bJX5aK2gzYqxvsys bGVmdDsgdmVydGljYWwt XVshO292BCCxtRgnCqBq bFc0O1JpClh1NHSo yDhbPI0ybMQlONlwGm9x sTcdiRdlTX4eXJKigije u495EzGea8ppGEGzaSUf OQeyGBY4U22aa3I0 LCZuXXCrOSY8xXC3xF0m bGlnbjogbGVmdDsgdmVy aYyiSNtbYZyzV722WSBt cDsnPlBhdGllbnQg TFstGQo8A7VvSaczkVB+ VU10TGOlNE87dGTzyFFe a2xieTl6DkEnFFUqODZ9 pGatHFvhq0LcCDNj P45ejKAyf2C9OHSjhPtq tQBjCpBziZD4zH2bYEhd uanen3salonoRgqxi1aq ml02mA91B43jAZef ZHRoPSIzMCUiIHZhbGln gu7pkL2cEt0+PGNvbCB3 bIY9jG8wRSYoPsA3KZxu M649RdItsUVxNpbw r9tlq2nrzXi6IcY2KJAm zlEypXpmBPY8e0QmHe85 C07qBCdyJSHcCAEySJMf ZVEkdWrmra3zuI7j Ii8+IKDzsWP6oEF2vF3q OuVbZdT7DTxfE181QzZp dUSuYkpwF74oY4HdfZO+ XIMgWbo2RUQdeQts CF1hhBPhNEuuCj3kAEE4 WiEiZsSlGObrY9NdPXBa umwzpywigJC7WJJtGQTx iG89Yf3fsNlxXRQs xRDFqO8cnserx1gpfmkf YhKvLBZcILw6LOq3PEYu wCczOjYxAQJ9SgD5HEL3 xXDmyM9umHmwmuut pK0mM4KxLOGhbtyaQv47 eG6fCkSvEyS7IMboGrl+ Hl7XPHYtCCAFLIRRJLCQ UU73LD31mKGsx5A0 bLS6N3ZhYQPukwxhsurl tBW0ISWgJLPpnM21ySIy XJruAn3tu0B8m499GKLa GOMmqL06Ed7mkIrx FMBfkLFIyI3henufx5mx yqjmPyKkGEJfRXs8SFy0 ACXzrCzqVpCzJRI9CrZ3 JID8sQDwaV2ocAaa uvvesQ7iEqk+MDYvMjIv BEq1ZBsdrLT+PHRkIHN0 eVgjGYmnUAQigV3lAZWd M3q1FnUxEsK3RZms B7HjRQAwnvtaLd17qZ3s ArBnBrN5VEarF3NokaU4 VXNwlTAfHZerJYG1I20h f9G4RUVaDVRnUKO1 xWQ7qP5yyVunntjcaGSj dDsgdmVydGljYWwtYWxp A042OOZdkZvqZvpsHKdq GTUeHT01CJ35wFXc m2Q5bZM8U6OkZAZcecly tckrhKO6CSVkSFIipL95 zIIzEPkeIc4nw5K7x136 POKrBWHagP80Gq0n pBocEFEkoPTHgU9jrhje z6wgmtzcUkOmSUTzROv9 PAv5CBSyhQqzRdBqHCK4 WnE8DPK1cMEzoA4s vXogefnsiS5cNal+RmVt YOcxDY89PJ19kIXst4S1 tBW4G8VvKRImhqevjfuu iKJ7ETYiTASiuF31 iGHfJSlhOh0qm8I7p585 ESLhBWQvlF46Fc4clVvu TTBbkYCJqL1dwsmtt7ro cjogIzAwMDAwMDt0 OTb2HCSnhLqwJkKpOOV9 ZxD2PXC4iVYnrP7asMvn bgoooR1hNgb+XD3bazmy htK2AH32MM73P6Lt PjwvdGFibGU+PHRhYmxl IHdpZHRoPScxMDAlJyBz cQbqTT9wLs3oELRdHAGk rXnieNWyZuJwe1zj JZAvIIlnEF0zwTiyC1Vl pDP5EGKkd7l2Vf92F85k D4KteLL+MBPwzHH5gFZ7 bB9gSwMwEvY3SMmo M078VaDjlZBqQfurp5tg u1bvvXw0FmCpHWGrnjWn uJsbVBH0a5MxOr51F65w IHdpZHRoPSIyMCUi GWMnyRrpps6ayY3vVt7+ UVVlsJK2zYA8uC9mZgAe EfK8RVbaG008GlQsyIHg CdhtH82nH3QuzZX+ LGQoAcm3GTHwaOyvAJ7v oHHsJJeqRa0xOAB9BtAv JpJlGErfK8YxFQWvjcpg nctpcNS7WRKaRNKm uL22Fd1lmVdsCi8aTCCo CQY4TWJxhFTuU2VwbI4j CtCeSQCeAGTxA1ThhXRe QWgrP731DTdhWfM0 RJHymoAtV1MfQFIimUjb RpD4n7A2Ux8XoKxtpEFl FK8hOfUwRSg7Q5QgOvs6 EOJuaRqyMX0cqZBf LOfrAx2lsNqvoRxjBJ1e NEOoetxhe606KgYri8zv KLYwsIEtFAbxJCG1T77c o9F2RZVoNFRjRKO5 gOA5hK2ixZelxudhlBVj dDsgdmVydGljYWwtYWxp K500TYGzjMdeNtIHJnv5 W9NpXfd5CZPaeTnp QM9jrLUqRPylOo3syKtq rBvjWC1tQJJehjvzt289 MyCxq5coFFXihWBeEVkz XPB3T86ea8C7FTNl EBFkIHL8yPG6xS0ovQlz bjogbGVmdDsgdmVydGlj FMcdGVvxI384YVLmjGkk Xp8NJao2I9FhBrz6 JWLanGdqYM2zbGFjWAyu Fb3hbAnczVgfVW0kUKVf ksrqc974BwFxx1huLRCq zXUrXZrkPIN0J82t k7D1GXLoHDYqQZD7jGO0 yX9hkPdunqmblBEmbZqm buJueGyoCLloUKptW305 IHRvcDsnPlBheWVy OjwvdGQ+ZX61re31H1Wz LuwzDba5FHWgGOW2fEI2 pW4eLLDiBQnqd9X0fRE9 A0WenqIwpm2kc0ma YXBzZTog (more content not included)... Normal [facility] Discharge Instructionson Discharge Instructions [id number] 7#1.00CD:127 Normal [facility] Vaccinationson 12-08-2022 Vaccinations [id number] 3#1.00CD:127 Normal [facility] CT Head or Brain w/o Contras ton 12-07-2022 CT Head or Brain w/o Contrast Exam Date/Time: 12/07/2022 17:33 EDT Reason for Exam: Head trauma, moderate-severe;Othe r (please specify) Report IMPRESSION: NO ACUTE FINDINGS. [...] MD Transcribed by: TALIA Technologist: ZEKE Normal [facility] CT Maxillofacial w/o Contras ton 12-07-2022 [...] MD Transcribed by: TALIA Technologist: ZEKE Normal [facility] CT Spine Cervical w/o Contra ston 12-07-2022 [...] MD Transcribed by: TALIA Technologist: ZEKE Normal [facility] Consent for Treatmenton 11-26 Consent for Treatment [id number] #1.00CD:127 Normal [facility] ED Clinical Summaryon 2022 ED Clinical Summary [place] [id number] ED Clinical Summary Person Information Name: NATALIYA GRIFFIN [facility] Age: 72 Years : 1950 Sex: Female Language: Sami PCP: ANU OLIVIER DO Marital Status: Visit [...] 12/07/2022 19:54:35 12/07/2022 19:54:35 12/07/2022 19:54:35 ADDRESS: [address] [id number] PHYS DOC NOTES: MEDICAL INFORMATION: Prescriptions Given: Medications to Continue with No Changes Other Medications aspirin ciprofloxacin (Cipro 500 mg Tab) 1 Tablets By Mouth every 24 hours. Take 1 pill the day before the procedure and 1 pill after the procedure. Refills: 0. fluticasone (Flovent HFA) Inhalation 2 times a day. fluticasone nasal (fluticasone 0.05 mg/inh Nasal [employer]) Nasal Inhalation every day. hydrochlorothiazide By Mouth every day. irbesartan (irbesartan 150 mg Tab) multivitamin (Multi Vitamin+) polycarbophil (FiberCon) rosuvastatin (Crestor) By Mouth every day. sertraline By Mouth every day. PATIENT EDUCATION INFORMATION: Instructions: Nasal Fracture Follow up: With: Address: When: ANU OLIVIER [facility] [address] [facility] [address] [place], [place] [id number] In 3 days 12/10/2022 Comments: Call the [...] DIAGNOSIS: Facial abrasion; Nasal bone fractures Normal [facility] ED Note-Physicianon 12-08-19 ED Note-Physician Basic Information [...] and Complexity of Problems Differential Diagnosis: [] [facility] Data External documents reviewed: [] My [...] [] Head CT not ordered by emergency acute care registered nurse [] Head CT ordered for reasons other than trauma [] Patient is 18 or older, presenting with minor blunt head trauma. Head CT (including cosigned orders) was ordered by an emergency acute care registered nurse for t (more content not included)... Normal [facility] Comment on above: Result Comment: Elec tronically [...] minutes, 2?3 times a day. ? Take gtkl-hhy-mzqzdse and prescription medicines only as told by [...] Reviewed: 01/15/2019 Else[employer] Patient Education ? 2020 [employer] Normal [facility] ED Patient Summaryon 023 ED Patient Summary [address] [address] Patient Discharge Instructions Person Information Name: NATALIYA GRIFFIN Age: 72 Years Arrival Date: 12/07/2022 15:22:53 Discharge Diagnosis: Facial abrasion; Nasal bone fractures Primary Care Physician: ANU OLIVIER DO Provider Information Primary Provider: Ellie Lopes M.D. [employer] Coordinator:Damian Schuster PA-C The exam and treatment you received in the Emergency Department were for an urgent problem and are not intended as complete care. It is important that you follow up with a doctor, nurse practitioner, or physician?s educational assistant teacher for ongoing care. If your symptoms become worse or you do not improve as expected and you are unable to reach your usual health care provider, you should return to the Emergency Department. We are available 24 hours a day. NATALIYA GRIFFIN has been given the following list of patient education materials, prescriptions and follow-up instructions: Follow-up Instructions: With: Address: When: ANU OLIVIER [address] [phone] In 3 days 12/10/2022 Comments: Call the [...] opioids can be used to help relieve nkiiriwk-nn-hfdbhb pain and are often prescribed following a [...] of unused prescri (more content not included)... [facility] ED Traumaon 12-07-2022 ED Trauma [id number] [email or web address] [facility] Coding Summary.on 11-29-2022 Coding Summary. CD:[id number] Ww+PGhlYWQ+TP1CBHXoC 41hiTXrbZ6oT4DZSDaAZ ywgQVBQTElOSyIgbmFtZ Q2jtWStYFNm IC8+NZ1jYPAvJzxwkHGf v2R8aGV1N70wqr5tOBcm pWM0UKGqEdOkqeamp4ym lNh0PLjvMmxwIhJt RAEzhC84GMF6nF32Ey24 oGKzaALks5tffWq5UwIq EUFzDWI2nScnIFyga4Mf GZBrL51eyHFmi7J6 IGNvbGxhcHNlOyBlbXB0 dX8vEDqogfriy4rhbgfw Scf0vj94mAEdt3R9mJF9 Z7RmhbF8HFWxyAUg CrflpYPWzE4bxugme1xu vsveHdFqDUTfISf9JVh0 YXRqnHurLtTsGM99SFQ8 MYJvpmEqO0QcRCQu yXqySzV4w4E2Ke1ZJ3PX LxyaQ4IRCKCDGUxyzWA+ RB92uy82Y2SjGeeiGmu9 IYPhDKW9lWT4hZ1r ZLEzUHfon7O7jYG5L3Gw nxSqgr9em3ivPTEtRHoj K99deRAaz6T5DPMioRF4 CJGmoTtfSdUybA66 Oyc+JVBnkGyyf9SgGjvx t9vlc9xhyXk7OhczMSFb quGetLkjAER7u2KvOz1u GHOseWK0kWG5nB9f AmIjFaD6ZHjsE186LlNe eNPqBzevJ43gX1TbzPK+ RKNdWht3TJWqrZglCS6e A8GuKPNgtewxiCJa vZucHH8bNPYvidxcTFJr uW3iIGTwB3p0EfPjDgH1 ZIacA3OdVWXagfovVs27 hK1qJvAgKzN1ECow Y3LwmgU9ZCCggTGyNMeo VSS7P15ow8G5QNEbZXTr OVI0aPX9hJ8vbJrmpkhm bGVmdDsgdmVydGlj IEpaRQvwP166CUEbgBtm PkNvZGluZyBEYXRlOiAg MDQvMDQvMjAyMzwvdGQ+ RXYbJRQ3jTgqGLFd lGYbRIjkGy7tsMreaBtp FP1qRSJqwsyaYXOwyL5v AZChgOLffFbcKJ7iJKGm pdhwt930IfXeWBX5 XMLcpURbU1OcmN8ySoZv MHKlJAKmO6OolKEeTJam L499DFwbYiN3DGUqbySh C6BbSJYdnKupWxG0 z7G0Qc3Oj1LxntemC6Xv bIHkSsBwEbntTRz0Z1Ww PjwvdHI+XJ03GAUxER69 VGi8YEN4lApwRJif CUVqA6PpyH4dRtZhTVEz ZGRkOyc+PHRhYmxlIHdp ZHRoPScxMDAlJyBzdHls VZ2bZa1wMVMcFZWr mSptnHCoXwGbv7qgKTZi IHqsDY9blAdoY8EolYX4 WYQjh1h0Ik63R42wX5Dt dXA+IGNlhVR1tGC3 zB8gDeJdOeQ2YDraC745 PvJvcQPbKkgjb8eef9va gOf5KtE9AVFffjRimNnf SJN9c4KtFe88Z13t IHdpZHRoPSIxNSUiIHZh uEkkeu4nqX1tJg2+PGNv vIJ2sDW2eZ5jDmUbLwP0 COlqM437TpDnkMFa Szzbc7xiv4sszJi7TwCx GQWtypIpeBqmTJE9d1Tc Al30I9JvvCczy1RoIta7 wj73hBShg6C9wNA9 X8OqFFBmzahvfVXtvCbd EP3mOSVegsgxQSHejU6m ESYwB9k0XoTxCiL7WMdg O3XzsiT4HFMgxGHa VLHiqWAKkK8ysfbbx0zc xyytWtPeUVDxIBi4VPx8 JLYgyHytBhBiBDO1HgL2 LBL4pSNmnL9whJdp tblcnR4sRuk+KIW6mWAv dPCGDW8iZsnhsAM+PHRk GKU0yHxyUVwlRTWopR6q EDJyV7x3JgJhIhA1 QMrgY7NiguJ4ZNWavZBz MBTyeANKoT8janogb3gd dxsgShGyHHKcGTv2DAx7 LWFsaWduOiBsZWZ0 CjM6YFQ4wQDouC5klHzt falenJ8cIiq+QmlydGgg ZMA4ITh6A6YwQyi1HDSn eZqgLC1jgQTzUXml Pv1isCcarEqoFV0eSKFv qfqxc470PlJmm8bzOZMt mJQzJObzGWI5W30oj8S9 MYZgCLKrBGX7qJK3 uM7kbKryikaonAFtgExw nnZqiOehSRhiDHizW976 FHAomLhxAgLsYYt1H9Ad Ueg1JVWvyNhhAQ3r gEFzVSrvJg3lxPzdmLws UP7hZXXqhkrkb404TdOb g3dzFLAacQLvEEotCCY4 G30ig8G1RMYuKZXv ZRE0kLZ8oS3nhXwlxvvu bGVmdDsgdmVydGljYWwt TQhkV077LFRffZlrQbLk mUp4O6KyGjb3JNNk mIndLN7bzJHrRJrwLs6m lBzduAxsMH1uGBZbhptx x613HaMyj1epJSDehDAp FVmhZQG3W09ec2M7 QAFdUVYiZSO7bUQ7xZ3u bGlnbjogbGVmdDsgdmVy fWyuJVplKJufG908ANWp cDsnPlBhdGllbnQg SJvvARf6T7FbSudqvGS+ FA80CKQeXI05jGRexHFx j6ggvEt0MjGjDXIcYZX8 hHhhGQvfo6OuBIQg Q62nwUCha4E6IBXkuTth oCKbSyWamTY2rQ6xJKva auyww9uxwenvTbpeq8wb gm39iF96D24iOSze ZHRoPSIzMCUiIHZhbGln gh6mfW8zQf5+PGNvbCB3 pFI4xJ3yQYThQdU7MBsj O867BsUhcACdVsjt m4krs1msrQh5ItS6VMAm utBbzWqoYAA1g1NrEk88 T70aYIviHRMsWLLiDSDe PSGobNmbgj0uhD2b Ii8+CDCaxLP0jCD7xS0q FrBsYvH3DUtlB886YaUc lWWmOgtqV01gV3UktES+ DOAwUxn6SKWpfRwq FA6cdJDzJDxeRa7vYRG9 LlYbAnYvLDxcR7SiVNTd vqtcbgwkvGY3SFBsPUCk jS39Ux6nnOleESPu hXOQvX8vpfubw2pmgzia UrPtZKIvRKw1AOk6RUJa oOogHeIkVHH5ZgX2EOB3 rRHcbN3tqXlrdeeu gU0gW4MvDGAczhcpEc85 oT9gZqVaVxD4OAhzYhb+ Lj2TJWCiEQNUAGXLGCLO AY85GZ80cALku0H9 yWV0V9CdLGPdrhvgoowp iEM1IDPyRUBhlA71bUJs AVvlXb3eh5R7q661OLAc XDEzsB79Zk2xzXyp UXDasAMJrS0eatubn8yq hqrmRcMsECRyGDg6FKb3 LQJquPmbGwOaWVQ6McH3 CDC9sUGvtS7pjBjh aaohzO3zDbv+MDYvMjIv OTm6QXpwlBV+PHRkIHN0 bPtmDPovIVVftR0vFGEx F2y7UbHiCjX8YLcz S0RjZAUybjaeIi92jM4d AgUpRrQ4WIguS4HmgiS3 SZEerGKqNWblLRV1F25s m9U0NJEqYCNlSIM4 dRF1cP8mhZwrlukbaGNv dDsgdmVydGljYWwtYWxp G217XPOqkOpaNlbfGScy RTGvLC54TD62uJFo y7M8lZY5I6KxAIWnnmnp aobwaHI8EBTgFACyhV07 uIGrVEgtLx8jn0E6u188 HNHpIMMfhM35Ry6s gUhvBLNdqHUKsQ1osllw t5fbjxblPuClDNSoJTr2 UVz5MQWhcCrzGdYrJQL3 WkR8WBJ6dGDdhU6g rIlkefprmT5wXvt+RmVt LQthVC46PR94iXYrh7M7 yOW8Z0RxZBWnlndiaklz vAG2IPHfSSCeqZ51 nRJmPLvhDf0py5C1t705 YIFrHJKxlD46Rm5wvAty UEToqIFVgF3bcwpjy4yj cjogIzAwMDAwMDt0 BGb5ERLmhDhzRdVxQZY0 GkL0DGX3lVVkkW2ksInx kulafO0tZhe+TGFiIERy l7Skl5AuAB32RO44 E0BtVlxtgQXueBE+PHRh YmxlIHdpZHRoPScxMDAl NbFrtQzkSK8fKt5oGQOm LWNvbGxhcHNlOiBj a6ieEOTrUSiwWM3ipEsf K1JjmXA0PLCqe7s5Db26 W00zB2MeePY+PGNvbCB3 bRZ4sR3cAxBoTsZ2 ZKdqD002EaYoxWMoGnzw s9opb4vqoGt9CsVbHLLo xeHohZpwXAA2g0YnWs21 F37zYYfeXYGyYDQf XQBvSBBrgMtgoi4odI1f Ii8+KCYiuLR2eUR3wZ2h MsTkTlE8JEayS762CrSb wWBgIrvcM35kB6Hv dXA+RZLlIcv2VMJevGwj LX4qmPWyFLkfHu2yVDV7 ItCjIoSqTMwzI5RiKLLu zrrbppkpuUG6KJGr XRTtgQ73Kg5ylCnvCd1s ROWvYHB1TCYfjHIzL7Fk zY2iHwWqKLWjKKPmS2Ls vOIyQMuuD845WClk DlZ1VPUhxnYaX6CoEWDx jNeaQhR1c3H2Cp0YoUuq dINeHX3aVaDzOKr5W2Fp Rjv1KIOyaYdsIB5t fODvCHmaHc0vyLhmnGpu KO9bXZBhyhjsd891CeIi w1mvOJWrnHHtNMvfTLM2 T81cl2G9CAOkOLKs CIY8nQI9eR3dtBhcjtqy bGVmdDsgdmVydGljYWwt JCdsL176CLVciTmtHdKQ Pwh2F3LfTbd9GPEe jLyfVI1bgHKeHKphAy1x wSfpvKhkWC4jRJOajmvr d443TeOtx7pcZCZgdQRr EIplTVO7J54hz8X5 SGDjQLQxLMZ4uNJ6aE3i bGlnbjogbGVmdDsgdmVy vQteVLufWGjbF248LHJk zUkuDd7IPlp0V7Qm Hhr8QCUesVzoRE8ckQVr XZhcWw4zsTggiOxpRT5m JNXaukmfm627JmCnr7on IDEwcHQgVGltZXM7 Q06nd0E8GJCeZAPwFEA7 dSP4rB3jhQpledjauSCm dDsgdmVydGljYWwtYWxp C309BCRmcGwbIfBl eWVyOjwvdGQ+YG47nq07 Y1RyLlbdVmd3HNInVPO3 yOL6mR9xDSWcHDmrw4Y2 eCW9E1RbwwJuob1c e0zwPLWw (more content not included)... Normal Bo [facility] Medicine Office/Clini c Noteon 11-18-2022 Family Medicine Office/Clinic Note Chief Complaint PHYSIOLOGIST- rt index finger infection HPI Staff complaints [...] day(s), # 28 cap(s), Refills(s) 0, Pharmacy: [facility]/pharmacy #[id number], 166, cm, 11/18/22 17:17:00 EDT, Height/Length Dosing, 82.1, kg, 11/18/22 17:17:00 EDT, Weight Dosing Evacuation of Subungual Hematoma 76817 Wound Culture 2. BMI 29.0-29.9,adult (Z68.29: Body [...] OLIVIER DO, MED [address] [address] Additional Instructions: Patient Education Paronychia Cellulitis, Adult [...] HFA, Inhalation, BID fluticasone 0.05 mg/inh Nasal [facility], Nasal, Daily hydrochlorothiazide, Oral, Daily irbesartan 150 [...] (COVID-19) Ad26 vaccine 08/28/2020 Recorded Normal Bo [facility] Comment on above: Result Comment: Elec [...] such as those who work as dishwashers, guardian family member, or nurses. ? Bite their fingernails or [...] and water are not available, use hand fleet administrative assistant. ? Change your dressing as told by your health care provider. ? If you had an abscess drained, check the area every day for signs of infection. Check for: ? Redness, swelling, or pain. ? Fluid or blood. ? Warmth. ? Pus or a bad smell. Medicines ? Take uouq-xnt-wumqfvx and prescription medicines only as told by [...] your hands might come in contact with recenterer or other chemicals. ? Avoid injuring your [...] Revised: 08/31/2018 (more content not included)... Normal [facility] LIPID PROFILEon 07-26-2022 CHOL-HDL RATIO NORM SEE BELOW Normal [facility] Comment on above: Result Comment: 3.3 - 4.4 LOW RISK 4.4 - 7.1 AVERAGE RISK 7.1 - 11.0 MODERATE RISK >11.0 HIGH RISK Performed By: #### B MP, LIPID #### [facility] [address] [address] [address] Roxanna Hurtado Cholesterol [Mass/Vol] 161 mg/dL Normal <=200 [facility] Comment on above: Performed By: #### B MP, LIPID #### [facility] [address] [address] [address] Roxanna Hurtado Cholesterol in HDL [Mass/Vol] 61 mg/dL Critically high 40-60 [facility] Comment on above: Performed By: #### B MP, LIPID #### [facility] [address] [address] [address] Roxanna Hurtado Cholesterol in LDL [Mass/Vol] 78.0 mg/dL Normal [facility] Comment on above: Performed By: #### B MP, LIPID #### [facility] [address] [address] [address] Roxanna Hurtado Cholesterol.total/Choles terol in HDL [Mass ratio] 2.6 {ratio} Normal [facility] Comment on above: Performed By: #### B MP, LIPID #### [facility] [address] [address] [address] Roxanna Hurtado HDL NORMAL > or = 60 mg/dl - LOW CARDIOVASCULAR RISK <40 mg/dl - HIGH CARDIOVASCULAR RISK Normal [facility] Comment on above: Performed By: #### B MP, LIPID #### [facility] [address] [address] [address] Roxanna Hurtado LDL CALC NORMAL SEE BELOW Normal [facility] Comment on above: Result Comment: <100 mg/dl OPTIMAL 100 - 129 mg/dl NEAR OR ABOVE OPTIMAL 130 - 159 mg/dl BORDERLINE HIGH 160 - 189 mg/dl HIGH >190 mg/dl VERY HIGH Performed By: #### B MP, LIPID #### [facility] [address] [address] [address] Roxanna Hurtado Triglyceride [Mass/Vol] 110 mg/dL Normal <=150 T [facility] Comment on above: Performed By: #### B MP, LIPID #### [facility] [address] [address] [address] Roxanna Hurtado VLDL CALC 22.0 mg/dL Normal [facility] Comment on above: Performed By: #### B MP, LIPID #### [facility] [address] [address] [address] Roxanna Hurtado PROF CHEM 8 (BAS METB)on Anion gap [Moles/Vol] 11.3 mmol/L Normal [facility] Comment on above: Performed By: #### B MP, LIPID #### [facility] [address] [place] [address] Dr. Roxanna Hurtado Calcium [Mass/Vol] 9.0 mg/dL Normal 8.5-10.1 [facility] Comment on above: Performed By: #### B MP, LIPID #### [facility] [address] [place] [address] Dr. Roxanna Hurtado Chloride [Moles/Vol] 107 mmol/L Normal 98-107 [facility] Comment on above: Performed By: #### B MP, LIPID #### [facility] [address] [place] [address] Dr. Roxanna Hurtado CO2 [Moles/Vol] 29.6 mmol/L Normal 21.0-32.0 [facility] Comment on above: Performed By: #### B MP, LIPID #### [facility] [address] [place] [address] Dr. Roxanna Hurtado Creatinine [Mass/Vol] 0.66 mg/dL Normal 0.55-1.02 [facility] Comment on above: Performed By: #### B MP, LIPID #### [facility] [address] [place] [address] Dr. Roxanna Hurtado EGFR-AF CAMEROONIAN >60 Normal >=60 [facility] Comment on above: Performed By: #### B MP, LIPID #### [facility] [address] [place] [address] Dr. Roxanna Hurtado EGFR-NON AF CAMEROONIAN >60 Normal >=60 [facility] Comment on above: Performed By: #### B MP, LIPID #### [facility] [address] [place] [address] Dr. Roxanna Hurtado Glucose [Mass/Vol] 99 mg/dL Normal 74-106 [facility] Comment on above: Performed By: #### B MP, LIPID #### [facility] [address] [place] [address] Dr. Roxanna Hurtado Potassium [Moles/Vol] 3.9 mmol/L Normal 3.5-5.1 [facility] Comment on above: Performed By: #### B MP, LIPID #### [facility] [address] [address] [address] Roxanna Hurtado Sodium [Moles/Vol] 144 mmol/L Normal 136-145 [facility] Comment on above: Performed By: #### B MP, LIPID #### [facility] [address] [address] [address] Roxanna Hurtado Urea nitrogen [Mass/Vol] 24.0 mg/dL Critically high 7.0-18 .0 [facility] Comment on above: Performed By: #### B MP, LIPID #### [facility] [address] [address] [address] Roxanna Hurtado Urea nitrogen/Creatinine [Mass ratio] 36.4 mg/mg Normal [facility] Comment on above: Performed By: #### B MP, LIPID #### [facility] [address] [address] [address] Roxanna Hurtado Vital Signs Date Time Vital Sign Value Performing Clinician Facility 01-14-2025 11:00-0400 Body mass index (BMI) [Ratio] 29.94 kg/m2 [place] L[employer] DO Work Phone: [facility] 01-14-2025 11:00-0400 Body weight 74.84 kg [place] [employer] DO Work Phone: [facility] 01-14-2025 11:00-0400 Diastolic blood pressure 68 mm[Hg] [place] [employer] DO Work Phone: [facility] 01-14-2025 11:00-0400 Systolic blood pressure 120 mm[Hg] [place] [employer] DO Work Phone: [facility] 10-29-2024 [id number] Body height 162.56 cm [facility] 10-29-2024 [id number] Body mass index (BMI) [Ratio] 28.5 kg/m2 [facility] 10-29-2024 [id number] Body weight 75.29 kg [facility] 10-29-2024 10:28-0500 Diastolic blood pressure 61 mm[Hg] [facility] 10-29-2024 10:28-0500 Heart rate 74 /min [facility] 10-29-2024 10:28-0500 SaO2% (BldA) [Mass fraction] 95 % [facility] 10-29-2024 10:28-0500 Systolic blood pressure 116 mm[Hg] [facility] 09-03-2024 10:00-0500 Body mass index (BMI) [Ratio] 29.21 kg/m2 Phoenix Mendez PHYSIOLOGIST Work Phone: [facility] 09-03-2024 10:00-0500 Body weight 73.03 kg Phoenix Mendez PHYSIOLOGIST Work Phone: [facility] 09-03-2024 10:00-0500 Diastolic blood pressure 58 mm[Hg] Phoenix Mendez PHYSIOLOGIST Work Phone: [facility] 09-03-2024 10:00-0500 Heart rate 76 /min Phoenix Mendez PHYSIOLOGIST Work Phone: [facility] 09-03-2024 10:00-0500 SaO2% (BldA) [Mass fraction] 97 % Phoenix Mendez PHYSIOLOGIST Work Phone: [facility] 09-03-2024 10:00-0500 Systolic blood pressure 112 mm[Hg] Phoenix Mendez PHYSIOLOGIST Work Phone: [facility] 06-25-2024 15:01-0400 Body height 162.56 cm [facility] 06-25-2024 15:01-0400 Body mass index (BMI) [Ratio] 29 kg/m2 [facility] 06-25-2024 15:01-0400 Body weight 76.65 kg [facility] 06-25-2024 15:01-0400 Diastolic blood pressure 68 mm[Hg] [facility] 06-25-2024 15:01-0400 Heart rate 80 /min [facility] 06-25-2024 15:01-0400 SaO2% (BldA) [Mass fraction] 98 % [facility] 06-25-2024 15:01-0400 Systolic blood pressure 120 mm[Hg] [facility] 01-31-2023 09:10-0400 Diastolic blood pressure 69 mm[Hg] DO Anu Olivier Work Phone: [facility] 01-31-2023 09:10-0400 Heart rate 62 /min DO Anu Olivier Work Phone: [facility] 01-31-2023 09:10-0400 Respiratory rate 16 /min DO Anu Olivier Work Phone: [facility] 01-31-2023 09:10-0400 SaO2% (BldA) [Mass fraction] 99 % DO Anu Olivier Work Phone: [facility] 01-31-2023 09:10-0400 Systolic blood pressure 108 mm[Hg] DO Anu Olivier Work Phone: [facility] 01-31-2023 08:40-0400 Inhaled oxygen flow rate 5 L/min DO Anu Olivier Work Phone: [facility] 01-31-2023 07:16-0400 Body height 162.56 cm DO Anu Olivier Work Phone: [facility] 01-31-2023 07:16-0400 Body temperature 97.8 [degF] DO Anu Olivier Work Phone: [facility] 01-31-2023 07:16-0400 Body weight 77.11 kg DO Anu Olivier Work Phone: [facility] 12-07-2022 19:30-0400 Body temperature 97.7 [degF] [facility] 12-07-2022 19:30-0400 Diastolic blood pressure 89 mm[Hg] [facility] 12-07-2022 19:30-0400 Heart rate 64 /min [facility] 12-07-2022 19:30-0400 Mean blood pressure 112 mm[Hg] [facility] 12-07-2022 19:30-0400 Respiratory rate 16 /min [facility] 12-07-2022 19:30-0400 SaO2% (BldA) [Mass fraction] 98 % [facility] 12-07-2022 19:30-0400 Systolic blood pressure 157 mm[Hg] [facility] 12-07-2022 19:00-0400 Diastolic blood pressure 79 mm[Hg] [facility] 12-07-2022 19:00-0400 Heart rate 66 /min [facility] 12-07-2022 19:00-0400 Mean blood pressure 105 mm[Hg] [facility] 12-07-2022 19:00-0400 SaO2% (BldA) [Mass fraction] 99 % [facility] 12-07-2022 19:00-0400 Systolic blood pressure 158 mm[Hg] [facility] 12-07-2022 18:00-0400 Diastolic blood pressure 83 mm[Hg] [facility] 12-07-2022 18:00-0400 Heart rate 71 /min [facility] 12-07-2022 18:00-0400 Mean blood pressure 110 mm[Hg] [facility] 12-07-2022 18:00-0400 Systolic blood pressure 163 mm[Hg] [facility] 12-07-2022 16:38-0400 Heart rate 67 /min [facility] 12-07-2022 15:26-0400 Body temperature 97.52 [degF] [facility] 12-07-2022 15:26-0400 Heart rate 80 /min [facility] 11-18-2022 17:14-0400 Blood Pressure Location [facility] 11-18-2022 17:14-0400 Diastolic blood pressure 80 mm[Hg] [employer] [facility] 11-18-2022 17:14-0400 Heart rate 75 /min [employer] [facility] 11-18-2022 17:14-0400 SaO2% (BldA) [Mass fraction] 95 % [employer] [facility] 11-18-2022 17:14-0400 Systolic blood pressure 150 mm[Hg] [employer] [facility] 06-07-2022 14:00-0400 Body height 161.29 cm Tacho Pickens Other [employer] Other 06-07-2022 14:00-0400 Body mass index (BMI) [Ratio] 29.46 kg/m2 Tacho Pickens Other [employer] Other 06-07-2022 14:00-0400 Body temperature 97.5 [degF] Tacho Pickens Other [employer] Other 06-07-2022 14:00-0400 Body weight 76.66 kg Tacho Pickens Other [employer] Other 06-07-2022 14:00-0400 Diastolic blood pressure 70 mm[Hg] Tacho Pickens Other [employer] Other 06-07-2022 14:00-0400 SaO2% (BldA) [Mass fraction] 99 % Tacho Pickens Other [employer] Other 06-07-2022 14:00-0400 Systolic blood pressure 118 mm[Hg] Tacho Pickens Other [facility] Other 01-03-2022 14:04-0400 Blood Pressure Location Mike Elise Jr. [facility] 01-03-2022 14:04-0400 Diastolic blood pressure 76 mm[Hg] Mike Elise Jr. [facility] 01-03-2022 14:04-0400 Heart rate 79 /min Mike Elise Jr. [facility] 01-03-2022 14:04-0400 Systolic blood pressure 150 mm[Hg] Mike Elise Jr. [facility] Encounters Encounter Date Encounter Type Care Provider Facility Start: 01-15-2025 End: 01-15-2025 Patient encounter procedure Malik Elise DPM Work Phone: [facility] Comment on above: Onychomycosis (Prima ry Dx); Pain in both feet Start: 01-15-2025 End: 01-15-2025 ambulatory MALIK ELISE Not Available Start: 01-14-2025 End: 01-14-2025 Bamboo flowsheet Gala Ortizkes DO Work Phone: [facility] Start: 01-14-2025 End: 01-14-2025 Bamboo flowsheet Gala Ortizkes DO Work Phone: [facility] Start: 01-14-2025 End: 01-14-2025 Patient encounter status Gala Ortizkes DO Work Phone: [facility] Start: 01-14-2025 End: 01-14-2025 Periodic preventive med est patient 65yrs& older Gala Mccann DO Work Phone: [facility] Comment on above: Encounter for gyneco logical examination without abnormal finding; Screening for malignant neoplasm of cervix; Encounter for screening mammogram for breast cancer; Screening for osteoporosis; Postmenopausal status, age-related Start: 01-14-2025 End: 01-14-2025 ambulatory GALA MCCANN Not Available Start: 12-25-2024 End: 12-25-2024 Patient encounter procedure Anu Charline DO Work Phone: [facility] Work Phone: Start: 12-25-2024 End: 12-25-2024 ambulatory Anugrazyna Olivier DO Work Phone: [facility] Work Phone: Start: 11-12-2024 End: 11-12-2024 ambulatory MALIK ELISE Not Available Start: 10-29-2024 End: 10-29-2024 ambulatory [facility] Work Phone: Start: 10-29-2024 End: 10-29-2024 Patient encounter procedure [facility] Work Phone: Start: 09-03-2024 End: 09-03-2024 Patient encounter procedure Malik Elise DPM Work Phone: [facility] Comment on above: Onychomycosis (Prima ry Dx); Pain in both feet Start: 09-03-2024 End: 09-03-2024 ambulatory MALIK ELISE Not Available Start: 09-03-2024 End: 09-03-2024 Office outpatient visit 25 minutes Phoenix Mendez PHYSIOLOGIST Work Phone: [facility] Comment on above: Encounter for subseq uent annual wellness visit (AWV) in Medicare patient (Primary Dx); ACP (advance care planning); IFG (impaired fasting glucose); Recurrent mild major depressive disorder with anxiety (CMS/HCC); Mild intermittent asthma without complication (CMS/HCC); SAPNA on CPAP; Combined hyperlipidemia (CMS/HCC); Primary hypertension ([facility]); Irritable bowel syndrome without diarrhea; Vitamin D deficiency; Medication management Start: 09-03-2024 End: 09-03-2024 Patient encounter procedure Phoenix Mendez PHYSIOLOGIST Work Phone: [facility] Work Phone: Start: 09-03-2024 End: 09-03-2024 ambulatory ANU OLIVIER Not Available Start: 08-30-2024 End: 08-30-2024 Clinisync Result Encounter Anu Olivier DO Work Phone: [facility] Unsolicited Start: 08-30-2024 End: 08-30-2024 Clinisync Result Encounter Anu Olivier DO Work Phone: [facility] External Department Unsolicited Start: 06-25-2024 End: 06-25-2024 ambulatory [facility] Work Phone: Start: 06-25-2024 End: 06-25-2024 Patient encounter procedure [facility] Work Phone: Start: 06-18-2024 End: 06-18-2024 Bamboo flowsheet Malik Elise DPM Work Phone: [facility] Start: 06-18-2024 End: 06-18-2024 Bamboo flowsheet Malik Elise DPM Work Phone: [facility] Start: 06-18-2024 End: 06-18-2024 Patient encounter procedure Malik Elise DPM Work Phone: [facility] Comment on above: Onychomycosis (Prima ry Dx); Pain in both feet Start: 06-18-2024 End: 06-18-2024 ambulatory MALIK ELISE Not Available Start: 04-16-2024 End: 04-16-2024 Patient encounter procedure Malik Elise DPM Work Phone: [facility] Comment on above: Onychomycosis (Prima ry Dx); Pain in both feet Start: 04-16-2024 End: 04-16-2024 ambulatory MALIK ELISE Not Available Start: 04-16-2024 End: 04-16-2024 Bamboo flowsheet Malik Elise DPM Work Phone: [facility] Start: 04-16-2024 End: 04-16-2024 Bamboo flowsheet Malik Elise DPM Work Phone: [facility] Start: 02-13-2024 End: 02-13-2024 ambulatory MALIK ELISE Not Available Start: 02-12-2024 End: 02-12-2024 ambulatory ANU OLIVIER Not Available Start: 08-07-2023 End: 08-26-2024 Patient encounter procedure Malik Elise DPM Work Phone: [facility] Work Phone: Start: 01-31-2023 End: 01-31-2023 Admission to same day surgery center DO Anu Olivier Work Phone: [facility] Work Phone: Start: 01-31-2023 End: 01-31-2023 ambulatory DO Anu Olivier Work Phone: [facility] Work Phone: Start: 01-24-2023 End: 01-25-[address] ANU OLIVIER Facility: Start: 12-30-2022 End: 12-30-2022 ambulatory DO Anu Olivier Work Phone: [facility] Work Phone: Start: 12-30-2022 End: 12-30-2022 Departed Referred DO Anu Olivier Work Phone: [facility] [place] Work Phone: Start: 12-20-2022 End: 12-20-2022 ambulatory DO Anu Olivier Work Phone: [facility] Work Phone: Start: 12-20-2022 End: 12-20-2022 Patient encounter procedure DO Anu Olivier Work Phone: [facility] Start: 12-07-2022 End: 12-07-2022 Emergency department patient visit Ellie Lopes [facility] Start: 12-07-2022 End: 12-07-2022 Emergency department patient visit [facility] Start: 11-18-2022 End: 11-19-2022 ambulatory Guerline X Orzech [facility] Start: 11-18-2022 End: 11-18-2022 Lab Drop off [place] X Orzech [facility] Start: 11-18-2022 End: 11-18-2022 Patient encounter procedure [place] [facility] Start: 08-16-2022 End: 08-16-2022 ambulatory Danis Sneed Other [employer] Other Start: 08-16-2022 Telephone encounter Danis Hull [facility] [employer] Start: 07-26-2022 End: 07-27-[address] ANU OLIVIER Facility: Start: 06-07-2022 Office outpatient vi sit 25 minutes Tacho [facility] Start: 06-07-2022 End: 06-07-2022 ambulatory DO Anu Olivier Work Phone: [employer] Other Start: 06-07-2022 End: 06-07-2022 Patient encounter procedure DO Anu Olivier Work Phone: [facility] Start: 01-03-2022 End: 01-03-2022 Patient encounter procedure Mike Elise Jr. [facility] [place] Start: 04-12-2016 Adult health examination Tacho Pickens Other [facility] Other Procedures Date Procedure Procedure Detail Performing Clinician Start: 12-25-2024 End: 12-25-2024 Screening mammography of bilateral breasts Anu Olivier DO Work Phone: Start: 08-30-2024 MLR HEMOGLOBIN A1C Dave geronimo Michel AnayaCharline DO Work Phone: Start: 09-26-2023 Mammography Malik Elise DPM Work Phone: Start: 01-31-2023 End: 01-31-2023 Colonoscopy DO Anu Olivier Work Phone: Start: 01-03-2022 Cystoscopy Mike wood Jr. Start: 12-10-2018 Cystourethroscopy [facility] dilation of urethral stricture Mike Elise Jr. Bilateral tubal ligation Ryan Elise Jr. section Mike banks Jr. Comment on above: x2 Colonoscopy Mike Cantu Prosthetic arthropla sty of the hip Mike Elise Jr. Comment on above: right Tonsillectomy Mike villeda Plan of Treatment Date Care Activity Detail Author Start: 02-01-2028 Screening for malign ant neoplasm of colon [facility] Start: 01-20-2026 End: 01-20-2026 Patient encounter procedure 01/20/2026 11:30 AM EDT Office Visit [facility] [address] [place] [id number] Gala Mccann DO [address] [place] [address] [facility] Start: 01-14-2026 End: 03-16-2026 DBT Breast - bilateral screening Bilateral screening mammogram with tomosynthesis Imaging Routine Encounter for screening mammogram for breast cancer Expected: 01/14/2026, Expires: 03/16/2026 [facility] Comment on above: Expected: 01/14/2026 , Expires: 03/16/2026 Start: 01-14-2026 End: 01-14-2026 DXA Skeletal system Views for bone density DEXA bone density Imaging Routine Screening for osteoporosis Postmenopausal status, age-related Expected: 01/14/2026, Expires: 01/14/2026 [facility] Comment on above: Expected: 01/14/2026 , Expires: 01/14/2026 Start: 01-14-2026 Medicare Annual Wellness (AWV) Medicare Annual Wellness (AWV) [facility] Start: 12-25-2025 Screening for malign ant neoplasm of breast [facility]ammogram [facility] Start: 09-03-2025 Medicare Annual Wellness (AWV) Medicare Annual Wellness (AWV) [facility] Start: 05-20-2025 End: 05-20-2025 Patient encounter procedure 05/20/2025 8:00 AM EDT Procedure Visit [facility] [address] [place] [address] Malik Elise DPM [address] [place] [address] [facility] Start: 03-18-2025 End: 03-18-2025 Patient encounter procedure 03/18/2025 10:15 AM EDT Procedure Visit [facility] [address] [place] [id number] Malik Elise, DPM [address] [place] [address] [facility] Start: 03-04-2025 End: 03-04-2025 Patient encounter procedure 03/04/2025 9:30 AM EDT Office Visit [facility] [address] [place] [address] Anu Olivier DO [address] [address] [place] [address] [facility] Start: 03-03-2025 End: 09-03-2025 25-hydroxyvitamin D3 [Mass/volume] in Serum or Plasma Vitamin D 25 hydroxy Total Lab Routine Vitamin D deficiency Expected: 03/03/2025, Expires: 09/03/2025 [facility] Comment on above: Expected: 03/03/2025 , Expires: 09/03/2025 Start: 03-03-2025 End: 09-03-2025 Comprehensive metabolic 2000 panel - Serum or Plasma Comprehensive metabolic panel Lab Routine IFG (impaired fasting glucose) Primary hypertension (CMS/HCC) Expected: 03/03/2025, Expires: 09/03/2025 [facility] Work Phone: Comment on above: Expected: 03/03/2025 , Expires: 09/03/2025 Start: 03-03-2025 End: 09-03-2025 Hemoglobin a1c with eag Hemoglobin a1c with eag Lab Routine IFG (impaired fasting glucose) Expected: 03/03/2025, Expires: 09/03/2025 [facility] Comment on above: Expected: 03/03/2025 , Expires: 09/03/2025 Start: 03-03-2025 End: 09-03-2025 HEMOGRAM [place] DIFF [place] CBC WITHOUT DIFF [place] Lab Routine Medication management Expected: 03/03/2025 (Approximate), Expires: 09/03/2025 [facility] Comment on above: Expected: 03/03/2025 (Approximate), Expires: 09/03/2025 Start: 03-03-2025 End: 09-03-2025 Lipid 1996 panel - Serum or Plasma Lipid panel Lab Routine Combined hyperlipidemia (CMS/HCC) Expected: 03/03/2025, Expires: 09/03/2025 [facility] Comment on above: Expected: 03/03/2025 , Expires: 09/03/2025 Start: 03-03-2025 End: 09-03-2025 Microalbumin/Creatinine panel in random Urine Microalbumin / creatinine urine ratio Lab Routine IFG (impaired fasting glucose) Primary hypertension (CMS/HCC) Expected: 03/03/2025, Expires: 09/03/2025 [facility] Comment on above: Expected: 03/03/2025 , Expires: 09/03/2025 Start: 03-03-2025 End: 09-03-2025 Thyrotropin [Units/volume] in Serum or Plasma TSH Lab Routine Medication management Expected: 03/03/2025, Expires: 09/03/2025 [facility] Comment on above: Expected: 03/03/2025 , Expires: 09/03/2025 Start: 01-15-2025 End: 01-15-2025 Patient encounter procedure 01/15/2025 8:00 AM EDT Procedure Visit [facility] [address] [place] [id number] Malik Elise, DPM [address] [place] [address] [facility] Start: 01-14-2025 End: 01-14-2025 Patient encounter procedure [facility] Comment on above: Encounter for gyneco logical examination without abnormal finding; Screening for malignant neoplasm of cervix; Encounter for screening mammogram for breast cancer Start: 11-12-2024 End: 11-12-2024 Patient encounter procedure 11/12/2024 10:00 AM EDT Procedure Visit [facility] [address] [place] [address] Malik Elise, DPM [address] [place] [address] [facility] Start: 09-26-2024 Screening for malign ant neoplasm of breast Mammogram [facility] Start: 09-03-2024 End: 09-03-2024 Patient encounter procedure [facility] Comment on above: Arrived Start: 09-03-2024 End: 09-03-2024 Patient encounter procedure [facility] Comment on above: Encounter for subseq uent annual wellness visit (AWV) in Medicare patient (Primary Dx); ACP (advance care planning) Start: 08-07-2024 Medicare Annual Wellness (AWV) Medicare Annual Wellness (AWV) [facility] Start: 06-18-2024 End: 06-18-2024 Patient encounter procedure [facility] Comment on above: Arrived Start: 04-28-2024 Influenza vaccination Influenza Vacc ine (#1) [facility] Start: 04-16-2024 End: 04-16-2024 Patient encounter procedure 04/16/2024 4:45 PM EDT Procedure Visit [facility] [address] [place] [address] Malik Elise DPM [address] [place] [address] Arrived [facility] Comment on above: Arrived Start: 08-02-2023 Medicare Annual Wellness (AWV) Medicare Annual Wellness (AWV) [facility] Start: 01-31-2023 [facility] Start: 1950 Screening for malign ant neoplasm of colon [facility] IGP, RFX APTIMA HPV ASCU IGP, RFX APTIMA HPV ASCU Lab Routine Screening for malignant neoplasm of cervix Ordered: 01/14/2025 [facility] Work Phone: Comment on above: Ordered: 01/14/2025 Immunizations Immunization Date Immunization Notes Care Provider Fa cility 06-03-2023 Influenza, Seasonal, Quadrivalent, Adjuvanted Malik MELGARM Work Phone: [facility] 06-03-2023 influenza virus vaccine, unspecified formulation Malik MELGARM Work Phone: [facility] 12-07-2022 tetanus toxoid, reduced diphtheria toxoid, and acellular pertussis vaccine, adsorbed [facility] Comment on above: Result Comment: LEFT DELTOID 06-12-2022 Influenza, High-dose Seasonal, Quadrivalent, Preservative Free Malik Elise DPM Work Phone: [facility] 06-30-2021 COVID-19, mRNA, LNP- S, PF, 100 mcg or 50 mcg dose; Translations: [SARS-CoV-2 (COVID-19) mRNA-1273 vaccine] Mike Arik Jones [facility] 06-02-2021 Influenza, High-dose Seasonal, Quadrivalent, Preservative Free Malik Elise DPM Work Phone: [facility] 09-28-2020 SARS-CoV-2 (COVID-19 ) Ad26 vaccine, recombinant Mike Arik Cook. [facility] 08-28-2020 SARS-CoV-2 (COVID-19 ) Ad26 vaccine, recombinant Mike Elise . [facility] 06-01-2020 Influenza, Seasonal, Quadrivalent, Adjuvanted Malik Elise DPM Work Phone: [facility] 06-28-2019 Seasonal trivalent influenza vaccine, adjuvanted, preservative free Malik Elise DPM Work Phone: [facility] 06-12-2019 influenza, high dose seasonal, preservative-free Malik Elise DPM Work Phone: [facility] 08-03-2018 zoster vaccine recombinant Tacho Pickens Other [employer] Other 06-14-2018 influenza, seasonal, injectable, preservative free Malik Elise DPM Work Phone: [facility] 05-21-2018 influenza, injectabl e, quadrivalent, preservative free Malik Elise DPM Work Phone: [facility] 05-21-2018 influenza, injectabl e, quadrivalent, contains preservative Tacho Pickens Other [facility] Other 05-11-2018 zoster vaccine recombinant Malik Elise DPM Work Phone: [facility] 09-22-2017 pneumococcal polysaccharide vaccine, 23 valent Malik Elise DPM Work Phone: [facility] 05-30-2017 influenza, injectabl e, quadrivalent, contains preservative Malik Elise DPM Work Phone: [facility] 05-05-2017 influenza, high dose seasonal, preservative-free Malik Elise DPM Work Phone: [facility] 06-08-2016 influenza, high dose seasonal, preservative-free Malik Elise DPM Work Phone: [facility] 06-08-2016 influenza, seasonal, injectable Tacho Pickens Other [facility] 05-02-2016 influenza, seasonal, injectable, preservative free Malik Elise DPM Work Phone: [facility] 11-13-2015 pneumococcal conjuga te vaccine, 13 valent Tacho Pickens Other [facility] Other 07-08-2015 influenza, seasonal, injectable Tacho Pickens Other [facility] 07-07-2015 influenza, seasonal, injectable, preservative free Malik Elise DPM Work Phone: [facility] 09-02-2014 hepatitis A vaccine, adult dosage Malik Elise DPM Work Phone: [facility] 06-26-2014 influenza, seasonal, injectable, preservative free Malik Elise DPM Work Phone: [facility] 02-24-2014 hepatitis A vaccine, adult dosage Malik Elise DPM Work Phone: [facility] 02-17-2014 tetanus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 Hypertension (CMS/HCC) Kidney cysts Left breast lump 1989 x2 Osteoarthritis R hip Sleep apnea white blood cells in urine SURGICAL HISTORY: Past Surgical History: Procedure Laterality Date ADENOIDECTOMY BREAST BIOPSY Left CATARACT EXTRACTION Bilateral 12/2023 SECTION, CLASSIC x2 SECTION, LOW TRANSVERSE 1978, 1981 COLONOSCOPY COLONOSCOPY 2013 every 5 years d/t family history colon cancer COLONOSCOPY [id number] [place] INTRAVENOUS PYELOGRAM FOLLOW UP WITH PROVIDER Procedure:urologist follows;Disease:white blood cells in urine HYSTEROSCOPY 12/30/2022 [facility] MS MEDICATION MANAGEMENT Procedure:zoloft 100mg;Disease:hx depression MS MEDICATION MANAGEMENT Procedure:prevastatin 40mg;Disease:high cholesterol TONSILLECTOMY TOTAL HIP ARTHROPLASTY Right 09/2016 TUBAL LIGATION SOCIAL HISTORY: Social History Tobacco Use Smoking status: Never Passive exposure: Never Smokeless tobacco: Never Substance Use Topics Alcohol use: Not Currently Comment: Caffeine intake: iced tea in summer Drug use: Never Depression: Not at risk (09/03/2024) PHQ-2 PHQ-2 Score: 0 FAMILY HISTORY: Family History Problem Relation Name Age of Onset Retinal detachment Mother Chalino Elise Breast cancer Mother Chalino Elise Colon cancer Mother Chalino Elise Arthritis Mother Chalino Elise Cancer Mother Chalino Elise Glaucoma Father Rene Elise Hypertension Father Rene Elise Heart disease Father Rene Elise Accidental Father Rene Elise Thyroid disease Sister Breast cancer Father's Sister Thyroid disease Sibling Breast cancer Niece Breast cancer Other paternal aunt Asthma Father's Brother Jarred Elise MEDICATIONS: Current Outpatient Medications Medication Instructions albuterol HFA (Ventolin HFA) 90 mcg/act inhaler 2 puffs, Inhalation, Every 4 hours PRN calcium carbonate 1500 (600 Ca) MG tablet 1 tablet, Daily fluticasone (Flonase) 50 MCG/ACT nasal spray 2 sprays, Each Nostril, Daily Fluticasone Propionate, Inhal, (Flovent Diskus) 100 MCG/ACT aerosol powder 1 puff, Daily hydroCHLOROthiazide (HYDRODiuril) 25 MG tablet TAKE 1 TABLET BY MOUTH EVERY DAY IN THE MORNING irbesartan (AVAPRO) 150 mg, Oral, Daily Multiple Vitamin (multivitamin) tablet 1 tablet, Daily Multiple Vitamins-Minerals (Eye Vitamins) capsule 1 capsule, Daily Probiotic Product (PROBIOTIC DAILY PO) 1 capsule, Every 24 hours psyllium (Metamucil) 0.52 g capsule 3 capsules, Every 24 hours Respiratory Therapy Supplies (CareTouch CPAP & BIPAP Hose) misc misc use nightly rosuvastatin (Crestor) 10 MG tablet TAKE 1 TABLET BY MOUTH EVERY DAY IN THE EVENING sertraline (Zoloft) 100 MG tablet TAKE 1 TABLET BY MOUTH EVERY DAY Sodium Fluoride 5000 PPM 1.1 % paste USE DIRECTED ALLERGIES: Allergies Allergen Reactions Codeine GI upset Immunization History Administered Date(s) Administered Hep A, Adult 02/24/2014, 09/02/2014 Influenza, High Dose Seasonal, Preservative Free 06/08/2016, 05/05/2017, 06/12/2019 Influenza, High-dose Seasonal, Quadrivalent, Preservative Free 06/02/2021, 06/12/2022 Influenza, Seasonal, Quadrivalent, Adjuvanted 06/01/2020, 06/03/2023 Influenza, injectable, quadrivalent 05/30/2017 Influenza, injectable, quadrivalent, preservative free 05/21/2018 Influenza, seasonal, injectable, preservative free 06/26/2014, 07/07/2015, 05/02/2016, 06/14/2018 Influenza, trivalent, adjuvanted 06/28/2019 Moderna SARS-CoV-2 Vaccination 09/11/2020, 10/09/2020, 06/30/2021 Pneumococcal Conjugate PCV 13 11/13/2015 Pneumococcal Polysaccharide PPSV23 09/02/2012, 09/22/2017 SARS-COV-2 (COVID-19) vaccine, mRNA, spike protein, LNP, PF, jacqueline-sucrose, 30 mcg/0.3 mL 06/03/2023, 05/19/2024 SARS-COV-2 (COVID-19) vaccine, mRNA, spike protein, LNP, bivalent, preservative free, 30 mcg/0.3 mLdose, jacqueline-sucrose formulation 06/12/2022 Tdap 02/17/2014, 12/07/2022 Zoster, Recombinant 05/11/2018, 08/03/2018 Zoster, live 01/07/2013 PHYSICAL EXAM: Visit Vitals BP 112/58 Pulse 76 Wt 161 lb SpO2 97% BMI 29.21 kg/m Smoking Status Never BSA 1.79 m BP Readings from Last 3 Encounters: 09/03/24 112/58 02/12/24 138/70 12/20/23 120/60 Wt Readings from Last 3 Encounters: 09/03/24 161 lb 02/12/24 180 lb 12/20/23 177 lb Physical Exam Constitutional: General: She is awake. She is not in acute distress. Appearance: She is well-developed. HENT: Head: Normocephalic. Right Ear: Tympanic membrane normal. Left Ear: Tympanic membrane normal. Nose: Nose normal. Mouth/Throat: Mouth: Mucous membranes are moist. Pharynx: Oropharynx is clear. Eyes: Extraocular Movements: Extraocular movements intact. Neck: Thyroid: No thyromegaly. Vascular: No carotid bruit. Cardiovascular: Rate and Rhythm: Normal rate and regular rhythm. Pulses: Posterior tibial pulses are 1+ on the right side and 1+ on the left side. Heart sounds: Normal heart sounds. No murmur heard. No gallop. Pulmonary: Effort: Pulmonary effort is normal. No respiratory distress. Breath sounds: Normal breath sounds. No wheezing, rhonchi or rales. Chest: Chest wall: No tenderness. Abdominal: General: Bowel sounds are normal. There is no distension. Palpations: Abdomen is soft. There is no hepatomegaly, splenomegaly or mass. Tenderness: There is no abdominal tenderness. Musculoskeletal: General: No deformity. Normal range of motion. Cervical back: Normal range of motion and neck supple. No rigidity or tenderness. Right lower leg: No edema. Left lower leg: No edema. Lymphadenopathy: Cervical: No cervical adenopathy. Skin: General: Skin is warm and dry. Neurological: Mental Status: She is alert and oriented to person, place, and time. Motor: No weakness. Gait: Gait is intact. Psychiatric: Mood and Affect: Mood normal. Mood is not anxious or depressed. Behavior: Behavior is cooperative. Thought Content: Thought content normal. Cognition and Memory: Cognition normal. Judgment: Judgment normal. Results Laboratory Studies Sodium was 143. Potassium was 3.5. Blood sugar was 95. GFR was greater than 60. Total protein was 6.9. Total cholesterol was 150, HDL was 60, LDL was 75. A1c was 5.8. ASSESSMENT AND PLAN: Assessment & Plan 1. Encounter for subsequent annual wellness visit (AWV) in Medicare patient (Primary) -A wellness visit was completed with the patient today by Phoenix Mendez NP. Demographics updated.The past medical history, family history, and social history reviewed and updated. The medication list (including supplements) has been reconciled. -A list of other providers involved with the patient's care and any durable medical goods providers documented. -Depression screening was completed andaddressed as indicated. Cognitive function was assessed by direct observation and assessment of ability to perform ADLs and iADLs was done. As well as Mini-Cog assessment. -We reviewed, and discussedas indicated, safety issues, including falls risk assessment. -Time was spent reviewing and discussi ng age-appropriate screenings, immunizations and indicated laboratory monitoring. -We discussed Advanced Directives and code status and this information was updated in the chart. -BMI was assessed. Educational handout with tips for healthy diet, exercise and lifestyle modifications that will promote achieving or maintaining a healthy weight provided. The BMI will be monitored at routine office appointments as well . -Major risk factors for heart disease were identified and modifiable risk factors discussed. -A Care Plan ( Report card ) was provided to patient at the end of the appointment. Included in this is recommendations for when any testing or immunizations need to be repeated. Her blood pressure readings are within the normal range at 112/58. Her body mass index (BMI) is 29.21, which is considered appropriate for her age. She has received both shingles and pneumonia vaccines, and her last influenza vaccine was administered in April 2024. She underwent a colonoscopy in 2021, which yielded normal results. Her most recent mammogram was conducted in November 2023. Her laboratory results indicate normal sodium levels at 143, slightly low potassium levels at 3.5, and excellent blood glucose control with a reading of 95. Her kidney function is optimal with a GFR exceeding 60, and her liver function tests are within normal limits. Her total protein level is satisfactory at 6.9. Her lipid profile shows a total cholesterol level of 150, HDL of 60, and LDL of 75, all of which are within the desired range. Her hemoglobin A1c is well controlled at 5.8. She is currently on rosuvastatin for cholesterol management and takes vitamin D supplements at a dose of 1000 units per day. She is advised to incorporate potassium-rich foods into her diet, such as potatoes, hams, bana lili, and kiwi. A comprehensive metabolic panel (CMP), complete blood count (CBC), thyroid function tests, and vitamin D levels will be ordered. A urine sample will also be collected for analysis. 2. ACP (advance care planning) -has a living will and POA -full code 3. IFG (impaired fasting glucose) - Comprehensive metabolic panel; Future - Hemoglobin a1c with eag; Future - Microalbumin / creatinine urine ratio; Future 4. Recurrent mild major depressive disorder with anxiety (CMS/HCC) -She is currently on sertraline 100 mg, which she reports is a good dose for her. She is advised tocontinue her current medication. 5. Mild intermittent asthma without complication (CMS/HCC) -She reports no recent flare-ups and is using her CPAP as prescribed. She is advised to continue her current inhalers and CPAP use. 6. SAPNA on CPAP -She reports no recent flare-ups and is using her CPAP as prescribed. She is advised to continue her current inhalers and CPAP use. -wears c-pap 7. Combined hyperlipidemia (CMS/HCC) - Lipid panel; Future -Her lipid profile is well controlled on her current dose of rosuvastatin. She is advised to continue her current medication. 8. Primary hypertension (CMS/HCC) - Comprehensive metabolic panel; Future - Microalbumin / creatinine urine ratio; Future -Her blood pressure is well controlled on her current regimen of hydrochlorothiazide and irbesartan. She is advised to continue her current medications. 9. Irritable bowel syndrome without diarrhea -She reports that her IBS has been well-controlled for about a month, which she attributes to stress management and dietary changes, including the use of a probiotic and Olipop. She is advised to continue her current regimen and monitor for any changes. 10. Vitamin D deficiency - Vitamin D 25 hydroxy Total; Future 11. Medication management - HEMOGRAM CBC WITHOUT DIFF ([facility]); Future - TSH; Future documented in this encounterSaint John's [id number] History of Present illness Narrative* Malik Elise DPM - 06/18/2024 11:30 AM EDT Images from the original note were not [...] pain and problems developing from the overgrowth ofthe toenails. documented in this encounterSaint John's [id number] History of Present illness Narrative* Malik Elise DPM - 04/16/2024 4:45 PM EDT HPI: Diabetic/Routine Nail Care: Patient presents in [...] pain and problems developing from the overgrowth ofthe toenails. Malik Elies DPM documented in this encounterSaint John's [id number] Procedure [facility]04-12-2023 Hospital Discharge instructions Patient Education 12/07/2022 19:26:16 [...] exam. During the exam, the health care providerwill: Gently feel the nose for signs of [...] be able to do this in his orher office after you are given medicine to [...] minutes, 2 3 times a day. Take adqu-slw-vwovwke and prescription medicines only as told by [...] provider may need to move the bones backinto proper position. In some cases, surgery may be needed. This information is not intended to replace advice given to you by your health care provider. Make sure you discuss any questions you have with your health care provider. Document Released: 08/11/2001 Document Revised: 01/15/2019 Document Reviewed: 01/15/2019 iPourit Patient Education 2020 [employer]. Follow Up Care 12/07/2022 15:24:27 With:ANU CHARLINE Address: [address] [place] [id number] When:12/10/2022 19:26:02 Comments:Call the office of your [...] you develop any new or worsening symptoms. [facility]04-12-2023 Evaluation + Plan noteExtracted from: Title:ED Note Author:Damian Schuster PA-C e:12/07/22 [...] w/o Contrast CT Spine Cervical w/o Contrast [facility]03-28-2023 NoteMicrobiology PROCEDURE: Wound Culture [R1] SOURCE: Drainage BODY SITE: Fingernail COLLECTED DATE/TIME: 11/18/2022 17:55 EDT RECEIVED DATE/TIME: 11/19/2022 14:41 EDT START DATE/TIME: 11/19/2022 14:41 EDT FREE TEXT SOURCE: Minna ALVARADO, AUTOMOTIVE PARTS COUNTER ASSOCIATE-C, EDWARDO Buitrago APRNP-C, Guerline X Guerline X FINAL REPORTS Final [...] Interp Amoxicillin/ <=4/2 S Clavulanate Ampicillin <=2 PHOBEE Ampicillin/ <=8/4 S Sulbactam Azithromycin <=2 S Cefazolin <=8 S Ceftaroline <=0.5 S Ciprofloxacin <=1 S Clindamycin 0.5 S Daptomycin <=1 S Erythromycin <=0.5 S Gentamicin <=4 S Levofloxacin <=1 S Linezolid <=2 S Nitrofurantoin <=32 Oxacillin <=0.25 S Penicillin 2 PHOEBE Rifampin <=1 S Tetracycline >8 R Trimethoprim/ <=0.5/9.5 S Sulfa Vancomycin 1 S Performing Locations R1: This test was performed at: [facility], [address] [place] [address], [phone]- , [place], YltrwbDayton Children'S HospitalComment on above:Performed By: #### [id number] ####[facility] [address] [place], [place] [id number] Hospital Discharge instructions Patient Education 11/18/2022 17:49:25 [...] such as those who work as dishwashers, guardian family member, or nurses. Bite their fingernails or suck [...] and water are not available, use hand fleet administrative assistant. ?Change your dressing as told by your health care provider. If you had an abscess drained, check the area every day for signs of infection. Check for: ?Redness, swelling, or pain. ?Fluid or blood. ?Warmth. ?Pus or a bad smell. Medicines Take npaz-pwm-gqhahdm and prescription medicines only as told by [...] your hands might come in contact with recenterer or other chemicals. ?Avoid injuring your nails [...] 02/07/2002 Document Revised: 08/31/2018 Document Reviewed: 08/27/2018 [employer]Pour[employer] Patient Education 2020 [employer]. 11/18/2022 17:49:21 Cellulitis, Adult Cellulitis, Adult Cellulitis [...] Follow these instructions at home: Medicines Take ldtk-dvz-dzpptrr and prescription medicines only as told by [...] such as antibiotic medicines or antihistamines. Take prfv-ssd-svvxgmy and prescription medicines only as told by [...] 05/24/2006 Document Revised: 01/03/2019 Document Reviewed: 01/03/2019 [employer]Pour[employer] Patient Education 2020 [employer]. 11/18/2022 17:49:17 BMI for Adults BMI for [...] height. This can be done either in Sami ([place] or metric measurements. Note that charts are available to help you find your BMI quickly and easily without having to do these calculations yourself. To calculate your BMI in Sami ([place] measurements, your health care provider will: [...] medical problems. BMI can be measured using Sami measurements or metric measurements. To interpret your [...] 04/25/2005 Document Revised: 07/27/2018 Document Reviewed: 06/27/2018 [employer]Pour[employer] Patient Education 2019 [employer]Path. Follow Up Care 11/18/2022 17:06:30 With:ANU OLIVIER DO, [facility] Address: [address] [place] [id number] When: Unknown [facility] 03-24-2023 Evaluation + Plan note Diagnostic Tests Pending * Wound Culture 11/18/22 [facility]10-11-2022 Evaluation note* Encounter Date Diagnosis Assessment Notes [...] sleepiness, or poor response to treatment. . [facility] Other 05-09-2022 Hospital Discharge instructions Patient Education [...] Follow these instructions at home: Medicines Take jcuj-rqb-fivnymp and prescription medicines only as told by [...] or the blood stops without treatment. Take wudj-tbi-iamgulw and prescription medicines only as told by your health care provider. Drink enough fluid to keep your urine clear or pale yellow. This information is not intended to replace advice given to you by your health care provider. Make sure you discuss any questions you have with your health care provider. Document Released: 08/14/2006 Document Revised: 01/08/2020 Document Reviewed: 09/16/2017 [employer]Pourit Patient Education 2019 [employer]Path. Follow Up Care 12/22/2021 14:16:00 With:Arik Jones MD, Mike Rosenthal, [facility] Address: [facility] [address], [place] [address]- When: only if needed [facility] [id number] History general Narrative - Reported* Type Description [...] HIP REPL ACEMENT - DR LUNA IN [place], [place] 10-11-2016 Hospitalization History SEE ABOVE Hospitalization History HIP REPLACEMENT [employer] Other Evaluation + Plan note No data available for this section [facility] [place] Evaluation noteNo assessment information available [facility] Work Phone: [email or web address] noteNo InformationNort Nangate Other Evaluation note* Diagnosis Onset Date Resolution Status Family history of colon canc er requiring screening colonoscopy acute [facility] Work Phone: Evaluation note* Diagnosis Onychomycosis- Primary Dermatophytosis of nail Pain in both feet documented in this encounter [facility]* Diagnosis Onychomycosis- Primary Dermatophytosis of nail Pain in both feet documented in this encounter [facility] HealthcareEvaluation [facility]* Diagnosis Encounter for subsequent annual wellness visit (AWV) in Medicare patient- Primary ACP (advance care planning) Other specified counseling IFG (impaired fasting glucose) Recurrent mild major depressive disorder with anxiety ([facility]/HCC) Mild intermittent asthma without complication ([facility]/HCC) SAPNA on CPAP Combined hyperlipidemia (CMS/HCC) Other and unspecified hyperlipidemia Primary hypertension ([facility]/HCC) Unspecified essential hypertension Irritable bowel syndrome without diarrhea Vitamin D deficiency Medication management documented in this encounter [facility]* Diagnosis Onychomycosis- Primary Dermatophytosis of nail Pain in both feet documented in this encounter [facility]* Diagnosis Onset Date Resolution Status Admit Date Essential (primary) hypertension acu te October 29, 2024 10:04am Insufficient sleep syndrome acute October 29, 2024 10:04am Obstructive sleep apnea (chris lt) (pediatric) acute October 29, 2024 10:04am [facility] Work Phone: Evaluation note* Diagnosis Encounter for gynecological examination without abnormal finding Screening for malignant neoplasm of cervix Screening for malignant neoplasm of the cervix Encounter for screening mammogram for breast cancer Screening for osteoporosis Special screening for osteoporosis Postmenopausal status, age-related documented in this encounter [facility] instructions No data available for this section [facility] Additional Instructions DISCHARGE INSTRUCTIONS FOR [...] if you have any problems. -[facility] number [phone] Work Phone: Progress note No data available for this section [facility] Care Chief Complaint and Reason for Visit Chief Complaint Admit Date SAPNA October 29, 2024 10:0 4am Screening December 25, 2024 8:3 2am Reason for Visit Admit Date Essential (primary) hypertension October 292024 10:04am Insufficient sleep syndrome October 29, 025 10:04am Obstructive sleep apnea (adult) (pediatr ic) October 29, 2024 10:04am Chief Complaint Sleep apnea annual f ollow up Chief Complaint z01.818 Chief Complaint z01.818 PMB Hx of Colon Polyps Reason for Visit Family history of co sukh cancer requiring screening colonoscopy Chief Complaint SAPNA/Annual Chief Complaint Admit Date SAPNA October 29, 2024 10:0 4am Advance Directives No Advanced Directives Records Found Advance Directive Response Recorded Date/ Time Advance Directives No September 28, 2017 10:28am Date Activated Date Inactivated Comments 08/07/2023 9:31 AM Advance Directive Response Recorded Date/ Time Advance Directives No September 28, 2017 9:28am Summary Purpose Family History No Family History [...] Active Danis Sneed MD Attending Provider Active 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 Start Date End Date Anu Olivier DO [address] [place] [address] PCP - ACO Reach 01/19/23 Anu Olivier DO [address] [place] [address] PCP - General Internal Medicine 09/27/23 Gala Mccann DO [address] [place] [address] Referring Physician Obstetrics and Gynecology 08/07/23 Fletcher Ewing OD [address] [place] [address] Referring Physician Optometry 10/24/23 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 Start Date End Date Anu Olivier DO [address] [place] [address] PCP - ACO Reach 01/19/23 Anu Olivier DO [address] [place] [address] PCP - General Internal Medicine 09/27/23 Gala Mccann DO [address] [place] [address] Referring Physician Obstetrics and Gynecology 08/07/23 Fletcher Ewing, OD [address] [place] [address] Referring Physician Optometry 10/24/23 Team Status: Inactive Member Role Status Dates Anu Olivier DO Primary Care Provider Active Start: June 25, 2024 End: June 25, 2024 Tacho Pickens MD Attending Provider Active S tart: June 25, 2024 End: June 25, 2024 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 Start Date End Date Anu Olivier DO [address] [place] [address] PCP - ACO Reach 01/19/23 Anu Olivier DO [address] [place] [address] PCP - General Internal Medicine 09/27/23 Gala Mccann DO [address] [place] [address] Referring Physician Obstetrics and Gynecology 08/07/23 Fletcher Ewing, OD [address] [place] [address] Referring Physician Optometry 10/24/23 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 Start Date End Date Anu Olivier DO [address] [place] [address] PCP - ACO Reach 01/19/23 Anu Olivier DO [address] [place] [address] PCP - General Internal Medicine 09/27/23 Gala Mccann DO [address] [place] [address] Referring Physician Obstetrics and Gynecology 08/07/23 Fletcher Ewing OD [address] [place] [address] Referring Physician Optometry 10/24/23 Team Status: Inactive Member Role Status Dates Anu Olivier DO Primary Care Provider Active Start: October 29, 2024 End: October 29, 2024 Dona Martinez NP Attending Provider Active Start: October 29, 2024 End: October 29, 2024 Team Status: Inactive Member Role Status Dates Anu Olivier DO Primary Care Provide r, Referring Provider Active Start: December 25, 2024 End: December 25, 2024 Referral Self Attending Provider Active Start: Michel herrera 2024 End: December 25, 2024 Gala Mccann DO Other Provider Active Start : December 25, 2024 End: December 25, 2024 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 Start Date End Date Anu Olivier DO [address] [place] [address] PCP - ACO Reach 01/19/23 Anu Olivier DO [address] [place] [address] PCP - General Internal Medicine 09/27/23 Gala Mccann DO [address] [place] [address] Referring Physician Obstetrics and Gynecology 08/07/23 Fletcher Ewing OD [address] [place] [address] Referring Physician Optometry 10/24/23 Goals (unrecognized section and content) Goals may be documented in a n alternate section REASON FOR VISIT (unrecogniz ed section and content) Reason Comments Gynecologic Exam Pt up to date with m ammogram. Denies concerns, Denies bowel/bladder/breast concerns. Denies vaginal bleeding/spotting. Reason Comments 6 Month Follow-up Pt is being seen tovincent baker for her 6 month follow up. Pt had lab work done in preparations for todays visit, results and recommendations will be reviewed with them. Pt. Is going to be do for an MMG on 08/2024 Medicare Annual Wellness Vis it Subsequent MAIL PPW INFORMATION SOURCE (unrecogn ized section and content) DATE CREATED AUTHOR 01/04/2023 [facility] DATE CREATED AUTHOR AUTHOR'S ORGANIZ ATION 02/05/2023 [facility] [place] DATE CREATED AUTHOR AUTHOR'S ORGANIZ ATION 01/01/2025 [facility] DATE CREATED AUTHOR AUTHOR'S ORGANIZ ATION 01/15/2025 [facility] dical Specialists [facility] FOR RECORDS PERTAINING TO PATIENTS WHO [...] BE BASED ON THE PRIMARY CLINICAL RECORDS. [employer] provides no warranty or guarantee of the accuracy or completeness of information in this document.
--- OUTSIDE RECORDS SUMMARY | 2025-02-25 07:12 | XMS_ITS | Clinical Summary ---
Author Organization [facility] Address [address] [place] [address] Care Team Providers Care Malt Specifications Control Assistant Name Role Phone Unavailable Primary Care Provider Unavailabl e Allergies Active Allergy Reactions Criticality Noted Date Comments Codeine 04/06/2009 Medications pravastatin sodium(PRAVACHO L 40 MG TAB) Take one(1) tablet daily. 0 04/06/2009 Active sertraline hcl(ZOLOFT 100 MG TAB) Take one(1) tablet daily. 0 04/06/2009 Active irbesartan(AVAP RO 300 MG TAB) Take one(1) tablet daily. 0 04/06/2009 Active ciclesonide(OMN FE 50 MCG NASAL SPRAY) 2 sprays in each nostril once a day 1 unit 6 05/05/2009 Active levocetirizine dihydrochloride (XYZAL 5 MG TAB) Take one(1) tablet daily. 30 6 05/05/2009 Active azelastine hcl(ASTEPRO 0.15 % (205.5 MCG) NASAL SPRAY) as directed 0 08/11/2009 Active Active Problems Problem Noted Date Diagnosed Date Deviated nasal septum 05/05/2009 Unspecified sinusitis (chronic) 04/06/2009 Allergic rhinitis due to other allergen 04/06/20 09 Family History Medical History Relation Comments Heart Father Cancer Mother Relation Status Comments Father Mother Social History Tobacco Use Types Packs/Day Years Used Date Smoking Tobacco: Never Alcohol Use Standard Drinks/Week Comments No 0 (1 standard drink = 0.6 oz pur e alcohol) Comments No Sex and Gender Information Value Date Recorded Sex Assigned at Not on file Legal Sex Female 9:48 AM EST Gender Identity Not on file Sexual Orientation Not on file Last Filed Vital Signs Vital Sign Reading Time Taken Comments Blood Pressure 140/82 04/06/2009 9:51 AM EDT Pulse - - Temperature 36.7 C (98 F) 08/11/2009 9:14 AM EST Respiratory Rate - - Oxygen Saturation - - Inhaled Oxygen Concentration - - Weight - - Height - - Body Mass Index - - Plan of Treatment Health Maintenance Due Date Last Done Comments Anxiety Screening 02/17/1968 Depression Screening 02/17/1968 Hepatitis C Screening 02/17/1968 DTaP,Tdap,Td Vaccine (1 - Tdap) [address] Colonography 1995 Cologuard (FIT-DNA) 1995 Colonoscopy 1995 Colorectal Cancer Screening 1995 Diabetes Screening 1995 Fecal Occult Blood 1995 Lipid Screening 1995 Sigmoidoscopy 1995 Pneumococcal Vaccine: 50+ (1 of 1 - PCV) 02/17/2000 Shingrix Vaccine (1 of 2) 02/17/2000 Bone Density Screening 2015 Covid-19 Vaccine ( - 2023- season) 2024 Advance Directive Discussion 08/28/2024 RSV Vaccine (1 - 1-dose 75+ series) 2025 Influenza Vaccine (Season Ended) 2025 Insurance [facility] PPO
--- OUTSIDE RECORDS SUMMARY | 2025-02-25 07:12 | XMS_ITS | Clinical Summary ---
Author Organization [facility] Address [address] [place] [address] Care Team Providers Care Senior Net Web Developer Name Role Phone Pedro Knight DO Unavailable [phone] Gala Mccann DO Unavailable [phone] Pedro Knight DO Primary Care Provider Fletcher Ewing OD Unavailable Allergies Active Allergy Reactions Criticality Noted Date Comments Codeine Low 04/06/2009 GI upset Medications Fluticasone Propionate, Inhal, (Flovent Diskus) 100 MCG/ACT aerosol powder Inhale 1 puff in the morning. Active Respiratory Therapy Supplies (CareTouch CPAP & BIPAP Hose) misc misc use nightly Active Multiple Vitamins-Mineral s (Eye Vitamins) capsule Take 1 capsule by mouth in the morning. Active calcium carbonate 1500 (600 Ca) MG tablet Take 1 tablet by mouth in the morning. Active Probiotic Product (PROBIOTIC DAILY PO) Take 1 capsule by mouth 1 (one) time each day at the same time. Active Multiple Vitamin (multivitamin) tablet Take 1 tablet by mouth in the morning. Active albuterol HFA (Ventolin HFA) 90 mcg/act inhalerIndicatio ns:Mild intermittent asthma without complication (HCC) Inhale 2 puffs every 4 (four) hours if needed for wheezing or shortness of breath. 8 g 5 02/02/20 23 Active Sodium Fluoride 5000 PPM 1.1 % paste USE DIRECTED 12/23/19 23 Active sertraline (Zoloft) 100 MG tabletIndication s:Other specified anxiety disorders TAKE 1 TABLET BY MOUTH EVERY DAY 90 tablet 2 06/04/20 24 Active rosuvastatin (Crestor) 10 MG tabletIndication s:Essential hypertension TAKE 1 TABLET BY MOUTH EVERY DAY IN THE EVENING 90 tablet 3 07/17/20 24 Active hydroCHLOROthiaz dorinda (HYDRODiuril) 25 MG tabletIndication s:Primary hypertension TAKE 1 TABLET BY MOUTH EVERY DAY IN THE MORNING 90 tablet 3 08/08/20 24 Active irbesartan (Avapro) 150 MG tabletIndication s:Primary hypertension TAKE 1 TABLET BY MOUTH EVERY DAY 90 tablet 3 09/25/19 25 Active fluticasone (Flonase) 50 MCG/ACT nasal sprayIndications :Mild intermittent asthma without complication (HCC) SPRAY 2 SPRAYS INTO EACH NOSTRIL EVERY DAY 48 mL 1 02/11/20 25 Active fluticasone (Flonase) 50 MCG/ACT nasal sprayIndications :Mild intermittent asthma without complication (HCC) SPRAY 2 SPRAYS INTO EACH NOSTRIL EVERY DAY 48 mL 1 08/19/20 24 025 Discontinued Active Problems Problem Noted Date Diagnosed Date Irritable bowel syndrome without diarrhea 2023 IFG (impaired fasting glucose) 02/12/2024 Primary hypertension 02/01/2023 Combined hyperlipidemia 02/01/2023 SAPNA on CPAP 02/01/2023 Mild intermittent asthma without complication Recurrent mild major depressive disorder with an xiety 02/01/2023 Localized primary osteoarthritis of lower legs, bilateral 01/16/2023 Resolved Problems Problem Noted Date Diagnosed Date Resolved Date Age-related nuclear cataract of both eyes 10/24/2023 09/03/2024 Medicare annual wellness visit, subsequent 08/07/2023 08/26/2024 ACP (advance care planning) 08/07/2023 08/26/2024 Imbalance 01/16/2023 08/07/2023 Falls frequently 01/16/2023 08/07/2023 Encounters Date Type Department Care Team Description 02/10/2025 Refill [facility] [address] [place] [id number] Pedro Knight DO Mild intermittent asthma without complication (HCC) 01/15/2025 8:00 AM EDT Procedure Visit [facility] [address] [place] [address] Kecia Elise DPM Onychomycosis (Primary Dx); Pain in both feet 01/15/2025 Travel 01/14/2025 10:45 AM EDT Office Visit [facility] [address] [place] [phone] Gala Mccann, Encounter for gynecological examination without abnormal finding; Screening for malignant neoplasm of cervix; Encounter for screening mammogram for breast cancer; Screening for osteoporosis; Postmenopausal status, age-related 01/14/2025 Bamboo flowsheet [facility] [address] [place] [address] Gala Mccann, 01/14/2025 Travel 12/25/2024 External Result Encounter [facility] External Department Unsolicited Provider, Generic External Data from Last 3 Months Immunizations Immunization Administration Dates Next Due Hep A, Adult 09/02/2014,02/24/2014 Influenza, High Dose Seasona l, Preservative Free 06/12/2019,05/05/2017,06/08/2016 Influenza, High-dose Seasona l, Quadrivalent, Preservative Free 06/12/2022,06/02/2021 Influenza, Seasonal, Quadriv alent, Adjuvanted 06/03/2023,06/01/2020 Influenza, injectable, quadrivalent 05/30/2017 Influenza, injectable, quadr ivalent, preservative free 05/21/2018 Influenza, seasonal, injecta ble, preservative free 06/14/2018,05/02/2016,07/07/2015,06/26 Influenza, trivalent, adjuvanted 06/28/2019 Pneumococcal Conjugate PCV 13 11/13/2015 Pneumococcal Polysaccharide PPSV23 09/22/2017, Tdap 12/07/2022,02/17/2014 Zoster, Recombinant 08/03/2018,05/11/2018 Zoster, live 01/07/2013 Family History Medical History Relation Name Comments Accidental Father Rene Elise Glaucoma Father Rene Elise Heart disease Father Rene Elise Hypertension Father Rene Elise Asthma Father's Brother Jarred Elise Breast cancer Father's Sister Arthritis Mother Chalino Elise Breast cancer Mother Chalino Elise Cancer Mother Chalino Elise Colon cancer Mother Chalino Elise Retinal detachment Mother Chalino Elise Breast cancer Niece Breast cancer Other paternal aunt Thyroid disease Sibling Thyroid disease Sister Relation Name Status Comments Father Rene Elise Alive Father's Brother Jarred Elise Father's Sister Mother Chalino Elise Alive Niece Other paternal aunt 3 sisters, 3 s ons, 1 daughter Sibling Sister Social History Tobacco Use Types Packs/Day Years Used Date Smoking Tobacco: Never Passive Smoke Exposure: Never Smokeless Tobacco: Never Tobacco Cessation:Counseling Given: Not Answered Alcohol Use Standard Drinks/Week Comments Not Currently [...] Sign Reading Time Taken Comments Blood Pressure 120/68 01/14/2025 11:00 AM EDT Pulse 76 09/03/2024 10:00 AM EST Temperature - - Respiratory Rate - - Oxygen Saturation 97% 09/03/2024 10:00 AM EST Inhaled Oxygen Concentration - - Weight 74.8 kg (165 lb) 01/14/2025 11:00 AM EDT Height 158.1 cm (5' 2.25 ) 02/12/2024 9:34 AM ED T Body Mass Index 29.94 02/12/2024 9:34 AM EDT Plan of Treatment Upcoming Encounters Date Type Department Care Team (Late st Contact Info) Description 03/04/2025 9:30 AM EDT Office Visit [facility] [address] [place] [address] Pedro Knight DO [address] [place] [address] 03/18/2025 10:15 AM EDT Procedure Visit [facility] [address] [place] [address] Kecia Elise, DPM [address] [place] [address] 05/20/2025 8:00 AM EDT Procedure Visit [facility] [address] [place] [address] Kecia Elise, DPM [address] [place] [address] 01/20/2026 11:30 AM EDT Office Visit [facility] [address] [place] [address] Gala Mccann, [address] [place] [address] Health Maintenance Due Date Last Done Comments CT Colonography 1950 FIT-DNA 1950 FIT 1950 FOBT 1950 Sigmoidoscopy 1950 Medicare Annual Wellness (AWV) 01/14/2026 0 01/14/2025, 09/03/2024, 08/02/2022, Additional history exists Colonoscopy 02/01/2028 01/31/2023, 06/0 01/2023, 01/31/2023, Additional history exists Colorectal Cancer Screening 02/01/2028 Pneumococcal Vaccine: 65+ Years Completed 09/22/2017, 11/13/2015, 09/02/2012 Influenza Vaccine Completed 05/19/2024, , 06/12/2022, Additional history exists Mammogram Discontinued 12/25/2024, 08/30, 09/21/2022, Additional history exists Goals Goal Patient Goal Type Associated Problems Recent Progress Patient-Stated? Author Improve SLS on either leg to 10 secs without UE support General Improving(12/28 12:01 PM EDT) No Karissa Griffin, CHRISTINA Note: R 6 sec, L 4 secs Procedures Procedure Name Priority Date/Time Associated Diagnosis Comments IGP, RFX APTIMA HPV ASCU Routine 01/14/2025 12:00 AM EDT Screening for malignant neoplasm of cervix BI MAMMOGRAM SCREENING TOMOSYNTHESIS BILATERAL 12/25/2024 9:44 AM EDT COLONOSCOPY DIAGNOSTIC Routine 11:47 AM EDT from Last 3 Months or Most Recently Relevant to Health Maintenance Results * IGP, RFX APTIMA HPV ASCU (01/14/2025 12:00 AM EDT) Diagnosis: Comment [facility] Comment:NEGATIVE FOR INTRAEP ITHELIAL LESION OR MALIGNANCY. Specimen Adequacy: Comment [facility] Comment: Satisfactory for evaluation. Endocervical and/or squamous metaplastic cells (endocervical component) are present. Clinician Provided ICD10: Comment [facility] Comment:Z12.4 Performed By: Comment [facility] Comment:Barbie morrissey, Replanting Machine Crewman ([facility]) Cyto Comments . [facility] Note: Comment [facility] Comment: The Pap smear is a screening test designed to aid in the detection of premalignant and malignant conditions of the uterine cervix. It is not a diagnostic procedure and should not be used as the sole means of detecting cervical cancer. Both false-positive and false-negative reports do occur. Test Methodology: Comment [facility] Comment: This liquid based ThinPrep(R) pap test was screened with the use of an image guided system. . Comment [facility] Comment: The HPV DNA reflex criteria were not met with this specimen result therefore, no HPV testing was performed. 01/14/2025 01/15/2025 Narrative [facility] - 01/16/2025 1:07 PM EDT Performed at: [address] [place] [id number] Outside Rigger: Adrianne Amato MD, Phone: [phone] Specimen Comment: [id number] Specimen Comment: No. of containers..01 ThinPrep Vial us Gala Mccann DO LAB BLOOD ORDERABLES Final Result [facility] * Bilateral screening mammogram with tomosynthesis (12/25/2024 [...] Rendon M.D. 12/25/2024 9:51 AM Dictation Location: [facility] Dictated By: Italia Rednon MD 12/25/2444 Signed By: <Electronically signed by MD Italia Rendon in [place]> 12/25/24 0951 Narrative 12/25/2024 9:54 AM EDT [facility] [address] [place] [address] Mammography Report Signed Patient: Nataliya Augustine MR#: [id number] : 1950 Acct:[id number] Age/Sex: 74 / F Adm Date: 12/25/24 Loc: [place] Room: Type: [facility] Attending Dr: Referral Self Ordering Provider: SELF,REFERRAL Date of Service: 12/25/24 Procedure(s): MM screening mammo BI w/CAD Accession Number(s): ([id number]) MM/MM screening mammo BI w/CAD: SCREENING Copies to: DO Gala Bolden, SELF,REFERRAL CLINICAL DATA: Screening for malignancy. BILATERAL [...] w/CAD Procedure Note Radiology, Radiologist, - 12/25/2024 [place] [address] Mammography Report Signed Patient: Nataliya Augustine JMR#: [id number] : 1950Acct:[id number] Age/Sex: 74 / FAdm Date: 12/25/24 Loc: [place] Room:Type: [facility] Attending Dr: Referral Self Ordering Provider: SELF,REFERRAL Date of Service: 12/25/24 Procedure(s): MM screening mammo BI w/CAD Accession Number(s): ([id number]) MM/MM screening mammo BI w/CAD:SCREENING Copies to: Pedro Knight,DO Gala Mccann, SELF,REFERRAL CLINICAL DATA: Screening for malignancy. BILATERAL [...] Rendon M.D. 12/25/2024 9:51 AM Dictation Location: S Dictated By: Italia Rendon MD 12/25/24 0944 Signed By: <Electronically signed by MD Italia Rendon in [place]> 12/25/24 0951 Generic External Data Provider ABDI BI PROCEDURES Final Result * COLONOSCOPY DIAGNOSTIC (01/31/2023 11:47 AM EDT) Anatomical Region Laterality Modality Radiographic Jacquelyn ging Historical Provider MD [facility] XR PROCEDURES Edited Result - Final from Last 3 Months or Most Recently Relevant to Health Maintenance Insurance MEDICARE [facility] INSURANCE Advance Directives * Full Code (Latest Code Status on File) Date Activated Date Inactivated Comments 08/07/2023 9:31 AM Care Teams Senior Net Web Developer Relationship Specialty Start Date End Date Pedro Knight DO [address] [place] [address] PCP - ACO Reach 01/19/23 Pedro Knight DO [address] [place] [address] PCP - General Internal Medicine 09/27/23 Gala Mccann DO [address] [place] [address] Referring Physician Obstetrics and Gynecology 08/07/23 Fletcher Ewing OD [address] [place] [address] Referring Physician Optometry 10/24/23
--- OUTSIDE RECORDS SUMMARY | 2025-02-25 07:12 | XMS_ITS | Encounter Summary ---
Author Organization [facility] Address [address] [place] [address] Care Team Providers Care Dragline Engineer Name Role Phone Pedro Knight DO Unavailable [phone] Pedro Knight DO Primary Care Provider + [phone] Gala Mccann DO Unavailable [phone] Pedro Knight DO Primary Care Provider + [phone] Fletcher Ewing OD Unavailable Encounter Details Date Type Department Care Team (Late st Contact Info) Description 09/26/2023 External Result Encounter [facility] Department Unsolicited Gala Mccann, DO [address] [place] [address] Social History Tobacco Use Types Packs/Day Years [...] 03/04/2025 9:30 AM EDT Office Visit [facility] IM [address] [place] [address] Pedro Knight, DO [address] [place] [address] 03/18/2025 10:15 AM EDT Procedure Visit [facility] PODIATRY [address] [place] [phone] Kecia Elise, DPM [address] [place] [address] 05/20/2025 8:00 AM EDT Procedure Visit [facility]OD[facility] [address] [place] [phone] Kecia Elise, DPM [address] [place] [address] 01/20/2026 11:30 AM EDT Office Visit [facility] OB [address] [place] [phone] Gala Mccann, DO [address] [place] [address] documented as of this encounter Goals Goal Patient Goal Type Associated Problems Recent Progress Patient-Stated? Author Improve SLS on either leg to 10 secs without UE support General Improving(12/28 12:01 PM EDT) No Karissa Griffin PTA Note: R 6 sec, L 4 secs documented as of this encounter Procedures Procedure Name Priority Date/Time Associated Diagnosis Comments BI MAMMOGRAM SCREENING BILATERAL 09/26/2023 2:20 PM EST documented in this encounter Results * Bilateral screening mammogram (09/26/2023 2:20 PM EST) Anatomical Region Laterality Modality Breast Bilateral Mammography 09/26/2023 2:20 PM EST Impressions 09/26/2023 2:26 PM EST NO MAMMOGRAPHIC EVIDENCE OF MALIGNANCY. ROUTINE FOLLOW-UP [...] Italia Rendon M.D.09/26/2023 2:24 PM Dictation Location: [facility] Transcribed By: ALYSIA 09/26/23 1424 Dictated By: Italia Rendon MD 09/26/23 1420 Signed By: <Electronically signed by MD Italia Rendon in [place]> 09/26/23 1424 Narrative 09/26/2023 2:26 PM EST [place] [address] Mammography Report Signed Patient: Nataliya Augustine MR#: [id number] 83 : 1950 Acct:[id number] Age/Sex: 73 / F ADM Date: 09/26/23 Loc: [place] Room: Type: [facility] Attending Dr: Gala Mccann DO Copies [...] BI w/CAD Procedure Note Radiology, Radiologist, - 09/26/2023 [facility] [place] [address] [place] [address] Mammography Report Signed Patient: Nataliya Augustine JMR#: [id number] : 1950Acct:[id number] Age/Sex: 73 / FADM Date: 09/26/23 Loc: [place] Room:Type: [facility] Attending Dr: Gala Mccann DO Copies to: DO Gala Bolden DO Ordering Provider: Gala Mccann DO Date of Service: 09/26/23 MM/MM screening mammo BI w/CAD:screening;Screening for breast cancer CLINICAL DATA: Screening for malignancy. BILATERAL SCREENING MAMMOGRAMS - FULL FIELD DIGITAL WITH TOMOSYNTHESIS ANDCAD Tomosynthesis craniocaudal and mediolateral oblique views of both breastswere obtained using low- dose digital technique. Comparison is made to prior studies from 2019 through September 21, 2022. This examination was reviewed with the aid of CAD. There are scattered fibroglandular densities. There is postoperativescarring at the superior lateral left breast. Benign and vascular calcifications are seen. One ofthe nodular asymmetries seen previously on the left has resolved. There are no developing masses,typically malignant calcifications or architectural distortion. There has been no significantinterval change. MM/MM screening mammo BI w/CAD IMPRESSION: [...] thenext mammogram. Impression dictated by: Italia Rendon M.D.09/26/2023 2:24 PM Dictation Location: [facility] Transcribed By: ALYSIA 09/26/23 1424 Dictated By: Italia Rendon MD 09/26/23 1420 Signed By: <Electronically signed by MD Italia Rendon in [place]> 09/26/23 1424 Gala Mccann DO IMG BI PROCEDURES Final Res ult documented in this encounter Visit Diagnoses Not on filedocumented in this encounter Care Teams Dragline Engineer Relationship Specialty Start Date End Date Pedro Knight DO [address] [place] [address] PCP - ACO Reach 01/19/23 Pedro Knight DO [address] [place] [address] PCP - General Internal Medicine 02/01/23 09/26/23 Pedro Knight DO [address] [place] [address] PCP - General Internal Medicine 09/27/23 Gala Mccann DO [address] [place] [address] Referring Physician Obstetrics and Gynecology 08/07/23 Fletcher Ewing OD [address] [place] [address] Referring Physician Optometry 10/24/23 documented as of this encounter
[2025-02-25 07:39] LABS: Hematocrit 39.9 % (36.0-48.0); Hemoglobin 13.2 g/dL (12.0-16.0); Mean Corpuscular HGB Conc 33.1 g/dL (29.9-35.2); Mean Corpuscular Hemoglobin 30.7 pg (26.7-34.0); Mean Corpuscular Volume 92.8 fL (81.0-99.0); Platelet Count 216 10^3/uL (150-450); Red Blood Count 4.30 10^6/uL (4.20-5.40); White Blood Count 4.7 10^3/uL (4.0-11.0)
[2025-02-25 09:19] LABS: Alanine Aminotransferase 21 U/L (14-59); Albumin Globulin Ratio 1.1; Albumin Level 3.6 g/dL (3.4-5.0); Alkaline Phosphatase 73 U/L (46-116); Anion Gap 15.3; Aspartate Amino Transferase 15 U/L (15-37); Blood Urea Nitrogen 26.0 mg/dL (7.0-18.0); Calcium 9.2 mg/dL (8.5-10.1); Carbon Dioxide 26.6 mmol/L (21.0-32.0); Chloride 104 mmol/L (98-107); Cholesterol 154 mg/dL (<=200); Estimated GFR (African America >60 (>=60 mL/min/1.73m^2); Estimated GFR (Non-African Ame >60 (>=60 mL/min/1.73m^2); Globulin 3.4 g/dL; Glucose 104 mg/dL (74-106); HDL Cholesterol 66 mg/dL (40-60); Potassium 3.9 mmol/L (3.5-5.1); Sodium 142 mmol/L (136-145); Thyroid Stimulating Hormone 4.958 uIU/mL (0.358-3.740); Total Protein 7.0 g/dL (6.4-8.2); Triglycerides 84 mg/dL (<=150); VLDL CHOLESTEROL 16.8 mg/dL
[2025-02-25 09:36] LABS: Microalbum Creatinine Ratio Ur 71.3 mg/g (0.0-29.9)
== END 2025-02-25 07:07 | disposition home or self-care (01) ==
LOC: LAB 07:10
PROVIDERS: PCP Internal Medicine; Visit Provider Nurse Practitioner Adult Health
DX: R73.01 Impaired fasting glucose (principal); I10 Essential (primary) hypertension; Z79.899 Other long term (current) drug therapy; E55.9 Vitamin D deficiency, unspecified; E78.2 Mixed hyperlipidemia
CPT/HCPCS: 36415; 80053; 80061; 82043; 82306; 82570; 83036; 84443; 85027

== ENCOUNTER 2025-05-28 06:56 | Outpatient (OUT) | payer MEDICARE, OTHER, SELFPAY ==
[2025-05-28 08:03] LABS: Hematocrit 37.3 % (36.0-48.0); Hemoglobin 12.4 g/dL (12.0-16.0); Immature Granulocytes Abs Auto 0.00 10^3/uL (0.00-0.03); Immature Granulocytes Pct Auto 0.0 % (0.0-0.5); Lymphocytes Absolute Auto 1.7 10^3/uL (1.2-3.8); Mean Corpuscular HGB Conc 33.2 g/dL (29.9-35.2); Mean Corpuscular Hemoglobin 31.2 pg (26.7-34.0); Mean Corpuscular Volume 93.7 fL (81.0-99.0); Platelet Count 225 10^3/uL (150-450); Red Blood Count 3.98 10^6/uL (4.20-5.40); White Blood Count 4.6 10^3/uL (4.0-11.0)
[2025-05-28 09:17] LABS: Alanine Aminotransferase 21 U/L (14-59); Albumin Globulin Ratio 0.9; Albumin Level 3.5 g/dL (3.4-5.0); Alkaline Phosphatase 84 U/L (46-116); Anion Gap 11.5; Aspartate Amino Transferase 15 U/L (15-37); Blood Urea Nitrogen 22.0 mg/dL (7.0-18.0); Calcium 9.1 mg/dL (8.5-10.1); Carbon Dioxide 29.2 mmol/L (21.0-32.0); Chloride 106 mmol/L (98-107); Estimated GFR (African America >60 (>=60 mL/min/1.73m^2); Estimated GFR (Non-African Ame >60 (>=60 mL/min/1.73m^2); Free T3 1.88 pg/mL (2.18-3.98); Globulin 3.9 g/dL; Glucose 98 mg/dL (74-106); Potassium 3.7 mmol/L (3.5-5.1); Sodium 143 mmol/L (136-145); Thyroid Stimulating Hormone 6.036 uIU/mL (0.358-3.740); Total Protein 7.4 g/dL (6.4-8.2)
== END 2025-05-28 06:57 | disposition home or self-care (01) ==
LOC: LAB 06:56
PROVIDERS: PCP Internal Medicine; Visit Provider Internal Medicine
DX: E78.2 Mixed hyperlipidemia (principal); I10 Essential (primary) hypertension
CPT/HCPCS: 36415; 80053; 83036; 84439; 84443; 84481; 85025